=== PATIENT | female | born 1945 | race Caucasian/White ===

== ENCOUNTER 2017-04-06 14:30 | Outpatient (RCR) | payer MEDICARE, OTHER, SELFPAY ==
--- NOTE | 2017-02-21 12:44 | HP.PTEVAL_ITS ---
Patient's Visit Information MAVIS KOO is a 71 year old F referred to Physical Therapy by Varun Sanchez with a diagnosis of Left TKR. Date of Evaluation: 02/21/17 Physical Therapist: Deloris Yen - Visit Plan Frequency: 2x /Week Duration: 4 Weeks Plan: TKR 02/06/[address] Porras- focus on ROM and functional mobility - Subjective Subjective: Patient reports that she had a knee replacement 02/06/[address] Porras- was then transferred to TCU for 10 days. Went [place]- [place] with stairs to get in- but she has a chair lift. She has a woman that comes in 2 days a week to help with laundry, cleaning, cooking, and grocery shopping. Can use her until she feels that she can get back to doing it by herself. Before surgery she was fully I and driving. She reports pain is excrutiating. She was getting 94 degrees of flexion at the hospital with the help of the therapist. Pain at its worst is a 9/10 and Best: 0/10 Agg: being up on it, bending it Eases: elevation, ice machine. Describes pain as dull and achy. Numbness and Tingling in her foot but that is normal for her. She feels that she should be further along because her other knee replacement 3 years ago was a lot easier. Pain is located along the entire leg. Checked for DVT at the hospital but it was negative. PMHx/Meds: no change since surgery. - Objective Posture: FH, RS, Increased kyphosis. Gait: antalgic- FWW, decreased step length and stance time on the left LE- poor heel/toe pattern. Stairs:asc/desc 8 '' non- recip with 2 HR. HR/TR: able without pain but requires UE A. Balance: WS but unable to SLS. Palpation: tender throughout left LE. Edema: moderate. ROM: 10-90 degrees with over pressure at end ranges and pain. Strength: ankle: 5/5, Knee: 4/5 in available range, Hip: 4-/5 - Goals Goal 1:: Patient will be I with HEP and progression Goal Time Frame: 4-6 Weeks Goal 2:: Patient will demo 0-115 degrees in the left LE Goal Time Frame: 4-6 Weeks Goal 3:: Patient will asc/desc 8 stairs recip with 1 HR Goal Time Frame: 4-6 Weeks Goal 4:: Patient will report 2/10 pain and return to all normal activities Goal Time Frame: 4-6 Weeks - Rehabilitation Potential Physical Therapy Diagnosis: Patient presents with hypmobility s/p TKR- decreased ROM, strength and muscular endurnace leading to decreased ability to perform ADL's. Rehabilitation Potential: Good - Anticipated Interventions Patient/Client Instruction: Educate patient on: Benefits of Fitness Program For the Purpose of:: To increase tolerance to activity/condition/position Therapeutic Exercise to Include: Strength training, Endurance training, Balance training, Agility training, Body mechanics, Postural training, Flexibilty training, Gait and locomotor training, Passive ROM, Active ROM, Dynamic Lumbar Stabilization For the Purpose of:: To improve muscle performance and motor function TENS: Yes Cryotherapy (ice pack, ice massage): Yes Thermo therapy (hot pack): Yes Ultrasound (thermal/non thermal): No For the Purpose of:: To decrease pain, To decrease swelling/inflammation Thank you for the opportunity to evaluate your patient. For Medicare and Medicare HMO plans, please review the plan of care and approve it. It will need to be FAXED BACK to us at [phone] for Medicare purposes. Please let me know if there are questions or concerns regarding this plan of care. Physician Signature: Date:
--- NOTE | 2017-03-22 15:07 | HP.PTREVAL_ITS ---
Varun Sanchez, It has been my pleasure to treat MAVIS KOO over the last 9 visits for Left TKR. Please see the progress note below for an update on the physical therapy plan of care! Subjective: Patient reports that she is getting along pretty good. Better when she comes to therapy due to stiffness and hard to find ways at home to keep it moving. The swelling is still an issue- she is doing her compression machine at home. Was at the MD last week who was happy with incision healing but really wants her to keep coming to therapy and get this moving. Has been using the walker for 4 years but would like to get back off the walker with the new knee replacements. Objective/Function: Gait: slightly antalgic- slow and poor heel/toe pattern. Posture: FH, RS. Balance: WS. HR/TR: able. Palpation: tender along joint line. ROM: 10-100 degrees. Edema: severe throughout LE. Stairs: non recip with 2 HR Plan Plan: Continue 3x a week for 3 weeks Goals Goal 1:: Patient will be I with HEP and progression Goal Time Frame: 4-6 Weeks Goal Progress: Progressing Goal 2:: Patient will demo 0-115 degrees in the left LE Goal Time Frame: 4-6 Weeks Goal Progress: Progressing Goal 3:: Patient will asc/desc 8 stairs recip with 1 HR Goal Time Frame: 4-6 Weeks Goal Progress: Progressing Goal 4:: Patient will report 2/10 pain and return to all normal activities Goal Time Frame: 4-6 Weeks Goal Progress: Progressing Anticipated Interventions Patient/Client Instruction: Educate patient on: Benefits of Fitness Program For the Purpose of:: To increase tolerance to activity/condition/position Therapeutic Exercise to Include: Strength training, Endurance training, Balance training, Agility training, Body mechanics, Postural training, Flexibilty training, Gait and locomotor training, Passive ROM, Active ROM, Dynamic Lumbar Stabilization For the Purpose of:: To improve muscle performance and motor function TENS: Yes Cryotherapy (ice pack, ice massage): Yes Thermo therapy (hot pack): Yes Ultrasound (thermal/non thermal): No For the Purpose of:: To decrease pain, To decrease swelling/inflammation Please do not hesitate to contact me at [phone] by phone or Fax: if you have questions or concerns regarding this new plan of care! Sincerely, Deloris Yen
--- NOTE | 2017-06-19 10:46 | HP.PT.NRP ---
HP - Discharge Summary (1) - Patient Information MAVIS KOO was seen in my office for initial evaluation on 02/21/17. The following Plan of Care was established for this patient: Initial Frequency: 2x /Week Initial Duration: 4 Weeks - Anticipated Interventions Patient/Client Instruction: Educate patient on: Benefits of Fitness Program For the Purpose of:: To increase tolerance to activity/condition/position Therapeutic Exercise to Include: Strength training, Endurance training, Balance training, Agility training, Body mechanics, Postural training, Flexibilty training, Gait and locomotor training, Passive ROM, Active ROM, Dynamic Lumbar Stabilization For the Purpose of:: To improve muscle performance and motor function TENS: Yes Cryotherapy (ice pack, ice massage): Yes Thermo therapy (hot pack): Yes Ultrasound (thermal/non thermal): No For the Purpose of:: To decrease pain, To decrease swelling/inflammation This patient was last seen in our office . Pertinent comments regarding their Physical therapy will appear below: Patient has not attended therapy in 4 weeks and is appropriate for d/c at this time. At this point I will be discontinuing this patient from physical therapy. I would be happy to see this patient again in the future if found appropriate by the physician. Thank you! Deloris Yen
== END 2017-04-06 19:00 | disposition home or self-care (01) ==
LOC: PT 14:30
PROVIDERS: Family Provider Student in an Organized Health Care Education/Training Program; PCP Student in an Organized Health Care Education/Training Program; Visit Provider Family Medicine Geriatric Medicine
DX: M17.12 Unilateral primary osteoarthritis, left knee (principal); R26.2 Difficulty in walking, not elsewhere classified; Z96.652 Presence of left artificial knee joint
CPT/HCPCS: 97016; 97110; 97161; 97162; 97530

== ENCOUNTER → 2017-04-17 13:03 | Outpatient (CLI) | payer MEDICARE, OTHER, SELFPAY ==
--- NOTE | 2017-04-17 13:00 | CT_ITS ---
STUDY: CT ABDOMEN WITH CONTRAST REASON FOR EXAM: Female, 71 years old. Upper abdominal pain RADIATION DOSAGE (If Supplied By Facility): CTDIvol = ( 17.66 ) mGy, DLP = ( 637.66 ) mGycm TECHNIQUE: Transaxial images were obtained post I.V. administration of 75 ml of Isovue 370 contrast, and with oral contrast. Sagittal and coronal images were reconstructed. Individualized dose optimization techniques were used for this CT. COMPARISON: None. FINDINGS: The visualized lung bases are unremarkable. The visualized portions of the heart are within normal limits. Normal liver. Normal gallbladder and extrahepatic biliary system. Normal spleen. Normal pancreas. Normal bilateral adrenal glands. 1.4 cm simple right renal cortical cyst. Normal left kidney. Normal visualized stomach. Normal small intestine. Normal colon. Appendix and some bowel not included within the [id number] in the pelvis. Normal abdominal aorta. Normal inferior vena cava. Normal retroperitoneum. Normal abdominal wall. Moderate dextroconvex scoliosis and multilevel vacuum disc phenomenon. CT/Abdomen WITH IV Contrast IMPRESSION: Normal enhanced CT of the abdomen. Electronically Signed: Blanco Sanders MD at 23:56 EST , Service support ,
[2017-04-17 13:20] LABS: CREATININE FINGERSTICK 0.8 mg/dL (0.55-1.02); EGFR FINGERSTICK > 60.0000 mL/min (>60)
== END ==
PROVIDERS: Family Provider Student in an Organized Health Care Education/Training Program; PCP Student in an Organized Health Care Education/Training Program; Visit Provider Surgery
DX: R10.9 Unspecified abdominal pain (principal)
CPT/HCPCS: 74160; Q9967

== ENCOUNTER 2017-05-19 06:28 | Day surgery (SDC) | payer MEDICARE, OTHER, SELFPAY ==
[2017-05-19] VITALS (7 sets, daily range): BP systolic 92–118; BP diastolic 50–75; PULSE 69–73; RESP 14–16; TEMP 36.3–37.2; O2SAT 93–99; BMI 34.6
--- NOTE | 2017-05-19 | IMM_PTH ---
PATIENT: MAVIS KOO LOC: EN U#:[id number] AGE/SX: 71/F ROOM: RE05/19/[address]: Dr. Isaac Norris MD : 1945 BED: DIS: 05/19/2017 SPEC #: [id number] RECD: 05/22/17 11:23 STATUS: JEFF SUE #: [id number] FELIBERTO: 05/19/17 00:[address]: Isaac Norris DEPT: IMMUNOHISTOCHEMISTRY RECD BY: Berkley Jj ENTERED: 05/22/17 11:23 SP TYPE: IMMUNO OTHR DR: Dr. Samuel Hull, Tissues: B - Stomach, NOS Procedures: H Pylori (initial) PHYSICIAN & INSTITUTION [place] [address] SPECIMEN INFORMATION: Tissue Source: B ? Antral biopsy Clinical Info: Screen Specimen Number: [id number] CPT code: 43307 METHODOLOGY: Deparaffinized sections of prefer/formalin-fixed tissue or PAP/DQ stained slides are incubated with monoclonal/polyclonal antibodies/oligonucleotide probes. Localization is made via biotin free immunoperoxidase method. Appropriate controls are performed and reacted as expected. Results on target cell population are indicated in the following table: RESULTS: ANTIBODY / CLONE RESULT Block B H Pylori (polyclonal) negative These tests were developed and their performance characteristics determined by [facility]. They may not have been cleared or approved by the U.S. Food and Drug Administration. The FDA has determined that such clearance or approval is not necessary. INTERPRETATION: B. Antral biopsy: Negative for Helicobacter pylori organisms. SJ:flo 05/23/17
--- NOTE | 2017-05-19 | EGD_PTH ---
PATIENT: MAVIS KOO LOC: EN U#:[id number] AGE/SX: 71/F ROOM: RE05/19/[address]: Dr. Isaac Norris MD : 1945 BED: DIS: 05/19/2017 SPEC #: [id number] RECD: 05/19/17 11:21 STATUS: JEFF SUE #: [id number] FELIBERTO: 05/19/17 00:[address]: Isaca Norris DEPT: SURGICAL PATHOLOGY RECD BY: Derek Garibay ENTERED: 05/19/17 12:09 SP TYPE: EGD BIOPSY OT DR: Dr. Samuel Hull, Tissues: A - Duodenum, NOS B - Gastric mucous membrane C - Esophageal mucous membrane Procedures: Surgery Specimen Level IV HEADER OPERATION: EGD PRE-OP DIAGNOSIS: Screen TISSUE SUBMITTED: A ? Duodenal biopsy, B ? Antral biopsy and H. pylori, C ? Distal esophagus biopsy MICROSCOPIC DIAGNOSIS A. Duodenal biopsy: Fragment of small intestinal mucosa, no pathologic diagnosis. B. Antral biopsy: Mild gastritis. C. Distal esophagus, biopsy: Fragments of squamous epithelium with minimal chronic inflammation. SJ:flo 05/22/17 COMMENT B. The results of immunohistochemistry for Helicobacter pylori will be reported separately ([id number]). MICROSCOPIC DESCRIPTION Slides are reviewed. B. The specimen shows fragments of gastric mucosa with chronic inflammatory cell infiltrates in the lamina propria consisting of lymphocytes and plasma cells, consistent with mild chronic gastritis. GROSS DESCRIPTION A - Received in fixative is one container labeled with the patient's name and designated duodenal biopsy. The specimen consists of multiple irregular fragments of light morales soft tissue that in aggregate measure 0.6 x 0.5 x 0.1 cm. The specimen is totally submitted in one cassette. B - Received in fixative is one container labeled with the patient's name and designated antral biopsy. The specimen consists of one irregular fragment of light morales soft tissue that measures 0.6 x 0.3 x 0.1 cm. The specimen is totally submitted in one cassette. C - Received in fixative is one container labeled with the patient's name and designated distal esophagus. The specimen consists of two irregular fragments of light morales soft tissue that in aggregate measure 0.6 x 0.6 x 0.1 cm. The specimen is totally submitted in one cassette. / AM:flo 05/19/17 TC:3 CPT: 27864 x3
--- NOTE | 2017-05-19 07:52 | PCM.OPRPT ---
Problem List (1) Epigastric pain Status: Acute Report of Operation Date of Procedure: 05/19/17 Pre-Operative Diagnosis: Epigastric pain Post-Operative Diagnosis: Antral gastritis, suspected bile reflux gastritis Surgery/Procedure Performed:: Esophagogastroduodenoscopy with biopsies Description of Surgical Findings:: Timeout and informed consent was obtained. 71-year-old female was taken to the endoscopy suite. Her oropharynx anesthetized with Topex. She was placed in left loud skin position. Throughout the procedure in aliquots she received a total of 75 mg of Demerol and 2.5 mg of Versed is intravenous sedation. Under direct physician Terrance gastroscope inserted into the esophageal inlet was advanced without difficulty. The proximal mid distal esophagus did not appear to be remarkable. EG junction was at 37 cm. A small hiatal hernia was indeed noted. I did not see any gross evidence of reflux changes. The scope was advanced into the stomach and immediately stomach full of bile was encountered. There was mild antral erythema. The scope was advanced through the pylorus for circumflex first and second portions of the duodenum were inspected. This did not appear to be remarkable. Duodenal biopsy was obtained. The scope was withdrawn back in the stomach retroflexed the EG junction was inspected. A hiatal hernia noted. The scope was placed back in antegrade viewing position. Greater and lesser curvatures were inspected. A mild diffuse erythema of the antrum noted. No ulcerations. The scope was advanced back down and antral biopsy was obtained. Excess fluid and air was aspirated free. The scope was withdrawn to the distal esophagus were distal esophageal biopsy was obtained. The scope was further withdrawn without additional abnormality. Impression Mild antral gastritis. Significant amount of bile staining of the stomach suspicious for bile reflux gastritis. Hiatal hernia. I will recommend initiated patient on sucralfate 1 g before meals and at bedtime. She will be notified of pathology results. If this resolves her abdominal pain that no further surgical intervention will be pursued. If her abdominal pain persists then she will need to consider whether she pursues a more technically challenging laparoscopic cholecystectomy for tentative biliary dyskinesia with increased operative risk secondary to a previous large mesh ventral hernia repair. Cc: Dr. Hull Medications were given at 0742. Procedure was initiated 0743. The procedure was completed at 0748. Isaac Norris M.D., F.A.C.S. Type of Anesthesia:: IV Sedation
== END 2017-05-19 08:50 | disposition home or self-care (01) ==
LOC: EN 06:28 → AC 06:31
PROVIDERS: Family Provider Student in an Organized Health Care Education/Training Program; PCP Student in an Organized Health Care Education/Training Program; Visit Provider Surgery
PROC: (CPT 43239; principal; 2017-05-19 07:25)
DX: K21.0 Gastro-esophageal reflux disease with esophagitis (principal); K29.70 Gastritis, unspecified, without bleeding; K44.9 Diaphragmatic hernia without obstruction or gangrene; G47.30 Sleep apnea, unspecified; Z85.038 Personal history of other malignant neoplasm of large intestine; Z87.19 Personal history of other diseases of the digestive system; E53.8 Deficiency of other specified B group vitamins; I25.10 Atherosclerotic heart disease of native coronary artery without angina pectoris; Z86.59 Personal history of other mental and behavioral disorders; Z86.39 Personal history of other endocrine, nutritional and metabolic disease; R73.01 Impaired fasting glucose; G25.81 Restless legs syndrome; J30.9 Allergic rhinitis, unspecified; I10 Essential (primary) hypertension; N81.10 Cystocele, unspecified; G62.9 Polyneuropathy, unspecified; M21.331 Wrist drop, right wrist; I83.215 Varicose veins of right lower extremity with both ulcer other part of foot and inflammation; L97.512 Non-pressure chronic ulcer of other part of right foot with fat layer exposed; Z87.2 Personal history of diseases of the skin and subcutaneous tissue; M17.12 Unilateral primary osteoarthritis, left knee; R01.1 Cardiac murmur, unspecified; Z86.69 Personal history of other diseases of the nervous system and sense organs; Z96.651 Presence of right artificial knee joint; Z90.49 Acquired absence of other specified parts of digestive tract; Z79.82 Long term (current) use of aspirin; Z79.899 Other long term (current) drug therapy
CPT/HCPCS: 43239; 88305; 88342; J7120

== ENCOUNTER → 2017-06-30 08:07 | Outpatient (CLI) | payer MEDICARE, OTHER, SELFPAY ==
--- NOTE | 2017-06-30 08:25 | RAD_ITS ---
PROCEDURE: SMALL BOWEL SERIES DATE OF EXAMINATION: June 30, 2017. INDICATION: Female, 71 years old. Chronic abdominal pain and abdominal pressure. PHYSICIAN: mOar Blake M.D. FLUOROSCOPY TIME (if supplied): (0:37) minutes/seconds TECHNIQUE: Radiographic and fluoroscopic images were taken of the small intestine following the ingestion of barium. COMPARISON: None. FINDINGS: A preliminary supine KUB was obtained. There is an unremarkable bowel gas pattern. Fecal material is present throughout the colon. Phleboliths are present within the pelvis. Increased linear markings at the lung bases suggestive scarring and/or linear atelectasis. Mild elevation of the right hemidiaphragm. Multilevel degenerative changes of the lumbar spine with dextroscoliosis. The patient orally ingested approximately 12 ounces of thin barium Normal visualized fundus, body, and antrum of the stomach. Normal duodenal bulb, C-loop, and proximal jejunum. Normal visualized mucosal folds of the jejunum and ileum. There are no demonstrated dilatations, strictures, or masses of the small intestine. There is no mass displacement of the loops of small intestine. There is a normal motor pattern with barium reaching the colon within approximately 90 minutes. Spot films under fluoroscopic observation demonstrated a normal terminal ileum and ileocecal valve. RAD/Small Bowel Series Only IMPRESSION: Normal small bowel series. Electronically Signed: Omar Blake MD at 12:42 EDT Tel [phone], Service support ,
== END ==
PROVIDERS: Family Provider Student in an Organized Health Care Education/Training Program; PCP Student in an Organized Health Care Education/Training Program; Visit Provider Internal Medicine Gastroenterology
DX: R10.9 Unspecified abdominal pain (principal); G89.29 Other chronic pain
CPT/HCPCS: 74250

== ENCOUNTER 2017-08-12 19:17 | Emergency (ER) | payer MEDICARE, OTHER, SELFPAY ==
[2017-08-12 19:18] VITALS: BP 156/78; PULSE 91; RESP 18; TEMP 36.7; O2SAT 97; BMI 35.7
--- NOTE | 2017-08-12 19:33 | NURSING ---
PT ARRIVES W/ACTIVE NOSEBLEED. STATES THIS HAS BEEN HAPPENING FREQUENTLY, INCLUDING 2X TODAY. KNOWN TO DR PAT, BUT HAS NOT SEEN HIM FOR SEVERAL YEARS.
[2017-08-12] MEDS: HYDROcodone Bitartrate/Apap 5/325 Tablet PO (21:11)
[2017-08-12 21:17] VITALS: BP 154/82; PULSE 69; RESP 18; O2SAT 96
[2017-08-12 21:35] LABS: Hematocrit 35.8 % (37-47); Hemoglobin 11.7 g/dl (12.0-15.0); Mean Corp Hgb Conc 32.7 g/gl (32-36); Mean Corpuscular Hgb 28.2 pg (27.0-32.0); Mean Corpuscular Volume 86.3 fL (81-99); Mean Platelet Vol. 8.1 fl (6.2-12.0); Platelet Count 259 K/mm3 (150-450); RBC Distribution Width CV 14.6 % (11.6-14.6); RBC Distribution Width SD 46.2 fl (35.1-43.9); Red Blood Count 4.15 M/mm3 (4.2-5.4); Scan Indicated on CBC? Y/N NO; White Blood Count 7.4 K/mm3 (4.4-11.0)
[2017-08-12 21:40] LABS: International Normalized Ratio 1.1
[2017-08-12 21:45] LABS: Anion Gap 8 (5-15); BUN 14 mg/dL (7-18); BUN/Creat Ratio 23.3 RATIO (10-20); Calcium,Total 9.1 mg/dL (8.5-10.1); Chloride 106 mmol/L (98-107); EST Glomerular Filtration Rate 105 mL/min (>60); Est Glom Filt Rate - Afr Amer 126 mL/min (>60); Glucose 117 mg/dL (74-106); Potassium 3.9 mmol/L (3.5-5.1); Sodium Level 138 mmol/L (136-145)
[2017-08-12 22:00] VITALS: O2SAT 88
--- NOTE | 2017-08-12 22:14 | ED.DCSUM_ITS ---
- ER Visit Summary Date of Service: 08/12/17 Chief Complaint: Epistaxis History of Present Illness: The patient is a 71 F who presents with epistaxis. No history of prior similar symptoms she is on a baby aspirin but no other antiplatelet agents or anticoagulants. Her symptoms began about 2-1/2 hours ago. She was unable to control her bleeding so presented here. She otherwise denies any complaints such as chest pain shortness of breath lightheadedness dizziness. Physical Examination: Afebrile vitals are stable Patient has brisk epistaxis from the right nostril I am unable to clearly identify a source of bleeding due to active bleeding. Moist mucous membranes Heart regular rate and rhythm Lungs clear Abdomen soft Alert Test Results: Labs notable for hemoglobin 11.7 otherwise essentially normal. Emergency Department Course and Treatment: An Afrin-soaked cotton ball was placed in the right nare. When this was removed there was a large clot as well. A 7-1/2 cm Rhino Rocket type packing was placed. Her bleeding does appear to be well-controlled. She has some very minimal oozing from the left but no evidence of active significant bleeding. On reevaluation with packing in place she is desaturating to 86%. We will place patient on nasal cannula through the left nostril. Given the hypoxia and ongoing mild oozing I did feel the patient should be placed in observation. I also spoke to Dr. Dominguez, otolaryngology who advised continuing current treatment. Patient can follow-up as an outpatient in couple of days for packing removal. Treatment Plan: [] Disposition: Admit Impression: Epistaxis Right nasal packing This note was generated with [employer] dictation software. It may contain incorrect words, spelling, and punctuation that were not noted in review of the chart prior to signing ED Disposition - Plan for ED Patient: Chief Complaint: Nosebleed Referrals: Samuel Hull DO [Primary Care Provider] -
--- NOTE | 2017-08-12 22:51 | ED.DEP ---
ED Disposition - Plan for ED Patient: Chief Complaint: Nosebleed Instructions: Nosebleed Referrals: Samuel Hull DO [Primary Care Provider] - Blanco Dominguez MD [STAFF PHYSICIAN] -
--- NOTE | 2017-08-12 22:58 | NURSING ---
PT ABDOULAYE;[address]. STATES SHE NEEDS TO CARE FOR HER DOG AT HOME. VERBALIZES UNDERSTANDING OF RISKS.
== END 2017-08-12 22:59 | disposition left against medical advice (07) ==
LOC: ED 20:52
PROVIDERS: Emergency Provider Emergency Medicine; Family Provider Student in an Organized Health Care Education/Training Program; PCP Student in an Organized Health Care Education/Training Program
DX: R04.0 Epistaxis (principal); R09.02 Hypoxemia; I10 Essential (primary) hypertension; K21.9 Gastro-esophageal reflux disease without esophagitis; Z79.82 Long term (current) use of aspirin; Z79.899 Other long term (current) drug therapy
CPT/HCPCS: 30903; 80048; 85027; 85610; 99283; A4216

== ENCOUNTER 2017-10-06 12:30 | Outpatient (RCR) | payer MEDICARE, OTHER, SELFPAY ==
--- NOTE | 2017-09-14 19:04 | HP.PTEVAL_ITS ---
Patient's Visit Information MAVIS KOO is a 71 year old F referred to Physical Therapy by Lemuel Porras with a diagnosis of s/p L TKA. Date of Evaluation: 09/14/17 Physical Therapist: Alexandre Messina DPT, [place] - Visit Plan Frequency: 3x /Week Duration: 4-6 Weeks Plan: 3x/week for 4-6 for. 1. gait training withotu AD for balance and confidence. 2. ROM and strength to L knee and B LE adn progress to sink HEP - Subjective Subjective: L TKA in January due to pain in L knee. R TKA 3-4 years ago and did great. L one not as well. L knee is stiff and painful daily 0-7. Pain is anterior and posterior. Comfortable at rest currently but does hurt if sits too long. Being on it alot might contribute to pain. PT after TKA was not as good. Had rehab floor and no home therapy. Had outpatient PT with Deloris. It went OK and would have got better but needed to stop due to another health issue (stomach issue) and never finished PT. None since and stomach issue was never figured out. Sleep is not good alot because knee hurts. Has neuropathy in feet ehich makes it hard to walk. Uses wh walker all the time. Feet hurt especially L heel. Steps at home x 4 and uses cane and L foot becasue R knee hurts too. Exercises at home include some ROM for knee. Hard to straighten. Work is retired. Does basic ADLsa which are slow but doable. Needed wh walker before surgery. Hobbies: no time. Spends day cleaning house and laundry. Has dog but doesnot walk her becuase she cannot.Has neuropathy but not sure what it is from. Balance no good?!? No falls, No LOB. No spinning. - Pain L knee Pain Intensity (Out of 10): 0 Pain Intensity Range: 0, 7 - Objective L knee -3 to 102 AROM, R knee 0-112, L knee has pain at both end ranges. Ujnable to SLR L without 5 degree lag but can do right. Walks with walker with good step length and gait pattern slightly hunched forward. Without AD unable to walk, looks mentally blocked and does not trust L. Can walk slowly with R UE on AD. Transfers out of chair with UE I but slow. Steps are reciprocal but L hurts and needs rail to pull. Hip strength is 3/5 B abd and extension and 3+ in flexion and 4 in adduction. knee strength ext adn flexion at 4- L and 4 on R without increased pain. Ankle movement is good and strength at 4/5. Needs wh walker to ambulate today, see FGA. Sensation in distal LE seems diminished to gross light touch. - Balance Scores Functional Gait Assessment Score: 13 % Disability: 56.6700 - Goals Goal 1:: 0-115 AROM to help with stpes and pain Goal Time Frame: 4-6 Weeks Goal 2:: Pain 0-2/10 at all times and 75% improved. Goal Time Frame: 4-6 Weeks Goal 3:: Steps with one rail reciprocally Goal Time Frame: 4-6 Weeks Goal 4:: Walk 150 feet without AD safe and I on firm flat surface Goal Time Frame: 4-6 Weeks - Rehabilitation Potential Physical Therapy Diagnosis: s/p L TKA Jan 2017 Rehabilitation Potential: Questionable - Anticipated Interventions Patient/Client Instruction: Educate patient on: Condition, Plan of Care For the Purpose of:: To decrease pain, To increase ROM, To improve muscle performance and motor function, To improve gait and locomotor functions Therapeutic Exercise to Include: Strength training, Balance training, Flexibilty training, Gait and locomotor training, Passive ROM, Active ROM For the Purpose of:: To decrease pain, To increase ROM, To improve muscle performance and motor function, To improve ability of physical actions for home/ community/work/leisure Thank you for the opportunity to evaluate your patient. For Medicare and Medicare HMO plans, please review the plan of care and approve it. It will need to be FAXED BACK to us at [phone] for Medicare purposes. Please let me know if there are questions or concerns regarding this plan of care. Physician Signature: Date:
--- NOTE | 2017-10-06 13:31 | HP.PTDCSUM ---
HP - PT D/C Summary It has been my pleasure to treat MAVIS KOO under orders from Lemuel Porras, for the diagnosis of s/p L TKA for a total of 10 visit(s). Discharge Date: 10/06/17 Please see the following information for a summary of their discharge status. - Subjective Subjective: A little better. Knee does not hurt as much, felt really good yesterday even on the steps. Today is good also. Was hurting earlier in the week at 7/10. Using wh walker most of time and used cane yesterday safe and comfortable. Sleep is not interrupted by knee. Feet hurt alot and seeing family doctor Monday about her feet pain. Has circulation machine that she does 2x/day but her foot pain holds her back more than knee. HEP for knee includes ROM ext adn flexion, as well as sink exercises daily. - Pain L knee Pain Intensity (Out of 10): 0 R heel Pain Intensity (Out of 10): 10 - Overall Improvement % Improvement: 50 - Objective Objective/Function: 0-105 AROM L KNee. Walks with wh walker Mod I. Cane slow and short R step but mod I on firm flat surface, No AD needs Min A and very short R step length. Steps are reciprocal and needs rail, very tiring. PATIENT IS MAKING SLOW PROGRESS AND HAS HOME EX PROGRAM. HER FOOT PAIN IS LIMITING HER TOLERANCE TO PT. SHE MINH DDRESS THIS WITH FAMILY DOCTOR MONDAY AND ASK TO COME BACK IF NEEDED WHEN FEET FEEL BETTER. - Goals Goal 1:: 0-115 AROM to help with stpes and pain Goal Progress: Progressing Goal 2:: Pain 0-2/10 at all times and 75% improved. Goal Progress: Progressing Goal 3:: Steps with one rail reciprocally Goal Progress: 2 rails needed. Goal 4:: Walk 150 feet without AD safe and I on firm flat surface Goal Progress: 10 feet today Min A - Plan Plan: d/c, PT TO DOCTOR FOR ADDRESS FOOT PAIN. - D/C Information Discharge Comments: Pt doing Ok with slow knee progress.HER FOOT PAIN IS LIMITING HER TOLERANCE TO PT. SHE WILL ADDRESS THIS WITH FAMILY DOCTOR MONDAY AND ASK TO COME BACK IF NEEDED WHEN FEET FEEL BETTER. If there are questions or concerns regarding this patient's physical therapy, please feel free to call me at [phone]. Thank you for the referral of this patient. Sincerely, Alexandre Messina, CHARANJITT, OC
== END 2017-10-06 19:00 | disposition home or self-care (01) ==
LOC: PT 12:30
PROVIDERS: Family Provider Student in an Organized Health Care Education/Training Program; PCP Student in an Organized Health Care Education/Training Program; Visit Provider Orthopaedic Surgery
DX: M25.562 Pain in left knee (principal); G89.18 Other acute postprocedural pain; Z96.652 Presence of left artificial knee joint
CPT/HCPCS: 97110; 97116; 97162; 97530

== ENCOUNTER 2018-06-12 14:00 | Outpatient (RCR) | payer MEDICARE, OTHER, SELFPAY ==
--- NOTE | 2018-04-10 16:16 | HP.PTEVAL ---
Patient's Visit Information MAVIS KOO is a 72 year old F referred to Physical Therapy by Samuel Hull DO with a diagnosis of abnormality of gait, L knee stiffness. Date of Evaluation: 04/10/18 Physical Therapist: CHARANJIT WhittenT, OCS, CSCS - Visit Plan Frequency: 3x /Week Duration: 4-6 Weeks Plan: 3x/week for 3-6 weeks... 1. MH adn LB flexiona dn rotation bias stretches. 2. Balance exercises and gait with decreasing AD(cane to none) as much as back will tolerate, HS and gastroc stretches. 3. Work toward HEP for sink ex balance and strength. Give frequent rests as needed for LB. - Subjective Findings: I can't walk without walker! Balance is no good. Been bad for 3 years. Doctor thought it was about time. Some pain in L knee after TKA years ago but not always. Gets stiff. Uses wh walker much of time out and about. Cane at home. Steps at home with cane no rail. No falls. No spinning dizzyness, just unsteady sometimes. Has neuropathy in LE without cause. Sleep is OK. Retired retail business. Activities: taking care of dog letting in and out. Cleaning house takes time. Dress and cooks OK, shower/bathroom OK. No regular exercises. - Pain L knee Pain Intensity (Out of 10): 0 Pain Intensity Range: 0, 4 - Objective L pelvis lower vs R, hyperlordosis L/S , back pain with ambulation with cane. 8/10 after 60 feet adn needed to sit with immediate relief. Pt hunches over adn relies on walker, hard time with cane. Recommended wh walker fpc. Trasnfer I with UE. Knee ROM WFL, stiff on L. LB AROM is max limited in ext with pain, R SB limited > L. flexion is min limited. LE stregnth 3+/5 without pain, HS/gastroc max tight. reflexes 0/3 patella and achilles. Sensation LE to gross loght touch WNL. Limiting factor is patients inability to ambulate without wh walker . 60 feet without a rest. Short R step length. - Balance Scores Functional Gait Assessment Score: 14 % Disability: 53.3400 - Goals Goal 1:: pateint ambulate 120 feet in PT with cane without increased back pain. Goal Time Frame: 4-6 Weeks Goal 2:: FGA score 20/30 to diminish future risks. Goal Time Frame: 4-6 Weeks Goal 3:: Pt I approp HEP for LB ROM and balance Goal Time Frame: 4-6 Weeks - Rehabilitation Potential Physical Therapy Diagnosis: abnormality of gait limited by degenerative changes in LB. Rehabilitation Potential: Fair - Anticipated Interventions Patient/Client Instruction: Educate patient on: Condition, Plan of Care For the Purpose of:: To decrease pain, To improve muscle performance and motor function, To improve ability of physical actions for home/community/work/leisure Therapeutic Exercise to Include: Strength training, Flexibilty training, Passive ROM, Active ROM, Dynamic Lumbar Stabilization For the Purpose of:: To decrease pain, To improve balance, To improve safety with gait Thermo therapy (hot pack): Yes For the Purpose of:: To decrease pain Thank you for the opportunity to evaluate your patient. For Medicare and Medicare HMO plans, please review the plan of care and approve it. It will need to be FAXED BACK to us at [phone] for Medicare purposes. For Medicare only, by signing this I certify the plan of care. Please let me know if there are questions or concerns regarding this plan of care. Physician Signature: Date:
--- NOTE | 2018-05-04 15:22 | HP.PTREVAL ---
Samuel Hull, DO, It has been my pleasure to treat MAVIS KOO over the last 10 visits for abnormality of gait, L knee stiffness. Please see the progress note below for an update on the physical therapy plan of care! Subjective: Doing better overall. Walk with cane at home now. SOB today mildly. Balance is better a little. 60% better, needs to work on confidence with walking. Objective/Function: Walking with cane I , short stance time L today maybe due to hip pain. Safe on firm flat surface 120 feet with mild SOB half way and better at end of session. FGA is slightly improved by two points. SLOW IMPROVEMENT AND STILL APPROPRIATE FOR PT. Plan Plan: gAIT AND BALANCE, MH TO LB NEEDED. WILL CONTINUE LB AND SINK EXERCISES AT HOME AND ADD SOME CORE STRENGTH, FAIR PROGNOSIS TOWARD REMAINING GOAL. Goals Goal 1:: pateint ambulate 120 feet in PT with cane without increased back pain. Goal Time Frame: 4-6 Weeks Goal Progress: Goal Met Goal 2:: FGA score 20/30 to diminish future risks. Goal Time Frame: 4-6 Weeks Goal Progress: Progressing, APPROP. Goal 3:: Pt I approp HEP for LB ROM and balance Goal Time Frame: 4-6 Weeks Goal Progress: sink ex/ and back. Anticipated Interventions Patient/Client Instruction: Educate patient on: Condition, Plan of Care For the Purpose of:: To decrease pain, To improve muscle performance and motor function, To improve ability of physical actions for home/community/work/leisure Therapeutic Exercise to Include: Strength training, Flexibilty training, Passive ROM, Active ROM, Dynamic Lumbar Stabilization For the Purpose of:: To decrease pain, To improve balance, To improve safety with gait Thermo therapy (hot pack): Yes For the Purpose of:: To decrease pain Please do not hesitate to contact me at [phone] by phone or if you have questions or concerns regarding this new plan of care! Sincerely, Alexandre Messina, DPT, OCS, CSCS
--- NOTE | 2018-06-12 15:20 | HP.PTDCSUM ---
HP - PT D/C Summary It has been my pleasure to treat MAVIS KOO under orders from Samuel Hull DO, for the diagnosis of abnormality of gait, L knee stiffness for a total of 17 visit(s). Discharge Date: 06/12/18 Please see the following information for a summary of their discharge status. - Subjective Subjective: Balance had gotten better. Neuropathy holds her back as does foot pain. Was hard to walk with R ankle pain last night and todya, that happens intermittently. No falls lately. Uses walker at home and at grocery store. Uses cane in house if feeling good. Doing strength exercises at sink at home. Had chest x ray last week adn will see specialist...as she may have pneumonia. On antibiotic. - Pain L knee Pain Intensity (Out of 10): 0 feet Pain Intensity (Out of 10): 7 LB pain Pain Intensity (Out of 10): 0 - Overall Improvement % Improvement: 75 - Objective Objective/Function: Pt trasnfers and walks with cane on firm surface I but slow and with R antalgia today. She gets SOB very quickly after 150 feet adn two stairs needs rest. FGA is no different over last POC. Overall, her SOB is holding her back and is appropriate to keep doctoring for that. - Goals Goal 1:: pateint ambulate 120 feet in PT with cane without increased back pain. Goal Progress: Goal Met Goal 2:: FGA score 20/30 to diminish future risks. Goal Progress: Not Progressing Goal 3:: Pt I approp HEP for LB ROM and balance Goal Progress: strength adn ROM - Plan Plan: D/C to [facility] - D/C Information Discharge Comments: Progress has halted adn pateint to continue via HEP. May be appropriate for more pT once breathing issues taken care of if she can tolerate more. If there are questions or concerns regarding this patient's physical therapy, please feel free to call me at [phone]. Thank you for the referral of this patient. Sincerely, Alexandre Messina, DPT, OCS, CSCS
== END 2018-06-12 19:00 | disposition home or self-care (01) ==
LOC: PT 14:00
PROVIDERS: Family Provider Student in an Organized Health Care Education/Training Program; PCP Student in an Organized Health Care Education/Training Program; Referring Provider Student in an Organized Health Care Education/Training Program; Visit Provider Student in an Organized Health Care Education/Training Program
DX: M47.816 Spondylosis without myelopathy or radiculopathy, lumbar region (principal); R26.89 Other abnormalities of gait and mobility; M51.36 Other intervertebral disc degeneration, lumbar region; Z96.652 Presence of left artificial knee joint
CPT/HCPCS: 97110; 97162; 97530

== ENCOUNTER 2018-10-12 10:19 | Day surgery (SDC) | payer MEDICARE, OTHER, SELFPAY ==
[2018-10-05 08:32] VITALS: BMI 35.7
--- NOTE | 2018-10-08 12:22 | HP_ITS ---
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 Is patient in pain?: No Allergies amitriptyline Adverse Reaction (Verified 10/05/18 08:26) Other codeine Adverse Reaction (Verified 10/05/18 08:26) Other gabapentin Adverse Reaction (Verified 10/05/18 08:26) ONLY IF TAKEN IN LARGE DOSES Medications Cyanocobalamin [Vitamin B12] 1,000 mcg IM Q30D 11/10/14 [History Confirmed 10/05/18] Furosemide [Lasix] 40 mg PO BID 11/10/14 [History Confirmed 10/05/18] Gabapentin [Neurontin] 200 mg PO BID 11/10/14 [History Confirmed 10/05/18] Topiramate [Topamax] 50 mg PO BID 11/10/14 [History Confirmed 10/05/18] Metoprolol Tartrate [Lopressor (beta efra)] 100 mg PO BID 11/11/14 [History Confirmed 10/05/18] Mirapex 0.25 mg PO BID 04/11/17 [History Confirmed 10/05/18] triamcinolone acetonide 0.1 % topical cream 1 applic TOPICAL BID 04/11/17 [History Confirmed 10/05/18] Acetaminophen [Tylenol] 1,000 mg PO Q6H PRN PRN 05/19/17 [History Confirmed 10/05/18] Omeprazole 20 mg PO DAILY 05/19/17 [History Confirmed 10/05/18] Tizanidine HCl 2 mg PO BID PRN PRN 05/19/17 [History Confirmed 10/05/18] potassium chloride 20 mEq oral packet 20 meq PO DAILY 10/05/18 [History Confirmed 10/05/18] vitamins B1 B6 B12 intramuscular ea IM MONTHLY 10/05/18 [History] [facility] Medical History Epigastric pain (Acute) Insomnia (Chronic) Malignant neoplasm of sigmoid colon (Chronic) Hemorrhage of gastrointestinal tract (Chronic) Vitamin B12 deficiency (Chronic) CAD (coronary artery disease) (Chronic) Anxiety (Chronic) Hyperlipidemia (Chronic) Impaired fasting blood sugar (Chronic) RLS (restless legs syndrome) (Chronic) Allergic rhinitis (Chronic) HTN (hypertension) (Chronic) Prolapsed bladder (Chronic) Neuropathy (Chronic) Right wrist drop (Acute) 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 (Acute) Localized edema (Chronic) Non-pressure chronic ulcer of other part of right lower leg with fat layer exposed (Acute) Cellulitis of right lower limb (Resolved) Osteoarthritis of left knee (Chronic) Sleep apnea (Chronic) Vitamin C deficiency (Chronic) Edema (Chronic) Neuropathic pain (Chronic) GERD (gastroesophageal reflux disease) (Chronic) Migraine (Chronic) Abdominal pain (Acute) Biliary dyskinesia (Acute) History of hysterectomy (Acute) history la incisional hernia repair (Acute) history lap incisional hernia repair (Acute) Chronic cholecystitis (Chronic) Surgical History H/O: hysterectomy (Acute) History of appendectomy (Acute) History of colectomy (Acute) History of colonoscopy (Acute ~2010) History of foot surgery (Acute) History of total right knee replacement (Acute) History of umbilical hernia repair (Acute) history lap incisional hernia re[pair (Acute) Family History Mother Brain aneurysm Father Heart disease Daughter Cancer Grandfather Cancer Aunt Diabetes Brother Cancer Pancreatic cancer Social History (Updated 10/08/18 @ 12:23 by Ramiro Ann MD) Smoking Status: Never smoker alcohol intake: current alcohol intake frequency: a few times a month substance use type: does not use HPI HPI HPI: MAVIS KOO, is a 72 F who presents to the office today for HPI HPI Surgical H&P: Yes HPI: MAVIS KOO, is a 72 F who presents to the office today for evaluation for biliary dyskinesia. Patient has been experiencing epigastric and right upper quadrant abdominal pain for many years. Is been worse over the last 3 to 6 months. Of 08/24/2018 she underwent a HIDA scan with ejection fraction which showed that her gallbladder was functioning at 2%. Previously to that in 2017 it was functioning at 5%. Patient was seen by Dr. Norris in 2018. His HPI read as: The patient states that for well over a year she has been having problems with mid abdominal pain. She points right to the supraumbilical area. She is unable to describe the pain. She states as if it is popping. She states that it occurs after eating. She does not take any antacids. She states that it becomes constant. When asked today whether she was in pain however she says no. I had seen her in consultation April 04, 2016. I recanted that June 09, 2010 I had performed a periumbilical incarcerated ventral incisional hernia repair laparoscopically with a Bard composite 17.8 x 22.9 cm mesh. A secure fix tacker was utilized. Excellent coverage of the infraumbilical and periumbilical incisional defect was achieved. Because of neuropathy problem she is previously be on gabapentin. She states that she is not currently on that. March 24, 2016 the gallbladder ultrasound was obtained that was normal except possibly a hepatic hemangioma. No gallstones. Common bile duct normal 3 mm. On March 30 she had a hepatobiliary scan. There was prompt uptake of the liver and gallbladder was seen by 54 minutes. The small bowel was seen by 17 minutes. There was an ejection fraction of 5%. The patient had absolutely no discomfort during that procedure. On March 25 an upper GI study with small bowel follow- through showed a very small sliding hiatal hernia with GE reflux. No evidence of obstruction. A few scattered diverticula of the small bowel. The patient denies any back pain. There is no radiation of the pain. No fever or chills or sweats. No nausea or vomiting. No bright red blood per rectum or melena. On September 28 I performed a colonoscopy for her. She has a remote history of colon cancer. I found a patent end-to-end colocolonic anastomosis. Diverticulosis of the sigmoid. Follow-up exam in 5 years was recommended. ROS General General: Yes weight change; no appetite, fatigue, colon cancer, breast cancer or weakness HEENT HEENT: No difficulty swallowing, eye injury, eye surgery, swollen glands or hoarseness Endo Endocrine: No thyroid disease, diabetes mellitus, thyroid cancer, Hair loss, heat intolerance or cold intolerance Skin Skin: No rash or changing moles Breast Breast: No left breast lump, right breast lump, nipple discharge, breast pain, abnormal mammogram, abnormal US or breast enlargement Musc Musculoskeletal: Yes back problems and arthritis; no rheumatoid arthritis, gout or joint pain Cardio Cardiovascular: Yes murmur and high blood pressure; no pacemaker, heart disease, atrial fibrillation, heart attack, heart stent, palpitations, shortness of breat with exertion or chest pain Psych Psychiatric: No depression, anxiety or hearing voices Resp Respiratory: Yes shortness of breath, Yes sleep apnea, No cough, No COPD, No asthma, No emphysema, No wheezing Gastro Gastrointestinal: Yes abdominal pain, No nausea or vomiting, No diarrhea, No constipation, No blood in stool, Yes acid reflux, No hemorrhoids, No ulcers, Yes gallbladder problem, No black,tarry stools Joshua Hematologic: No blood thinners, No blood disorders, No bleeding, No anemia, No blood clots Neuro Neurologic: No system reviewed and no additional complaints, except as docu, No as per HPI, No abnormal walking, No abnormal hearing, No abnormal movements, No abnormal speech, No behavioral changes, No burning sensations, No confusion, No seizure-like activity, No unsteadiness, No dizziness, No localized weakness, No frequent falls, No headache(s), No lack of coordination, No loss of vision, No memory loss, Yes numbness, No other visual disturbances, No radiating pain, No restless legs, No sensory deficit, No fainting, Yes tingling, No tremor(s), No weakness, No other Exam Const General: no acute distress, well developed, well hydrated Orientation: oriented to person, oriented to place, oriented to time [facility] Head: normocephalic, atraumatic Ears: external ears normal Mouth: moist mucous membranes Eyes Sclera: sclerae normal Pupils: normal by confrontation Neck Neck: no lymphadenopathy noted Neck mass: No Thyroid: thyroid normal, symmetrical Chest Chest palpation & inspection: normal inspection of the chest Breast Palpation: No nipple discharge Resp Effort & Inspection: normal respiratory effort Auscultation: clear to auscultation bilaterally Percussion: percussion normal Cardio Rate: regular rate Rhythm: regular rhythm Heart Sounds: murmur GI Palpation: soft, no hepatosplenomegaly, no masses, tender Auscultation: normal bowel sounds Rectal Exam: other Other: Rectal exam deferred. Extrem General: normal to inspection, no clubbing, cyanosis or edema Assessment & Plan Problems 1. Biliary dyskinesia K82.8 2. Abdominal pain, RUQ R10.11 Plan Reviewed the anatomy with the patient and discussed the procedure: laparoscopic cholecystectomy with possible cholangiograms, possible open. Review risks including but not limited to bleeding, infection, hernia, bile leak, retained gallstones requiring another procedure ERCP- Endoscopic Retrograde Cholangiopancreatography, injury to another organ (bile ducts, common bile duct, small bowel, etc.) and conversion to an open procedure. All questions were answered. I have spent an extensive amount of time showing her her previous CAT scans and showing her the overall large size of mesh that is in her abdomen. I think it is worthwhile for me to try to place a Golden trocar in the epigastric area and inflate her abdomen to see if we can see if there is any adhesions within the abdomen itself. I have told her though that if there is an extensive amount of adhesio lysis that is going to undertake I would have to perform an open cholecystectomy on her with a standard right upper quadrant incision to remove her gallbladder. She also understands that there is a significant risk of injury to underlying intestines with this procedure. She is willing to proceed. Plan Detail Goals Decrease pain and spasm Improve posture Improve ROM Barriers Scoliosis DDD Coding Level of Care Code Off vis,new,level 3 Diagnoses Biliary dyskinesia K82.8 Abdominal pain, RUQ R10.11 10/08/18 1223 <Electronically signed by Ramiro mcnamara MD> Date _ Ramiro Ann MD I have re-examined the patient. There are no clinical changes since date of exam.
--- NOTE | 2018-10-09 15:44 | EKG12_ITS ---
Test Reason : PRE OP Blood Pressure : / mmHG Vent. Rate : 062 BPM Atrial Rate : 062 BPM P-R Int : 180 ms QRS Dur : 080 ms QT Int : 418 ms P-R-T Axes : 063 017 067 degrees QTc Int : 424 ms Normal sinus rhythm Possible Left atrial enlargement Borderline ECG Confirmed by YAIMA ORTIZ, MATHIEU ([id number]), editor managing director STEPHANIE PIKE ([id number]) on 10/10/2018 10:52:13 AM Referred By: Ramiro Ann Confirmed By:MATHIEU ERWIN MD
[2018-10-09 16:12] LABS: Hematocrit 32.7 % (37-47); Hemoglobin 10.3 g/dL (12.0-15.0); Mean Corp Hgb Conc 31.5 g/dL (32-36); Mean Corpuscular Hgb 26.5 pg (27.0-32.0); Mean Corpuscular Volume 84.1 fL (81-99); Mean Platelet Vol. 8.6 fl (6.2-12.0); Platelet Count 265 K/mm3 (150-450); RBC Distribution Width CV 15.6 % (11.6-14.6); RBC Distribution Width SD 47.1 fl (35.1-43.9); Red Blood Count 3.89 M/mm3 (4.2-5.4); White Blood Count 4.9 K/mm3 (4.4-11.0)
[2018-10-09 17:03] LABS: Anion Gap 9 (5-15); BUN 16 mg/dL (7-18); BUN/Creat Ratio 21.9 RATIO (10-20); Calcium,Total 9.1 mg/dL (8.5-10.1); Chloride 107 mmol/L (98-107); Creatinine, Serum 0.73 mg/dL (0.55-1.02); EST Glomerular Filtration Rate 83 mL/min (>60); Est Glom Filt Rate - Afr Amer 101 mL/min (>60); Glucose 109 mg/dL (74-106); Potassium 3.9 mmol/L (3.5-5.1); Sodium Level 141 mmol/L (136-145)
[2018-10-12] VITALS (9 sets, daily range): BP systolic 125–180; BP diastolic 66–85; PULSE 57–75; RESP 16; TEMP 36.2–37.4; O2SAT 93–97; BMI 34.4
--- NOTE | 2018-10-12 | GALL_PTH ---
PATIENT: MAVIS KOO LOC: [facility] [place] U#:[id number] AGE/SX: 72/F ROOM: RE10/12/[address]: Dr. Ramiro Ann MD : [id number] BED: DIS: 10/12/2018 SPEC #: [id number] RECD: 10/15/18 12:04 STATUS: JEFF SUE #: [id number] FELIBERTO: 10/12/18 00:[address]: Ramiro Ann DEPT: SURGICAL PATHOLOGY RECD BY: Benson Whyte ENTERED: 10/15/18 12:04 SP TYPE: YUAN RODAS DR: Dr. Samuel Hull, DO Tissues: Gallbladder, NOS Procedures: Surgery Specimen Level III HEADER OPERATION: Laparoscopic cholecystectomy, lysis of adhesions PRE-OP DIAGNOSIS: Biliary dyskinesia, abdominal pain TISSUE SUBMITTED: Gallbladder MICROSCOPIC DIAGNOSIS Gallbladder, cholecystectomy: Mild chronic cholecystitis. No stones are identified in the container or in the gallbladder. SJ:flo 10/16/18 MICROSCOPIC DESCRIPTION Slides are reviewed. GROSS DESCRIPTION Received is one container labeled with the patient's name and designated gallbladder. The specimen consists of a gallbladder measuring 8 cm in length and 3.5 cm in diameter. The external surface is pink-morales, smooth and glistening for the most part. Focally it is granular, hemorrhagic and contains cautery artifact. The gallbladder contains green-yellow mucoid bile. No stones are identified in the container or in the gallbladder. The mucosa is bile-stained and without any mass lesions. The gallbladder wall measures up to 0.1 cm in thickness. Drug And Alcohol Counselor sections from the gallbladder and the cystic duct are submitted in one cassette. / KARELY:flo 10/15/18 TC:3 CPT: 03693
[2018-10-12] MEDS: Cefazolin 2 GM in 0.9% Normal Saline 100 ML IV (12:29)
--- NOTE | 2018-10-12 13:31 | OP.PCM_ITS ---
Problem List (1) Biliary dyskinesia Status: Acute (2) Right upper quadrant abdominal pain Status: Acute Report of Operation Date of Procedure: 10/12/18 Pre-Operative Diagnosis: 1. Biliary dyskinesia. 2. Right upper quadrant abdominal pain Post-Operative Diagnosis: Same Surgery/Procedure Performed:: Laparoscopic cholecystectomy Type of Anesthesia:: General Anesthesiologist: Richard Escobar Specimen's removed: Gallbladder Estimated Blood Loss (mL): < 25 cc Fluids Replaced: 800 cc LR Description of Procedure: Patient was brought in the operating room. Placed in the supine position. Under excellent general trach intubation the abdomen was sterilely prepped draped usual fashion. Local was injected in the subxiphoid area transverse incision was made dissection was carried down to the fascia the fascia grasped w ith 2 stay sutures of 0 Vicryl. Fascia was opened and shoots and the peritoneal cavity was done in an open technique a Golden trocar was placed inside the abdomen the abdomen was insufflated to 15 torr. There was a very small window in the right upper quadrant which showed no adhesions I placed a #5 trocar there I used the Enseal device and took down numerous adhesions of the omentum from the previous mesh that was placed from an incisional hernia in the past. This went quite well virtually no blood loss with this. I placed a umbilical #5 trocar and just above that another #5 trocar under direct visualization without injury to underlying structures. Patient was placed in the head up and rotated to the left position. The fundus of the gallbladder and retracted cephalad direction took moderate amount of adhesions down of the gallbladder with use of the Enseal. I dissected the cystic duct free placed hemoclips proximally distally and ligated the duct. Identified both the cystic artery and the posterior branch of the cystic artery free placed hemoclips proximal distally and ligated these. I deliver the gallbladder from gallbladder bed with use of electrocautery there is no spillage of bile or stones. I placed this a specimen bag delivered through the Golden trocar without difficulty. I reinflated the abdomen use electrocautery on the liver bed good hemostasis was noted. I remove the trochars under direct visualization good hemostasis was noted. I closed the fascia of the subxiphoid area with 2 sutures of 0 Vicryl in [id number] fashion. Local was injected. Deep dermal stitches of 3-0 Vicryl were performed and then on the skin 4-0 Monocryl was used in subcuticular fashion. Steri-Strips were applied sterile dressings were applied and the patient tolerated the procedure well. - Admit VTE Documentation VTE Present on Admission: No VTE Mechan Device Prophylaxis: SCD's VTE Pharm Prophylaxis ordered?: No Reason prophylaxis not ordered:: Treatment Not Indicated
[2018-10-12] MEDS: Bupivacaine Mpf 0.5% 30 ML VIAL (13:32)
--- NOTE | 2018-10-12 13:35 | DCINST_ITS ---
Discharge Diet: Light diet - advance as tolerated Discharge Activity: May Not Drive - for 2-3 days or while taking narcotic pain medications., - - Do not drive, work heavy equipment or sign legal documents for 24 hours. May shower in (days): 1 - with the bandage in place. Additional Activity Instructions:: Pain medication may cause nausea. You should typically eat light foods as you take your pain medications. Pain medication may also cause constipation. If this is a problem for you, please discuss with your doctor. Call your doctor if your incision/area has: Continuous Slow Oozing, Sudden Increased Bleeding, Increased Pain/ Swelling, Increased Redness, Foul Smelling Discharge Call your doctor if you observe: Fever of 101 or Higher Suture Line Care: Avoid Pulling/Pushing, Avoid Pinching/Bending Additional Dressing/Incision Instructions:: Leave operative bandaids on for 2 days. When you remove dressing, leave Steri-Strips on until your follow-up appointment, or until the Steri-Strips fall off on their own. Allergies/Adverse Reactions: Allergies amitriptyline Adverse Reaction (Verified 10/05/18 08:26) Other codeine Adverse Reaction (Verified 10/05/18 08:26) Other gabapentin Adverse Reaction (Verified 10/05/18 08:26) ONLY IF TAKEN IN LARGE DOSES HALLUCINATIONS IF TAKEN IN LARGE DOSES ONLY Medications to take at Discharge Cyanocobalamin [Vitamin B12] 1,000 mcg IM Q30D 11/10/14 Furosemide [Lasix] 40 mg PO BID 11/10/14 Gabapentin [Neurontin] 200 mg PO BID 11/10/14 Topiramate [Topamax] 50 mg PO BID 11/10/14 Metoprolol Tartrate [Lopressor (beta efra)] 100 mg PO BID 11/11/14 Mirapex 0.25 mg PO BID 04/11/17 triamcinolone acetonide 0.1 % topical cream 1 applic TOPICAL BID 04/11/17 Acetaminophen [Tylenol] 1,000 mg PO Q6H PRN PRN 05/19/17 Omeprazole 20 mg PO DAILY 05/19/17 Tizanidine HCl 2 mg PO BID PRN PRN 05/19/17 potassium chloride 20 mEq oral packet 20 meq PO DAILY 10/05/18 Oxycodone HCl/Acetaminophen [Percocet 5/325] 1 - 2 tab PO Q4H PRN PRN 6 Days #30 tab 10/12/18 The following prescriptions were given: Oxycodone HCl/Acetaminophen [Percocet 5/325] 1 - 2 tab PO Q4H PRN PRN 6 Days #30 tab PRN Reason: Pain Prescription Printed Primary Care Physician: Samuel Hull DO [Primary Care Provider] - Test Results: Test results from this visit will be discussed in further detail at your follow- up appointment, if applicable. Please Follow Up With: Ramiro Ann MD - Please call [phone] to schedule an appointment. When: 7 days after your surgery.
--- NOTE | 2018-10-12 16:46 | NURSING ---
straight cath 650cc
== END 2018-10-12 16:49 | disposition home or self-care (01) ==
LOC: SDC 10:21 → AC 10:22
PROVIDERS: Family Provider Student in an Organized Health Care Education/Training Program; PCP Student in an Organized Health Care Education/Training Program; Referring Provider Surgery; Visit Provider Surgery
PROC: (CPT 47610; principal; 2018-10-12 12:15)
DX: K81.1 Chronic cholecystitis (principal); I25.10 Atherosclerotic heart disease of native coronary artery without angina pectoris; F41.9 Anxiety disorder, unspecified; I10 Essential (primary) hypertension; M19.90 Unspecified osteoarthritis, unspecified site; G47.30 Sleep apnea, unspecified; K21.9 Gastro-esophageal reflux disease without esophagitis; G62.9 Polyneuropathy, unspecified; G25.81 Restless legs syndrome; Z85.038 Personal history of other malignant neoplasm of large intestine; Z79.899 Other long term (current) drug therapy
CPT/HCPCS: 47562; 36415; 80048; 85027; 88304; 93005; J7120; C1760; J2405

== ENCOUNTER → 2019-01-18 | Outpatient (CLI) | payer MEDICARE, OTHER, SELFPAY ==
--- NOTE | 2019-01-18 | IMM_PTH ---
PATIENT: MAVIS KOO LOC: [facility] U#:[id number] AGE/SX: 73/F ROOM: RE01/18/[address]: Dr. Ramiro nAn MD : 1945 BED: DIS: 01/18/2019 SPEC #: [id number] RECD: 01/23/19 12:25 STATUS: JEFF REQ #: [id number] FELIBERTO: 01/18/19 00:[address]: Ramiro Ann DEPT: IMMUNOHISTOCHEMISTRY RECD BY: Berkley Jj ENTERED: 01/23/19 12:28 SP TYPE: IMMUNO OTHR DR: Dr. Samuel Hull DO Tissues: A - Left breast, NOS B - Left breast, NOS Procedures: CALPONIN-1 (add) CK5-6 (add) P53 (add) P40 (add) 34BE12 (initial) PHYSICIAN & INSTITUTION [place] [id number] SPECIMEN INFORMATION: Tissue Source: A - Left breast at 9 o'clock, B - Left breast at 1 o'clock Clinical Info: Abnormal left breast mammogram Specimen Number: [id number] A & B CPT code: 15220 x2, 11102 x8 METHODOLOGY: Deparaffinized sections of prefer/formalin-fixed tissue or PAP/DQ stained slides are incubated with monoclonal/polyclonal antibodies/oligonucleotide probes. Localization is made via biotin free immunoperoxidase method. Appropriate controls are performed and reacted as expected. Results on target cell population are indicated in the following table: RESULTS: ANTIBODY / CLONE RESULT Block A 34BE12 (34BE12) negative Calponin-1 (AV562N) negative CK5-6 (D5 & 1684) negative P40 (BC28) negative P53 (DO-7) positive, 3% dim Block B 34BE12 (34BE12) positive Calponin-1 (OB792I) positive CK5-6 (D5 & 1684) positive P40 (BC28) positive P53 (DO-7) positive, 4% These tests were developed and their performance characteristics determined by [facility]. They may not have been cleared or approved by the U.S. Food and Drug Administration. The FDA has determined that such clearance or approval is not necessary. The above immunohistochemical/dualISH markers are ordered and reviewed by the Pathologist. INTERPRETATION: A. Left breast at 9 o'clock, needle core biopsy: Consistent with complex atypical papillary neoplasm. B. Left breast at 1 o'clock, needle core biopsy: Consistent with complex atypical papillary neoplasm. AM:flo 01/24/19
[2019-01-18 14:20] VITALS: BMI 34.4
--- NOTE | 2019-01-18 14:35 | BRBX_PTH ---
PATIENT: MAVIS KOO LOC: [facility] U#:[id number] AGE/SX: 73/F ROOM: RE01/18/[address]: Dr. Ramiro Ann MD : 1945 BED: DIS: 01/18/2019 SPEC #: [id number] RECD: 01/18/19 16:02 STATUS: JEFF SUE #: [id number] FELIBERTO: 01/18/19 14:[address]: Ramiro Ann DEPT: SURGICAL PATHOLOGY RECD BY: Logan Chaney ENTERED: 01/21/19 09:28 SP TYPE: BREAST BX OTHR DR: Dr. Samuel Hull DO Tissues: A - Left breast, NOS B - Left breast, NOS Procedures: Surgery Specimen Level IV HEADER OPERATION: Ultrasound-guided needle core biopsy of left breast at 1 and 9 o'clock PRE-OP DIAGNOSIS: Abnormal left breast mammogram TISSUE SUBMITTED: A - Needle core biopsy of left breast at 9 o'clock, B - Needle core biopsy of left breast at 1 o'clock ISCHEMIC TIME: <1 minute FIXATION TIME: 77 hours MICROSCOPIC DIAGNOSIS A. Left breast at 9 o'clock, needle core biopsy: Fragments of complex atypical papillary neoplasm with associated microcalcifications. See comment. B. Left breast at 1 o'clock, needle core biopsy: Fragments of complex atypical papillary neoplasm.. See comment. AM:flo 01/22/19 COMMENT A & B. Immunohistochemistry ([id number]) supports the above diagnosis. Case has been reviewed in consultation with Dr. Marcum who concurs with the above diagnosis. IDC:SJ MICROSCOPIC DESCRIPTION Slides are reviewed. GROSS DESCRIPTION A - Received in fixative is one container labeled with the patient's name and designated left breast at 9 o'clock. The specimen consists of multiple elongated fragments of morales-yellow fibroadipose tissue that in aggregate measure 1 x 0.5 x 0.1 cm. The entire specimen is submitted in one cassette. B - Received in fixative is one container labeled with the patient's name and designated left breast at 1 o'clock. The specimen consists of multiple elongated fragments of morales-yellow fibroadipose tissue that in aggregate measure 1 x 0.3 x 0.1 cm. The entire specimen is submitted in one cassette. / KARELY:flo 01/21/19 TC: CPT: 77526 x2
== END | disposition home or self-care (01) ==
LOC: LABSPEC 16:13
PROVIDERS: Family Provider Student in an Organized Health Care Education/Training Program; PCP Student in an Organized Health Care Education/Training Program; Referring Provider Surgery; Visit Provider Surgery
DX: R92.8 Other abnormal and inconclusive findings on diagnostic imaging of breast (principal)
CPT/HCPCS: 88305; 88341; 88342

== ENCOUNTER 2019-02-01 11:24 | Day surgery (SDC) | payer MEDICARE, OTHER, SELFPAY ==
[2019-01-18 14:20] VITALS: BMI 34.4
[2019-01-26 11:11] VITALS: BMI 34.4
--- NOTE | 2019-01-26 11:11 | HP_ITS ---
Intake Vital Signs 01/26/19 Body Mass Index (BMI) 34.4 Intake Visit Reasons: Lt Breast Bx 01/18 Chief Complaint: L sided low back pain Allergies amitriptyline Adverse Reaction (Verified 01/18/19 14:19) Other codeine Adverse Reaction (Verified 01/18/19 14:19) Other gabapentin Adverse Reaction (Verified 01/18/19 14:19) ONLY IF TAKEN IN LARGE DOSES [facility] Medical History Chronic cholecystitis (Chronic) Biliary dyskinesia (Acute) Abdominal pain (Acute) History of hysterectomy (Acute) history la incisional hernia repair (Acute) history lap incisional hernia repair (Acute) Epigastric pain (Acute) Insomnia (Chronic) Malignant neoplasm of sigmoid colon (Chronic) Hemorrhage of gastrointestinal tract (Chronic) Vitamin B12 deficiency (Chronic) CAD (coronary artery disease) (Chronic) Anxiety (Chronic) Hyperlipidemia (Chronic) Impaired fasting blood sugar (Chronic) RLS (restless legs syndrome) (Chronic) Allergic rhinitis (Chronic) HTN (hypertension) (Chronic) Prolapsed bladder (Chronic) Neuropathy (Chronic) Right wrist drop (Acute) 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 (Acute) Localized edema (Chronic) Non-pressure chronic ulcer of other part of right lower leg with fat layer exposed (Acute) Cellulitis of right lower limb (Resolved) Osteoarthritis of left knee (Chronic) Sleep apnea (Chronic) Vitamin C deficiency (Chronic) Edema (Chronic) Neuropathic pain (Chronic) GERD (gastroesophageal reflux disease) (Chronic) Migraine (Chronic) Breast cancer (Acute ~01/2019) Surgical History History of laparoscopic cholecystectomy (Acute) history lap incisional hernia re[pair (Acute) H/O: hysterectomy (Acute) History of appendectomy (Acute) History of colonoscopy (Acute ~2010) History of colectomy (Acute) History of foot surgery (Acute) History of umbilical hernia repair (Acute) History of total right knee replacement (Acute) History of breast biopsy (Acute ~01/2019) Family History Mother Brain aneurysm Father Heart disease Daughter Cancer Grandfather Cancer Aunt Diabetes Brother Cancer Pancreatic cancer Social History (Updated 01/26/19 @ 11:11 by Ramiro Ann MD) Smoking Status: Never smoker alcohol intake: current alcohol intake frequency: a few times a month substance use type: does not use HPI HPI HPI: MAVIS KOO, is a 73 F who presents to the office today for HPI HPI Surgical H&P: Yes HPI: MAVIS KOO, is a 73 F who presents to the office today for Postop from an ultrasound-guided biopsy of her left breast and both the 9:00 and 1 o'clock position. These were done in my office on 01/18/2019. Both of these came back as atypical papillary neoplasia associated with microcalcifications she has had moderate amount of bruising from both of these areas. ROS General General: Yes weight change; no appetite, fatigue, colon cancer, breast cancer or weakness HEENT HEENT: No difficulty swallowing, eye injury, eye surgery, swollen glands or hoarseness Endo Endocrine: No thyroid disease, diabetes mellitus, thyroid cancer, Hair loss, heat intolerance or cold intolerance Skin Skin: No rash or changing moles Breast Breast: No left breast lump, right breast lump, nipple discharge, breast pain, abnormal mammogram, abnormal US or breast enlargement Musc Musculoskeletal: Yes back problems and arthritis; no rheumatoid arthritis, gout or joint pain Cardio Cardiovascular: Yes murmur and high blood pressure; no pacemaker, heart disease, atrial fibrillation, heart attack, heart stent, palpitations, shortness of breat with exertion or chest pain Psych Psychiatric: No depression, anxiety or hearing voices Resp Respiratory: Yes shortness of breath, Yes sleep apnea, No cough, No COPD, No asthma, No emphysema, No wheezing Gastro Gastrointestinal: Yes abdominal pain, No nausea or vomiting, No diarrhea, No constipation, No blood in stool, Yes acid reflux, No hemorrhoids, No ulcers, Yes gallbladder problem, No black,tarry stools Joshua Hematologic: No blood thinners, No blood disorders, No bleeding, No anemia, No blood clots Neuro Neurologic: No weakness Exam Const General: no acute distress, well developed, well hydrated Orientation: oriented to person, oriented to place, oriented to time [facility] Head: normal to inspection, normocephalic, atraumatic Ears: external ears normal Mouth: oropharynx normal, moist mucous membranes Eyes General: appearance normal, both eyes and all related structures Sclera: sclerae normal Pupils: normal by confrontation Neck Neck: trachea midline, no lymphadenopathy noted Neck mass: No Thyroid: thyroid normal Lymphatic: no lymphadenopathy noted Chest Chest palpation & inspection: normal inspection of the chest Breast inspection: normal inspection of the breasts Breast Palpation: No nipple discharge Other: Palpation of the right breast reveals No palpable nodules. Palpation of the left breast reveals Incision site just above the nipple on the left moderate amount of bruising is located but both the 9:00 and 1 o'clock position of the breast respectively.. Axillary exam demonstrates no suspicious masses in either the left or right axilla. Resp Effort & Inspection: normal respiratory effort Auscultation: clear to auscultation bilaterally Percussion: percussion normal Other: Respiratory Exam: Deferred Cardio Rate: regular rate Rhythm: regular rhythm Heart Sounds: murmur Other: Cardiac Exam: Deferred GI Palpation: soft, no hepatosplenomegaly, no masses, nontender Rectal Exam: other Other: GI Exam: Deferred Other: Rectal Exam: Deferred Extrem General: normal to inspection, no clubbing, cyanosis or edema Other: Extremity Exam: Deferred Assessment & Plan Problems 1. Abnormal mammogram of left breast R92.8 Plan My plan is to do a wire localization excisional breast biopsy x2 on this patient.We discussed the risks and benefits of the planned procedure. I have informed the patient that complications can occur including failure to complete the procedure. The patient had the opportunity to ask questions concerning the planned procedure. My staff has also explained the procedure to the patient in understandable terms and has given the patient printed material concerning the procedure. The patient freely consents to the procedure. Plan Detail Goals Decrease pain and spasm Improve posture Improve ROM Barriers Scoliosis DDD Coding Level of Care Code Off vis,est,level 3 Diagnoses Abnormal mammogram of left breast R92.8 01/26/19 1111 <Electronically signed by Ramiro mcnamara MD> Date _ Ramiro Ann MD I have re-examined the patient. There are no clinical changes since date of exam.
[2019-02-01] VITALS (7 sets, daily range): BP systolic 110–170; BP diastolic 70–88; PULSE 66–75; RESP 16; TEMP 36.3–37; O2SAT 92–97; BMI 34.9
--- NOTE | 2019-02-01 | BRBX_PTH ---
PATIENT: MAVIS KOO LOC: [facility] U#:[id number] AGE/SX: 73/F ROOM: RE02/01/[address]: Dr. Ramiro Ann MD : 1945 BED: DIS: 02/01/2019 SPEC #: [id number] RECD: 02/01/19 14:01 STATUS: JEFF RELeslie #: [id number] FELIBERTO: 02/01/19 00:[address]: Ramiro Ann DEPT: SURGICAL PATHOLOGY RECD BY: Berkley Jj ENTERED: 02/01/19 14:40 SP TYPE: BREAST BX OTHR DR: Dr. Samuel Hull DO Tissues: A - Left breast, NOS B - Left breast, NOS Procedures: Gen Path Consultation (on slides) Surgery Specimen Level V HEADER OPERATION: Left breast ultrasound-guided wire localization, excisional breast biopsy PRE-OP DIAGNOSIS: Abnormal mammogram of left breast TISSUE SUBMITTED: A - Left breast tissue lesion 9 o'clock, single long suture - medial, double long - towards nipple, wire out - anterior, B - Left breast tissue lesion 1 o'clock, single long suture - posterior, extra tissue is smallest margin MICROSCOPIC DIAGNOSIS A. Left breast tissue, lesion at 9 o'clock, excisional biopsy with needle localization: Solid papillary carcinoma. See cancer summary below. 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 Regional Lymph Nodes: No lymph nodes submitted or found. Distant metastasis: No applicable Additional Pathologic Findings: Fibrocystic changes, adenosis and intraductal hyperplasia with focal atypia. Vascular calcifications. Ancillary Studies: ([id number]) ER: >95%,strong intensity NV: >95%, moderate intensity Her2: negative (0) Microcalcifications: Present in solid papillary carcinoma and non-neoplastic tissue. Clinical History: Please make reference to previous specimen ([id number]) left breast at 9 o'clock, needle core biopsy with diagnosis of fragments of complex atypical papillary neoplasm with associated microcalcifications. Radiologic findings: Abnormal left breast mammogram. Pathologic Stage: pTis(DCIS) pNx Mx B. Left breast tissue, lesion at 1 o'clock, excisional biopsy with needle localization: Intraductal papillary carcinoma. See cancer summary below. 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 Regional Lymph Nodes: No lymph nodes submitted or found. Distant metastasis: No applicable Additional Pathologic Findings: Fibrocystic changes, adenosis and intraductal hyperplasia with focal atypia. Ancillary Studies: Hormone receptor studies will be reported as an addendum. Microcalcifications: Present in non-neoplastic tissue. Clinical History: Please make reference to previous specimen ([id number]) left breast at 1 o'clock, needle core biopsy with diagnosis of fragments of complex atypical papillary neoplasm. Radiologic findings: Abnormal mammogram. Pathologic Stage: pTis(DCIS) pNx Mx The above summary is in compliance with [employer] (CAP) Cancer Protocols Checklist and [place] [employer] Committee on Cancer (AJCC), Staging Manual, 8th Ed. SJ:flo 02/14/19 COMMENT Immunohistochemistry ([id number]) performed here (specimen A) and additional immunohistochemical stains performed at [facility] (specimen A & B) supports the above diagnosis. A & B. The specimen is sent to [facility] for expert opinion and reviewed by Dr. Clark and above diagnosis is rendered. The complete report is viewable in patient's EMR. B. The tumor is present at the blue inked margin in the larger piece of tissue. No orientation was provided for this margin. A smaller piece of tissue is also submitted which is negative for carcinoma and as per surgeon, represents the true margin. This case is discussed with Dr. Ann on 02/15/19. Case has been reviewed in consultation with Dr. Salvador who concurs with the above diagnosis. IDC:AM MICROSCOPIC DESCRIPTION Slides are reviewed. GROSS DESCRIPTION A - Received fresh and postfixed in formalin is one container labeled with the patient's name and designated left breast tissue lesion. The specimen consists of an oriented fragment of morales-yellow fibrofatty tissue measuring 5 x 3.5 x 3 cm and weighing 19 gm. The specimen is wire-guided. The specimen is differentially inked as follows: anterior - yellow, posterior - black, superior - blue, inferior - green, medial - red and lateral - orange. The specimen is serially sectioned in an anterior to posterior fashion. Serial sections reveal a chalky yellow lesion measuring 1.5 x 1 cm and closely approaching the medial margin of excision. The central portion of the lesion has a focus of hemorrhage with a metallic clip. No other lesions are identified. The uninvolved cut surfaces are yellow in color. The specimen is totally submitted in 12 cassettes. The lesion is best represented in cassettes 5 & 6. / AM:rg 02/04/19 B - Received fresh and postfixed in formalin is one container labeled with the patient's name and not further designated. The specimen consists of a piece of fibroadipose with needle localization measuring 5.5 x 3.5 x 2.5 cm. Also present in the container is a smaller piece of tissue measuring 3.5 x 2 x 1 cm. This tissue identifies the smallest margin. One surface is congested and the surface is smooth. The smooth surface is inked black. Sections of the smaller piece reveals yellow adipose cut surfaces without any mass lesion. The larger piece is inked as follows: suture identifying as posterior margin - black, opposite anterior margin - yellow, rest of the surface is inked blue. Sections reveal morales-yellow adipose cut surfaces with an indurated area. Senior Electronics [employer] sections are submitted in 12 cassettes as follows: 13 - smaller piece of tissue, entirely submitted, 4-12 - larger piece of tissue. Cassette 3 contains the most posterior portion of the specimen and 12 contains the most anterior portion of the specimen. Indurated area, entirely submitted. / SJ:flo 02/04/19 TC:0 CPT: 22626 x2
--- NOTE | 2019-02-01 | IMM_PTH ---
PATIENT: MAVIS KOO LOC: [facility] [place][id number] AGE/SX: 73/F ROOM: RE02/01/[address]: Dr. Ramiro Ann MD : 1945 BED: DIS: 02/01/2019 SPEC #: [id number] RECD: 02/06/19 09:08 STATUS: JEFF RELeslie #: [id number] FELIBERTO: 02/01/19 00:[address]: Ramiro Ann DEPT: IMMUNOHISTOCHEMISTRY RECD BY: Berkley Jj ENTERED: 02/06/19 09:09 SP TYPE: IMMUNO OTHR DR: Dr. Samuel Hull DO Tissues: A - Left breast, NOS Procedures: E-CAD (initial) CK8 (add) E-CAD (add) ER (add) HER2 TORREY (add) RI (add) PHYSICIAN & INSTITUTION [place] [id number] SPECIMEN INFORMATION: Tissue Source: A - Left breast tissue lesion 9 o'clock Clinical Info: Abnormal mammogram left breast Specimen Number: [id number] A6 & A12 CPT code: 58013, 71308 x2, 42008 x3 METHODOLOGY: Deparaffinized sections of prefer/formalin-fixed tissue or PAP/DQ stained slides are incubated with monoclonal/polyclonal antibodies/oligonucleotide probes. Localization is made via biotin free immunoperoxidase method. Appropriate controls are performed and reacted as expected. Results on target cell population are indicated in the following table: RESULTS: ANTIBODY / CLONE RESULT Block A6 E-Cad (ECH-6) positive ER (clone 6F11) >95%, strong intensity RI (clone 16/1E2) >95%, moderate intensity Her-2Neu (clone CB11) negative (0) Block A12 E-Cad (ECH-6) positive CK8 ([id number]) positive These tests were developed and their performance characteristics determined by [facility]. They may not have been cleared or approved by the U.S. Food and Drug Administration. The FDA has determined that such clearance or approval is not necessary. The above immunohistochemical/dualISH markers are ordered and reviewed by the Pathologist. INTERPRETATION: A. 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 Comment: The specimen is sent to [facility] for expert opinion and above diagnosis is rendered. This case has been reviewed in consultation with Dr. Salvador who concurs with the above diagnosis. SJ:flo 02/14/19
[2019-02-01] MEDS: Lactated Ringers 1,000 ML 100 ML IV ×2 (12:12→15:40)
[2019-02-01] MEDS: Cefazolin 2 GM in 0.9% Normal Saline 100 ML IV (13:06)
--- NOTE | 2019-02-01 13:53 | BI_ITS ---
SURGICAL BREAST SPECIMEN RADIOGRAPH CLINICAL: Document presence of tissue clip marker in biopsy specimen. FINDINGS: Specimen shows presence of tissue clip marker. Electronically Signed: Omar Blake, at 14:45 EST , Service support , BI/Breast Biopsy Specimen
--- NOTE | 2019-02-01 14:00 | OP.PCM_ITS ---
Problem List (1) Abnormal mammogram of left breast Status: Acute Report of Operation Date of Procedure: 02/01/19 Pre-Operative Diagnosis: Abnormal mammogram left breast x2 Post-Operative Diagnosis: Same Surgery/Procedure Performed:: 1. Ultrasound-guided wire localization of abnormal mammogram x2. 2. Ultrasound-guided wire localization excisional breast biopsy x2 Type of Anesthesia:: General Anesthesiologist: Richard Escobar Specimen's removed: 1. 9:00 breast biopsy comes out anteriorly, double long towards the nipple, single long medially. 2. 1:00 breast biopsy single long posteriorly closest margin, extra tissue at the closest margin sent Drains: None Estimated Blood Loss (mL): < 25 cc Fluids Replaced: 100 cc lr Description of Procedure: Patient was brought into the operating room. Placed in the supine position. Under excellent general anesthetic left breast was ultrasound first at the 9 o'clock position and then the 1 o'clock position at the 9 o'clock position the lesion was identified I prepped the skin with alcohol under ultrasound guidance a Kopan's wire was placed directly through the lesion. Ultrasound of the 1:00 the lesion I prepped the skin with alcohol and placed the Kopan's wire directly through the lesion without difficulty. The left breast was then sterilely prepped and draped in the usual fashion. I made him circumareolar incision around the 9 o'clock position of the left nipple dissecting down taking out the lesion completely in question. I marked it appropriately sent to radiology which confirmed placement of the previous biopsy clip. I used electrocautery for good hemostasis. Wound was brought together with subcu of 2-0 Vicryl deep dermals with 3-0 Vicryl then a running 4- 0 Monocryl. At the 1 o'clock position local was injected a separate incision was made dissection was carried down to use the wire as my guide and remove this lesion entirely. I felt that my posterior margin was close and therefore I took more tissue from this I sent the specimen after marking it to radiology x-raying it did confirm the biopsy clip in the appropriate spot. Electrocautery was used for good hemostasis. Wound was brought together with subcu of 2-0 Vicryl deep dermals with 3-0 Vicryl then a running 4-0 Monocryl. Previous biopsy site was ellipsed out and sent to pathology for permanent sectioning it was brought together with 4-0 Monocryl. Dermabond was applied sterile dressings were applied Ed wrap was applied and the patient tolerated the procedure well. - Admit VTE Documentation VTE Present on Admission: No VTE Mechan Device Prophylaxis: SCD's VTE Pharm Prophylaxis ordered?: No Reason prophylaxis not ordered:: Treatment Not Indicated
--- NOTE | 2019-02-01 14:04 | DCINST_ITS ---
Discharge Diet: No Restrictions Discharge Activity: Return to Normal Activity May shower in (days): 3 Remove Dressing in (days):: 3 - Leave Dermabond in place. Allergies/Adverse Reactions: Allergies amitriptyline Adverse Reaction (Verified 02/01/19 11:44) Other codeine Adverse Reaction (Verified 02/01/19 11:44) Other gabapentin Adverse Reaction (Verified 02/01/19 11:44) ONLY IF TAKEN IN LARGE DOSES HALLUCINATIONS IF TAKEN IN LARGE DOSES ONLY Medications to take at Discharge Cyanocobalamin [Vitamin B12] 1,000 mcg IM Q30D 11/10/14 Furosemide [Lasix] 40 mg PO BID 11/10/14 Gabapentin [Neurontin] 200 mg PO BID 11/10/14 Topiramate [Topamax] 50 mg PO BID 11/10/14 Metoprolol Tartrate [Lopressor (beta efra)] 100 mg PO BID 11/11/14 Mirapex 0.25 mg PO BID 04/11/17 triamcinolone acetonide 0.1 % topical cream 1 applic TOPICAL BID 04/11/17 Acetaminophen [Tylenol] 1,000 mg PO Q6H PRN PRN 05/19/17 Omeprazole 20 mg PO DAILY 05/19/17 Tizanidine HCl 2 mg PO BID PRN PRN 05/19/17 potassium chloride 20 mEq oral packet 20 meq PO DAILY 10/05/18 Primary Care Physician: Samuel Hull DO [Primary Care Provider] - Test Results: Test results from this visit will be discussed in further detail at your follow- up appointment, if applicable. Please Follow Up With: Ramiro Ann MD - [phone] When: Please call for an appointment to be seen in one week.
[2019-02-01] MEDS: Bupivacaine Mpf 0.5% 30 ML VIAL (14:41)
== END 2019-02-01 17:03 | disposition home or self-care (01) ==
LOC: SDC 11:24 → AC 11:27
PROVIDERS: Family Provider Student in an Organized Health Care Education/Training Program; PCP Student in an Organized Health Care Education/Training Program; Referring Provider Surgery; Visit Provider Surgery
PROC: (CPT 19083; principal; 2019-02-01 13:20)
DX: C50.912 Malignant neoplasm of unspecified site of left female breast (principal); R92.8 Other abnormal and inconclusive findings on diagnostic imaging of breast; Z88.5 Allergy status to narcotic agent; Z88.8 Allergy status to other drugs, medicaments and biological substances; M41.9 Scoliosis, unspecified; N62 Hypertrophy of breast; I25.10 Atherosclerotic heart disease of native coronary artery without angina pectoris; I10 Essential (primary) hypertension; E78.5 Hyperlipidemia, unspecified; F41.9 Anxiety disorder, unspecified; G47.00 Insomnia, unspecified
CPT/HCPCS: 00400; 19083; 76098; 88305; 88307; 88325; 88341; 88342; J7120

== ENCOUNTER → 2019-08-02 13:54 | Outpatient (CLI) | payer MEDICARE, OTHER, SELFPAY ==
[2019-02-26 14:07] VITALS: BMI 34.7
[2019-02-27 13:28] VITALS: BMI 34.6
[2019-08-01 13:02] VITALS: BMI 34.6
--- NOTE | 2019-08-02 13:57 | BI_ITS ---
MAMMOGRAPHY - BILATERAL DIAGNOSTIC REASON FOR EXAM: Female, 73 years old. BILAT DX FOR LT 6 MO F/U LUMPECTOMIES FROM 02/01/19 PERTINENT HISTORY: Non-contributory. TECHNIQUE: Digital bilateral breast prachi (3D mammographic acquisition) in the CC and MLO projections. 2-D mediolateral oblique (MLO) and craniocaudad (CC) views of both breasts were obtained. CAD: Full Field Digital Mammography with Computer Added Detection was performed. COMPARISON: None. FINDINGS: Breast Composition: The breasts are heterogeneously dense, which may obscure small masses. There are no dominant masses or suspicious calcifications. No definite masses seen at the lumpectomy sites. Ultrasound will be performed to exclude recurrent neoplasm. No other significant abnormalities are identified. BI/DIAG MAMM W/CAD, BILAT IMPRESSION: Further mammographic evaluation recommended, as described above. (E) ASSESSMENT CATEGORY: BIRADS Category 0: Incomplete. Need additional imaging evaluation. A letter regarding these results will be sent to the patient by the facility within 30 days. Approximately 10% of breast cancers are not detected by mammography. A normal mammogram should not delay biopsy of a clinically suspicious abnormality. Electronically Signed: Chico Meza, at 15:41 EDT Tel , Service support ,
--- NOTE | 2019-08-02 15:11 | US_ITS ---
STUDY: ULTRASOUND BREAST - LEFT REASON FOR EXAM: Female, 73 years old. Abnormal screening mammogram. TECHNIQUE: Axial and longitudinal images of the LEFT breast were performed with a high resolution ultrasound transducer. # OF IMAGES: 16 COMPARISON: Comparison is made with prior mammogram dated August 02, 2019. FINDINGS: LEFT Breast: The central aspect of the left breast was examined. The patient is status post prior lumpectomies. At the 9:00 position the breast at 2 cm from nipple, there is a 5 mm x 11 mm x 9 mm slightly irregular hypoechoic density. This most likely represents postlumpectomy scar. A biopsy may be indicated for further evaluation. US/Breast Limited Unilateral IMPRESSION: 5 mm x 11 mm x 9 mm hypoechoic slightly irregular shaped density at the 9:00 position breast at 2 cm from nipple. This is at the lumpectomy site. This may represent post lumpectomy scarring. A biopsy is recommended for further evaluation. ASSESSMENT CATEGORY: BIRADS Category 4: Suspicious - Biopsy Should Be Considered. A letter regarding these results will be sent to the patient by the facility within 30 days. Electronically Signed: Omar Blake, at 8:35 EDT , Service support ,
== END ==
PROVIDERS: PCP Student in an Organized Health Care Education/Training Program; Referring Provider Internal Medicine Medical Oncology; Visit Provider Internal Medicine Medical Oncology
DX: R92.8 Other abnormal and inconclusive findings on diagnostic imaging of breast (principal); D05.82 Other specified type of carcinoma in situ of left breast
CPT/HCPCS: 76642; 77066

== ENCOUNTER 2019-08-09 08:53 | Day surgery (SDC) | payer MEDICARE, OTHER, SELFPAY ==
[2019-02-26 14:07] VITALS: BMI 34.7
--- NOTE | 2019-08-01 01:14 | HP_ITS ---
Intake Vital Signs 08/01/19 BMI 34.6 08/01/19 Height 5 ft 5 in 08/01/19 Weight: 201 lb 08/01/19 BMI 33.4 Intake Visit Reasons: DISCUSS SURGERY Chief Complaint: enlarged lymph node left groin Actuarial Science Teacher Required: No Is patient in pain?: No Allergies amitriptyline Adverse Reaction (Verified 08/01/19 13:01) Other codeine Adverse Reaction (Verified 08/01/19 13:01) Other gabapentin Adverse Reaction (Verified 08/01/19 13:01) ONLY IF TAKEN IN LARGE DOSES Medications Cyanocobalamin [Vitamin B12] 1,000 mcg IM Q30D 11/10/14 [History Confirmed 08/01/19] Furosemide [Lasix] 40 mg PO BID 11/10/14 [History Confirmed 08/01/19] Gabapentin [Neurontin] 200 mg PO BID 11/10/14 [History Confirmed 08/01/19] Topiramate [Topamax] 50 mg PO BID 11/10/14 [History Confirmed 08/01/19] Metoprolol Tartrate [Lopressor (beta efra)] 100 mg PO BID 11/11/14 [History Confirmed 08/01/19] Mirapex 0.25 mg PO BID 04/11/17 [History Confirmed 08/01/19] triamcinolone acetonide 0.1 % topical cream 1 applic TOPICAL BID 04/11/17 [History Confirmed 08/01/19] Acetaminophen [Tylenol] 1,000 mg PO Q6H PRN PRN 05/19/17 [History Confirmed 08/01/19] Omeprazole 20 mg PO DAILY 05/19/17 [History Confirmed 08/01/19] Tizanidine HCl 2 mg PO BID PRN PRN 05/19/17 [History Confirmed 08/01/19] Iron Polysaccharide Complex [Ferrex 150] 150 mg PO DAILYCM #90 cap 03/21/19 [Rx Confirmed 08/01/19] PFSH Medical History Chronic cholecystitis (Chronic) Biliary dyskinesia (Acute) Abdominal pain (Acute) history la incisional hernia repair (Acute) history lap incisional hernia repair (Acute) Epigastric pain (Acute) Insomnia (Chronic) Malignant neoplasm of sigmoid colon (Chronic) Hemorrhage of gastrointestinal tract (Chronic) Vitamin B12 deficiency (Chronic) CAD (coronary artery disease) (Chronic) Anxiety (Chronic) Hyperlipidemia (Chronic) Impaired fasting blood sugar (Chronic) RLS (restless legs syndrome) (Chronic) Allergic rhinitis (Chronic) HTN (hypertension) (Chronic) Prolapsed bladder (Chronic) Neuropathy (Chronic) Right wrist drop (Acute) 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 (Acute) Localized edema (Chronic) Non-pressure chronic ulcer of other part of right lower leg with fat layer exposed (Acute) Cellulitis of right lower limb (Resolved) Osteoarthritis of left knee (Chronic) Sleep apnea (Chronic) Vitamin C deficiency (Chronic) Edema (Chronic) Neuropathic pain (Chronic) GERD (gastroesophageal reflux disease) (Chronic) Migraine (Chronic) Breast cancer (Acute ~01/2019) 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) Enlargement of lymph node (Acute) 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) Surgical History History of laparoscopic cholecystectomy (Acute) history lap incisional hernia re[pair (Acute) H/O: hysterectomy (Acute) History of appendectomy (Acute) History of colonoscopy (Acute ~2010) History of hysterectomy (Acute) History of colectomy (Acute) History of foot surgery (Acute) History of umbilical hernia repair (Acute) History of total right knee replacement (Acute) History of breast biopsy (Acute ~01/2019) history left breast excisional biopsy with needle loc (Acute ~02/01/19) Family History Mother Brain aneurysm Father Heart disease Daughter Cancer INVALID/ PATIENT HAS NO DAUGHTER. ENTERED IN ERROR. CAN'T DELETE Grandfather Cancer LUNG CANCER IN 60S FROM SMOKING Aunt Diabetes Brother Cancer Pancreatic cancer Social History (Updated 08/01/19 @ 13:[address] Ramiro Ann MD) Smoking Status: Never smoker alcohol intake: current alcohol intake frequency: a few times a month substance use type: does not use HPI HPI HPI: MAVIS KOO, is a 73 F who presents to the office today for HPI HPI Surgical H&P: Yes HPI: MAVIS KOO, is a 73 F who presents to the office today for Evaluation of an enlarged lymph node in her left groin. Patient had an ultrasound duplex of her bilateral legs completed at the [facility] which showed a 5.2 cm x 1.9 cm groin nodule on the left side. She herself has not noticed any problems with this. Patient had had problems with her right leg with discoloration and some chronic discomfort/neuropathy of her legs. They needed to rule out a blood clot. She has been seen by her oncologist who wishes an excisional biopsy of the lymph node to rule out lymphoma. She had a CAT scan done at the [facility] of her abdomen and pelvis which showed multiple bilateral prominent inguinal lymph nodes the left was 1.8 x 2.2 cm on the right it was 1.8 x 3 cm. ROS General General: Yes weight change, fatigue and breast cancer; no appetite, colon cancer or weakness HEENT HEENT: No difficulty swallowing, eye injury, eye surgery, swollen glands or hoarseness Endo Endocrine: No thyroid disease, diabetes mellitus, thyroid cancer, Hair loss, heat intolerance or cold intolerance Skin Skin: No rash or changing moles Breast Breast: No left breast lump, right breast lump, nipple discharge, breast pain, abnormal mammogram, abnormal US or breast enlargement Musc Musculoskeletal: Yes back problems and arthritis; no rheumatoid arthritis, gout or joint pain Cardio Cardiovascular: Yes murmur and high blood pressure; no pacemaker, heart disease, atrial fibrillation, heart attack, heart stent, palpitations, shortness of breat with exertion or chest pain Psych Psychiatric: No depression, anxiety or hearing voices Resp Respiratory: Yes shortness of breath, Yes sleep apnea, No cough, No COPD, No asthma, No emphysema, No wheezing Gastro Gastrointestinal: Yes abdominal pain, No nausea or vomiting, Yes diarrhea, No constipation, No blood in stool, No acid reflux, No hemorrhoids, No ulcers, No gallbladder problem, No black,tarry stools Joshua Hematologic: No blood thinners, No blood disorders, No bleeding, No anemia, No blood clots Neuro Neurologic: No weakness Exam Const General: no acute distress, well developed, well hydrated Orientation: oriented to person, oriented to place, oriented to time [facility] Head: normocephalic, atraumatic Ears: external ears normal Mouth: moist mucous membranes Eyes Sclera: sclerae normal Pupils: normal by confrontation Neck Neck: no lymphadenopathy noted Neck mass: No Thyroid: thyroid normal, symmetrical Chest Chest palpation & inspection: normal inspection of the chest Breast Palpation: No nipple discharge Resp Effort & Inspection: normal respiratory effort Auscultation: clear to auscultation bilaterally Percussion: percussion normal Cardio Rate: regular rate Rhythm: regular rhythm Heart Sounds: murmur GI Palpation: soft, no hepatosplenomegaly, no masses, nontender Rectal Exam: other Other: Rectal exam deferred. Palpation of both inguinal areas shows palpable lymph nodes. I believe it is easier to palpate the left inguinal lymph node than the right inguinal lymph node. Extrem General: normal to inspection, no clubbing, cyanosis or edema Assessment & Plan Problems 1. Enlarged lymph node R59.9 Plan Plan is to do an excisional biopsy of the left or right inguinal lymph node. There is benefits to include bleeding infection possible numbness to the area have been reviewed with the patient. Patient also understands that there might be some lymphedema that could be caused by removing the superficial lymph node but this would be unlikely.All questions asked were answered and she is willing to proceed. I have explained to the patient that I probably would at least look on the right side to see if those lymph nodes were easier to get. Plan Detail Goals Decrease pain and spasm Improve posture Improve ROM Barriers Scoliosis DDD Coding Level of Care Code Off vis,est,level 3 Diagnoses Enlarged lymph node R59.9 08/01/19 [id number] <Electronically signed by Ramiro mcnamara MD> Date _ Ramiro Ann MD I have re-examined the patient. There are no clinical changes since date of exam.
[2019-08-01 13:02] VITALS: BMI 34.6
[2019-08-06 14:02] VITALS: BMI 33.1
[2019-08-09] VITALS (7 sets, daily range): BP systolic 115–168; BP diastolic 57–85; PULSE 58–64; RESP 15–16; TEMP 35.9–36.4; O2SAT 92–98; BMI 35.4
[2019-08-09] MEDS: Lactated Ringers 1,000 ML 100 ML IV (09:40)
[2019-08-09] MEDS: Cefazolin 2 GM in 0.9% Normal Saline 100 ML IV (10:59)
--- NOTE | 2019-08-09 11:00 | LYM_PTH ---
PATIENT: MAVIS KOO [place] [facility] [id number] AGE/SX: 73/F ROOM: RE08/09/[address]: Dr. Ramiro Ann MD : 1945 BED: DIS: 08/09/2019 SPEC #: [id number] RECD: 08/09/19 12:55 STATUS: JEFF RELeslie #: [id number] FELIBERTO: 08/09/19 11:[address]: Ramiro Ann DEPT: SURGICAL PATHOLOGY RECD BY: Logan Chaney ENTERED: 08/12/19 09:28 SP TYPE: LYM NODES OTHR DR: Dr. Samuel Hull, DO Tissues: Inguinal lymph node, NOS Procedures: Surgery Specimen Level IV HEADER OPERATION: Right inguinal lymph node excision PRE-OP DIAGNOSIS: Enlarged lymph node TISSUE SUBMITTED: Right inguinal lymph node MICROSCOPIC DIAGNOSIS Right inguinal lymph node, excision: Benign lymph node tissue with reactive changes and extensive vascular congestion. Negative for malignancy, granuloma or lymphoma. See comment. KARELY:flo 08/13/19 COMMENT The findings may represent vascular transformation of sinuses. Please make reference to previous specimen ([id number]) left breast tissue, lesion at 9 o'clock, excisional biopsy with needle localization with diagnosis of solid papillary carcinoma. Case has been reviewed in consultation with Dr. Salvador who concurs with the above diagnosis. IDC:AM MICROSCOPIC DESCRIPTION Slides are reviewed. GROSS DESCRIPTION Received in fixative is one container labeled with the patient's name and designated right inguinal lymph node. The specimen consists of an elongated fragment of morales tissue measuring 6.5 x 2.5 x 1.8 cm. Serial sections reveal homogenous, morales cut surfaces. Calender Supervisor sections are submitted in four cassettes. / AM:flo 08/12/19 TC:5 CPT: 48573
[2019-08-09] MEDS: Bupivacaine Mpf 0.5% 30 ML VIAL (11:23)
--- NOTE | 2019-08-09 11:49 | PCM.OPRPT ---
Problem List (1) Enlarged lymph node Status: Acute Report of Operation Date of Procedure: 08/09/19 Pre-Operative Diagnosis: Bilateral enlarged lymph nodes of groin Post-Operative Diagnosis: Same Surgery/Procedure Performed:: Excisional biopsy of right inguinal lymph node Type of Anesthesia:: General Anesthesiologist: Preston Bettencourt Specimen's removed: Right inguinal lymph node Estimated Blood Loss (mL): < 25 cc Description of Procedure: Patient was brought into the operating room. Placed in the supine position. Under excellent general anesthetic. I palpated both inguinal areas and I was initially planning on removing the left inguinal lymph node but the right one did appear to be slightly larger. I obtained an ultrasound machine which did confirm that this was the site of the larger lymph node. And despite my consent saying that I was going to remove the left inguinal lymph node I decided that the right was going to be easier and for better for her in the long run. Right inguinal area was sterilely prepped and draped in usual fashion. 1% lidocaine plain was injected. Incision was made. Electrocautery was used to dissect down to the lymph node. The lymph node was removed with her aurelio dissector and sent to pathology. I started medially and then stayed very close to the lymph node itself and went laterally. I did tie off the lateral pedicle with a suture ligature of 0 Vicryl. I lost virtually no blood with this part of the procedure. I then closed the wound in layers deep layer with 0 Vicryl Debo's layer with 0 Vicryl deep dermal stitches of 3-0 Vicryl in a running 4-0 Monocryl. Dermabond was applied sterile dressings were applied and the patient tolerated the procedure well. - Admit VTE Documentation VTE Present on Admission: No VTE Mechan Device Prophylaxis: SCD's VTE Pharm Prophylaxis ordered?: No Reason prophylaxis not ordered:: Treatment Not Indicated - Procedures Cardiovascular CF Procedures [id number]: [id number] Open bx/exc inguinofem nodes
--- NOTE | 2019-08-09 11:55 | DCINST_ITS ---
Discharge Diet: Light diet - advance as tolerated - If you have questions about your diet instructions, please talk to your doctor. Discharge Activity: May Not Drive - for 1 week or while taking narcotic pain medicine. May shower in (days): 1 Lifting Restrictions: 10 pounds Call your doctor if your incision/area has: Continuous Slow Oozing, Sudden Increased Bleeding, Increased Pain/ Swelling, Increased Redness, Foul Smelling Discharge Call your doctor if you observe: Fever of 101 or Higher Suture Line Care: Avoid Pulling/Pushing, Avoid Pinching/Bending Additional Dressing/Incision Instructions:: Change or remove dressing in 4 days. Leave steri-strips in place for 1 week. Allergies/Adverse Reactions: Allergies amitriptyline Adverse Reaction (Verified 08/09/19 09:21) Other codeine Adverse Reaction (Verified 08/09/19 09:21) Other gabapentin Adverse Reaction (Verified 08/09/19 09:21) ONLY IF TAKEN IN LARGE DOSES HALLUCINATIONS IF TAKEN IN LARGE DOSES ONLY Medications to take at Discharge RX: Cyanocobalamin [Vitamin B12] 1,000 mcg IM Q30D 11/10/14 RX: Furosemide [Lasix] 40 mg PO BID 11/10/14 RX: Gabapentin [Neurontin] 200 mg PO BID 11/10/14 RX: Topiramate [Topamax] 50 mg PO BID 11/10/14 RX: Metoprolol Tartrate [Lopressor (beta efra)] 100 mg PO BID 11/11/14 Mirapex 0.25 mg PO BID 04/11/17 triamcinolone acetonide 0.1 % topical cream 1 applic TOPICAL BID 04/11/17 Omeprazole 20 mg PO BID 05/19/17 RX: Acetaminophen [Tylenol] 1,000 mg PO Q6H PRN PRN 05/19/17 RX: Tizanidine HCl 2 mg PO BID PRN PRN 05/19/17 Primary Care Physician: Samuel Hull DO [Primary Care Provider] - Test Results: Test results from this visit will be discussed in further detail at your follow- up appointment, if applicable. Please Follow Up With: Ramiro Ann MD - [phone] When: Call to make an appointment to be seen in about 10 days.
== END 2019-08-09 13:20 | disposition home or self-care (01) ==
LOC: SDC 08:54 → AC 08:55
PROVIDERS: PCP Student in an Organized Health Care Education/Training Program; Referring Provider Surgery; Visit Provider Surgery
PROC: (CPT 38500; principal; 2019-08-09 10:45)
DX: R59.0 Localized enlarged lymph nodes (principal); I25.10 Atherosclerotic heart disease of native coronary artery without angina pectoris; E78.5 Hyperlipidemia, unspecified; F41.9 Anxiety disorder, unspecified; I10 Essential (primary) hypertension; G62.9 Polyneuropathy, unspecified; G25.81 Restless legs syndrome; K21.9 Gastro-esophageal reflux disease without esophagitis; Z79.899 Other long term (current) drug therapy; G47.30 Sleep apnea, unspecified; G43.909 Migraine, unspecified, not intractable, without status migrainosus; Z11.59 Encounter for screening for other viral diseases
CPT/HCPCS: 38531; 87635; 88305; 88307; G2023; J2405; U0004

== ENCOUNTER → 2019-08-23 12:23 | Outpatient (CLI) | payer MEDICARE, OTHER, SELFPAY ==
[2019-02-26 14:07] VITALS: BMI 34.7
[2019-08-16 11:53] VITALS: BMI 35.4
--- NOTE | 2019-08-23 | BRBX_PTH ---
PATIENT: MAVIS KOO LOC: [facility] U#:[id number] AGE/SX: 79/F ROOM: RE08/23/[address]: Dr. Ramiro Ann MD : 1945 BED: DIS: SPEC #: [id number] RECD: 08/23/19 13:29 STATUS: JEFF RELeslie #: [id number] FELIBERTO: 08/23/19 00:[address]: Ramiro Ann DEPT: SURGICAL PATHOLOGY RECD BY: Benson Whyte ENTERED: 08/26/19 09:41 SP TYPE: BREAST BX OTHR DR: Dr. Samuel Hull DO Tissues: Left breast, NOS Procedures: Special Stain Group I Surgery Specimen Level IV AFB Stain (control) GMS Stain (control) HEADER OPERATION: Left breast biopsy PRE-OP DIAGNOSIS: Abnormal mammogram TISSUE SUBMITTED: Left breast biopsy ISCHEMIC TIME: 1 minute FIXATION TIME: 78.5 hours MICROSCOPIC DIAGNOSIS Left breast, core biopsy: Fragments of benign breast tissue with focal mild chronic inflammation and non-necrotizing granulomatous inflammation. Negative for atypia or malignancy. Special stains for acid fast bacilli and fungi are negative for organisms; matched controls are appropriate. See comment. KARELY:flo 08/27/19 COMMENT Correlation with clinical, radiologic findings and appropriate follow up are necessary. 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 Case has been reviewed in consultation with Dr. Salvador who concurs with the above diagnosis. IDC:AM MICROSCOPIC DESCRIPTION Slides are reviewed. GROSS DESCRIPTION Received is one container labeled with the patient's name and not further designated. The specimen consists of three cores of light morales soft tissue each measuring 1 cm in maximal diameter. The specimen is totally submitted in one cassette. / AM:flo 08/26/19 TC:3 CPT: 89577, 34225 x2
--- NOTE | 2019-08-23 12:25 | US_ITS ---
STUDY: ULTRASOUND BREAST - LEFT REASON FOR EXAM: Female, 73 years old. Left breast biopsy. TECHNIQUE: Axial and longitudinal images of the LEFT breast were performed with a high resolution ultrasound transducer. # OF IMAGES: 14 COMPARISON: Comparison is made with prior sonogram dated August 02, 2019. FINDINGS: LEFT Breast: Under direct sonographic guidance, the surgeon performed percutaneous core biopsy of the 4 mm x 11 mm x 9 mm irregular hypoechoic density. US/US Breast Biopsy 1st Lesion IMPRESSION: Successful ultrasound-guided right breast biopsy. ASSESSMENT CATEGORY: BIRADS Category 2: Benign. A letter regarding these results will be sent to the patient by the facility within 30 days. Electronically Signed: Omar Blake, at 14:05 EDT , Service support ,
--- NOTE | 2019-08-23 14:34 | PCM.OPRPT ---
Problem List (1) Abnormal mammogram of left breast Status: Acute Report of Operation Date of Procedure: 08/23/19 Pre-Operative Diagnosis: Abnormal mammogram left breast Post-Operative Diagnosis: Same Surgery/Procedure Performed:: Ultrasound-guided needle core biopsy of left breast Type of Anesthesia:: Local Description of Procedure: Patient was brought into the ultrasound unit. Left breast was ultrasounded over previous scar on the inner half of her left breast circumareolar Kaushal located. Abnormality was identified. The breast was prepped with chlorhexidine. 1% lidocaine plain was injected. A skin florence was made. Under ultrasound guidance 2 needle core biopsies were obtained. Under ultrasound guidance a small titanium clip was placed. Sterile dressings were applied. The patient tolerated the procedure well. - Admit VTE Documentation VTE Mechan Device Prophylaxis: None VTE Pharm Prophylaxis ordered?: No Reason prophylaxis not ordered:: Treatment Not Indicated [id number]: [id number] Bx breast 1st lesion us imag
== END ==
PROVIDERS: PCP Student in an Organized Health Care Education/Training Program; Referring Provider Surgery; Visit Provider Surgery
DX: R92.8 Other abnormal and inconclusive findings on diagnostic imaging of breast (principal)
CPT/HCPCS: 19083; 88305; 88312

== ENCOUNTER → 2020-01-27 09:35 | Outpatient (CLI) | payer MEDICARE, OTHER, SELFPAY ==
[2019-02-26 14:07] VITALS: BMI 34.7
[2019-08-16 11:53] VITALS: BMI 35.4
--- NOTE | 2020-01-27 09:50 | RAD_ITS ---
EXAMINATION: UPPER GI SERIES INDICATION: Female, 74 years 3 year history of epigastric pain. FLUOROSCOPY TIME (if supplied): (0:40) minutes/seconds TECHNIQUE: Radiographic and fluoroscopic images of the distal esophagus, stomach, and proximal small intestine were obtained following the oral ingestion of barium. COMPARISON: None. FINDINGS: There is no evidence for organomegaly, abnormal calcifications, or abnormal bowel gas pattern. The psoas margins and flank stripes are normal. The visualized osseous structures are normal. The mucosa of the esophagus, stomach and duodenum is normal in appearance without evidence for stricture, ulceration, mass or diverticulum. There is no evidence for hiatal hernia or gastroesophageal reflux. RAD/Upper GI Dual Contrast IMPRESSION: 1. Normal upper gastrointestinal study. Electronically Signed: Omar Blake, at 13:07 EST , Service support ,
== END ==
PROVIDERS: PCP Student in an Organized Health Care Education/Training Program; Referring Provider Nurse Practitioner Adult Health; Visit Provider Nurse Practitioner Adult Health
DX: R10.13 Epigastric pain (principal)
CPT/HCPCS: 74246

== ENCOUNTER 2021-03-22 13:04 | Outpatient (CLI) | payer MEDICARE, OTHER, SELFPAY ==
[2019-02-26 14:07] VITALS: BMI 34.7
== END 2021-03-22 23:59 | disposition short-term general hospital (02) ==
LOC: LABSPEC 13:05
PROVIDERS: PCP Student in an Organized Health Care Education/Training Program; Referring Provider Physician Assistant Surgical; Visit Provider Physician Assistant Surgical
DX: Z20.822 Contact with and (suspected) exposure to COVID-19 (principal)
CPT/HCPCS: 87635; U0003

== ENCOUNTER 2022-02-20 13:53 | Emergency (ER) | payer MEDICARE, SELFPAY ==
[2019-02-26 14:07] VITALS: BMI 34.7
[2022-02-20 13:54] VITALS: PULSE 60; RESP 14; TEMP 36.8; O2SAT 97; BMI 32.5
[2022-02-20 13:57] VITALS: BP 227/98; PULSE 62; RESP 16; TEMP 36.8; O2SAT 97
--- NOTE | 2022-02-20 14:17 | EDS_ITS ---
HPI <OLAMIDE Main - Last Filed: 02/20/22 15:12> History of Present Illness Chief Complaint: Edema Narrative Narrative: 76-year-old female presents with right lower leg pain that started on January 12. She developed pain in the anterior and posterior escalona area that was worse with weightbearing. She saw her primary care and had an ankle x-ray and US that were negative. The pain had seemed to improve until about 2 weeks ago. She had another repeat ultrasound at that time that was negative. She has been taking naproxen with no relief. The leg hurts with walking. She has no fall or trauma. She has chronic bilateral lower extremity edema and states the right is a little worse than usual. There are no new skin changes. No fever or chills. No history of DVT/PE or chest pain or shortness of breath. [facility] <OLAMIDE Main - Last Filed: 02/20/22 15:12> [facility] Medical History (Updated 02/20/22 @ 15:08 by OLAMIDE Main) Abdominal pain Allergic rhinitis Anxiety Biliary dyskinesia Breast cancer (~01/2019) CAD (coronary artery disease) Cellulitis of right lower limb Chronic cholecystitis Ductal carcinoma in situ (DCIS) of left breast Edema Enlargement of lymph node Epigastric pain GERD (gastroesophageal reflux disease) Hemorrhage of gastrointestinal tract history la incisional hernia repair history lap incisional hernia repair HTN (hypertension) Hyperlipidemia Impaired fasting blood sugar Insomnia Localized edema Malignant neoplasm of sigmoid colon Migraine Neuropathic pain Neuropathy Non-pressure chronic ulcer of other part of right lower leg with fat layer exposed Osteoarthritis of left knee 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 Prolapsed bladder Right wrist drop RLS (restless legs syndrome) Sleep apnea 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 Vitamin B12 deficiency Vitamin C deficiency Home Medications cyanocobalamin (vitamin B-12) 1,000 mcg/mL injection solution 1,000 mcg IM Q30D 11/10/14 [History Last Taken 04/29/15] furosemide 40 mg tablet 40 mg PO BID EDEMA 11/10/14 [History Last Taken 05/10/15] gabapentin 100 mg capsule 300 mg PO BID 11/10/14 [History Last Taken 08/09/19 06:00] topiramate 25 mg tablet 50 mg PO BID 11/10/14 [History Last Taken 02/01/19] metoprolol tartrate 100 mg tablet 100 mg PO BID htn 11/11/14 [History Last Taken 08/09/19 06:00] Mirapex 0.25 mg PO TID 04/11/17 [History Last Taken 08/09/19 06:00] acetaminophen 500 mg tablet 1,000 mg PO Q6H PRN PRN Pain 05/19/17 [History Last Taken Unknown] omeprazole 20 mg capsule,delayed release 20 mg PO DAILY gerd 05/19/17 [History Last Taken 08/09/19 06:00] tizanidine 2 mg tablet 2 mg PO BID PRN PRN Spasms 05/19/17 [History Last Taken 05/19/17] cholecalciferol (vitamin D3) 1,250 mcg (50,000 unit) capsule 1,250 mcg PO DAILY 02/20/22 [History Last Taken Unknown] colestipol 1 gram tablet 1 g PO DAILY 02/20/22 [History Last Taken Unknown] ferrous sulfate 142 mg (45 mg iron) tablet,extended release (Slow Fe) 142 mg PO DAILY 02/20/22 [History Last Taken Unknown] naproxen 500 mg tablet 500 mg PO BID PRN Pain 02/20/22 [History Last Taken Unknown] tramadol 50 mg tablet 50 mg PO QHS 1 week #7 tabs 02/20/22 [Rx Last Taken Unknown] triamcinolone acetonide 0.5 % topical cream 1 applic topical BID 02/20/22 [History Last Taken Unknown] Allergy/AdvReac Type Severity Reaction Status Date / Time amitriptyline AdvReac Other Verified 08/29/19 14:43 codeine AdvReac Other Verified 08/29/19 14:43 gabapentin AdvReac ONLY IF Verified 08/29/19 14:43 TAKEN IN LARGE DOSES Family History Mother Brain aneurysm Father Heart disease Daughter Cancer INVALID/ PATIENT HAS NO DAUGHTER. ENTERED IN ERROR. CAN'T DELETE Grandfather Cancer LUNG CANCER IN 60S FROM SMOKING Aunt Diabetes Brother Cancer Pancreatic cancer Surgical History H/O: hysterectomy history lap incisional hernia re[pair history left breast excisional biopsy with needle loc (~02/01/19) History of appendectomy History of breast biopsy (~01/2019) History of colectomy History of colonoscopy (~2010) History of foot surgery History of hysterectomy History of laparoscopic cholecystectomy History of lymph node biopsy (~07/2019) History of total right knee replacement History of umbilical hernia repair Social History (Updated 08/29/19 @ 14:[address] Ramiro Ann MD) Smoking Status: Never smoker alcohol intake: current alcohol intake frequency: a few times a month substance use type: does not use ROS <OLAMIDE Main - Last Filed: 02/20/22 15:12> ROS ED ROS Narrative Constitutional: Negative for fever, chills, malaise. Eyes: Negative for visual change. ENT: Negative for sore throat, ear pain, rhinorrhea. CVS: Negative for palpitations, chest pain, syncope. Respiratory: Negative for shortness of breath, cough, orthopnea. GI: Negative for abdominal pain, nausea, vomiting. : Negative for dysuria, hematuria or frequency. Neuro: Negative for headache, motor/sensory dysfunction. Skin: Negative for rash, abscess, or wound. Musc: Negative for joint pain, swelling, trauma. Heme: Negative for easy bruising, bleeding, lymphadenopathy. EXAM <OLAMIDE Main - Last Filed: 02/20/22 15:12> Physical Exam Narrative Exam Narrative: CONST: Patient sitting in no acute distress. EYES: Normal inspection. NECK: Normal inspection. RESP: No respiratory distress, CTAB. CVS: Regular rate and rhythm, holosystolic aortic murmur, no gallop. ABD: Soft and nontender, no guarding or rebound, nondistended. SKIN: Color normal, no rash, warm, dry, intact. EXTREMITIES: Chronic bilateral ankle edema, right leg has venous stasis changes. Full range of motion, no bony tenderness, 2+ DP pulses. NEURO: Oriented x4. PSYCH: Normal affect. Const Vital Signs: 02/20/22 13:54 02/20/22 13:57 02/20/22 14:22 Temperature 98.2 F 98.2 F Temperature Source Oral Oral Pulse Rate 60 62 Respiratory Rate 14 16 Respiratory Effort Normal Non-Labored Respiratory Pattern Normal Blood Pressure 227/98 H Blood Pressure Mean 141 Pulse Ox 97 97 Oxygen Delivery Method Room Air <Dr. Terrance Moser MD - Last Filed: 02/20/22 15:18> Physical Exam Const Vital Signs: 02/20/22 13:54 02/20/22 13:57 02/20/22 14:22 Temperature 98.2 F 98.2 F Temperature Source Oral Oral Pulse Rate 60 62 Respiratory Rate 14 16 Respiratory Effort Normal Non-Labored Respiratory Pattern Normal Blood Pressure 227/98 H Blood Pressure Mean 141 Pulse Ox 97 97 Oxygen Delivery Method Room Air [facility] <OLAMIDE Main - Last Filed: 02/20/22 15:12> [facility] Narrative Medical decision making narrative: Patient has 5 weeks of right lower leg pain worse with weightbearing. No known injury. She has some chronic bilateral edema and venous stasis changes. Full range of motion, normal motor and sensory function, 2+ DP pulses. She is already had 2 ultrasounds negative for DVT. X-ray of the tibia/fibula was obtained which shows a healing proximal fibular shaft fracture explaining the source of her pain. She states the pain has been keeping her up at night so I prescribed tramadol for this she is comfortable taking [id number] medications during the day. Follow-up with her primary care doctor. Radiography Diagnostic Testing: Clinical Impression(s) from Imaging Studies Tibia/Fibula X-Ray 02/20/22 14:30 IMPRESSION: 1. Healing fracture of the fibular shaft. 2. Diffuse soft tissue swelling. Electronically Signed: Jl Parks MD at 14:55 EST , <Dr. Terrance Moser MD - Last Filed: 02/20/22 15:18> [facility] Narrative Medical decision making narrative: Patient has 5 weeks of right lower leg pain worse with weightbearing. No known injury. She has some chronic bilateral edema and venous stasis changes. Full range of motion, normal motor and sensory function, 2+ DP pulses. She is already had 2 ultrasounds negative for DVT. X-ray of the tibia/fibula was obtained which shows a healing proximal fibular shaft fracture explaining the source of her pain. She states the pain has been keeping her up at night so I prescribed tramadol for this she is comfortable taking [id number] medications during the day. Follow-up with her primary care doctor. I have personally performed a face to face assessment of the patient and have reviewed the ABDULLAHI Note. I performed a substantive portion of the visit including all aspects of the following. My roberts findings include: History is [76-year-old female complaining of atraumatic right lower leg pain. Worse with weightbearing. Has had 2 negative ultrasounds since January when the pain started. And a ankle x-ray which showed chronic changes but no acute process. Evaluate the patient with our physician social services assistant.] Exam is [76-year-old female no acute distress. Vital signs stable afebrile. Lungs clear. Heart regular rhythm. Abdomen soft nontender. Moving all 4 extremities. Chronic arthritic changes to her ankle and feet. Venous stasis changes of the lower leg. Mild tenderness to the midshaft of the fibula but no gross bony deformity. Dorsi and plantar flexion intact.] Medical Decision Making [x-ray obtained shows a midshaft fracture of the right lateral fibula. Consistent with an old nondisplaced fracture. That healing. There is laydown of calcium. And a callus formed. Discussed with patient should be discharged home.] Other additions or changes: [None] Radiography Diagnostic Testing: Clinical Impression(s) from Imaging Studies Tibia/Fibula X-Ray 02/20/22 14:30 IMPRESSION: 1. Healing fracture of the fibular shaft. 2. Diffuse soft tissue swelling. Electronically Signed: Jl Parks MD at 14:55 EST Reading Location ID and State: [address] [place] [address] Tel , Service support , Discharge Plan Triage Chief Complaint: Edema ED Midlevel Provider: Kelsey Mcrae ED Provider: Terrance Moser Dx/Rx/DC Orders Clinical Impression: Right leg pain, Other fracture of shaft of right fibula, sequela Instructions: ED Fracture, Lower Extremity Prescriptions: New tramadol 50 mg tablet 50 mg PO QHS 7 Days Qty: 7 0RF Rx Instructions: prn pain for right leg fracture No Action furosemide 40 MG tablet 40 mg PO BID Label Comments: diuretic topiramate 25 MG tablet 50 mg PO BID Label Comments: tremors cyanocobalamin (vitamin B-12) 1,000 MCG/ML solution 1,000 mcg IM Q30D Label Comments: vitamin supplement. ONCE EVERY 30 DAYS Rx Instructions: DURING THE THIRD WEEK OF THE MONTH gabapentin 100 MG capsule 300 mg PO BID Label Comments: for neuropathy metoprolol tartrate 100 MG tablet 100 mg PO BID Label Comments: for blood pressure Mirapex 0.25 mg PO TID Label Comments: restless legs tizanidine 2 MG tablet 2 mg PO BID PRN PRN (Reason: Spasms) omeprazole 20 capsule,delayed release(DR/EC) 20 mg PO DAILY Label Comments: acetaminophen 500 MG tablet 1,000 mg PO Q6H PRN PRN (Reason: Pain) triamcinolone acetonide 0.5 % cream 1 applic TOPICAL BID Label Comments: apply sparingly to affected area OF RASH/ITCHING ON BOTH LEGS twice a day (AVOID FACE/SKIN FOLDS) colestipol 1 gram tablet 1 g PO DAILY naproxen 500 mg tablet 500 mg PO BID PRN (Reason: Pain) Label Comments: take 1 tablet by mouth twice a day NEEDED FOR PAIN or inflamma... (REFER TO PRESCRIPTION NOTES). cholecalciferol (vitamin D3) 1,250 mcg (50,000 unit) capsule 1,250 mcg PO DAILY Label Comments: take 1 capsule by mouth every week Slow Fe 142 mg (45 mg iron) Tablet Extended Release 142 mg PO DAILY Primary Care Provider: Samuel Hull Referrals: Samuel Hull DO [Primary Care Provider] - Activity Restrictions/Additional Instructions: The x-ray showed you fractured your fibula and it is healing. This will take more time for the pain to lessen. Rest, ice, and take Tylenol and ibuprofen during the day. I prescribed tramadol for at bedtime if needed. Disposition Disposition: Home, Self Care
--- NOTE | 2022-02-20 14:30 | RAD_ITS ---
EXAM: XR RIGHT TIBIA AND FIBULA, 2 VIEWS CLINICAL INDICATION: leg pain TECHNIQUE: Frontal and lateral views of the right tibia and fibula. This report was created using [employer] report generation technology. COMPARISON: None. FINDINGS: BONES/JOINTS: Prominent callus formation noted along the nondisplaced fracture involving the proximal fibular shaft. Partially visualized right knee prosthesis. SOFT TISSUES: Diffuse soft tissue swelling. RAD/Tibia & Fibula 2 Views IMPRESSION: 1. Healing fracture of the fibular shaft. 2. Diffuse soft tissue swelling. Electronically Signed: Jl Parks MD at 14:55 EST ,
== END 2022-02-20 15:29 | disposition home or self-care (01) ==
PROVIDERS: Emergency Provider Emergency Medicine; PCP Student in an Organized Health Care Education/Training Program; Visit Provider Emergency Medicine
DX: M25.569 Pain in unspecified knee (principal); I25.10 Atherosclerotic heart disease of native coronary artery without angina pectoris; M19.071 Primary osteoarthritis, right ankle and foot; R60.0 Localized edema; E78.5 Hyperlipidemia, unspecified; I10 Essential (primary) hypertension; S82.401D Unspecified fracture of shaft of right fibula, subsequent encounter for closed fracture with routine healing; I87.8 Other specified disorders of veins; M19.072 Primary osteoarthritis, left ankle and foot
CPT/HCPCS: 73590; 99284

== ENCOUNTER 2022-03-01 06:03 | Emergency (ER) | payer MEDICARE, SELFPAY ==
[2019-02-26 14:07] VITALS: BMI 34.7
[2022-03-01 06:04] VITALS: BP 204/116; PULSE 68; RESP 15; TEMP 36.8; O2SAT 97; BMI 42.1
--- NOTE | 2022-03-01 06:08 | RAD_ITS ---
EXAM: XR RIGHT TIBIA AND FIBULA, 2 VIEWS CLINICAL INDICATION: PAIN TECHNIQUE: Frontal and lateral views of the right tibia and fibula. This report was created using [employer] report generation technology. COMPARISON: None. FINDINGS: BONES/JOINTS: New fracture mid tibia with mild angulation. Exuberant callus formation around a mid fibular fracture. Preservation of the joint space. No sclerotic or destructive changes observed. SOFT TISSUES: Unremarkable. No soft tissue swelling or gas. No radiopaque foreign body. RAD/Tibia & Fibula 2 Views IMPRESSION: New fracture mid tibia with mild angulation. Electronically Signed: Vasyl Jacobson MD at 6:37 EST ,
[2022-03-01 06:58] LABS: Absolute Lymphocyte Count 0.87 X10^3/uL (0.83-4.51); Absolute Neutrophil Count 5.2 X10^3/uL (2.0-7.7); Basophil# 0.02 X10^3/uL; Basophil% 0.3 % (0-1); Eosinophil# 0.07 X10^3/uL; Eosinophils% 1.1 % (0-5); Hematocrit 36.8 % (37-47); Hemoglobin 12.2 g/dL (12.0-15.0); Lymphocyte # 0.87 X10^3/ul (0.83-4.51); Lymphocyte % 13.2 % (19-41); Mean Corp Hgb Conc 33.2 g/dL (32-36); Mean Corpuscular Hgb 28.9 pg (27.0-32.0); Mean Corpuscular Volume 87.2 fL (81-99); Mean Platelet Vol. 8.1 fl (6.2-12.0); Monocyte% 6.1 % (0-10); NRBC Flagged by Analyzer 0 % (0-5); Neutrophil # 5.21 X10^3/uL (2.7-7.7); Neutrophil % 78.7 % (47-70); Platelet Count 195 K/mm3 (150-450); RBC Distribution Width CV 14.4 % (11.6-14.6); RBC Distribution Width SD 45.6 fl (35.1-43.9); Red Blood Count 4.22 M/mm3 (4.2-5.4); White Blood Count 6.6 K/mm3 (4.4-11.0)
--- NOTE | 2022-03-01 07:00 | NURSING ---
CALLED [facility]OME[facility] ABOUT TRANSFER
--- NOTE | 2022-03-01 07:04 | EDS_ITS ---
HPI History of Present Illness Chief Complaint: Lower Extremity Injury Narrative Narrative: 76-year-old female presenting with right leg pain. Patient reports that she has been having pain for about a month. She states that she followed up with her PCP who did DVT studies which were negative. She was here in the ER last week and had an x-ray of her right leg which showed a healing fibular shaft fracture. She denies any direct trauma. She states has been using a scooter to help get around. Today she stood up and heard a pop and then could not bear weight. She did not have any direct trauma. EMS was called. She was given fentanyl in route. She states he still having a lot of pain. [facility] Medical History Abdominal pain Allergic rhinitis Anxiety Biliary dyskinesia Breast cancer (~01/2019) CAD (coronary artery disease) Cellulitis of right lower limb Chronic cholecystitis Ductal carcinoma in situ (DCIS) of left breast Edema Enlargement of lymph node Epigastric pain GERD (gastroesophageal reflux disease) Hemorrhage of gastrointestinal tract history la incisional hernia repair history lap incisional hernia repair HTN (hypertension) Hyperlipidemia Impaired fasting blood sugar Insomnia Localized edema Malignant neoplasm of sigmoid colon Migraine Neuropathic pain Neuropathy Non-pressure chronic ulcer of other part of right lower leg with fat layer exposed Osteoarthritis of left knee 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 Prolapsed bladder Right wrist drop RLS (restless legs syndrome) Sleep apnea 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 Vitamin B12 deficiency Vitamin C deficiency Home Medications cyanocobalamin (vitamin B-12) 1,000 mcg/mL injection solution 1,000 mcg IM Q30D 11/10/14 [History Last Taken 04/29/15] furosemide 40 mg tablet 40 mg PO BID EDEMA 11/10/14 [History Last Taken 05/10/15] gabapentin 100 mg capsule 300 mg PO BID 11/10/14 [History Last Taken 08/09/19 06:00] topiramate 25 mg tablet 50 mg PO BID 11/10/14 [History Last Taken 02/01/19] metoprolol tartrate 100 mg tablet 100 mg PO BID htn 11/11/14 [History Last Taken 08/09/19 06:00] Mirapex 0.25 mg PO TID 04/11/17 [History Last Taken 08/09/19 06:00] acetaminophen 500 mg tablet 1,000 mg PO Q6H PRN PRN Pain 05/19/17 [History Last Taken Unknown] omeprazole 20 mg capsule,delayed release 20 mg PO DAILY gerd 05/19/17 [History Last Taken 08/09/19 06:00] tizanidine 2 mg tablet 2 mg PO BID PRN PRN Spasms 05/19/17 [History Last Taken 05/19/17] cholecalciferol (vitamin D3) 1,250 mcg (50,000 unit) capsule 1,250 mcg PO DAILY 02/20/22 [History Last Taken Unknown] colestipol 1 gram tablet 1 g PO DAILY 02/20/22 [History Last Taken Unknown] ferrous sulfate 142 mg (45 mg iron) tablet,extended release (Slow Fe) 142 mg PO DAILY 02/20/22 [History Last Taken Unknown] naproxen 500 mg tablet 500 mg PO BID PRN Pain 02/20/22 [History Last Taken Unknown] tramadol 50 mg tablet 50 mg PO QHS 1 week #7 tabs 02/20/22 [Rx Last Taken Unknown] triamcinolone acetonide 0.5 % topical cream 1 applic topical BID 02/20/22 [History Last Taken Unknown] Allergy/AdvReac Type Severity Reaction Status Date / Time amitriptyline AdvReac Other Verified 03/01/22 06:11 codeine AdvReac Other Verified 03/01/22 06:11 gabapentin AdvReac ONLY IF Verified 03/01/22 06:11 TAKEN IN LARGE DOSES Family History Mother Brain aneurysm Father Heart disease Daughter Cancer INVALID/ PATIENT HAS NO DAUGHTER. ENTERED IN ERROR. CAN'T DELETE Grandfather Cancer LUNG CANCER IN 60S FROM SMOKING Aunt Diabetes Brother Cancer Pancreatic cancer Surgical History H/O: hysterectomy history lap incisional hernia re[pair history left breast excisional biopsy with needle loc (~02/01/19) History of appendectomy History of breast biopsy (~01/2019) History of colectomy History of colonoscopy (~2010) History of foot surgery History of hysterectomy History of laparoscopic cholecystectomy History of lymph node biopsy (~07/2019) History of total right knee replacement History of umbilical hernia repair Social History Smoking Status: Never smoker alcohol intake: current alcohol intake frequency: a few times a month substance use type: does not use ROS ROS ED Constitutional Constitutional ED: Denies chills or fever(s) Eyes Eyes: Denies change in vision or diplopia ENT ENT ED: Denies rhinorrhea or sore throat Cardiovascular Cardiovascular: Denies chest pain or palpitations Respiratory/Chest Respiratory/Chest: Denies cough or dyspnea Gastrointestinal Gastrointestinal: Denies abdominal pain Genitourinary Genitourinary ED: Denies dysuria or hematuria Musculoskeletal Musculoskeletal: Denies arthralgias or back pain Integumentary Denies abscess Neurologic Neurologic: Denies headache(s) or paresthesias Psychiatric Psychiatric: Denies anxiety or depression EXAM Physical Exam Const Vital Signs: 03/01/22 06:04 Temperature 98.2 F Temperature Source Temporal Pulse Rate 68 Respiratory Rate 15 Blood Pressure 204/116 H Blood Pressure Mean 145 Pulse Ox 97 Oxygen Delivery Method Room Air Positive well nourished General Appearance ED: NAD HEENT Reports moist mucous membranes normocephalic and atraumatic Chest Wall inspection of chest normal Resp normal respiratory effort and no retractions Auscultation: Negative for rales, rhonchi or wheezes Cardio regular rate and regular rhythm GI non-tender Extremity Extremity Narrative: Tenderness to palpation mid tibia. Neuro oriented x3, CN's II-XII intact bilaterally, moves all extremities and no sensory deficits noted Sensorium / Orientation: alert Motor Exam: strength 5/5 throughout Psych mental status grossly normal Skin no wounds MDM MDM MDM Narrative Medical decision making narrative: Patient presenting with right leg pain. I obtained an x-ray of the right tib- fib and on my interpretation there is a mid tibial fracture with slight angulation. Patient was medicated with morphine and Zofran. Basic labs were obtained. Clark catheter was placed. Patient discussed with Dr. Carlos Fonseca who stated that he would not be able to put a derrell in this. He did not want to do surgery with plating. He recommended that I put her in a splint and sent her home to follow-up with him outpatient for a formal casting. He stated that if she needs surgery she will need to go to another facility. I spoke with the [facility] transfer line and waiting for callback. They do believe that they might be able to get her in from [facility] which is where she had a knee replacements done by Dr. Nelson Roe. Patient was placed in a posterior splint with a sugar-tong. This is well-padded and fabricated by myself patient tolerated procedure well. She was given 0.5 of Dilaudid post procedurally. patient signed out to incoming ED physician for monitoring. Lab work and urinalysis are normal. Impression: 1. Tibial for Lab Data Attestation: I reviewed the patient's lab results. Labs: Laboratory Results - last 24 hr 03/01/22 03/01/22 03/01/22 06:50 06:50 07:16 WBC 6.6 RBC 4.22 Hgb 12.2 Hct 36.8 L MCV 87.2 MCH 28.9 MCHC 33.2 RDW Std Deviation 45.6 H RDW Coeff of Helder 14.4 Plt Count 195 MPV 8.1 Immature Gran % (Auto) 0.600 Neut % (Auto) 78.7 H Lymph % (Auto) 13.2 L [place] % (Auto) 6.1 Eos % (Auto) 1.1 Baso % (Auto) 0.3 Absolute Neuts (auto) 5.2 Absolute Lymphs (auto) 0.87 Nucleated RBC % 0 Sodium 139 Potassium 3.7 Chloride 109 H Carbon Dioxide 24.0 Anion Gap 6 BUN 17 Creatinine 0.68 Estim Creat Clear Calc 34.91 Est GFR (MDRD) Af Amer 109 Est GFR (MDRD) Non-Af 90 BUN/Creatinine Ratio 25.0 H Glucose 116 H Calcium 9.4 Urine Color Yellow Urine Clarity Sl. Cloudy Urine pH 6.0 Ur Specific [place] 1.015 Urine Protein 30 H Urine Glucose (UA) Normal Urine Ketones 5 H Urine Occult Blood 10 H Urine Nitrite Negative Urine Bilirubin Negative Urine Urobilinogen Normal Ur Leukocyte Esterase Negative Urine RBC 0-5 SEEN Urine WBC 0 SEEN Ur Squamous Epith Cells 0-5 SEEN Urine Bacteria 0 SEEN Urine Mucus 0 SEEN Radiography Diagnostic Testing: Clinical Impression(s) from Imaging Studies Tibia/Fibula X-Ray 03/01/22 06:08 IMPRESSION: New fracture mid tibia with mild angulation. Electronically Signed: Vasyl Jacobson MD at 6:37 EST , Discharge Plan Triage Chief Complaint: Lower Extremity Injury ED Provider: [facility] [place] Dx/Rx/DC Orders Prescriptions: No Action furosemide 40 MG tablet 40 mg PO BID Label Comments: diuretic topiramate 25 MG tablet 50 mg PO BID Label Comments: tremors cyanocobalamin (vitamin B-12) 1,000 MCG/ML solution 1,000 mcg IM Q30D Label Comments: vitamin supplement. ONCE EVERY 30 DAYS Rx Instructions: DURING THE THIRD WEEK OF THE MONTH gabapentin 100 MG capsule 300 mg PO BID Label Comments: for neuropathy metoprolol tartrate 100 MG tablet 100 mg PO BID Label Comments: for blood pressure Mirapex 0.25 mg PO TID Label Comments: restless legs tizanidine 2 MG tablet 2 mg PO BID PRN PRN (Reason: Spasms) omeprazole 20 capsule,delayed release(DR/EC) 20 mg PO DAILY Label Comments: acetaminophen 500 MG tablet 1,000 mg PO Q6H PRN PRN (Reason: Pain) triamcinolone acetonide 0.5 % cream 1 applic TOPICAL BID Label Comments: apply sparingly to affected area OF RASH/ITCHING ON BOTH LEGS twice a day (AVOID FACE/SKIN FOLDS) colestipol 1 gram tablet 1 g PO DAILY naproxen 500 mg tablet 500 mg PO BID PRN (Reason: Pain) Label Comments: take 1 tablet by mouth twice a day NEEDED FOR PAIN or inflamma... (REFER TO PRESCRIPTION NOTES). cholecalciferol (vitamin D3) 1,250 mcg (50,000 unit) capsule 1,250 mcg PO DAILY Label Comments: take 1 capsule by mouth every week Slow Fe 142 mg (45 mg iron) Tablet Extended Release 142 mg PO DAILY tramadol 50 mg tablet 50 mg PO QHS 7 Days Qty: 7 0RF Rx Instructions: prn pain for right leg fracture Primary Care Provider: Samuel Hull Referrals: Samuel Hull DO [Primary Care Provider] -
[2022-03-01] MEDS: Ondansetron 4 MG/2 ML Vial IV (07:12)
[2022-03-01] MEDS: Morphine 4 MG/ML Syringe IV (07:13)
[2022-03-01 07:23] LABS: Bacteria 0 SEEN /hpf (None Seen); Mucous, Urine 0 SEEN /hpf (<or=2+); White Blood Cells 0 SEEN /hpf (0-5)
[2022-03-01 07:32] LABS: Color, Urine Yellow (Yellow); Glucose, Dipstick Normal (Normal); Ketone-Dipstick 5 mg/dl (Negative); Leukocyte Esterase-Dipstick Negative /ul (Negative); Nitrite-Dipstick Negative (Negative); Occult Blood-Urine 10 /ul (Negative); Protein-Dipstick 30 mg/dl (Negative); Specific Gravity, Urine 1.015 (1.002-1.030); Urine Bilirubin Dipstick Negative (Negative); Urine Clarity Sl. Cloudy (Clear); Urine Urobilinogen Normal (Normal)
[2022-03-01 07:37] LABS: Anion Gap 6 (5-15); BUN 17 mg/dL (7-18); Calcium,Total 9.4 mg/dL (8.5-10.1); Chloride 109 mmol/L (98-107); Creatinine, Serum 0.68 mg/dL (0.55-1.02); EST Glomerular Filtration Rate 90 mL/min (>60); Est Glom Filt Rate - Afr Amer 109 mL/min (>60); Estimated Creatinine Clearance 34.91 ml/min; Glucose 116 mg/dL (74-106); Potassium 3.7 mmol/L (3.5-5.1); Sodium Level 139 mmol/L (136-145)
[2022-03-01 07:43] LABS: Red Blood Cells-Urine 0-5 SEEN /hpf (0-5); Squamous Epithelial Cells - UA 0-5 SEEN /hpf (5-10)
[2022-03-01] MEDS: HYDROmorphone 0.5 MG/0.5 ML SYRINGE IV (08:24)
== END 2022-03-01 08:57 | disposition home or self-care (01) ==
PROVIDERS: Emergency Provider Student in an Organized Health Care Education/Training Program; PCP Student in an Organized Health Care Education/Training Program; Visit Provider Student in an Organized Health Care Education/Training Program
DX: S82.201A Unspecified fracture of shaft of right tibia, initial encounter for closed fracture (principal); S82.401A Unspecified fracture of shaft of right fibula, initial encounter for closed fracture; I25.10 Atherosclerotic heart disease of native coronary artery without angina pectoris; G47.30 Sleep apnea, unspecified; Z79.899 Other long term (current) drug therapy; X58.XXXA Exposure to other specified factors, initial encounter
CPT/HCPCS: 51702; 73590; 80048; 81001; 85025; 96374; 96375; 99285; A4216; J2405

== ENCOUNTER 2022-03-09 16:00 | Inpatient (IN) | payer MEDICARE, SELFPAY ==
[2019-02-26 14:07] VITALS: BMI 34.7
[2022-03-09 16:25] VITALS: BP 103/65; PULSE 86; PULSE 92; RESP 18; TEMP 36.6; O2SAT 93; BMI 34.1
--- NOTE | 2022-03-09 19:48 | HP.PCM_ITS ---
[facility] - General General Date of Admission: 03/09/22 Date of Service: 03/09/22 Chief Complaint: Here for rehabilitation. HPI Narrative 03/01/2022 MAVIS KOO, is a 76 Female [address] to [facility] with right tibial shaft fracture. Right fibular shaft fracture treated non-operatively 1 month ago. NWB, sitting scooter. Walks with walker at baseline. 03/02/2022 Open treatment right tibial shaft fracture with plate fixation. PT/OT. Pain control. Aspirin 81mg twice daily DVT prophylaxis. 03/09/2022 Admit to TCU with debility, here for rehabilitation, strengthening, prior to discharge home alone. [facility] Medical History Abdominal pain Allergic rhinitis Anxiety Biliary dyskinesia Breast cancer (~01/2019) CAD (coronary artery disease) Cellulitis of right lower limb Chronic cholecystitis Ductal carcinoma in situ (DCIS) of left breast Edema Enlargement of lymph node Epigastric pain GERD (gastroesophageal reflux disease) Hemorrhage of gastrointestinal tract history la incisional hernia repair history lap incisional hernia repair HTN (hypertension) Hyperlipidemia Impaired fasting blood sugar Insomnia Localized edema Malignant neoplasm of sigmoid colon Migraine Neuropathic pain Neuropathy Non-pressure chronic ulcer of other part of right lower leg with fat layer exposed Osteoarthritis of left knee 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 Prolapsed bladder Right wrist drop RLS (restless legs syndrome) Sleep apnea 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 Vitamin B12 deficiency Vitamin C deficiency Home Medications cyanocobalamin (vitamin B-12) 1,000 mcg/mL injection solution 1,000 mcg IM Q30D Supplement 11/10/14 [History Last Taken 04/29/15] furosemide 40 mg tablet 40 mg PO DAILY EDEMA 11/10/14 [History Last Taken 05/10/15] gabapentin 100 mg capsule 300 mg PO BID Pain 11/10/14 [History Last Taken 08/09/19 06:00] topiramate 25 mg tablet 50 mg PO BID Check with primary doctor 11/10/14 [History Last Taken 02/01/19] metoprolol tartrate 100 mg tablet 100 mg PO DAILY htn 11/11/14 [History Last Taken 08/09/19 06:00] Mirapex 0.25 mg PO TID Restless Leg 04/11/17 [History Last Taken 08/09/19 06:00] acetaminophen 500 mg tablet 1,000 mg PO Q6H PRN PRN Pain 05/19/17 [History Last Taken Unknown] omeprazole 20 mg capsule,delayed release 20 mg PO DAILY gerd 05/19/17 [History Last Taken 08/09/19 06:00] tizanidine 2 mg tablet 2 mg PO BID PRN PRN Spasms 05/19/17 [History Last Taken 05/19/17] cholecalciferol (vitamin D3) 1,250 mcg (50,000 unit) capsule 1,250 mcg PO DAILY Supplement 02/20/22 [History Last Taken Unknown] colestipol 1 gram tablet 1 g PO DAILY Cholesterol 02/20/22 [History Last Taken Unknown] ferrous sulfate 142 mg (45 mg iron) tablet,extended release (Slow Fe) 142 mg PO DAILY Supplement 02/20/22 [History Last Taken Unknown] naproxen 500 mg tablet 500 mg PO BID PRN Pain 02/20/22 [History Last Taken U nknown] triamcinolone acetonide 0.5 % topical cream 1 applic topical BID Skin Care 02/20/22 [History Last Taken Unknown] oxycodone-acetaminophen 5 mg-325 mg tablet (Endocet) 1 tab PO Q8H PRN pain 3 da ys #12 tabs 03/01/22 [Rx Last Taken Unknown] aspirin 81 mg capsule,delayed release 81 mg PO BID Heart 03/09/22 [History Last Taken Unknown] losartan 50 mg tablet 50 mg PO DAILY Cholesterol 03/09/22 [History Last Taken Unknown] metoprolol succinate 100 mg tablet,extended release 24 hr 100 mg PO DAILY BP 03/09/22 [History Last Taken Unknown] oxycodone 5 mg tablet 5 - 10 mg PO Q6H PRN Pain 6-10 03/09/22 [History Last Taken Unknown] tramadol 50 mg tablet 50 mg PO QHS Pain 03/09/22 [History Last Taken Unknown] Allergy/AdvReac Type Severity Reaction Status Date / Time amitriptyline AdvReac Other Verified 03/01/22 06:11 codeine AdvReac Other Verified 03/01/22 06:11 gabapentin AdvReac ONLY IF Verified 03/01/22 06:11 TAKEN IN LARGE DOSES Family History Mother Brain aneurysm Father Heart disease Daughter Cancer INVALID/ PATIENT HAS NO DAUGHTER. ENTERED IN ERROR. CAN'T DELETE Grandfather Cancer LUNG CANCER IN 60S FROM SMOKING Aunt Diabetes Brother Cancer Pancreatic cancer Surgical History H/O: hysterectomy history lap incisional hernia re[pair history left breast excisional biopsy with needle loc (~02/01/19) History of appendectomy History of breast biopsy (~01/2019) History of colectomy History of colonoscopy (~2010) History of foot surgery History of hysterectomy History of laparoscopic cholecystectomy History of lymph node biopsy (~07/2019) History of total right knee replacement History of umbilical hernia repair Social History (Updated 03/09/22 @ 19:[address] Varun Sanchez MD) household members: none Smoking Status: Never smoker alcohol intake: current alcohol intake frequency: a few times a month substance use type: does not use ROS Constitutional Constitutional: Denies chills, fever(s) or weight gain ENT HEENT: Denies headache(s), nasal congestion or nasal discharge Cardiovascular Cardiovascular: Denies chest pain or palpitations Respiratory/Chest Respiratory/Chest: Denies cough, excessive phlegm production or shortness of breath with exertion Gastrointestinal Gastrointestinal: Denies abdominal pain, nausea or vomiting Genitourinary Genitourinary: Denies dysuria Musculoskeletal Musculoskeletal: Denies joint pain or joint swelling Integumentary Integumentary: Denies rash or wounds Neurologic Neurologic: Denies focal weakness, numbness or tingling Psychiatric Psychiatric: Denies anxiety, auditory hallucinations, depression, homicidal ideation or suicidal ideation Vital Signs Vital Signs Vital Signs: 03/09/22 16:25 03/09/22 16:25 Temperature 97.8 F Temperature Source Oral Pulse Rate 86 92 Pulse Rhythm Regular Pulse Strength Normal (2+) Respiratory Rate 18 18 Respiratory Effort Normal Non-Labored Blood Pressure 103/65 Blood Pressure Mean 77 Blood Pressure Source Monitor Pulse Ox 93 93 Oxygen Delivery Method Room Air Room Air Weight Weight: 79.197 kg Body Mass Index (BMI) 34.1 Physical Exam Const alert General Appearance: cooperative HEENT normocephalic Eyes PERRL and EOMs intact bilaterally Neck supple, no JVD and no carotid bruits Resp normal respiratory effort, normal air movement and clear to auscultation bilaterally Cardio regular rate and regular rhythm GI normal to inspection, nondistended, normoactive bowel sounds, non-tender and non-distended Extremity normal capillary refill General Extremity: Negative for edema Skin no rashes or lesions noted General Skin Exam: no breakdown Psych affect normal Appearance: appropriate Assessment & Plan Assessment/Plan (1) Debility: (2) Fracture of tibial shaft, right, closed: (3) Fracture of right fibula, shaft: (4) Edema: (5) Neuropathic pain: (6) Hypertension: (7) Restless leg syndrome: (8) GERD (gastroesophageal reflux disease): (9) Muscle spasm: (10) Iron deficiency anemia: PLAN: Plan 76 year old female with below past medical history significant for right fibular shaft fracture treated non-operatively, hospitalized for right tibial shaft fracture, underwent open reduction with plate fixation, admitted to TCU with debility, here for rehabilitation, strengthening, prior to discharge home alone. * Debility - PT/OT. * Pain - Tylenol 1000mg q6h prn pain (1-5), Oxycodone 5mg q4h prn pain (6-10). * Bowel - senna/colace 1 tablet bid prn, Dulcolax 10mg pr x 1 prn, MOM 30ml po x 1 prn. * Adult immunization - Administer pneumonia vaccine, covid19 vaccine, flu vaccine as appropriate. * DVT prophylaxis - Aspirin 81mg bid thru 04/02/2022. * Diarrhea - Colestipol 1gm daily. * Vitamin B12 deficiency - B12 1000mcg im [id number] * Vitamin D deficiency - D2 1.25mg qweek. * Iron deficiency anemia - Ferrous sulfate 325mg daily. * Edema - Furosemide 40mg daily. * Neuropathic pain - Gabapentin 300mg bidcm. * Hypertension - Metoprolol succinate 100mg daily, Losartan 50mg daily. * GERD - Pantoprazole 40mg daily. * Restless Leg syndrome - Mirapex 0.25mg po tid. * Muscle spasm - Tizanidine 2mg bid prn. * Rash - Triamcinolone 0.5% topical bid.
[2022-03-09] MEDS: Pramipexole Di-HCl 0.25 MG Tablet PO (20:09)
[2022-03-09] MEDS: Gabapentin 100 MG Capsule 300 MG PO (20:09)
[2022-03-09] MEDS: Colestipol 1 GM TABLET PO (20:09)
[2022-03-09] MEDS: Acetaminophen 500 MG Tablet 1000 MG PO (20:22)
[2022-03-09] MEDS: Triamcinolone 0.5% Cream 1 APPLIC TOPICAL (21:39)
[2022-03-09] MEDS: oxyCODONE 5 MG Tablet PO (21:44)
[2022-03-10 05:00] VITALS: BP 110/60; PULSE 75; RESP 14; O2SAT 92
[2022-03-10] MEDS: Pramipexole Di-HCl 0.25 MG Tablet PO ×3 (05:14→21:08)
[2022-03-10] MEDS: Losartan Potassium 50 MG Tablet PO (05:14)
[2022-03-10] MEDS: Furosemide 40 MG Tablet PO (05:14)
[2022-03-10] MEDS: Pantoprazole Sodium 40 MG Tablet PO (05:14)
[2022-03-10 05:15] VITALS: BP 110/60; PULSE 75
[2022-03-10] MEDS: Metoprolol(XL)Succ 100 MG Tablet PO (05:15)
[2022-03-10] MEDS: Triamcinolone 0.5% Cream 1 APPLIC TOPICAL ×2 (05:25→17:25)
[2022-03-10 05:59] LABS: Absolute Lymphocyte Count 1.44 X10^3/uL (0.83-4.51); Absolute Neutrophil Count 2.2 X10^3/uL (2.0-7.7); Basophil# 0.04 X10^3/uL; Basophil% 0.8 % (0-1); Eosinophil# 0.25 X10^3/uL; Eosinophils% 5.3 % (0-5); Hematocrit 33.6 % (37-47); Hemoglobin 11.1 g/dL (12.0-15.0); Lymphocyte # 1.44 X10^3/ul (0.83-4.51); Lymphocyte % 30.4 % (19-41); Mean Corpuscular Hgb 29.5 pg (27.0-32.0); Mean Corpuscular Volume 89.4 fL (81-99); Mean Platelet Vol. 8.7 fl (6.2-12.0); Monocyte# 0.62 X10^3/uL; Monocyte% 13.1 % (0-10); NRBC Flagged by Analyzer 0 % (0-5); Neutrophil # 2.21 X10^3/uL (2.7-7.7); Neutrophil % 46.6 % (47-70); Platelet Count 274 K/mm3 (150-450); RBC Distribution Width CV 14.2 % (11.6-14.6); RBC Distribution Width SD 46.6 fl (35.1-43.9); Red Blood Count 3.76 M/mm3 (4.2-5.4); White Blood Count 4.7 K/mm3 (4.4-11.0)
[2022-03-10 06:38] LABS: Anion Gap 5 (5-15); BUN 32 mg/dL (7-18); BUN/Creat Ratio 28.1 RATIO (10-20); Calcium,Total 9.6 mg/dL (8.5-10.1); Chloride 96 mmol/L (98-107); Creatinine, Serum 1.14 mg/dL (0.55-1.02); EST Glomerular Filtration Rate 49 mL/min (>60); Est Glom Filt Rate - Afr Amer 60 mL/min (>60); Estimated Creatinine Clearance 30.63 ml/min; Glucose 101 mg/dL (74-106); Potassium 4.6 mmol/L (3.5-5.1); Sodium Level 132 mmol/L (136-145)
[2022-03-10] MEDS: Aspirin E.C. 81 MG Tablet PO ×2 (08:03→17:25)
[2022-03-10] MEDS: Gabapentin 100 MG Capsule 300 MG PO ×2 (08:26→17:25)
[2022-03-10] MEDS: Tuberculin,Purif.prot.deriv. 50 TU/ML Vial 0.1 ML ID (11:18)
[2022-03-10] MEDS: Ferrous Sulfate 325 MG Tablet PO (11:18)
--- NOTE | 2022-03-10 15:01 | NURSING ---
Kiley for Dr. Ashish Barrera's office asking if pt can wait to be seen at a later date and if xray can be sent to his office, waiting for return call.
[2022-03-10 15:07] VITALS: BP 96/53; PULSE 80; RESP 16; TEMP 36.8; O2SAT 91
--- NOTE | 2022-03-10 15:21 | CASEMGMT ---
Social Work Met with patient to complete initial assessment. Introduced self and role. Son present in room. Pt granted permission for son to be present during assessment. Verified contacts. Discussed code status and MOLST form. Pt confirms full code. MOLST placed in Dr folder. Educated to [facility] insurance with NRD 03/11 and continued stay is not guaranteed with review. Son provided medical hx and asked questions about insurance coverage. SW answered questions. Pt is NWB for 12 weeks. SW advised insurance will not cover for 12 weeks in TCU and inquired about alternate DC plan. Son returns home to [place] on 03/16. SW scheduled POC mtg for 03/15 for son to be involved. Son is a professor at a University in [place] and must return for school. Pt's sister lives out of state as well and cannot be in town to assist. SW educated and provided resources to son for nonskilled [employer], [facility], [place], [place] and offered to provide SNF list, if needed. Educated to financial liability for all. Son would like to see how pt is progressing at POC and take time to discuss options with and pt. SW agreed and will continue to follow for DC planning. Genia Davis, [employer] OPERATOR
--- NOTE | 2022-03-10 16:23 | NURSING ---
Received return call from Dr. Ashish Barrera's office, spoke with Emma. Per Dr. Barrera TCU can remove sutures on 03/15/21 and complete a 2 view xray of the tib/fib. Later follow-up to be scheduled when contacted by Dr. Barrera's office.
[2022-03-10] MEDS: Senna/Docusate Sodium 1 Tablet PO (17:25)
[2022-03-10] MEDS: Colestipol 1 GM TABLET PO (17:25)
[2022-03-10 21:00] VITALS: PULSE 73; RESP 16; O2SAT 95
[2022-03-11 05:33] VITALS: BP 107/59; PULSE 70
[2022-03-11] MEDS: Pantoprazole Sodium 40 MG Tablet PO (05:33)
[2022-03-11] MEDS: Senna/Docusate Sodium 1 Tablet PO ×2 (05:33→16:39)
[2022-03-11] MEDS: Pramipexole Di-HCl 0.25 MG Tablet PO ×3 (05:33→21:28)
[2022-03-11] MEDS: Metoprolol(XL)Succ 100 MG Tablet PO (05:33)
[2022-03-11] MEDS: tiZANidine HCl 2 MG Tablet PO (05:33)
[2022-03-11] MEDS: Furosemide 40 MG Tablet PO (05:33)
[2022-03-11] MEDS: Magnesium Hydroxide 30 ML UDC PO (05:34)
[2022-03-11] MEDS: Triamcinolone 0.5% Cream 1 APPLIC TOPICAL ×2 (05:38→17:43)
[2022-03-11] MEDS: Losartan Potassium 50 MG Tablet PO (08:50)
[2022-03-11] MEDS: Aspirin E.C. 81 MG Tablet PO ×2 (08:50→16:38)
[2022-03-11] MEDS: Gabapentin 100 MG Capsule 300 MG PO ×2 (08:50→16:38)
[2022-03-11] MEDS: Ferrous Sulfate 325 MG Tablet PO (11:51)
--- NOTE | 2022-03-11 14:41 | CHAPLAIN ---
Type of Pastoral Visit _x__ Initial Visit ___ Follow-up Visit ___ On-call Visit ___ General Patient Visit ___ Spiritual Assessment ___ Family Conference ___ Bereavement ___ Rapid Response ___ Code Blue ___ Other (describe below) Pastoral Care Referral From _x__ Patient ___ Family ___ Nurse ___ Physician ___ Banking Management Consulting Manager ___ Rn Disease Management ___ Other (describe below) Sacrament/Intervention _x__ Active listening ___ Anointing ___ Yarsanism ___ Bereavement ___ Communion ___ Mikayla exploration ___ _x__ Life review _x__ Prayer ___ Reconciliation ___ Sacrament of Sick _x__ Supportive presence ___ Wedding ___ Other (describe below) Pastoral Comments patient and son are in the room; pt states that she was in TCU before in 2017 maybe; pt says that she is doing fine; son is in from [place] and will go home in a couple of days; pt does not indicate needs; offer of support for the future; prayer given
[2022-03-11 14:52] VITALS: BP 94/43; PULSE 75; RESP 16; TEMP 36.4; O2SAT 90
[2022-03-11] MEDS: Colestipol 1 GM TABLET PO (17:43)
[2022-03-11 19:58] VITALS: PULSE 78; RESP 16; O2SAT 92
[2022-03-12] MEDS: Triamcinolone 0.5% Cream 1 APPLIC TOPICAL ×2 (05:19→21:32)
[2022-03-12 05:20] VITALS: BP 111/60; PULSE 71
[2022-03-12] MEDS: Metoprolol(XL)Succ 100 MG Tablet PO (05:20)
[2022-03-12] MEDS: Furosemide 40 MG Tablet PO (05:20)
[2022-03-12] MEDS: Pramipexole Di-HCl 0.25 MG Tablet PO ×3 (05:20→21:31)
[2022-03-12] MEDS: Pantoprazole Sodium 40 MG Tablet PO (05:21)
[2022-03-12] MEDS: Senna/Docusate Sodium 1 Tablet PO ×2 (05:21→18:08)
[2022-03-12] MEDS: tiZANidine HCl 2 MG Tablet PO ×2 (05:21→21:39)
[2022-03-12 06:01] VITALS: BP 155/77; PULSE 70; RESP 16
[2022-03-12] MEDS: Gabapentin 100 MG Capsule 300 MG PO ×2 (08:20→18:08)
[2022-03-12] MEDS: Aspirin E.C. 81 MG Tablet PO ×2 (08:20→18:08)
[2022-03-12] MEDS: Losartan Potassium 50 MG Tablet PO (08:21)
[2022-03-12 08:22] VITALS: BP 117/65; PULSE 77; RESP 16; O2SAT 92
[2022-03-12] MEDS: Ferrous Sulfate 325 MG Tablet PO (12:38)
[2022-03-12 14:48] VITALS: BP 97/52; PULSE 76; RESP 20; TEMP 36.7; O2SAT 94
[2022-03-12] MEDS: Colestipol 1 GM TABLET PO (18:08)
[2022-03-12 21:44] VITALS: PULSE 67; RESP 16; O2SAT 92
[2022-03-13 05:23] VITALS: BP 114/64; PULSE 65
[2022-03-13] MEDS: Pramipexole Di-HCl 0.25 MG Tablet PO ×3 (05:23→22:19)
[2022-03-13] MEDS: Pantoprazole Sodium 40 MG Tablet PO (05:23)
[2022-03-13] MEDS: Senna/Docusate Sodium 1 Tablet PO ×2 (05:23→18:07)
[2022-03-13] MEDS: Triamcinolone 0.5% Cream 1 APPLIC TOPICAL ×2 (05:23→22:20)
[2022-03-13] MEDS: Metoprolol(XL)Succ 100 MG Tablet PO (05:23)
[2022-03-13] MEDS: Furosemide 40 MG Tablet PO (05:23)
[2022-03-13] MEDS: tiZANidine HCl 2 MG Tablet PO ×2 (05:26→22:29)
[2022-03-13] MEDS: Gabapentin 100 MG Capsule 300 MG PO ×2 (08:44→18:07)
[2022-03-13] MEDS: Aspirin E.C. 81 MG Tablet PO ×2 (08:45→18:07)
[2022-03-13] MEDS: Ergocalciferol 1.25 MG (50, 000 UNIT) Capsule PO (08:46)
[2022-03-13 08:47] VITALS: BP 97/56; PULSE 76; RESP 16; O2SAT 94
[2022-03-13 10:00] VITALS: RESP 16
[2022-03-13] MEDS: Ferrous Sulfate 325 MG Tablet PO (12:01)
[2022-03-13 16:00] VITALS: BP 123/63; PULSE 66; RESP 16; TEMP 36.9; O2SAT 97
[2022-03-13] MEDS: Colestipol 1 GM TABLET PO (18:07)
[2022-03-14] MEDS: Acetaminophen 500 MG Tablet 1000 MG PO (05:32)
[2022-03-14 05:33] VITALS: BP 121/68; PULSE 61
[2022-03-14] MEDS: Senna/Docusate Sodium 1 Tablet PO ×2 (05:33→17:46)
[2022-03-14] MEDS: Metoprolol(XL)Succ 100 MG Tablet PO (05:33)
[2022-03-14] MEDS: Pramipexole Di-HCl 0.25 MG Tablet PO ×3 (05:33→19:42)
[2022-03-14] MEDS: Triamcinolone 0.5% Cream 1 APPLIC TOPICAL ×2 (05:34→17:46)
[2022-03-14] MEDS: Furosemide 40 MG Tablet PO (05:34)
[2022-03-14] MEDS: Pantoprazole Sodium 40 MG Tablet PO (05:34)
[2022-03-14] MEDS: Aspirin E.C. 81 MG Tablet PO ×2 (08:47→17:45)
[2022-03-14] MEDS: Gabapentin 100 MG Capsule 300 MG PO ×2 (08:47→17:45)
[2022-03-14] MEDS: Losartan Potassium 50 MG Tablet PO (08:47)
--- NOTE | 2022-03-14 11:57 | NURSING ---
Cell Cleaner Note; Activity Asset: Mark Ashton is independent in her choice of daily activities. Daisha needs reminded of daily activity offered and if she would like to attend. She watches tv, read, uses her smartphone to talk w/family along with visits from them. She has word puzzles and magazines in her room as well. Staff will continue to offer her out of room activities and respect her right to say no.
[2022-03-14] MEDS: Ferrous Sulfate 325 MG Tablet PO (13:03)
[2022-03-14 14:39] VITALS: BP 94/48; PULSE 72; RESP 18; TEMP 36.9; O2SAT 93
[2022-03-14] MEDS: Colestipol 1 GM TABLET PO (17:45)
[2022-03-14 19:44] VITALS: PULSE 66; RESP 16; O2SAT 92
[2022-03-15] MEDS: Triamcinolone 0.5% Cream 1 APPLIC TOPICAL (05:17)
[2022-03-15] MEDS: Pantoprazole Sodium 40 MG Tablet PO (05:20)
[2022-03-15] MEDS: Senna/Docusate Sodium 1 Tablet PO ×2 (05:20→17:50)
[2022-03-15] MEDS: Pramipexole Di-HCl 0.25 MG Tablet PO ×3 (05:20→20:58)
[2022-03-15] MEDS: Furosemide 40 MG Tablet PO (05:20)
[2022-03-15 05:21] VITALS: BP 117/62; PULSE 68
[2022-03-15] MEDS: Metoprolol(XL)Succ 100 MG Tablet PO (05:21)
[2022-03-15] MEDS: Acetaminophen 500 MG Tablet 1000 MG PO ×2 (05:26→13:37)
[2022-03-15 08:18] VITALS: BP 113/54; PULSE 70
[2022-03-15] MEDS: Losartan Potassium 50 MG Tablet PO (08:19)
[2022-03-15] MEDS: Gabapentin 100 MG Capsule 300 MG PO ×2 (08:19→17:50)
[2022-03-15] MEDS: Aspirin E.C. 81 MG Tablet PO ×2 (08:19→17:50)
[2022-03-15 10:00] VITALS: RESP 16
--- NOTE | 2022-03-15 10:45 | RAD_ITS ---
STUDY: X-RAY - RIGHT TIBIA AND FIBULA REASON FOR EXAM: Female, 76 years old. ORIF of mid tibial shaft fracture. TECHNIQUE: 2 view(s) of the tibia and fibula were obtained. COMPARISON: March 01, 2022. FINDINGS: Stable left total knee arthroplasty. Lateral plate and screw fixation of the previously described oblique minimally displaced and slightly medially angulated fracture of the shaft of the tibia. Exuberant callus formation in the shaft of the fibula, unaltered. Stable arthrodesis of the tibiotalar and subtalar joints with calcaneal spur. Stable midfoot arthrosis. Soft tissue swelling unchanged. RAD/Tibia & Fibula 2 Views IMPRESSION: Lateral plate and screw fixation of the tibia without complications. No other change. Electronically Signed: Jimmy Alfred, at 11:04 EST ,
[2022-03-15] MEDS: Ferrous Sulfate 325 MG Tablet PO (12:05)
--- NOTE | 2022-03-15 13:29 | CASEMGMT ---
Social Work IDT met with patient and son for care plan meeting. Discussed patient's progress in PT/OT/ST/SN. Educated to [facility] insurance with NRD 03/11 and continued stay is not guaranteed. Discussed DC plans as pt is NWBS for 12 weeks, and needing skilled therapy once WBAT. Son and this worker continuing to work together on educating to insurance cover for levels of care - AL/SNF/Part B therapies. Son would like to look at living facilities that allow SNF and AL. Son is working on accessing pt's finances, as pt will not currently qualify for Medicaid with assets. SW to provide SNF list. Son was requesting referral to [facility] but they are out of network with insurance. [place] does not have beds available currently. Son to review SNF list for more referrals. Son is returning to home state of [place] tomorrow. Son very appreciative of assistance. Son presented to this worker's office shortly after meeting. SW provided printed list of SNFs with quality and resource data via [employer]. Received outcome from insurance. Provided and educated to insurance NRD 03/18, with [facility] 03/27. Son reviewed list and requesting referrals to [facility]. Son would still like referral to [facility] and see if pt has any OON benefits. Referrals made via [employer]. BARBARA CrooksW
--- NOTE | 2022-03-15 14:24 | NURSING ---
This nurse removed 14 sutures per order, washed leg. Incisions well approximated with current drainage. Rewrapped with new dressing. pt tolerated well. Will have copy of xray sent to Dr. Ashish Barrera.
[2022-03-15 14:39] VITALS: BP 117/65; PULSE 76; RESP 16; TEMP 36.1; O2SAT 94
--- NOTE | 2022-03-15 15:33 | NURSING ---
Spoke with Shea at Dr. Ashish Barrera's office. They received the xray's, made them aware that sutures were removed and new dressing applied.
[2022-03-15] MEDS: Colestipol 1 GM TABLET PO (17:48)
[2022-03-16 05:46] VITALS: BP 145/78; PULSE 67
[2022-03-16] MEDS: Metoprolol(XL)Succ 100 MG Tablet PO (05:46)
[2022-03-16] MEDS: Senna/Docusate Sodium 1 Tablet PO ×2 (05:47→17:31)
[2022-03-16] MEDS: Pantoprazole Sodium 40 MG Tablet PO (05:47)
[2022-03-16] MEDS: Furosemide 40 MG Tablet PO (05:47)
[2022-03-16] MEDS: Pramipexole Di-HCl 0.25 MG Tablet PO ×3 (05:47→21:47)
[2022-03-16] MEDS: oxyCODONE 5 MG Tablet PO ×2 (05:52→12:18)
[2022-03-16] MEDS: Aspirin E.C. 81 MG Tablet PO ×2 (08:12→17:30)
[2022-03-16] MEDS: Losartan Potassium 50 MG Tablet PO (08:12)
[2022-03-16] MEDS: Gabapentin 100 MG Capsule 300 MG PO (08:12)
--- NOTE | 2022-03-16 09:17 | NURSING ---
Earth Science Professor Note; MDS Complete
--- NOTE | 2022-03-16 12:02 | PHA.CONS_ITS ---
TCU RX Drug Regimen Review Subjective: TCU Admission. 76 YOF hospitalized for right tibial shaft fracture, underwent open reduction with plate fixation. Admitted to TCU with debility for strengthening and rehabilitation. Objective: Allergies amitriptyline Adverse Reaction (Verified 03/01/22 06:11) Other codeine Adverse Reaction (Verified 03/01/22 06:11) Other gabapentin Adverse Reaction (Verified 03/01/22 06:11) ONLY IF TAKEN IN LARGE DOSES HALLUCINATIONS IF TAKEN IN LARGE DOSES ONLY Current Medications Generic Name Dose Route Start Last Admin Trade Name Freq PRN Reason Stop Dose Admin Acetaminophen 1,000 mg 03/09/22 20:05 03/15/22 13:37 Acetaminophen 500 Mg Tablet PO 1,000 mg Q6H PRN PRN Administration Pain Score 1-5 Aspirin 81 mg 03/10/22 08:00 03/16/22 08:12 Aspirin E.C. 81 Mg Tablet PO 04/02/22 23:55 81 mg BIDCM [facility] Administration Bisacodyl 10 mg 03/09/22 20:04 Bisacodyl 10 Mg Suppository RC X1 PRN CONSTIPATION Colestipol HCl 1 gm 03/09/22 18:00 03/15/22 17:48 Colestipol 1 Gm Tablet PO 1 gm DAILY@1800 [facility] Administration Cyanocobalamin 1,000 mcg 03/28/22 06:00 Cyanocobalamin (B12) 1,000 Mcg/Ml Vial IM Q30D [facility] Ergocalciferol 1.25 mg 03/13/22 08:00 03/13/22 08:46 Ergocalciferol 1.25 Mg (50, 000 Unit) Capsule PO 1.25 mg SIDDIQUI [facility] Administration Ferrous Sulfate 325 mg 03/10/22 12:00 03/15/22 12:05 Ferrous Sulfate 325 Mg Tablet PO 325 mg DAILY@1200 [facility] Administration Furosemide 40 mg 03/10/22 06:00 03/16/22 05:47 Furosemide 40 Mg Tablet PO 40 mg DAILY MARCELA Administration Gabapentin 300 mg 03/16/22 17:00 Gabapentin 300 Mg Capsule PO BIDCM [facility] Losartan Potassium 50 mg 03/11/22 08:00 03/16/22 08:12 Losartan Potassium 50 Mg Tablet PO 50 mg DAILY@0800 [facility] Administration Magnesium Hydroxide 30 ml 03/09/22 20:04 03/11/22 05:34 Magnesium Hydroxide 30 Ml Udc PO 30 ml X1 PRN Administration Constipation Metoprolol Succinate 100 mg 03/10/22 06:00 03/16/22 05:46 Metoprolol(Xl)Succ 100 Mg Tablet PO 100 mg DAILY MARCELA Administration Oxycodone HCl 5 mg 03/09/22 20:05 03/16/22 05:52 Oxycodone 5 Mg Tablet PO 5 mg Q4H PRN PRN Administration Pain 6-10 Pantoprazole Sodium 40 mg 03/10/22 06:00 03/16/22 05:47 Pantoprazole Sodium 40 Mg Tablet PO 40 mg DAILY MARCELA Administration Pramipexole Dihydrochloride 0.25 mg 03/09/22 22:00 03/16/22 05:47 Pramipexole Di-Hcl 0.25 Mg Tablet PO 0.25 mg TID [facility] Administration Senna/Docusate Sodium 1 tablet 03/10/22 18:00 03/16/22 05:47 Senna/Docusate Sodium 1 Tablet PO 1 tablet BID MARCELA Administration Tizanidine HCl 2 mg 03/09/22 17:02 03/13/22 22:29 Tizanidine Hcl 2 Mg Tablet PO 2 mg BID PRN PRN Administration SPASMS Triamcinolone Acetonide 1 applic 03/09/22 18:00 03/16/22 05:47 Triamcinolone 0.5% Cream TOPICAL Not Given BID [facility] Protocol Tuberculin PPD 0.1 ml 03/17/22 10:00 Tuberculin,Purif.Prot.Deriv. 50 Tu/Ml Vial ID 03/17/22 10:01 X1 ONE Problem List (Last Reviewed 03/09/22 @ 19:[address] Varun Sanchez MD) Iron deficiency anemia (Acute) Muscle spasm (Acute) GERD (gastroesophageal reflux disease) (Acute) Restless leg syndrome (Acute) Hypertension (Chronic) Neuropathic pain (Acute) Edema (Acute) Fracture of right fibula, shaft (Acute) Fracture of tibial shaft, right, closed (Acute) Debility (Acute) Vital Signs Temp Pulse Resp BP Pulse Ox O2 Del Method 96.9 F L 67 16 145/78 H 94 Room Air 03/15/22 14:39 03/16/22 05:46 03/15/22 14:39 03/16/22 05:46 03/15/22 14:39 03/15/22 14:39 Oxygen Delivery Method Room Air Weight: 80.467 kg Body Mass Index (BMI) 34.1 Sodium 132 mmol/L (136-145) L 03/10/22 05:31 Potassium 4.6 mmol/L (3.5-5.1) 03/10/22 05:31 Chloride 96 mmol/L (98-107) L 03/10/22 05:31 Carbon Dioxide 31.0 mmol/L (21.0-32.0) 03/10/22 05:31 Anion Gap 5 (5-15) 03/10/22 05:31 BUN 32 mg/dL (7-18) H 03/10/22 05:31 Creatinine 1.14 mg/dL (0.55-1.02) H 03/10/22 05:31 Est GFR (MDRD) Af Amer 60 mL/min (>60) 03/10/22 05:31 Est GFR (MDRD) Non-Af 49 mL/min (>60) L 03/10/22 05:31 BUN/Creatinine Ratio 28.1 RATIO (10-20) H 03/10/22 05:31 Glucose 101 mg/dL (74-106) 03/10/22 05:31 Assessment/Plan: 1. Pain: acetaminophen 1000mg PO Q6H PRN pain 1-5 and oxycodone 5mg PO Q4H PRN pain 6-10. Resident has had 4 doses of acetaminophen for pain of 3-8 and 2 doses of oxycodone for pain of 6 in the RLE, back, hip. Please continue to monitor for increased pain, PRN usage, constipation and respiratory depression. 2. Bowel/diarrhea: senna/docusate 1T PO BID constipation, colestipol 1gm PO BID, bisacodyl 10mg RC x1 PRN constipation and MOM 30mL PO x1 PRN constipation. Resident has had 1 dose of MOM. Please continue to monitor for constipation (last documented bowel movement 03/11) and PRN usage. 3. DVT prophylaxis: aspirin 81mg PO BIDCM thru 04/02/22. Please continue to m onitor for for S/S of bleeding/DVT and hemoglobin (last 11.1g/dL). 4. Edema/hypertension: furosemide 40mg PO daily, metoprolol succinate 100mg PO daily and losartan 50mg PO daily. Please continue to monitor for edema, potassium (last 4.6mmol/L), sodium (132mmol/L), BP (last 145/78), HR (last 67), and renal function. 5. GERD: pantoprazole 40mg PO daily. Please continue to monitor for S/S of GERD and diarrhea (BEERs criteria medication due to increased risk of C. diff infections). 6. Restless leg syndrome: pramipexole 0.25mg PO TID. Please continue to monitor for S/S of restless legs. 7. Iron deficiency anemia: ferrous sulfate 325mg PO daily. Please continue to monitor hemoglobin (last 11.1g/dL), constipation and dark stools. 8. Muscle spasm: tizanidine 2mg PO BID PRN spasms. Resident has had 5 doses so far. Please continue to monitor for spasms and PRN usage. 9. Vitamin B12 and D deficiencies: cyanocobalamin 1000mcg IM Q30 days and ergocalciferol 1.25mg PO weekly. Please consider ordering vitamin B12 and vitamin D levels. Resident does not have any vitamin D levels in the chart. Last B12 level is from 02/2019. Thanks. Assessment/Plan for indications treated with psychotropic medications: 1. Neuropathic pain: gabapentin 300mg PO BIDCM. Please continue to monitor for falls/fractures (BEERs criteria med), confusion and renal function (dose appropriate). GDR not appropriate as this medication is being used for neuropathic pain. Medical chart and medication regimen reviewed. The following medication irregularities or issues were identified: *1. Cyanocobalamin 1000mcg IM Q30 days and ergocalciferol 1.25mg PO weekly. Please consider ordering vitamin B12 and vitamin D levels. Resident does not have any vitamin D levels in the chart. Last B12 level is from 02/2019. Thanks. Date of Note:: 03/16/22
[2022-03-16] MEDS: Ferrous Sulfate 325 MG Tablet PO (12:19)
[2022-03-16] MEDS: Acetaminophen 500 MG Tablet 1000 MG PO (14:33)
[2022-03-16 15:10] VITALS: BP 105/66; PULSE 66; RESP 18; TEMP 36.2; O2SAT 95
--- NOTE | 2022-03-16 15:22 | CASEMGMT ---
Social Work Upon entry, pt and caregiver, Deloris, were present. Caregiver asked for clarification on insurance and placement, as pt is confused and worried about plan. SW explained to caregiver and pt, that yesterday at the [facility], pt became tearful and overwhelmed when this worker and son were discussing plan, insurance coverage, etc. Reassured pt that this worker and son are working together daily to find placement and sort out financial liability. Caregiver confirmed pt is overwhelmed. Encouraged caregiver to redirect conversation and continued with reassuring pt that staff is coordinating plans. Pt agreeable with response. Proceed with MDS. BIMS () and PHQ-9 (01/06) completed for MDS assessment. Explored positive responses. Pt reports to trouble sleeping d/t the environment. Discussed interventions. Communication nonorder entered for pt's preferences. Pt reports to taking Benadryl, x1 pills at home for allergies but takes them at night and helps her sleep. Communication to nursing. Pt reports to loss of independence and being overwhelmed with the insurance situation. Provided emotional support. Offered ongoing support as needed throughout stay. Pt appreciative. Will continue to follow. BARBARA CrooksW
--- NOTE | 2022-03-16 16:21 | NURSING ---
Pt C/O migraine today that is making her sick to stomach. Pt reports usually just takes Advil at home for relief. Tylenol administered and cool cloth to head. After some rest, patient reports relief.
[2022-03-16] MEDS: Gabapentin 300 MG Capsule PO (17:30)
[2022-03-16] MEDS: Colestipol 1 GM TABLET PO (17:30)
[2022-03-16] MEDS: Triamcinolone 0.5% Cream 1 APPLIC TOPICAL (17:31)
[2022-03-17 05:38] VITALS: BP 121/68; PULSE 65
[2022-03-17] MEDS: Metoprolol(XL)Succ 100 MG Tablet PO (05:38)
[2022-03-17] MEDS: Pramipexole Di-HCl 0.25 MG Tablet PO ×3 (05:39→20:48)
[2022-03-17] MEDS: Pantoprazole Sodium 40 MG Tablet PO (05:39)
[2022-03-17] MEDS: Furosemide 40 MG Tablet PO (05:39)
[2022-03-17] MEDS: Triamcinolone 0.5% Cream 1 APPLIC TOPICAL ×2 (05:39→16:38)
[2022-03-17] MEDS: Senna/Docusate Sodium 1 Tablet PO ×2 (05:39→16:38)
[2022-03-17 05:52] LABS: Hematocrit 33.4 % (37-47); Hemoglobin 10.7 g/dL (12.0-15.0); Mean Corpuscular Hgb 28.8 pg (27.0-32.0); Mean Platelet Vol. 8.1 fl (6.2-12.0); POSITIVE COUNT YES; POSITIVE MORPHOLOGY YES; Platelet Count 289 K/mm3 (150-450); RBC Distribution Width CV 14.2 % (11.6-14.6); RBC Distribution Width SD 45.6 fl (35.1-43.9); Red Blood Count 3.71 M/mm3 (4.2-5.4); White Blood Count 6.7 K/mm3 (4.4-11.0)
[2022-03-17 05:58] LABS: Differential Indicated MANUAL DIFF
[2022-03-17 06:27] LABS: Anion Gap 6 (5-15); BUN 17 mg/dL (7-18); BUN/Creat Ratio 27.8 RATIO (10-20); Calcium,Total 9.4 mg/dL (8.5-10.1); Chloride 101 mmol/L (98-107); Creatinine, Serum 0.61 mg/dL (0.55-1.02); EST Glomerular Filtration Rate 101 mL/min (>60); Est Glom Filt Rate - Afr Amer 123 mL/min (>60); Estimated Creatinine Clearance 34.91 ml/min; Glucose 93 mg/dL (74-106); Potassium 3.7 mmol/L (3.5-5.1); Sodium Level 137 mmol/L (136-145)
[2022-03-17 07:13] LABS: Metamyelocyte 1 % (0-1); Myelocyte 2 % (0-0); Neutrophil-Band 1 % (0-5); Neutrophil-Segmented 66 % (47-70); Total Cells Counted 100 (MANUAL DIFF)
[2022-03-17 07:14] LABS: Absolute Neutrophil Count 4.5 X10^3/uL (2.0-7.7); Basophil 1 % (0-1); Eosinophil 1 % (0-5); Lymphocyte 22 % (19-41); Monocyte 6 % (0-10); Neutrophil # 4.52 X10^3/uL (2.7-7.7); Platelet Estimate ADEQUATE (ADEQ); Red Cell Morphology NORM C+C NORMAL (NORM C&C)
[2022-03-17 07:15] LABS: Absolute Lymphocyte Count 1.48 X10^3/uL (0.83-4.51); Lymphocyte # 1.48 X10^3/ul (0.83-4.51)
[2022-03-17] MEDS: Aspirin E.C. 81 MG Tablet PO ×2 (09:07→16:37)
[2022-03-17] MEDS: Losartan Potassium 50 MG Tablet PO (09:08)
--- NOTE | 2022-03-17 09:08 | CASEMGMT ---
Addendum entered by Genia Davis 03/17/22 16:17: Received call from Yani at [facility] accepting pt and stating that pt is IN NETWORK with insurance. Son also asked about switching patient to traditional Medicare. Yani from [facility] explained pt can elect to switch the last week of Mar, allow 30 days for switch while still getting [facility] coverage, then have MC effective May 11. Advised to son to look into coverage for medications because [facility] is the enrollment. Son appreciative and would like pt to DC to [facility]. Addendum entered by Genia Davis 03/17/22 12:04: [facility] can accept and provided updated pricing. Secure email sent to son to update. Will continue to follow. Original Note: Social Work Followed up with son via email that [facility] and [facility] are OON and have no beds, [facility] still no beds, and [facility] is still reviewing. SW to continue to follow. BARBARA CrooksW
[2022-03-17] MEDS: Gabapentin 300 MG Capsule PO ×2 (09:12→16:37)
[2022-03-17] MEDS: oxyCODONE 5 MG Tablet PO ×2 (09:21→20:41)
[2022-03-17 09:55] VITALS: PULSE 71; RESP 18; O2SAT 92
[2022-03-17] MEDS: Tuberculin,Purif.prot.deriv. 50 TU/ML Vial 0.1 ML ID (12:21)
[2022-03-17] MEDS: Ferrous Sulfate 325 MG Tablet PO (12:21)
[2022-03-17 16:00] VITALS: BP 88/47; PULSE 69; RESP 14; TEMP 36.6; O2SAT 95
[2022-03-17] MEDS: Colestipol 1 GM TABLET PO (16:43)
--- NOTE | 2022-03-17 19:45 | NURSING ---
patient aware of positive covid on floor
[2022-03-17 20:56] VITALS: BP 95/51; PULSE 70; RESP 16
[2022-03-18 06:08] VITALS: BP 123/68; PULSE 65
[2022-03-18] MEDS: Furosemide 40 MG Tablet PO (06:08)
[2022-03-18] MEDS: Senna/Docusate Sodium 1 Tablet PO ×2 (06:08→18:00)
[2022-03-18] MEDS: Pramipexole Di-HCl 0.25 MG Tablet PO ×3 (06:08→20:18)
[2022-03-18] MEDS: Pantoprazole Sodium 40 MG Tablet PO (06:08)
[2022-03-18] MEDS: Metoprolol(XL)Succ 100 MG Tablet PO (06:08)
[2022-03-18] MEDS: tiZANidine HCl 2 MG Tablet PO (06:09)
[2022-03-18] MEDS: Aspirin E.C. 81 MG Tablet PO ×2 (08:24→17:59)
[2022-03-18] MEDS: Gabapentin 300 MG Capsule PO ×2 (08:26→17:59)
[2022-03-18 09:56] LABS: Pathologist Review Reviewed
[2022-03-18 10:47] VITALS: BP 93/69; PULSE 73
[2022-03-18] MEDS: Ferrous Sulfate 325 MG Tablet PO (12:12)
[2022-03-18 14:23] VITALS: BP 112/63; PULSE 73; RESP 18; TEMP 36.2; O2SAT 95
--- NOTE | 2022-03-18 15:08 | CASEMGMT ---
Social Work Spoke with pt and updated on goal for DC and son looking into changing insurances to traditional Medicare. Pt is agreeable to go to [facility]. Pt appears more at ease but still concerned about cost. Provided emotional support. Pt appreciative of assistance. Will continue to follow. Genia Davis, HYDROTECHNICAL SPECIALIST MOSAICIST
[2022-03-18] MEDS: Colestipol 1 GM TABLET PO (17:59)
[2022-03-18 20:00] VITALS: PULSE 70; RESP 16; O2SAT 95
[2022-03-19] MEDS: oxyCODONE 5 MG Tablet PO (00:22)
[2022-03-19 05:23] VITALS: BP 113/70; PULSE 65
[2022-03-19] MEDS: Metoprolol(XL)Succ 100 MG Tablet PO (05:23)
[2022-03-19] MEDS: Pramipexole Di-HCl 0.25 MG Tablet PO ×3 (05:23→20:48)
[2022-03-19] MEDS: Furosemide 40 MG Tablet PO (05:23)
[2022-03-19] MEDS: Senna/Docusate Sodium 1 Tablet PO ×2 (05:23→18:27)
[2022-03-19] MEDS: Pantoprazole Sodium 40 MG Tablet PO (05:23)
[2022-03-19 06:18] LABS: Hematocrit 33.2 % (37-47); Hemoglobin 10.8 g/dL (12.0-15.0)
[2022-03-19] MEDS: Aspirin E.C. 81 MG Tablet PO ×2 (07:35→18:26)
[2022-03-19] MEDS: Gabapentin 300 MG Capsule PO ×2 (07:35→18:26)
[2022-03-19 10:55] VITALS: PULSE 66; RESP 14; O2SAT 96
[2022-03-19] MEDS: Ferrous Sulfate 325 MG Tablet PO (11:24)
[2022-03-19 16:00] VITALS: BP 113/66; PULSE 71; RESP 20; TEMP 35.7; O2SAT 96
[2022-03-19] MEDS: Colestipol 1 GM TABLET PO (18:26)
[2022-03-19] MEDS: Acetaminophen 500 MG Tablet 1000 MG PO (20:47)
[2022-03-20] MEDS: tiZANidine HCl 2 MG Tablet PO (04:58)
[2022-03-20 05:01] VITALS: BP 148/76; PULSE 65
[2022-03-20] MEDS: Furosemide 40 MG Tablet PO (05:01)
[2022-03-20] MEDS: Senna/Docusate Sodium 1 Tablet PO ×2 (05:01→17:42)
[2022-03-20] MEDS: Pantoprazole Sodium 40 MG Tablet PO (05:01)
[2022-03-20] MEDS: Pramipexole Di-HCl 0.25 MG Tablet PO ×3 (05:01→21:54)
[2022-03-20] MEDS: Metoprolol(XL)Succ 100 MG Tablet PO (05:01)
[2022-03-20] MEDS: Gabapentin 300 MG Capsule PO ×2 (08:12→17:42)
[2022-03-20] MEDS: Aspirin E.C. 81 MG Tablet PO ×2 (08:13→17:42)
[2022-03-20] MEDS: Ergocalciferol 1.25 MG (50, 000 UNIT) Capsule PO (08:13)
[2022-03-20] MEDS: Ferrous Sulfate 325 MG Tablet PO (12:20)
[2022-03-20 15:03] VITALS: BP 107/71; PULSE 74; RESP 20; TEMP 36.6; O2SAT 96
[2022-03-20] MEDS: Colestipol 1 GM TABLET PO (17:42)
[2022-03-20 22:00] VITALS: PULSE 68; RESP 18; O2SAT 98
[2022-03-21] MEDS: tiZANidine HCl 2 MG Tablet PO (02:49)
[2022-03-21 05:36] VITALS: BP 137/70; PULSE 64
[2022-03-21] MEDS: Pantoprazole Sodium 40 MG Tablet PO (05:36)
[2022-03-21] MEDS: Metoprolol(XL)Succ 100 MG Tablet PO (05:36)
[2022-03-21] MEDS: Senna/Docusate Sodium 1 Tablet PO ×2 (05:36→17:34)
[2022-03-21] MEDS: Furosemide 40 MG Tablet PO (05:36)
[2022-03-21] MEDS: Pramipexole Di-HCl 0.25 MG Tablet PO ×3 (05:36→20:39)
[2022-03-21] MEDS: Aspirin E.C. 81 MG Tablet PO ×2 (08:03→17:33)
[2022-03-21] MEDS: Gabapentin 300 MG Capsule PO ×2 (08:03→17:33)
--- NOTE | 2022-03-21 08:48 | CASEMGMT ---
Social Work Confirmed with son that plan is [facility] at [place], private pay for 30 days up front. Son confirmed and requesting specifics on pricing. SW followed up with [facility] to contact son on explanation of pricing, etc. Notified [facility] of choosing another facility. SW to continue to follow. Genia Davis, BARBARA MORENOW
[2022-03-21 09:25] VITALS: PULSE 72; RESP 16; O2SAT 94
[2022-03-21] MEDS: Ferrous Sulfate 325 MG Tablet PO (11:46)
[2022-03-21 14:20] VITALS: BP 127/69; PULSE 76; RESP 18; TEMP 36.2; O2SAT 95
--- NOTE | 2022-03-21 16:42 | NURSING ---
Patient updated that staff member tested positive for covid.
[2022-03-21] MEDS: Colestipol 1 GM TABLET PO (17:33)
[2022-03-22] MEDS: Furosemide 40 MG Tablet PO (05:14)
[2022-03-22] MEDS: Pramipexole Di-HCl 0.25 MG Tablet PO ×3 (05:14→21:13)
[2022-03-22] MEDS: Pantoprazole Sodium 40 MG Tablet PO (05:14)
[2022-03-22] MEDS: Senna/Docusate Sodium 1 Tablet PO ×2 (05:14→18:25)
[2022-03-22 05:15] VITALS: BP 145/71; PULSE 66
[2022-03-22] MEDS: Metoprolol(XL)Succ 100 MG Tablet PO (05:15)
--- NOTE | 2022-03-22 08:40 | MDS.RN ---
Information for the mds was obtained from review of the clinical record, interview of resident, staff, and direct observation of resident's care.
[2022-03-22] MEDS: Aspirin E.C. 81 MG Tablet PO ×2 (08:48→18:25)
[2022-03-22] MEDS: Gabapentin 300 MG Capsule PO ×2 (08:51→18:29)
[2022-03-22] MEDS: Ferrous Sulfate 325 MG Tablet PO (13:34)
[2022-03-22 15:14] VITALS: BP 124/68; PULSE 75; RESP 18; TEMP 36.3; O2SAT 96
[2022-03-22] MEDS: Colestipol 1 GM TABLET PO (18:25)
[2022-03-22] MEDS: FLUCONAZOLE 150 MG TABLET PO (18:50)
[2022-03-22 21:00] VITALS: PULSE 62; RESP 16; O2SAT 96
[2022-03-23 04:46] VITALS: BP 140/69; PULSE 64
[2022-03-23] MEDS: Pramipexole Di-HCl 0.25 MG Tablet PO ×3 (04:46→20:09)
[2022-03-23] MEDS: Senna/Docusate Sodium 1 Tablet PO ×2 (04:46→17:34)
[2022-03-23] MEDS: Pantoprazole Sodium 40 MG Tablet PO (04:46)
[2022-03-23] MEDS: Metoprolol(XL)Succ 100 MG Tablet PO (04:46)
[2022-03-23] MEDS: Furosemide 40 MG Tablet PO (04:46)
[2022-03-23] MEDS: Aspirin E.C. 81 MG Tablet PO ×2 (08:05→17:35)
[2022-03-23] MEDS: Gabapentin 300 MG Capsule PO ×2 (08:06→17:35)
[2022-03-23] MEDS: Ferrous Sulfate 325 MG Tablet PO (13:31)
[2022-03-23 15:55] VITALS: BP 124/64; PULSE 71; RESP 16; TEMP 36.8; O2SAT 92
--- NOTE | 2022-03-23 16:11 | CASEMGMT ---
Addendum entered by Genia Davis 03/24/22 09:51: Completed PASRR. DC paperwork sent to [facility]. Scheduled cot transport through [facility] for [facility]. Original Note: Social Work Insurance issued LCD 03/26, DC 03/27. SW spoke with pt and pt agreed - confirmed plan to DC to [facility]. SW to schedule transport. SW updated [facility]. SW emailed son and confirmed acknowledgement for DC. Plan: DC to [facility] 03/27, nonskilled BARBARA CrooksW
[2022-03-23] MEDS: Triamcinolone 0.5% Cream 1 APPLIC TOPICAL (17:34)
[2022-03-23] MEDS: Colestipol 1 GM TABLET PO (17:34)
--- NOTE | 2022-03-23 21:44 | DS.PCM_ITS ---
Providers Date of Admission: 03/09/22 Primary Care Physician: Dr. Samuel Hull, DO Reason For Visit: TIBIA/FIBIA FRACTURE RT SIDE Diagnosis Discharge Diagnosis (1) Debility: Status: Acute Code(s): R53.81 - Other malaise (2) Fracture of tibial shaft, right, closed: Status: Acute Code(s): S82.201A - Unspecified fracture of shaft of right tibia, initial encounter for closed fracture (3) Fracture of right fibula, shaft: Status: Acute Code(s): S82.401A - Unspecified fracture of shaft of right fibula, initial encounter for closed fracture (4) Edema: Status: Acute Code(s): R60.9 - Edema, unspecified (5) Neuropathic pain: Status: Acute Code(s): M79.2 - Neuralgia and neuritis, unspecified (6) Hypertension: Status: Chronic Code(s): I10 - Essential (primary) hypertension (7) Restless leg syndrome: Status: Acute Code(s): G25.81 - Restless legs syndrome (8) GERD (gastroesophageal reflux disease): Status: Acute Code(s): K21.9 - Gastro-esophageal reflux disease without esophagitis (9) Muscle spasm: Status: Acute Code(s): M62.838 - Other muscle spasm (10) Iron deficiency anemia: Status: Acute Code(s): D50.9 - Iron deficiency anemia, unspecified Plan 76 year old female with below past medical history significant for right fibular shaft fracture treated non-operatively, hospitalized for right tibial shaft fracture, underwent open reduction with plate fixation, admitted to TCU with debility, here for rehabilitation, strengthening, prior to discharge home alone. * Debility - PT/OT. * Pain - Tylenol 1000mg q6h prn pain (1-5), Oxycodone 5mg q4h prn pain (6-10). * Bowel - senna/colace 1 tablet bid prn, Dulcolax 10mg pr x 1 prn, MOM 30ml po x 1 prn. * Adult immunization - Administer pneumonia vaccine, covid19 vaccine, flu vaccine as appropriate. * DVT prophylaxis - Aspirin 81mg bid thru 04/02/2022. * Diarrhea - Colestipol 1gm daily. * Vitamin B12 deficiency - B12 1000mcg im [id number] * Vitamin D deficiency - D2 1.25mg qweek. * Iron deficiency anemia - Ferrous sulfate 325mg daily. * Edema - Furosemide 40mg daily. * Neuropathic pain - Gabapentin 300mg bidcm. * Hypertension - Metoprolol succinate 100mg daily, Losartan 50mg daily. * GERD - Pantoprazole 40mg daily. * Restless Leg syndrome - Mirapex 0.25mg po tid. * Muscle spasm - Tizanidine 2mg bid prn. * Rash - Triamcinolone 0.5% topical bid. Medications at Discharge Home Medications cyanocobalamin (vitamin B-12) 1,000 mcg/mL injection solution 1,000 mcg IM Q30D Supplement 11/10/14 furosemide 40 mg tablet 40 mg PO DAILY EDEMA 11/10/14 gabapentin 100 mg capsule 300 mg PO BID Pain 11/10/14 acetaminophen 500 mg tablet 1,000 mg PO Q6H PRN PRN Pain 05/19/17 tizanidine 2 mg tablet 2 mg PO BID PRN PRN Spasms 05/19/17 cholecalciferol (vitamin D3) 1,250 mcg (50,000 unit) capsule 1,250 mcg PO DAILY Supplement 02/20/22 colestipol 1 gram tablet 1 g PO DAILY Cholesterol 02/20/22 ferrous sulfate 142 mg (45 mg iron) tablet,extended release (Slow Fe) 142 mg PO DAILY Supplement 02/20/22 triamcinolone acetonide 0.5 % topical cream 1 applic topical BID Skin Care 02/20/22 aspirin 81 mg capsule,delayed release 81 mg PO BID Heart 03/09/22 metoprolol succinate 100 mg tablet,extended release 24 hr 100 mg PO DAILY BP 03/09/22 nystatin 100,000 unit/gram topical powder ([facility]) 1 applic topical BID@1000,2200 #0 grams 03/23/22 pantoprazole 40 mg tablet,delayed release 40 mg PO DAILY #0 tabs 03/23/22 pramipexole 0.25 mg tablet 0.25 mg PO TID #0 tabs 03/23/22 Hospital Course Operations None Procedures None Summary of Care Provided Minutes Spent on Discharge: 35 Hospital Course: 76 year old female with below past medical history significant for right fibular shaft fracture treated non-operatively, hospitalized for right tibial shaft fracture, underwent open reduction with plate fixation, admitted to TCU with debility, here for rehabilitation, strengthening, prior to discharge home alone. Discharge to [facility] 03/27/2022, nonskilled. Physical Exam Const alert General Appearance: cooperative HEENT normocephalic Eyes PERRL and EOMs intact bilaterally Neck supple, no JVD and no carotid bruits Resp normal respiratory effort, normal air movement and clear to auscultation bilaterally Cardio regular rate and regular rhythm GI normal to inspection, nondistended, normoactive bowel sounds, non-tender and non-distended Extremity normal capillary refill General Extremity: Negative for edema Skin no rashes or lesions noted General Skin Exam: no breakdown Psych affect normal Appearance: appropriate Weight / BMI Weight Weight: 74.888 kg Body Mass Index (BMI) 34.1 ABG / Lab / Microbiology Data Result Diagrams: 03/19/22 06:10 03/17/22 05:31 Microbiology: Microbiology 03/23/22 04:50 Nasal Secretion SARS-CoV-2 Antigen (Rapid) - Final 03/21/22 16:00 Nasal Secretion SARS-CoV-2 Antigen (Rapid) - Final 03/13/22 06:00 Nasal Secretion SARS-CoV-2 Antigen (Rapid) - Final 03/11/22 05:30 Nasal Secretion SARS-CoV-2 Antigen (Rapid) - Final 03/09/22 21:37 Interface Orders SARS-CoV-2 Antigen (Rapid) - Final D/C Instructions Discharge Diet: No restrictions Discharge Activity: Return to Normal Activity and May Shower Weight Bearing Status: No weight bearing (Right lower extremity.) Call your doctor if you observe: Fever of 101 or Higher, Inability to urinate, Inability to have a bowel movement, Shortness of breath, Dizziness, Fainting spells, Swelling in the ankles, Chest pain and Uncontrolled pain Additional Instructions: Discharge to [facility] 03/27/2022, nonskilled. Please Follow Up With: Ashish Barrera MD When: As scheduled. Meaningful Use Info Meaningful Use Diagnoses (Choose all that apply): None applicable Discharge Plan Admission Admit Date/Time: 03/09/22 16:00 Primary Reason for Your Visit: Debility. Attending Provider: Varun Sanchez Chi Primary Care Provider: Samuel Hull Instructions Additional Instructions / Restrictions: Discharge to [facility] 03/27/2022, nonskilled. Discharge Orders/Prescriptions Prescriptions: New pantoprazole 40 mg Tablet,Delayed Release (Dr/Ec) 40 mg PO DAILY Qty: 0 0RF pramipexole 0.25 mg Tablet 0.25 mg PO TID Qty: 0 0RF nystatin [Nyamyc] 100,000 unit/gram Powder 1 applic topical BID@1000,2200 Qty: 0 0RF Protocol: *Topical Application Instructions APPLICATION INSTRUCTIONS: redness to groin/under breasts Continued furosemide 40 MG tablet 40 mg PO DAILY Label Comments: diuretic cyanocobalamin (vitamin B-12) 1,000 MCG/ML solution 1,000 mcg IM Q30D Label Comments: vitamin supplement. ONCE EVERY 30 DAYS Rx Instructions: DURING THE THIRD WEEK OF THE MONTH gabapentin 100 MG capsule 300 mg PO BID Label Comments: for neuropathy tizanidine 2 MG tablet 2 mg PO BID PRN PRN (Reason: Spasms) acetaminophen 500 MG tablet 1,000 mg PO Q6H PRN PRN (Reason: Pain) triamcinolone acetonide 0.5 % cream 1 applic TOPICAL BID Label Comments: apply sparingly to affected area OF RASH/ITCHING ON BOTH LEGS twice a day (AVOID FACE/SKIN FOLDS) colestipol 1 gram tablet 1 g PO DAILY cholecalciferol (vitamin D3) 1,250 mcg (50,000 unit) capsule 1,250 mcg PO DAILY Label Comments: take 1 capsule by mouth every week Slow Fe 142 mg (45 mg iron) Tablet Extended Release 142 mg PO DAILY aspirin 81 mg Capsule,Delayed Release(Dr/Ec) 81 mg PO BID metoprolol succinate 100 mg Tablet Extended Release 24 Hr 100 mg PO DAILY Discontinued topiramate 25 MG tablet 50 mg PO BID Label Comments: tremors metoprolol tartrate 100 MG tablet 100 mg PO DAILY Label Comments: for blood pressure Mirapex 0.25 mg PO TID Label Comments: restless legs omeprazole 20 capsule,delayed release(DR/EC) 20 mg PO DAILY Label Comments: naproxen 500 mg tablet 500 mg PO BID PRN (Reason: Pain) Label Comments: take 1 tablet by mouth twice a day NEEDED FOR PAIN or inflamma... (REFER TO PRESCRIPTION NOTES). oxycodone-acetaminophen [Endocet] 5-325 mg tablet 1 tab PO Q8H PRN (Reason: pain) 3 Days Qty: 12 0RF losartan 50 mg Tablet 50 mg PO DAILY oxycodone 5 mg Tablet 5 - 10 mg PO Q6H PRN (Reason: Pain 6-10) tramadol 50 mg tablet 50 mg PO QHS Rx Instructions: prn pain for right leg fracture Referrals / Follow Up: Samuel Hull DO [Primary Care Provider] - Disposition Disposition (needs filled in before D/C Order can be placed): NonSkilled NH/Intermed Care
--- NOTE | 2022-03-23 21:49 | TREXTCAR_ITS ---
Diet Diet Order/Speech Therapy: 03/09/22 17:19 Diet: Regular - General Food consistency:: Regular Liquid Consistency:: Regular/Thin Is pt able to select menu?: Yes Routine Orders/Code Status Code Status: Full Code Wound(s) Right LE surgical site: Wound Type: Surgical Incision Dressing Change: Dry Sterile Dressing left heel: Wound Type: Pressure Injury Dressing Change: offloaded Therapies Weight Bearing: Non weight bearing (Right lower extremity.) Extremity Affected:: Bilateral Lower Physical Therapy: Eval and Treat Occupational Therapy: Eval and Treat Problem/Diagnosis (1) Debility: Status: Acute Code(s): R53.81 - Other malaise (2) Fracture of tibial shaft, right, closed: Status: Acute Code(s): S82.201A - Unspecified fracture of shaft of right tibia, initial encounter for closed fracture (3) Fracture of right fibula, shaft: Status: Acute Code(s): S82.401A - Unspecified fracture of shaft of right fibula, initial encounter for closed fracture (4) Edema: Status: Acute Code(s): R60.9 - Edema, unspecified (5) Neuropathic pain: Status: Acute Code(s): M79.2 - Neuralgia and neuritis, unspecified (6) Hypertension: Status: Chronic Code(s): I10 - Essential (primary) hypertension (7) Restless leg syndrome: Status: Acute Code(s): G25.81 - Restless legs syndrome (8) GERD (gastroesophageal reflux disease): Status: Acute Code(s): K21.9 - Gastro-esophageal reflux disease without esophagitis (9) Muscle spasm: Status: Acute Code(s): M62.838 - Other muscle spasm (10) Iron deficiency anemia: Status: Acute Code(s): D50.9 - Iron deficiency anemia, unspecified Plan 76 year old female with below past medical history significant for right fibular shaft fracture treated non-operatively, hospitalized for right tibial shaft fracture, underwent open reduction with plate fixation, admitted to TCU with debility, here for rehabilitation, strengthening, prior to discharge home alone. * Debility - PT/OT. * Pain - Tylenol 1000mg q6h prn pain (1-5), Oxycodone 5mg q4h prn pain (6-10). * Bowel - senna/colace 1 tablet bid prn, Dulcolax 10mg pr x 1 prn, MOM 30ml po x 1 prn. * Adult immunization - Administer pneumonia vaccine, covid19 vaccine, flu vaccine as appropriate. * DVT prophylaxis - Aspirin 81mg bid thru 04/02/2022. * Diarrhea - Colestipol 1gm daily. * Vitamin B12 deficiency - B12 1000mcg im [id number] * Vitamin D deficiency - D2 1.25mg qweek. * Iron deficiency anemia - Ferrous sulfate 325mg daily. * Edema - Furosemide 40mg daily. * Neuropathic pain - Gabapentin 300mg bidcm. * Hypertension - Metoprolol succinate 100mg daily, Losartan 50mg daily. * GERD - Pantoprazole 40mg daily. * Restless Leg syndrome - Mirapex 0.25mg po tid. * Muscle spasm - Tizanidine 2mg bid prn. * Rash - Triamcinolone 0.5% topical bid. Allergies/Procedures Done in Hospital Allergies amitriptyline Adverse Reaction (Verified 03/01/22 06:11) Other codeine Adverse Reaction (Verified 03/01/22 06:11) Other gabapentin Adverse Reaction (Verified 03/01/22 06:11) ONLY IF TAKEN IN LARGE DOSES HALLUCINATIONS IF TAKEN IN LARGE DOSES ONLY Procedures: None Type of Care/Length of Stay Estimated LOS: More Than 30 Days Type of Care Needed: Intermediate Rehab Potential: Good Prognosis: Good Additional Orders/Day of Discharge Additional Orders: part B therapies Day of Discharge: 03/27/22 Dietary and Speech Recommendations Dietitian Recommendations/Changes: Continue regular diet per res request. Nursing to reweigh res on standing scale for accuracy. Will make adjustments in diet/ONS as indicated. Follow Up Care Please Follow Up With: Ashish Barrera MD When: 04/12/2022 Please Follow Up With: Indigo Hair MD Discharge Plan Admission Admit Date/Time: 03/09/22 16:00 Primary Reason for Your Visit: Debility. Attending Provider: Varun Sanchez Chi Primary Care Provider: Samuel Hull Instructions Additional Instructions / Restrictions: Discharge to [facility] 03/27/2022, nonskilled. Discharge Orders/Prescriptions Prescriptions: New pantoprazole 40 mg Tablet,Delayed Release (Dr/Ec) 40 mg PO DAILY Qty: 0 0RF pramipexole 0.25 mg Tablet 0.25 mg PO TID Qty: 0 0RF nystatin [Nyamyc] 100,000 unit/gram Powder 1 applic topical BID@1000,2200 Qty: 0 0RF Protocol: *Topical Application Instructions APPLICATION INSTRUCTIONS: redness to groin/under breasts Continued furosemide 40 MG tablet 40 mg PO DAILY Label Comments: diuretic cyanocobalamin (vitamin B-12) 1,000 MCG/ML solution 1,000 mcg IM Q30D Label Comments: vitamin supplement. ONCE EVERY 30 DAYS Rx Instructions: DURING THE THIRD WEEK OF THE MONTH gabapentin 100 MG capsule 300 mg PO BID Label Comments: for neuropathy tizanidine 2 MG tablet 2 mg PO BID PRN PRN (Reason: Spasms) acetaminophen 500 MG tablet 1,000 mg PO Q6H PRN PRN (Reason: Pain) triamcinolone acetonide 0.5 % cream 1 applic TOPICAL BID Label Comments: apply sparingly to affected area OF RASH/ITCHING ON BOTH LEGS twice a day (AVOID FACE/SKIN FOLDS) colestipol 1 gram tablet 1 g PO DAILY cholecalciferol (vitamin D3) 1,250 mcg (50,000 unit) capsule 1,250 mcg PO DAILY Label Comments: take 1 capsule by mouth every week Slow Fe 142 mg (45 mg iron) Tablet Extended Release 142 mg PO DAILY aspirin 81 mg Capsule,Delayed Release(Dr/Ec) 81 mg PO BID metoprolol succinate 100 mg Tablet Extended Release 24 Hr 100 mg PO DAILY Discontinued topiramate 25 MG tablet 50 mg PO BID Label Comments: tremors metoprolol tartrate 100 MG tablet 100 mg PO DAILY Label Comments: for blood pressure Mirapex 0.25 mg PO TID Label Comments: restless legs omeprazole 20 capsule,delayed release(DR/EC) 20 mg PO DAILY Label Comments: naproxen 500 mg tablet 500 mg PO BID PRN (Reason: Pain) Label Comments: take 1 tablet by mouth twice a day NEEDED FOR PAIN or inflamma... (REFER TO PRESCRIPTION NOTES). oxycodone-acetaminophen [Endocet] 5-325 mg tablet 1 tab PO Q8H PRN (Reason: pain) 3 Days Qty: 12 0RF losartan 50 mg Tablet 50 mg PO DAILY oxycodone 5 mg Tablet 5 - 10 mg PO Q6H PRN (Reason: Pain 6-10) tramadol 50 mg tablet 50 mg PO QHS Rx Instructions: prn pain for right leg fracture Referrals / Follow Up: Samuel Hull DO [Primary Care Provider] - Disposition Disposition (needs filled in before D/C Order can be placed): NonSkilled NH/Intermed Care
[2022-03-24] MEDS: Pantoprazole Sodium 40 MG Tablet PO (04:55)
[2022-03-24 04:56] VITALS: BP 146/76; PULSE 72
[2022-03-24] MEDS: Metoprolol(XL)Succ 100 MG Tablet PO (04:56)
[2022-03-24] MEDS: Senna/Docusate Sodium 1 Tablet PO ×2 (04:56→17:20)
[2022-03-24] MEDS: Pramipexole Di-HCl 0.25 MG Tablet PO ×3 (04:56→22:00)
[2022-03-24] MEDS: Furosemide 40 MG Tablet PO (04:56)
[2022-03-24 05:26] LABS: Absolute Lymphocyte Count 1.24 X10^3/uL (0.83-4.51); Basophil# 0.04 X10^3/uL; Basophil% 0.8 % (0-1); Eosinophil# 0.14 X10^3/uL; Eosinophils% 2.9 % (0-5); Hematocrit 34.1 % (37-47); Hemoglobin 10.7 g/dL (12.0-15.0); Lymphocyte # 1.24 X10^3/ul (0.83-4.51); Lymphocyte % 25.6 % (19-41); Mean Corp Hgb Conc 31.4 g/dL (32-36); Mean Corpuscular Hgb 28.9 pg (27.0-32.0); Mean Corpuscular Volume 92.2 fL (81-99); Monocyte# 0.38 X10^3/uL; Monocyte% 7.8 % (0-10); NRBC Flagged by Analyzer 0 % (0-5); Neutrophil # 2.97 X10^3/uL (2.7-7.7); Neutrophil % 61.3 % (47-70); Platelet Count 255 K/mm3 (150-450); RBC Distribution Width SD 49.9 fl (35.1-43.9); White Blood Count 4.9 K/mm3 (4.4-11.0)
[2022-03-24 05:42] LABS: Anion Gap 6 (5-15); BUN 16 mg/dL (7-18); BUN/Creat Ratio 23.9 RATIO (10-20); Calcium,Total 9.1 mg/dL (8.5-10.1); Chloride 102 mmol/L (98-107); Creatinine, Serum 0.67 mg/dL (0.55-1.02); EST Glomerular Filtration Rate 91 mL/min (>60); Est Glom Filt Rate - Afr Amer 111 mL/min (>60); Estimated Creatinine Clearance 34.91 ml/min; Glucose 98 mg/dL (74-106); Potassium 4.1 mmol/L (3.5-5.1); Sodium Level 138 mmol/L (136-145)
[2022-03-24] MEDS: Aspirin E.C. 81 MG Tablet PO ×2 (08:16→17:20)
[2022-03-24] MEDS: Gabapentin 300 MG Capsule PO ×2 (08:16→17:20)
[2022-03-24] MEDS: Ferrous Sulfate 325 MG Tablet PO (12:21)
--- NOTE | 2022-03-24 12:58 | CON.PCM_ITS ---
Assessment & Plan Assessment/Plan (1) Tinea unguium: PLAN: Patient examined evaluated all fine discussed patient in detail. Splint intact to right lower extremity patient nonweightbearing on that side. Patient has follow-up with her surgeon on the of this month. Patient able to actively move digits with neurovascular status intact no signs of DVT. Toenails x10 were debrided in length and thickness without incident. Patient can follow-up in our office and 9 weeks for repeat nail care (2) Pain in right toe(s): (3) Pain in left toe(s): HPI Consult Data Date of Consult: 03/24/22 HPI Narrative Reason for Consultation: Nail care. HPI Narrative: MAVIS KOO, is a 76 F who presents TCU for recovery of a right proximal tib- fib fracture after surgical management by orthopedic surgeon at [facility]. We are consulted today perform nail care. [facility] Medical History Abdominal pain Allergic rhinitis Anxiety Biliary dyskinesia Breast cancer (~01/2019) CAD (coronary artery disease) Cellulitis of right lower limb Chronic cholecystitis Ductal carcinoma in situ (DCIS) of left breast Edema Enlargement of lymph node Epigastric pain GERD (gastroesophageal reflux disease) Hemorrhage of gastrointestinal tract history la incisional hernia repair history lap incisional hernia repair HTN (hypertension) Hyperlipidemia Impaired fasting blood sugar Insomnia Localized edema Malignant neoplasm of sigmoid colon Migraine Neuropathic pain Neuropathy Non-pressure chronic ulcer of other part of right lower leg with fat layer exposed Osteoarthritis of left knee 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 Prolapsed bladder Right wrist drop RLS (restless legs syndrome) Sleep apnea 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 Vitamin B12 deficiency Vitamin C deficiency Home Medications cyanocobalamin (vitamin B-12) 1,000 mcg/mL injection solution 1,000 mcg IM Q30D Supplement 11/10/14 [History Last Taken 04/29/15] furosemide 40 mg tablet 40 mg PO DAILY EDEMA 11/10/14 [History Last Taken 05/10/15] gabapentin 100 mg capsule 300 mg PO BID Pain 11/10/14 [History Last Taken 08/09/19 06:00] acetaminophen 500 mg tablet 1,000 mg PO Q6H PRN PRN Pain 05/19/17 [History Last Taken Unknown] tizanidine 2 mg tablet 2 mg PO BID PRN PRN Spasms 05/19/17 [History Last Taken 05/19/17] cholecalciferol (vitamin D3) 1,250 mcg (50,000 unit) capsule 1,250 mcg PO DAILY Supplement 02/20/22 [History Last Taken Unknown] colestipol 1 gram tablet 1 g PO DAILY Cholesterol 02/20/22 [History Last Taken Unknown] ferrous sulfate 142 mg (45 mg iron) tablet,extended release (Slow Fe) 142 mg PO DAILY Supplement 02/20/22 [History Last Taken Unknown] triamcinolone acetonide 0.5 % topical cream 1 applic topical BID Skin Care 02/20/22 [History Last Taken Unknown] aspirin 81 mg capsule,delayed release 81 mg PO BID Heart 03/09/22 [History Last Taken Unknown] metoprolol succinate 100 mg tablet,extended release 24 hr 100 mg PO DAILY BP 03/09/22 [History Last Taken Unknown] nystatin 100,000 unit/gram topical powder (Nyamyc) 1 applic topical BID@1000,2200 #0 grams 03/23/22 [Rx Last Taken Unknown] pantoprazole 40 mg tablet,delayed release 40 mg PO DAILY #0 tabs 03/23/22 [Rx Last Taken Unknown] pramipexole 0.25 mg tablet 0.25 mg PO TID #0 tabs 03/23/22 [Rx Last Taken Unknown] Allergy/AdvReac Type Severity Reaction Status Date / Time amitriptyline AdvReac Other Verified 03/01/22 06:11 codeine AdvReac Other Verified 03/01/22 06:11 gabapentin AdvReac ONLY IF Verified 03/01/22 06:11 TAKEN IN LARGE DOSES Family History Mother Brain aneurysm Father Heart disease Daughter Cancer INVALID/ PATIENT HAS NO DAUGHTER. ENTERED IN ERROR. CAN'T DELETE Grandfather Cancer LUNG CANCER IN 60S FROM SMOKING Aunt Diabetes Brother Cancer Pancreatic cancer Surgical History H/O: hysterectomy history lap incisional hernia re[pair history left breast excisional biopsy with needle loc (~02/01/19) History of appendectomy History of breast biopsy (~01/2019) History of colectomy History of colonoscopy (~2010) History of foot surgery History of hysterectomy History of laparoscopic cholecystectomy History of lymph node biopsy (~07/2019) History of total right knee replacement History of umbilical hernia repair Social History (Updated 03/09/22 @ 19:[address] Varun Sanchez MD) household members: none Smoking Status: Never smoker alcohol intake: current alcohol intake frequency: a few times a month substance use type: does not use Physical Exam Narrative Patient AOx3. Neurovascular status intact to digits to right foot. Splint noted to be intact to right lower extremity. Neurovascular status intact to left foot. Toenails 1 through 5 bilaterally elongated thickened dystrophic with subungual debris and noted to be painful to tender to palpation Lab / Micro Data Result Diagrams: 03/24/22 05:04 03/24/22 05:04 Labs: Laboratory Results - last 24 hr 03/24/22 05:04: WBC 4.9, RBC 3.70 L, Hgb 10.7 L, Hct 34.1 L, MCV 92.2, MCH 28.9, MCHC 31.4 L, RDW Std Deviation 49.9 H, RDW Coeff of Helder 15.0 H, Plt Count 255, MPV 8.0, Immature Gran % (Auto) 1.600 H, Neut % (Auto) 61.3, Lymph % (Auto) 25.6, [place] % (Auto) 7.8, Eos % (Auto) 2.9, Baso % (Auto) 0.8, Absolute Neuts (auto) 3.0, Absolute Lymphs (auto) 1.24, Nucleated RBC % 0 03/24/22 05:04: Sodium 138, Potassium 4.1, Chloride 102, Carbon Dioxide 30.0, Anion Gap 6, BUN 16, Creatinine 0.67, Estim Creat Clear Calc 34.91, Est GFR (MDRD) Af Amer 111, Est GFR (MDRD) Non-Af 91, BUN/Creatinine Ratio 23.9 H, Glucose 98, Calcium 9.1
--- NOTE | 2022-03-24 13:13 | MDS.RN ---
Pain interview for JEREMIAH 03/27/22
[2022-03-24] MEDS: tiZANidine HCl 2 MG Tablet PO (13:27)
[2022-03-24 14:06] VITALS: BP 111/67; PULSE 73; RESP 18; TEMP 36.6; O2SAT 95
--- NOTE | 2022-03-24 14:56 | NURSING ---
Dr Hagen trimmed toenails today.
--- NOTE | 2022-03-24 16:14 | CASEMGMT ---
Social Work BIMS () and PHQ-9 (08/06) completed for MDS assessment. Genia Davis MSW [employer]LECT[employer]OWER LINE EXAMINER
[2022-03-24] MEDS: Colestipol 1 GM TABLET PO (17:20)
[2022-03-24] MEDS: Triamcinolone 0.5% Cream 1 APPLIC TOPICAL (17:20)
[2022-03-24 21:40] VITALS: PULSE 67; RESP 18; O2SAT 95
[2022-03-24] MEDS: Acetaminophen 500 MG Tablet 1000 MG PO (21:55)
[2022-03-25] MEDS: Pantoprazole Sodium 40 MG Tablet PO (05:06)
[2022-03-25] MEDS: Pramipexole Di-HCl 0.25 MG Tablet PO ×3 (05:06→21:09)
[2022-03-25] MEDS: Furosemide 40 MG Tablet PO (05:06)
[2022-03-25 05:07] VITALS: BP 145/79; PULSE 70
[2022-03-25] MEDS: Metoprolol(XL)Succ 100 MG Tablet PO (05:07)
[2022-03-25] MEDS: Senna/Docusate Sodium 1 Tablet PO ×2 (05:07→16:38)
[2022-03-25] MEDS: Gabapentin 300 MG Capsule PO ×2 (07:47→16:37)
[2022-03-25] MEDS: Aspirin E.C. 81 MG Tablet PO ×2 (07:47→16:37)
[2022-03-25] MEDS: Ferrous Sulfate 325 MG Tablet PO (11:09)
[2022-03-25 13:26] VITALS: BP 135/85; PULSE 76; RESP 16; TEMP 36.2; O2SAT 95
[2022-03-25] MEDS: Colestipol 1 GM TABLET PO (16:37)
[2022-03-25] MEDS: Triamcinolone 0.5% Cream 1 APPLIC TOPICAL (16:39)
[2022-03-25 21:00] VITALS: PULSE 64; RESP 16; O2SAT 98
[2022-03-26 05:35] VITALS: BP 143/82; PULSE 62
[2022-03-26] MEDS: tiZANidine HCl 2 MG Tablet PO (05:35)
[2022-03-26] MEDS: Pantoprazole Sodium 40 MG Tablet PO (05:35)
[2022-03-26] MEDS: Furosemide 40 MG Tablet PO (05:35)
[2022-03-26] MEDS: Metoprolol(XL)Succ 100 MG Tablet PO (05:35)
[2022-03-26] MEDS: Senna/Docusate Sodium 1 Tablet PO ×2 (05:36→17:07)
[2022-03-26] MEDS: Pramipexole Di-HCl 0.25 MG Tablet PO ×3 (05:36→20:18)
[2022-03-26] MEDS: Triamcinolone 0.5% Cream 1 APPLIC TOPICAL ×2 (05:36→17:07)
[2022-03-26] MEDS: Gabapentin 300 MG Capsule PO ×2 (07:49→17:07)
[2022-03-26] MEDS: Aspirin E.C. 81 MG Tablet PO ×2 (07:50→17:07)
[2022-03-26 09:55] VITALS: PULSE 74; RESP 16; O2SAT 95
[2022-03-26] MEDS: Ferrous Sulfate 325 MG Tablet PO (11:52)
[2022-03-26 16:00] VITALS: BP 119/69; PULSE 73; RESP 16; TEMP 36.4; O2SAT 95
[2022-03-26] MEDS: Colestipol 1 GM TABLET PO (17:07)
[2022-03-27 05:12] VITALS: BP 149/79; PULSE 68
[2022-03-27] MEDS: Pantoprazole Sodium 40 MG Tablet PO (05:12)
[2022-03-27] MEDS: Metoprolol(XL)Succ 100 MG Tablet PO (05:12)
[2022-03-27] MEDS: Pramipexole Di-HCl 0.25 MG Tablet PO (05:12)
[2022-03-27] MEDS: Furosemide 40 MG Tablet PO (05:12)
[2022-03-27] MEDS: Senna/Docusate Sodium 1 Tablet PO (05:12)
[2022-03-27] MEDS: Triamcinolone 0.5% Cream 1 APPLIC TOPICAL (05:15)
[2022-03-27] MEDS: Aspirin E.C. 81 MG Tablet PO (08:06)
[2022-03-27] MEDS: Gabapentin 300 MG Capsule PO (08:06)
[2022-03-27] MEDS: Ergocalciferol 1.25 MG (50, 000 UNIT) Capsule PO (08:06)
--- NOTE | 2022-03-27 09:54 | NURSING ---
Report called at this time to Shwetha at [facility]
== END 2022-03-27 11:33 | disposition intermediate care facility (04) | DRG 561 ==
PROVIDERS: Admitting Provider Family Medicine Geriatric Medicine; PCP Student in an Organized Health Care Education/Training Program; Visit Provider Family Medicine Geriatric Medicine
DX: S82.201D Unspecified fracture of shaft of right tibia, subsequent encounter for closed fracture with routine healing (principal); B35.1 Tinea unguium; D50.9 Iron deficiency anemia, unspecified; E53.8 Deficiency of other specified B group vitamins; G25.81 Restless legs syndrome; G62.9 Polyneuropathy, unspecified; K21.9 Gastro-esophageal reflux disease without esophagitis; I25.10 Atherosclerotic heart disease of native coronary artery without angina pectoris; I10 Essential (primary) hypertension; M62.838 Other muscle spasm; E78.5 Hyperlipidemia, unspecified; E55.9 Vitamin D deficiency, unspecified; Z79.82 Long term (current) use of aspirin; Z79.899 Other long term (current) drug therapy; X58.XXXD Exposure to other specified factors, subsequent encounter; S82.401D Unspecified fracture of shaft of right fibula, subsequent encounter for closed fracture with routine healing
CPT/HCPCS: 36415; 73590; 80048; 85014; 85018; 85025; 87426; 87811; 92507; 92523; 97110; 97162; 97166; 97530; 97535

== ENCOUNTER → 2022-04-07 | Outpatient (REF) | payer MEDICARE, SELFPAY ==
[2019-02-26 14:07] VITALS: BMI 34.7
[2022-04-07 08:49] LABS: Hematocrit 33.5 % (37-47); Hemoglobin 10.7 g/dL (12.0-15.0); Mean Corp Hgb Conc 31.9 g/dL (32-36); Mean Corpuscular Hgb 29.4 pg (27.0-32.0); Mean Platelet Vol. 8.5 fl (6.2-12.0); Platelet Count 216 K/mm3 (150-450); RBC Distribution Width CV 15.3 % (11.6-14.6); RBC Distribution Width SD 51.7 fl (35.1-43.9); Red Blood Count 3.64 M/mm3 (4.2-5.4); White Blood Count 4.2 K/mm3 (4.4-11.0)
[2022-04-07 09:16] LABS: Anion Gap 8 (5-15); BUN 13 mg/dL (7-18); BUN/Creat Ratio 20.4 RATIO (10-20); Chloride 102 mmol/L (98-107); Creatinine, Serum 0.64 mg/dL (0.55-1.02); EST Glomerular Filtration Rate 97 mL/min (>60); Est Glom Filt Rate - Afr Amer 117 mL/min (>60); Glucose 94 mg/dL (74-106); Potassium 3.8 mmol/L (3.5-5.1); Sodium Level 138 mmol/L (136-145)
== END ==
LOC: OLS.WCC 05:00
PROVIDERS: PCP Student in an Organized Health Care Education/Training Program; Visit Provider Family Medicine
DX: E78.5 Hyperlipidemia, unspecified (principal); M81.0 Age-related osteoporosis without current pathological fracture; Z79.899 Other long term (current) drug therapy
CPT/HCPCS: 36415; 80048; 85027

== ENCOUNTER → 2022-06-10 | Outpatient (CLI) | payer MEDICARE, SELFPAY ==
[2019-02-26 14:07] VITALS: BMI 34.7
[2022-06-10 13:55] LABS: Absolute Lymphocyte Count 1.12 X10^3/uL (0.83-4.51); Basophil# 0.04 X10^3/uL; Basophil% 0.7 % (0-1); Eosinophil# 0.08 X10^3/uL; Eosinophils% 1.4 % (0-5); Hematocrit 39.3 % (37-47); Hemoglobin 12.6 g/dL (12.0-15.0); Lymphocyte # 1.12 X10^3/ul (0.83-4.51); Lymphocyte % 19.7 % (19-41); Mean Corp Hgb Conc 32.1 g/dL (32-36); Mean Corpuscular Hgb 29.3 pg (27.0-32.0); Mean Corpuscular Volume 91.4 fL (81-99); Mean Platelet Vol. 8.6 fl (6.2-12.0); Monocyte# 0.37 X10^3/uL; Monocyte% 6.5 % (0-10); NRBC Flagged by Analyzer 0 % (0-5); Neutrophil # 4.02 X10^3/uL (2.7-7.7); Neutrophil % 70.8 % (47-70); Platelet Count 296 K/mm3 (150-450); RBC Distribution Width CV 13.6 % (11.6-14.6); RBC Distribution Width SD 46.2 fl (35.1-43.9); White Blood Count 5.7 K/mm3 (4.4-11.0)
[2022-06-10 14:18] LABS: AST(SGOT) 13 U/L (15-37); Alanine Aminotransfer ALT/SGPT 14 U/L (13-56); Albumin, Serum 3.7 g/dL (3.2-5.0); Alkaline Phosphatase 110 U/L (45-117); Anion Gap 6 (5-15); BUN 15 mg/dL (7-18); BUN/Creat Ratio 24.1 RATIO (10-20); Chloride 105 mmol/L (98-107); Creatinine, Serum 0.62 mg/dL (0.55-1.02); EST Glomerular Filtration Rate 99 mL/min (>60); Est Glom Filt Rate - Afr Amer 120 mL/min (>60); Globulin 3.8 g/dL (2.2-4.2); Glucose 85 mg/dL (74-106); Protein, Total 7.5 g/dL (6.4-8.2); Sodium Level 138 mmol/L (136-145); Thyroid Stim Hormone (TSH) 1.19 uIU/mL (0.358-3.74)
[2022-06-10 14:43] LABS: Hepatitis C Antibody Non-Reactive (Nonreactive); Vitamin D,25 Hydroxy 49.9 ng/mL
== END | disposition home or self-care (01) ==
LOC: POLAB3 11:08
PROVIDERS: PCP Student in an Organized Health Care Education/Training Program; Visit Provider Family Medicine Geriatric Medicine
DX: E55.9 Vitamin D deficiency, unspecified (principal); I10 Essential (primary) hypertension; Z13.89 Encounter for screening for other disorder
CPT/HCPCS: 36415; 80053; 82306; 84443; 85025; 86803

== ENCOUNTER → 2022-06-23 | Outpatient (CLI) | payer MEDICARE, SELFPAY ==
[2019-02-26 14:07] VITALS: BMI 34.7
--- NOTE | 2022-06-23 13:28 | BD_ITS ---
STUDY: DUAL ENERGY X-RAY ABSORPTIOMETRY / DXA REASON FOR EXAM: Female, 76 years old. 627.8Menopausal postmenopausal BONE DENSITY REASON FOR EXAM TECHNIQUE: Bone Mineral Density (BMD) measurements of lumbar spine and bilateral hips were obtained. COMPARISON: None. FINDINGS: Lumbar Spine (L1-L4): g/cm2 (0.946) / T-score (-0.9) / Z-score (1.5) Findings are suggestive of normal bone density with a low fracture risk. Left Femur Total: g/cm2 (0.679) / T-score (-2.2) / Z-score (-0.3) Left Femoral Neck: g/cm2 (0.593) / T-score (-2.3) / Z-score (-0.2) Right Femur Total: g/cm2 (0.602) / T-score (-2.8) / Z-score (-1.0) Right Femoral Neck: g/cm2 (0.585) / T-score (-2.4) / Z-score (-0.3) BD/Dexa Bone Density Study IMPRESSION: The patient is considered osteoporotic as outlined below according to World [employer] Organization (WHO) criteria with a high fracture risk. Reference Information: The T-score is the number of standard deviations above or below the standard which is normal for young adults at their peak bone mineral density. The World Health Organization (WHO) interprets the T-scores as follows: Above -1 Normal bone density Between -1 and -2.5 Osteopenia Equal to / or below -2.5 Osteoporosis As a practical clinical guideline, osteopenia may be graded as follows: Mild -1 through -1.5 Moderate -1.6 through -2.0 Severe -2.1 through -2.4 The Z-score is the number of standard deviations above or below age-matched controls. A Z-score of less than -1.5 would be considered abnormal. References: 1. NIH Osteoporosis and Related Bone Diseases www osteo.org 2. International Society for Clinical Densitometry www iscd.org 3. National Osteoporosis Foundation www nof.org Electronically Signed: Omar Blake MD at 10:07 EDT ,
== END | disposition home or self-care (01) ==
LOC: OPBD 13:21
PROVIDERS: PCP Family Medicine Geriatric Medicine; Referring Provider Family Medicine Geriatric Medicine; Visit Provider Family Medicine Geriatric Medicine
DX: N95.9 Unspecified menopausal and perimenopausal disorder (principal)
CPT/HCPCS: 77080

== ENCOUNTER → 2022-07-08 | Outpatient (CLI) | payer MEDICARE, SELFPAY ==
[2019-02-26 14:07] VITALS: BMI 34.7
== END | disposition home or self-care (01) ==
LOC: POLAB3 12:37
PROVIDERS: PCP Family Medicine Geriatric Medicine; Visit Provider Family Medicine Geriatric Medicine
DX: N39.0 Urinary tract infection, site not specified (principal)
CPT/HCPCS: 87077; 87086; 87088; 87186

== ENCOUNTER → 2022-07-28 | Outpatient (CLI) | payer OTHER, MEDICARE, SELFPAY ==
[2019-02-26 14:07] VITALS: BMI 34.7
--- NOTE | 2022-07-28 17:57 | RAD_ITS ---
INDICATION: BACK PAIN EXAMINATION/TECHNIQUE: X-RAY - XR Spine Lumbar Min 4 Views COMPARISON: Lumbar spine x-rays 04/17/2018. FINDINGS: Vertebral bodies are grossly normal in height. No definite fracture demonstrated. Suboptimal positioning on the obliques due to the scoliosis. Marked scoliosis thoracolumbar curve convex right appears increased. Disc space narrowing with osteophytes at most levels. No subluxation. No paravertebral soft tissue mass identified. RAD/L/S Spine Min 4 Views IMPRESSION: Scoliosis appears increased compared to prior. Degenerative changes. Electronically Signed: Dali Ozuna MD at 7:36 EDT ,
--- NOTE | 2022-07-28 18:00 | RAD_ITS ---
INDICATION: BACK PAIN EXAMINATION/TECHNIQUE: X-RAY - XR Spine Thoracic 3 Views COMPARISON: Thoracic spine x-rays 04/17/2018 FINDINGS: Vertebral bodies appear grossly normal in height. No definite fracture demonstrated. Moderate thoracic curve convex right, appears relatively increased compared to the prior study. No subluxation. Disc space narrowing with osteophytes throughout most levels. No paravertebral soft tissue mass identified. RAD/Thoracic Spine 3 Views IMPRESSION: Increased thoracic scoliosis compared to prior. Degenerative changes. Electronically Signed: Dali Ozuna MD at 7:33 EDT ,
== END | disposition home or self-care (01) ==
LOC: RAD 17:52
PROVIDERS: PCP Family Medicine Geriatric Medicine; Referring Provider Family Medicine Geriatric Medicine; Visit Provider Family Medicine Geriatric Medicine
DX: M54.6 Pain in thoracic spine (principal)
CPT/HCPCS: 72072; 72110

== ENCOUNTER → 2022-08-18 | Outpatient (CLI) | payer MEDICARE, SELFPAY ==
[2019-02-26 14:07] VITALS: BMI 34.7
[2022-08-18 17:45] LABS: Absolute Lymphocyte Count 1.16 X10^3/uL (0.83-4.51); Absolute Neutrophil Count 3.4 X10^3/uL (2.0-7.7); Basophil# 0.03 X10^3/uL; Basophil% 0.6 % (0-1); Eosinophil# 0.09 X10^3/uL; Eosinophils% 1.8 % (0-5); Hemoglobin 12.4 g/dL (12.0-15.0); Lymphocyte # 1.16 X10^3/ul (0.83-4.51); Lymphocyte % 23.1 % (19-41); Mean Corp Hgb Conc 31.8 g/dL (32-36); Mean Corpuscular Hgb 28.3 pg (27.0-32.0); Mean Platelet Vol. 8.6 fl (6.2-12.0); Monocyte# 0.35 X10^3/uL; NRBC Flagged by Analyzer 0 % (0-5); Neutrophil # 3.37 X10^3/uL (2.7-7.7); Neutrophil % 66.9 % (47-70); Platelet Count 274 K/mm3 (150-450); RBC Distribution Width CV 13.9 % (11.6-14.6); RBC Distribution Width SD 45.1 fl (35.1-43.9); Red Blood Count 4.38 M/mm3 (4.2-5.4)
[2022-08-18 18:22] LABS: AST(SGOT) 16 U/L (15-37); Alanine Aminotransfer ALT/SGPT 16 U/L (13-56); Albumin, Serum 3.7 g/dL (3.2-5.0); Alkaline Phosphatase 86 U/L (45-117); Anion Gap 6 (5-15); BUN 14 mg/dL (7-18); BUN/Creat Ratio 22.6 RATIO (10-20); Calcium,Total 8.9 mg/dL (8.5-10.1); Chloride 103 mmol/L (98-107); Creatinine, Serum 0.62 mg/dL (0.55-1.02); EST Glomerular Filtration Rate 100 mL/min (>60); Est Glom Filt Rate - Afr Amer 121 mL/min (>60); Globulin 3.7 g/dL (2.2-4.2); Glucose 89 mg/dL (74-106); Potassium 3.9 mmol/L (3.5-5.1); Protein, Total 7.4 g/dL (6.4-8.2); Sodium Level 136 mmol/L (136-145)
== END | disposition home or self-care (01) ==
LOC: LAB 16:05
PROVIDERS: PCP Family Medicine Geriatric Medicine; Visit Provider Family Medicine Geriatric Medicine
DX: R19.7 Diarrhea, unspecified (principal)
CPT/HCPCS: 36415; 80053; 85025

== ENCOUNTER → 2022-08-19 | Outpatient (CLI) | payer MEDICARE, SELFPAY ==
[2019-02-26 14:07] VITALS: BMI 34.7
--- NOTE | 2022-08-19 11:02 | CT_ITS ---
STUDY: CT ABDOMEN AND PELVIS WITH CONTRAST REASON FOR EXAM: Female, 76 years old. ABDOMINAL PAIN RADIATION DOSAGE (If Supplied By Facility): CTDIvol = ( 13.73 ) mGy, DLP = ( 795.76 ) mGycm TECHNIQUE: Transaxial images were obtained from the dome of the diaphragm to the symphysis pubis with oral contrast. Oral and amp; IV Gastrografin and amp; 100mL Isovue-300 was administered. Sagittal and coronal images were reconstructed. Individualized dose optimization techniques were used for this CT. COMPARISON: Comparison is made with prior study of April 17, 2017. FINDINGS: Focal increased markings in the right lower lobe suggestive of either scarring and/or atelectasis. Stable 1.2 cm hypodensity in the medial aspect of the posterior right lobe of the liver. This may represent either a small cyst or possible hemangioma. The gallbladder is not seen on this examination. Normal spleen. Normal pancreas. Normal bilateral adrenal glands. Normal right kidney. Normal left kidney. There is a small hiatal hernia. Normal small intestine. Moderate amount of fecal material is seen in the colon. The appendix is visualized and appears normal. There is diffuse atherosclerotic calcification of the abdominal aorta, without a demonstrated aneurysm. Normal inferior vena cava. Normal retroperitoneum. Distended urinary bladder. There is a 2.1 cm x 3.6 cm diverticulum along the left side of the urinary bladder. There is absence of the uterus consistent with a prior hysterectomy. Normal abdominal wall. There are diffuse degenerative changes of the visualized lumbar spine. Dextroscoliosis. CT/Abdomen/Pelvis WITH Contrast IMPRESSION: Distended urinary bladder. Left-sided bladder diverticulum. Electronically Signed: Omar Blake MD at 12:18 EDT ,
== END | disposition home or self-care (01) ==
LOC: CT 08:52
PROVIDERS: PCP Family Medicine Geriatric Medicine; Visit Provider Family Medicine Geriatric Medicine
DX: R10.9 Unspecified abdominal pain (principal)
CPT/HCPCS: 74177; Q9967

== ENCOUNTER 2022-09-08 15:31 | Emergency (ER) | payer MEDICARE, SELFPAY ==
[2019-02-26 14:07] VITALS: BMI 34.7
[2022-09-08 15:33] VITALS: BP 178/81; PULSE 68; RESP 16; TEMP 36.6; O2SAT 100
[2022-09-08 15:54] VITALS: BMI 31.5
--- NOTE | 2022-09-08 16:14 | ED.VIS.LOWEX ---
HPI History of Present Illness HPI Narrative: Patient presents with pain in her right knee and lower leg that has been getting progressively worse over the past few days. Patient denies any trauma or injury. Patient had a recent fracture approximately 6 months ago of her tibia and fibula. Patient states that she had surgery to repair the tibia fracture. Patient states that she saw her orthopedic surgeon in follow-up and had a repeat x-ray which showed a new fracture of her fibula. Patient states her pain is aching and burning. Patient states it is worse with weightbearing. Patient admits to some intermittent numbness and tingling in her feet. Patient states this is similar to prior episodes of her neuropathy. Chief Complaint: Lower Extremity Injury Informant: patient Onset/Context/Timing Onset: Days Context: Gradual Onset Timing: Continuous Quality of Pain: Aching and Burning Location: Right knee and lower leg Worsened by: Weightbearing Relieved by: Rest Associated Symptoms Associated Symptoms: Positive for Parasthesia; Negative for Weakness or [facility]ion [facility] (Updated 09/08/22 @ 17:[address] Alexandre Bedolla, ) Abdominal pain Allergic rhinitis Anxiety Biliary dyskinesia Breast cancer (~01/2019) CAD (coronary artery disease) Cellulitis of right lower limb Chronic cholecystitis Ductal carcinoma in situ (DCIS) of left breast Edema Enlargement of lymph node Epigastric pain Fracture of fibula GERD (gastroesophageal reflux disease) Hemorrhage of gastrointestinal tract history la incisional hernia repair history lap incisional hernia repair HTN (hypertension) Hyperlipidemia Impaired fasting blood sugar Insomnia Localized edema Malignant neoplasm of sigmoid colon Migraine Neuropathic pain Neuropathy Non-pressure chronic ulcer of other part of right lower leg with fat layer exposed Osteoarthritis of left knee Osteoporosis 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 Prolapsed bladder Right wrist drop RLS (restless legs syndrome) Sleep apnea 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 Vitamin B12 deficiency Vitamin C deficiency Home Medications cyanocobalamin (vitamin B-12) 1,000 mcg/mL injection solution 1,000 mcg IM Q30D Supplement 11/10/14 [History Last Taken 04/29/15] furosemide 40 mg tablet 40 mg PO DAILY EDEMA 11/10/14 [History Last Taken 05/10/15] gabapentin 100 mg capsule 300 mg PO BID Pain 11/10/14 [History Last Taken 08/09/19 06:00] acetaminophen 500 mg tablet 1,000 mg PO Q6H PRN PRN Pain 05/19/17 [History Last Taken Unknown] tizanidine 2 mg tablet 2 mg PO BID PRN PRN Spasms 05/19/17 [History Last Taken 05/19/17] cholecalciferol (vitamin D3) 1,250 mcg (50,000 unit) capsule 1,250 mcg PO DAILY Supplement 02/20/22 [History Last Taken Unknown] colestipol 1 gram tablet 1 g PO DAILY Cholesterol 02/20/22 [History Last Taken Unknown] ferrous sulfate 142 mg (45 mg iron) tablet,extended release (Slow Fe) 142 mg PO DAILY Supplement 02/20/22 [History Last Taken Unknown] triamcinolone acetonide 0.5 % topical cream 1 applic topical BID Skin Care 02/20/22 [History Last Taken Unknown] aspirin 81 mg capsule,delayed release 81 mg PO BID Heart 03/09/22 [History Last Taken Unknown] metoprolol succinate 100 mg tablet,extended release 24 hr 100 mg PO DAILY BP 03/09/22 [History Last Taken Unknown] nystatin 100,000 unit/gram topical powder (Nyamyc) 1 applic topical BID@1000,2200 #0 grams 03/23/22 [Rx Last Taken Unknown] pantoprazole 40 mg tablet,delayed release 40 mg PO DAILY #0 tabs 03/23/22 [Rx Last Taken Unknown] pramipexole 0.25 mg tablet 0.25 mg PO TID #0 tabs 03/23/22 [Rx Last Taken Unknown] Allergy/AdvReac Type Severity Reaction Status Date / Time amitriptyline AdvReac Other Verified 09/08/22 15:32 codeine AdvReac Other Verified 09/08/22 15:32 gabapentin AdvReac ONLY IF Verified 09/08/22 15:32 TAKEN IN LARGE DOSES Family History Mother Brain aneurysm Father Heart disease Daughter Cancer INVALID/ PATIENT HAS NO DAUGHTER. ENTERED IN ERROR. CAN'T DELETE Grandfather Cancer LUNG CANCER IN 60S FROM SMOKING Aunt Diabetes Brother Cancer Pancreatic cancer Surgical History (Updated 09/08/22 @ 16:[address] Alexandre Bedolla, DO) H/O: hysterectomy history lap incisional hernia re[pair history left breast excisional biopsy with needle loc (~11/22/19) History of appendectomy History of breast biopsy (~01/2019) History of colectomy History of colonoscopy (~2010) History of foot surgery History of hysterectomy History of laparoscopic cholecystectomy History of lymph node biopsy (~07/2019) History of total right knee replacement History of umbilical hernia repair S/P ORIF (open reduction internal fixation) fracture Social History household members: none Smoking Status: Never smoker alcohol intake: current alcohol intake frequency: a few times a month substance use type: does not use ROS ROS ED Constitutional Constitutional ED: Denies chills or fever(s) Eyes Eyes: Denies blurry vision or change in vision ENT ENT ED: Reports rhinorrhea; Denies sore throat Cardiovascular Cardiovascular: Denies chest pain or palpitations Respiratory/Chest Respiratory/Chest: Denies cough or dyspnea Gastrointestinal Gastrointestinal: Denies nausea or vomiting Genitourinary Genitourinary ED: Denies dysuria or hematuria Musculoskeletal Musculoskeletal: Reports back pain; Denies neck pain Integumentary Denies abscess or rash Neurologic Neurologic: Reports paresthesias; Denies headache(s) or weakness Allergic/Immunologic Allergic/Immunologic ED: Denies mouth swelling or urticaria EXAM Physical Exam Const Vital Signs: 09/08/22 15:33 Temperature 97.9 F Temperature Source Temporal Pulse Rate 68 Respiratory Rate 16 Blood Pressure 178/81 H Blood Pressure Mean 113 Pulse Ox 100 Positive well nourished and well developed General Appearance ED: well developed and NAD HEENT Reports moist mucous membranes Neck full ROM and supple Resp normal respiratory effort and clear to auscultation bilaterally Cardio regular rate and regular rhythm GI non-tender and non-distended Palpation: soft Extremity Extremity Narrative: There is tenderness over the right lower leg and right knee. There is no deformity noted. Range of motion was limited in all motions of the right knee secondary to pain. Strength is 5/5 bilaterally in the lower extremities. There are no sensory deficits noted. There is no calf tenderness noted. There are no palpable cords noted. Pedal pulses are equal bilaterally. Neuro oriented x3, CN's II-XII intact bilaterally, moves all extremities and no sensory deficits noted Sensorium / Orientation: alert Motor Exam: strength 5/5 throughout Psych mental status grossly normal MDM MDM MDM Narrative Medical decision making narrative: Differential diagnosis includes occult fracture, displacement of fibular fracture, periprosthetic fracture of the knee, and muscle strain. X-rays of the right knee will be obtained to assess for periprosthetic fracture. X-rays of the right tibia and fibula will be obtained to assess for displacement of the fibular fracture. Radiography Diagnostic Testing: Clinical Impression(s) from Imaging Studies Knee X-Ray 09/08/22 16:55 IMPRESSION: Right total knee arthroplasty without acute fracture or loosening of the prosthetic. Electronically Signed: Jv Nguyen DO at 17:23 EDT Reading Location ID and State: [facility] / [place] Tel [phone], Service support , Tibia/Fibula X-Ray 09/08/22 16:55 IMPRESSION: 1. Healed tibial fracture with internal fixation. There is also a healed fracture of the tibial shaft. 2. A second fracture of the mid fibular shaft with surrounding callus formation suggesting healing/healed fracture. This was not previously present. 3. Stable knee arthroplasty. Electronically Signed: Jv Nguyen DO at 17:21 EDT Reading Location ID and State: [facility] / [place] Tel [phone], Service support , X-rays of the right knee were obtained. There are 4 views. On my independent interpretation, there is no acute fracture or dislocation. There is no loosening of the prosthetic components. Radiologist also interpreted the x-rays and agrees. X-rays of the right tibia and fibula were obtained. There are 3 views. On my independent interpretation, there is no acute fracture. There is healing of the fibular fractures. Radiologist also interpreted the x-rays and agrees. Treatment and Re-Evaluation Narrative: Patient declined any opiate analgesics here in the emergency department and any prescriptions for analgesics at home. Patient states she would prefer to take Tylenol or ibuprofen. Patient was encouraged to do this. Patient was instructed to use ice to the area. Patient was instructed to follow-up with her primary care physician in 5 to 7 days. Patient understood and was agreeable with the plan. All questions were answered. Discharge Plan Triage Chief Complaint: Lower Extremity Injury ED Provider: Alexandre Bedolla Dx/Rx/DC Orders Clinical Impression: Fracture of right fibula, shaft, Knee pain, right Instructions: ED Fracture, Lower Extremity, ED Knee Pain of Uncertain Cause Prescriptions: No Action furosemide 40 MG tablet 40 mg PO DAILY Patient Comments: diuretic cyanocobalamin (vitamin B-12) 1,000 MCG/ML solution 1,000 mcg IM Q30D Patient Comments: vitamin supplement. ONCE EVERY 30 DAYS Rx Instructions: DURING THE THIRD WEEK OF THE MONTH gabapentin 100 MG capsule 300 mg PO BID Patient Comments: for neuropathy tizanidine 2 MG tablet 2 mg PO BID PRN PRN (Reason: Spasms) acetaminophen 500 MG tablet 1,000 mg PO Q6H PRN PRN (Reason: Pain) triamcinolone acetonide 0.5 % cream 1 applic TOPICAL BID Patient Comments: apply sparingly to affected area OF RASH/ITCHING ON BOTH LEGS twice a day (AVOID FACE/SKIN FOLDS) colestipol 1 gram tablet 1 g PO DAILY cholecalciferol (vitamin D3) 1,250 mcg (50,000 unit) capsule 1,250 mcg PO DAILY Patient Comments: take 1 capsule by mouth every week Slow Fe 142 mg (45 mg iron) Tablet Extended Release 142 mg PO DAILY aspirin 81 mg Capsule,Delayed Release(Dr/Ec) 81 mg PO BID metoprolol succinate 100 mg Tablet Extended Release 24 Hr 100 mg PO DAILY pantoprazole 40 mg Tablet,Delayed Release (Dr/Ec) 40 mg PO DAILY Qty: 0 0RF pramipexole 0.25 mg Tablet 0.25 mg PO TID Qty: 0 0RF nystatin [Nyamyc] 100,000 unit/gram Powder 1 applic topical BID@1000,2200 Qty: 0 0RF Protocol: *Topical Application Instructions APPLICATION INSTRUCTIONS: redness to groin/under breasts Primary Care Provider: Varun Sanchez Chi Referrals: Varun Sanchez Chi, MD [Primary Care Provider] - 5-7 Days Disposition Disposition: Home, Self Care
--- NOTE | 2022-09-08 16:55 | RAD_ITS ---
STUDY: X-RAY - RIGHT TIBIA AND FIBULA REASON FOR EXAM: Female, 76 years old. Right leg pain. History of fracture in February. Imaged yesterday and found to have another fracture close to the original site. TECHNIQUE: AP and lateral view(s) of the tibia and fibula were obtained. COMPARISON: Right tibia-fibula, March 15, 2022. Right knee, September 08, 2022. FINDINGS: Right total knee arthroplasty without loosening of the tibial component. There is a plate and screws along the lateral aspect of the upper to mid femoral shaft. There is a focal band of sclerosis and periosteal thickening consistent with the site of the former fracture. There is periosteal reaction and remodeling about the site of the fibular fracture seen on the earlier study. Slightly lower and there is a new area of fracture with surrounding callus formation. This was not previously noted. Mild soft tissue edema. RAD/Tibia & Fibula 2 Views IMPRESSION: 1. Healed tibial fracture with internal fixation. There is also a healed fracture of the tibial shaft. 2. A second fracture of the mid fibular shaft with surrounding callus formation suggesting healing/healed fracture. This was not previously present. 3. Stable knee arthroplasty. Electronically Signed: Jv Nguyen DO at 17:21 EDT ,
--- NOTE | 2022-09-08 16:55 | RAD_ITS ---
STUDY: X-RAY - RIGHT KNEE REASON FOR EXAM: Female, 76 years old. Right leg pain. History of fracture in February. TECHNIQUE: 4 view(s) of the knee. COMPARISON: Right tibia-fibula, September 08, 2022. FINDINGS: There is a total knee replacement. The prosthetic components are intact and articulate normally with each other. There is no evidence of loosening from the underlying bone. There is no evidence of osseous fracture or destructive osseous pathology. There is a plate seen along the lateral aspect of the upper tibia shaft. There is a healed fracture of the upper fibular shaft. Generalized soft tissue edema. RAD/Knee 4 or More Views IMPRESSION: Right total knee arthroplasty without acute fracture or loosening of the prosthetic. Electronically Signed: Jv Nguyen DO at 17:23 EDT ,
== END 2022-09-08 17:57 | disposition home or self-care (01) ==
PROVIDERS: Emergency Provider Emergency Medicine; PCP Family Medicine Geriatric Medicine; Visit Provider Emergency Medicine
DX: S80.11XA Contusion of right lower leg, initial encounter (principal); M79.661 Pain in right lower leg; I10 Essential (primary) hypertension; I25.10 Atherosclerotic heart disease of native coronary artery without angina pectoris; G47.30 Sleep apnea, unspecified; E66.9 Obesity, unspecified; X58.XXXA Exposure to other specified factors, initial encounter
CPT/HCPCS: 73564; 73590; 99282

== ENCOUNTER 2022-09-11 22:00 | Emergency (ER) | payer MEDICARE, SELFPAY ==
[2019-02-26 14:07] VITALS: BMI 34.7
[2022-09-11 22:01] VITALS: BP 242/94; PULSE 76; RESP 15; TEMP 36; O2SAT 96; BMI 30.1
--- NOTE | 2022-09-11 22:45 | RAD_ITS ---
INDICATION: Continued right leg pain status post fracture and ORIF EXAMINATION/TECHNIQUE: X-RAY - RIGHT XR Tibia/Fibula 2 Views 2 VIEWS COMPARISON: 09/08/2022 FINDINGS: SOFT TISSUES: No soft tissue swelling or gas. Stable right knee prosthesis and tibial plate and screw fixator. BONES/JOINTS: Stable alignment of fracture of the mid fibula with healing callus. Stable healed fractures of the mid tibia and more proximal fibula.. Joint spaces anatomically aligned. RAD/Tibia & Fibula 2 Views IMPRESSION: Stable examination. Electronically Signed: Joon Molina MD at 23:13 EDT ,
[2022-09-11 22:46] LABS: D-Dimer Quantitative (DVT/PE) 0.47 FEU/ug/m (0.27-0.49)
--- NOTE | 2022-09-12 00:10 | ED.VIS.LOWEX ---
HPI History of Present Illness Chief Complaint: Lower Extremity Injury Detail of Chief Complaint: Injury to right leg and concern for fracture and concern for blood clot Informant: patient Occured/Mechanism Mechanism/Context: Yes same level fall Comment: Patient with history of osteoporosis. Had fall from standing position. She has pain anterior mid right leg with soft tissue swelling noted. There is also significant swelling to the right leg compared to the left. There is tenderness along the distribution deep venous system. Onset/Context/Timing Onset: Yesterday Context: Sudden Onset Timing: Continuous Quality of Pain: Dull and Aching Location: Right leg Current Severity: Mild Maximum Severity: Moderate Worsened by: Walking and palpation Relieved by: Nothing per day Associated Symptoms Associated Symptoms: Negative for Parasthesia, Weakness or Loss of Funtion Narrative Narrative: Patient is a 76-year-old with 3 of osteoporosis, prior fracture of the right leg requiring open reduction internal fixation of the tibia and fibula. She denies history of VTE. She denies chest pain or shortness of breath. She denies fever, chills night sweats. She denies paresthesia, anesthesia or motor weakness. She denies symptoms of claudication. Tetanus Immunization: 5-10 years Prior similar symptoms: No Recent Illness/Hospitalization: No PFSH PFSH Medical History Abdominal pain Allergic rhinitis Anxiety Biliary dyskinesia Breast cancer (~01/2019) CAD (coronary artery disease) Cellulitis of right lower limb Chronic cholecystitis Ductal carcinoma in situ (DCIS) of left breast Edema Enlargement of lymph node Epigastric pain Fracture of fibula GERD (gastroesophageal reflux disease) Hemorrhage of gastrointestinal tract history la incisional hernia repair history lap incisional hernia repair HTN (hypertension) Hyperlipidemia Impaired fasting blood sugar Insomnia Localized edema Malignant neoplasm of sigmoid colon Migraine Neuropathic pain Neuropathy Non-pressure chronic ulcer of other part of right lower leg with fat layer exposed Osteoarthritis of left knee Osteoporosis 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 Prolapsed bladder Right wrist drop RLS (restless legs syndrome) Sleep apnea 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 Vitamin B12 deficiency Vitamin C deficiency Home Medications cyanocobalamin (vitamin B-12) 1,000 mcg/mL injection solution 1,000 mcg IM Q30D Supplement 11/10/14 [History Last Taken 04/29/15] furosemide 40 mg tablet 40 mg PO DAILY EDEMA 11/10/14 [History Last Taken 05/10/15] gabapentin 100 mg capsule 300 mg PO BID Pain 11/10/14 [History Last Taken 08/09/19 06:00] acetaminophen 500 mg tablet 1,000 mg PO Q6H PRN PRN Pain 05/19/17 [History Last Taken Unknown] tizanidine 2 mg tablet 2 mg PO BID PRN PRN Spasms 05/19/17 [History Last Taken 05/19/17] cholecalciferol (vitamin D3) 1,250 mcg (50,000 unit) capsule 1,250 mcg PO DAILY Supplement 02/20/22 [History Last Taken Unknown] colestipol 1 gram tablet 1 g PO DAILY Cholesterol 02/20/22 [History Last Taken Unknown] ferrous sulfate 142 mg (45 mg iron) tablet,extended release (Slow Fe) 142 mg PO DAILY Supplement 02/20/22 [History Last Taken Unknown] triamcinolone acetonide 0.5 % topical cream 1 applic topical BID Skin Care 02/20/22 [History Last Taken Unknown] aspirin 81 mg capsule,delayed release 81 mg PO BID Heart 03/09/22 [History Last Taken Unknown] metoprolol succinate 100 mg tablet,extended release 24 hr 100 mg PO DAILY BP 03/09/22 [History Last Taken Unknown] nystatin 100,000 unit/gram topical powder ([facility]) 1 applic topical BID@1000,2200 #0 grams 03/23/22 [Rx Last Taken Unknown] pantoprazole 40 mg tablet,delayed release 40 mg PO DAILY #0 tabs 03/23/22 [Rx Last Taken Unknown] pramipexole 0.25 mg tablet 0.25 mg PO TID #0 tabs 03/23/22 [Rx Last Taken Unknown] hydrocortisone 2.5 % topical cream 1 applic topical PRN 09/11/22 [History Last Taken Unknown] Allergy/AdvReac Type Severity Reaction Status Date / Time amitriptyline AdvReac Other Verified 09/11/22 22:06 codeine AdvReac Other Verified 09/11/22 22:06 gabapentin AdvReac ONLY IF Verified 09/11/22 22:06 TAKEN IN LARGE DOSES Family History Mother Brain aneurysm Father Heart disease Daughter Cancer INVALID/ PATIENT HAS NO DAUGHTER. ENTERED IN ERROR. CAN'T DELETE Grandfather Cancer LUNG CANCER IN 60S FROM SMOKING Aunt Diabetes Brother Cancer Pancreatic cancer Surgical History H/O: hysterectomy history lap incisional hernia re[pair history left breast excisional biopsy with needle loc (~02/01/19) History of appendectomy History of breast biopsy (~01/2019) History of colectomy History of colonoscopy (~2010) History of foot surgery History of hysterectomy History of laparoscopic cholecystectomy History of lymph node biopsy (~07/2019) History of total right knee replacement History of umbilical hernia repair S/P ORIF (open reduction internal fixation) fracture Social History household members: none Smoking Status: Never smoker alcohol intake: current alcohol intake frequency: a few times a month substance use type: does not use ROS ROS ED Constitutional Constitutional ED: Denies chills, fever(s), subjective, sweats or weight loss Eyes Eyes: Denies blurry vision, change in vision or diplopia ENT ENT ED: Denies ear pain, rhinorrhea or sore throat Cardiovascular Cardiovascular: Denies chest pain or palpitations Respiratory/Chest Respiratory/Chest: Denies cough, dyspnea or dyspnea on exertion Gastrointestinal Gastrointestinal: Denies nausea or vomiting Musculoskeletal Musculoskeletal: Reports other Details: Right leg pain and swelling ; Denies arthralgias, back pain, myalgias or neck pain Integumentary Denies rash Neurologic Neurologic: Denies paresthesias Psychiatric Psychiatric: Denies anxiety or depression Hematologic/Lymphatic Hematologic/Lymphatic: Denies easy bleeding or easy bruising EXAM Physical Exam Const Vital Signs: 09/11/22 22:01 Temperature 96.8 F L Temperature Source Temporal Pulse Rate 76 Respiratory Rate 15 Blood Pressure 242/94 H Blood Pressure Mean 143 Pulse Ox 96 Oxygen Delivery Method Room Air Read Bandar blood pressure 194/89 Patient is not taken her evening doses of medication. Positive well nourished, well developed and obese General Appearance ED: well developed and NAD Nutritional Appearance: obese HEENT Reports moist mucous membranes normocephalic and atraumatic Eyes PERRL Eyes Narrative: Extract muscles intact. Sclera is anicteric. Active and pink. Neck full ROM and supple Chest Wall inspection of chest normal and palpation of chest normal Resp normal respiratory effort, no retractions and clear to auscultation bilaterally Cardio regular rate, regular rhythm, S1 normal heart sound, S2 normal heart sound and no murmurs GI non-tender, non-distended and no masses Auscultation: normoactive bowel sounds Back/Spine no CVA tenderness Thoracic Spine / Upper Back: Negative for thoracic spinal tenderness Lumbar Spine / Lower Back: Negative for lumbar spinal tenderness Extremity full ROM; Negative for normal to inspection Extremity Narrative: There is swelling of the right leg. There is a significant difference in circumference right leg versus left. There is painalong the distribution deep venous system. There is no obvious leg vein distention. There is evidence of trauma to the anterior leg where patient is concerned that she may have fractured her fibula or tibia again. General Extremety ED: Yes edema and weight-bearing difficulty; Negative for cyanosis General Extremity: edema and weight-bearing difficulty; Negative for cyanosis Neuro oriented x3, CN's II-XII intact bilaterally and moves all extremities Sensorium / Orientation: alert Psych mental status grossly normal Skin no wounds Lesions: no lesions Rashes: no rashes MDM MDM Lab Data Attestation: I reviewed the patient's lab results. Lab results narrative: D-dimer is negative. Since patient was considered low risk and D-dimer is negative no studies are needed. Labs: Laboratory Results - last 24 hr 09/11/22 22:30 D-Dimer Quant (PE/DVT) 0.47 Radiography Chest X-Ray - ED: 2 View and Read by ED Physician (2 view x-ray of the tibia and fibula of the right leg was independently reviewed interpreted by me as negative for any acute process. Hardware is in position. There is callus formation noted. There are no acute findings noted.) Diagnostic Testing: Clinical Impression(s) from Imaging Studies Tibia/Fibula X-Ray 09/11/22 22:45 IMPRESSION: Stable examination. Electronically Signed: Joon Molina MD at 23:13 EDT Reading Location ID and State: [facility] / [place] Tel , Service support , Discharge Plan Triage Chief Complaint: Lower Extremity Injury ED Provider: Daren Mares Dx/Rx/DC Orders Clinical Impression: Right calf pain, Hypertension, Contusion of leg, right Instructions: ED Contusion, Lower Extremity, ED Hypertension, Established, ED RICE Prescriptions: No Action furosemide 40 MG tablet 40 mg PO DAILY Patient Comments: diuretic cyanocobalamin (vitamin B-12) 1,000 MCG/ML solution 1,000 mcg IM Q30D Patient Comments: vitamin supplement. ONCE EVERY 30 DAYS Rx Instructions: DURING THE THIRD WEEK OF THE MONTH gabapentin 100 MG capsule 300 mg PO BID Patient Comments: for neuropathy tizanidine 2 MG tablet 2 mg PO BID PRN PRN (Reason: Spasms) acetaminophen 500 MG tablet 1,000 mg PO Q6H PRN PRN (Reason: Pain) triamcinolone acetonide 0.5 % cream 1 applic TOPICAL BID Patient Comments: apply sparingly to affected area OF RASH/ITCHING ON BOTH LEGS twice a day (AVOID FACE/SKIN FOLDS) colestipol 1 gram tablet 1 g PO DAILY cholecalciferol (vitamin D3) 1,250 mcg (50,000 unit) capsule 1,250 mcg PO DAILY Patient Comments: take 1 capsule by mouth every week Slow Fe 142 mg (45 mg iron) Tablet Extended Release 142 mg PO DAILY aspirin 81 mg Capsule,Delayed Release(Dr/Ec) 81 mg PO BID metoprolol succinate 100 mg Tablet Extended Release 24 Hr 100 mg PO DAILY pantoprazole 40 mg Tablet,Delayed Release (Dr/Ec) 40 mg PO DAILY Qty: 0 0RF pramipexole 0.25 mg Tablet 0.25 mg PO TID Qty: 0 0RF nystatin [Nyamyc] 100,000 unit/gram Powder 1 applic topical BID@1000,2200 Qty: 0 0RF Protocol: *Topical Application Instructions APPLICATION INSTRUCTIONS: redness to groin/under breasts hydrocortisone 2.5 % cream 1 applic TOPICAL PRN Primary Care Provider: Varun Sanchez Chi Referrals: Varun Sanchez Chi, MD [Primary Care Provider] - 5-7 Days Disposition Disposition: Home, Self Care
[2022-09-12 00:49] VITALS: BP 194/89
[2022-09-12 01:56] VITALS: BP 194/97; PULSE 72; RESP 18; O2SAT 97
== END 2022-09-12 01:58 | disposition home or self-care (01) ==
PROVIDERS: Emergency Provider Emergency Medicine; PCP Family Medicine Geriatric Medicine; Visit Provider Emergency Medicine
DX: M79.661 Pain in right lower leg (principal); I25.10 Atherosclerotic heart disease of native coronary artery without angina pectoris; I10 Essential (primary) hypertension; S80.11XA Contusion of right lower leg, initial encounter; G47.30 Sleep apnea, unspecified; E66.9 Obesity, unspecified; E78.5 Hyperlipidemia, unspecified; Z79.82 Long term (current) use of aspirin; Z79.899 Other long term (current) drug therapy; W18.30XA Fall on same level, unspecified, initial encounter
CPT/HCPCS: 73590; 85379; 99282

== ENCOUNTER 2022-09-15 13:57 | Observation (INO) | payer MEDICARE, SELFPAY ==
[2019-02-26 14:07] VITALS: BMI 34.7
[2022-09-15] VITALS (7 sets, daily range): BP systolic 162–227; BP diastolic 87–103; PULSE 65–73; RESP 18; TEMP 36.4–36.6; O2SAT 94–100; BMI 31.1; BMI 29.1
--- NOTE | 2022-09-15 15:20 | EX.ED.DYSGE1 ---
HPI <OLAMIDE Dias - Last Filed: 09/15/22 21:07> History of Present Illness Chief Complaint: Weakness Narrative Narrative: Patient presenting today due to pain in her right leg that she has had off and on for the past several months. She reports that in January, she fractured her fibula then in February she fractured both her fibula and tibia. She did have surgery performed by Dr. Shabazz with [place] and seemed to be doing well until the past 2 to 3 weeks when the pain started to increase in her right lower leg again. She followed up with her surgeon on September 06 where an x-ray demonstrated a new healing fracture of the fibula. Over the past several days, the pain is worsened and she has had an increased difficult time ambulating. Today, her caregiver went to assist her in getting down the stairs and had to help carry her as she was unable to go down them. She saw her PCP today, Dr. Sanchez who ordered a CT of her right leg and encouraged her to come into the emergency department for evaluation. PFS <OLAMIDE Dias - Last Filed: 09/15/22 21:07> [facility] Medical History Abdominal pain Allergic rhinitis Anxiety Biliary dyskinesia Breast cancer (~01/2019) CAD (coronary artery disease) Cellulitis of right lower limb Chronic cholecystitis Ductal carcinoma in situ (DCIS) of left breast Edema Enlargement of lymph node Epigastric pain Fracture of fibula GERD (gastroesophageal reflux disease) Hemorrhage of gastrointestinal tract history la incisional hernia repair history lap incisional hernia repair HTN (hypertension) Hyperlipidemia Impaired fasting blood sugar Insomnia Localized edema Malignant neoplasm of sigmoid colon Migraine Neuropathic pain Neuropathy Non-pressure chronic ulcer of other part of right lower leg with fat layer exposed Osteoarthritis of left knee Osteoporosis 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 Prolapsed bladder Right wrist drop RLS (restless legs syndrome) Sleep apnea 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 Vitamin B12 deficiency Vitamin C deficiency Home Medications cyanocobalamin (vitamin B-12) 1,000 mcg/mL injection solution 1,000 mcg IM Q30D Supplement 11/10/14 [History Last Taken 04/29/15] furosemide 40 mg tablet 40 mg PO DAILY EDEMA 11/10/14 [History Last Taken 05/10/15] gabapentin 100 mg capsule 300 mg PO BID Pain 11/10/14 [History Last Taken 08/09/19 06:00] acetaminophen 500 mg tablet 1,000 mg PO Q6H PRN PRN Pain 05/19/17 [History Last Taken Unknown] tizanidine 2 mg tablet 2 mg PO BID PRN PRN Spasms 05/19/17 [History Last Taken 05/19/17] cholecalciferol (vitamin D3) 1,250 mcg (50,000 unit) capsule 1,250 mcg PO DAILY Supplement 02/20/22 [History Last Taken Unknown] colestipol 1 gram tablet 1 g PO DAILY Cholesterol 02/20/22 [History Last Taken Unknown] ferrous sulfate 142 mg (45 mg iron) tablet,extended release (Slow Fe) 142 mg PO DAILY Supplement 02/20/22 [History Last Taken Unknown] triamcinolone acetonide 0.5 % topical cream 1 applic topical BID Skin Care 02/20/22 [History Last Taken Unknown] aspirin 81 mg capsule,delayed release 81 mg PO BID Heart 03/09/22 [History Last Taken Unknown] metoprolol succinate 100 mg tablet,extended release 24 hr 100 mg PO BID BP 03/09/22 [History Last Taken Unknown] nystatin 100,000 unit/gram topical powder (Nyamyc) 1 applic topical BID@1000,2200 #0 grams 03/23/22 [Rx Last Taken Unknown] pantoprazole 40 mg tablet,delayed release 40 mg PO DAILY #0 tabs 03/23/22 [Rx Last Taken Unknown] pramipexole 0.25 mg tablet 0.25 mg PO TID #0 tabs 03/23/22 [Rx Last Taken Unknown] hydrocortisone 2.5 % topical cream 1 applic topical PRN 09/11/22 [History Last Taken Unknown] calcium carbonate 600 mg calcium (1,500 mg) tablet (Calcium) 600 mg PO DAILY 09/16/22 [History Last Taken 09/14/22] Allergy/AdvReac Type Severity Reaction Status Date / Time amitriptyline AdvReac Other Verified 09/15/22 14:01 codeine AdvReac Other Verified 09/15/22 14:01 gabapentin AdvReac ONLY IF Verified 09/15/22 14:01 TAKEN IN LARGE DOSES Family History Mother Brain aneurysm Father Heart disease Daughter Cancer INVALID/ PATIENT HAS NO DAUGHTER. ENTERED IN ERROR. CAN'T DELETE Grandfather Cancer LUNG CANCER IN 60S FROM SMOKING Aunt Diabetes Brother Cancer Pancreatic cancer Surgical History H/O: hysterectomy history lap incisional hernia re[pair history left breast excisional biopsy with needle loc (~02/01/19) History of appendectomy History of breast biopsy (~01/2019) History of cholecystectomy History of colectomy History of colonoscopy (~2010) History of foot surgery History of hysterectomy History of laparoscopic cholecystectomy History of lymph node biopsy (~07/2019) History of total right knee replacement History of umbilical hernia repair S/P ORIF (open reduction internal fixation) fracture Social History household members: none Smoking Status: Never smoker alcohol intake: current alcohol intake frequency: a few times a month substance use type: does not use ROS <OLAMIDE Dias - Last Filed: 09/15/22 21:07> ROS ED Constitutional Constitutional ED: Denies chills, fever(s) or sweats Eyes Eyes: Denies blurry vision or diplopia Cardiovascular Cardiovascular: Denies chest pain Respiratory/Chest Respiratory/Chest: Denies cough or dyspnea Gastrointestinal Gastrointestinal: Denies abdominal pain, nausea or vomiting Genitourinary Genitourinary ED: Denies dysuria, hematuria or urinary urgency Musculoskeletal Musculoskeletal: Reports arthralgias and myalgias Integumentary Denies abscess, Abrasions or rash Neurologic Neurologic: Denies paresthesias or weakness EXAM <OLAMIDE Dias - Last Filed: 09/15/22 21:07> Physical Exam Const Vital Signs: 09/15/22 13:58 09/15/22 14:39 09/15/22 15:59 Temperature 97.9 F Temperature Source Temporal Pulse Rate 73 Respiratory Rate 18 Respiratory Effort Normal Respiratory Pattern Normal Blood Pressure 227/100 H 214/99 H Blood Pressure Mean 142 137 Pulse Ox 98 Oxygen Delivery Method Room Air 09/15/22 17:59 09/15/22 18:03 09/15/22 20:17 Temperature Temperature Source Pulse Rate 70 Respiratory Rate 18 Respiratory Effort Respiratory Pattern Blood Pressure 210/103 H 193/100 H 205/96 H Blood Pressure Mean 138 131 132 Pulse Ox 96 Oxygen Delivery Method Room Air Positive well nourished, well developed and no apparent distress General Appearance ED: well developed HEENT Reports normocephalic and head/scalp atraumatic Mouth ED: Yes moist mucous membranes normal Eyes PERRL and EOMs intact bilaterally Neck full ROM and supple Chest Wall inspection of chest normal Resp normal respiratory effort and clear to auscultation bilaterally Cardio regular rate and regular rhythm GI soft to palpation, non-tender, non-distended and no masses Back/Spine normal ROM and normal to inspection Extremity normal to inspection and full ROM Extremity Narrative: Right lower extremity tender to palpation to the anterior aspect. Slight edema and ecchymosis to the right lower extremity in comparison to the left. DP pulses 2+ and equal bilaterally, good capillary refill, sensation intact. Neuro oriented x3, CN's II-XII intact bilaterally, moves all extremities, no focal motor deficits and no sensory deficits noted Sensorium / Orientation: awake and alert Psych mental status grossly normal and thought process normal Skin no rashes or lesions noted and no wounds <Dr. Fernie Coleman MD - Last Filed: 09/17/22 14:56> Physical Exam Const Vital Signs: 09/15/22 13:58 09/15/22 14:39 09/15/22 15:59 Temperature 97.9 F Temperature Source Temporal Pulse Rate 73 Respiratory Rate 18 Respiratory Effort Normal Respiratory Pattern Normal Blood Pressure 227/100 H 214/99 H Blood Pressure Mean 142 137 Pulse Ox 98 Oxygen Delivery Method Room Air 09/15/22 17:59 09/15/22 18:03 09/15/22 20:17 Temperature Temperature Source Pulse Rate 70 Respiratory Rate 18 Respiratory Effort Respiratory Pattern Blood Pressure 210/103 H 193/100 H 205/96 H Blood Pressure Mean 138 131 132 Pulse Ox 96 Oxygen Delivery Method Room Air MDM <OLAMIDE Dias - Last Filed: 09/15/22 21:07> [facility] Narrative Medical decision making narrative: Patient presenting due to right lower extremity pain that she has had over the past 2 weeks that has worsened to the point where she is having a difficult time ambulating. She saw her PCP this morning, Dr. Sanchez who ordered a CT scan of her right lower extremity which shows, status post open reduction and internal fixation of the mid fibular fractures. Stable healed fractures of the mid tibia and proximal tibia. Patient was also here on Monday for similar complaint and a D-dimer was obtained which was negative. She does not have any history of DVT. However, venous duplex ultrasound was obtained and is negative for DVT. Labs overall are unremarkable. She was given multiple rounds of pain control here in the ED. Attending did speak with orthopedic on-call who is willing to be consulted and will evaluate patient. Nursing reports that she is unable to ambulate in her own and it took 2 nurses just to help her use the bedside commode. Because of her inability to ambulate and increased pain in her right leg, we did speak with the hospitalist for admission. She is willing to go to a rehabilitation facility. Additionally, she has been hypertensive here at 227/100. She has been given hydralazine, repeat blood pressure was 205/96, she was given clonidine. Lab Data Attestation: I reviewed the patient's lab results. Lab results narrative: CBC and BMP are normal we will Labs: Laboratory Results - last 24 hr 09/15/22 16:29 WBC 6.4 RBC 4.43 Hgb 12.9 Hct 39.0 MCV 88.0 MCH 29.1 MCHC 33.1 RDW Std Deviation 46.4 H RDW Coeff of Helder 14.5 Plt Count 244 MPV 8.3 Immature Gran % (Auto) 0.900 Neut % (Auto) 77.0 H Lymph % (Auto) 14.4 L [place] % (Auto) 6.1 Eos % (Auto) 0.8 Baso % (Auto) 0.8 Absolute Neuts (auto) 4.9 Absolute Lymphs (auto) 0.92 Nucleated RBC % 0 Sodium 138 Potassium 4.5 Chloride 107 Carbon Dioxide 25.0 Anion Gap 6 BUN 14 Creatinine 0.65 Estim Creat Clear Calc 43.74 Est GFR (MDRD) Af Amer 114 Est GFR (MDRD) Non-Af 94 BUN/Creatinine Ratio 21.5 H Glucose 106 Calcium 9.1 Radiography Diagnostic Testing: Clinical Impression(s) from Imaging Studies Venous Duplex 09/15/22 19:12 IMPRESSION: Normal venous Doppler ultrasound of the lower extremity. Electronically Signed: Derek Gloria MD at 20:28 EDT , <Dr. Fernie Coleman MD - Last Filed: 09/17/22 14:56> [facility] Lab Data Labs: Laboratory Results - last 24 hr 09/15/22 16:29 WBC 6.4 RBC 4.43 Hgb 12.9 Hct 39.0 MCV 88.0 MCH 29.1 MCHC 33.1 RDW Std Deviation 46.4 H RDW Coeff of Helder 14.5 Plt Count 244 MPV 8.3 Immature Gran % (Auto) 0.900 Neut % (Auto) 77.0 H Lymph % (Auto) 14.4 L Towns % (Auto) 6.1 Eos % (Auto) 0.8 Baso % (Auto) 0.8 Absolute Neuts (auto) 4.9 Absolute Lymphs (auto) 0.92 Nucleated RBC % 0 Sodium 138 Potassium 4.5 Chloride 107 Carbon Dioxide 25.0 Anion Gap 6 BUN 14 Creatinine 0.65 Estim Creat Clear Calc 43.74 Est GFR (MDRD) Af Amer 114 Est GFR (MDRD) Non-Af 94 BUN/Creatinine Ratio 21.5 H Glucose 106 Calcium 9.1 Radiography Diagnostic Testing: Clinical Impression(s) from Imaging Studies Venous Duplex 09/15/22 19:12 IMPRESSION: Normal venous Doppler ultrasound of the lower extremity. Electronically Signed: Derek Gloria MD at 20:28 EDT , Treatment and Re-Evaluation Comments:: Seen and evaluated independently and in conjunction with physician senior office assistant. Agree with notes above unless documented otherwise. Patient with couple weeks of gradually worsening pain in her right lower leg. She had a spontaneous fracture of her right mid tibia and proximal fibular shaft in February, she had a total knee arthroplasty from before that so the tibia was plated by her orthopedic surgeon in [place], she started having more pain recently and had x-rays on September 06 that showed an additional fracture of the fibula distal to the initial 1 that appeared to have callus and started to heal. She has been trying to get around on it but with significant pain, difficulty doing so and getting up any steps in her house, she lives alone. Daughter accompanies her here, she is been having significant discomfort and now is not able to walk on it without significant assistance even with her walker and a cane. No repeat injury. She had an outpatient CT of the entire lower leg today. Exam: No acute distress. Compartments of the right lower leg are all tender, but not tense, there is swelling there and ecchymosis based in the middle of the lower leg all the way around but does not appear to be cellulitis, appears more like ecchymosis. Not anticoagulated. Neurovascular intact distally except decreased sensation throughout the forefoot due to chronic peripheral neuropathy. Can range the ankle and knee without any significant difficulty. Skin is all intact. No lymphangitis or abscess. Labs, DVT study, suspect patient will need to be admitted at least for placement. Will likely need to have therapy for her right leg and limit weightbearing, I suspect her pain and ecchymosis is due to repeated minor injury and weightbearing on broken fibula. Discussed with Dr. Ashley on-call for orthopedics, who will cordially evaluate the patient after admission and agrees with the above plan. Discharge Plan Dx/Rx/DC Orders Clinical Impression: Accelerated hypertension, Acute pain of right lower extremity, Unable to ambulate, Stress fracture, right fibula, subsequent encounter for fracture with delayed healing Disposition Disposition: Acute Care [facility] Discharge Date/Time: 09/15/22 22:56
[2022-09-15] MEDS: Morphine 4 MG/ML Syringe IM (15:27)
[2022-09-15 16:38] LABS: Absolute Lymphocyte Count 0.92 X10^3/uL (0.83-4.51); Absolute Neutrophil Count 4.9 X10^3/uL (2.0-7.7); Basophil# 0.05 X10^3/uL; Basophil% 0.8 % (0-1); Eosinophil# 0.05 X10^3/uL; Eosinophils% 0.8 % (0-5); Hemoglobin 12.9 g/dL (12.0-15.0); Lymphocyte # 0.92 X10^3/ul (0.83-4.51); Lymphocyte % 14.4 % (19-41); Mean Corp Hgb Conc 33.1 g/dL (32-36); Mean Corpuscular Hgb 29.1 pg (27.0-32.0); Mean Platelet Vol. 8.3 fl (6.2-12.0); Monocyte# 0.39 X10^3/uL; Monocyte% 6.1 % (0-10); NRBC Flagged by Analyzer 0 % (0-5); Neutrophil # 4.91 X10^3/uL (2.7-7.7); Platelet Count 244 K/mm3 (150-450); RBC Distribution Width CV 14.5 % (11.6-14.6); RBC Distribution Width SD 46.4 fl (35.1-43.9); Red Blood Count 4.43 M/mm3 (4.2-5.4); White Blood Count 6.4 K/mm3 (4.4-11.0)
[2022-09-15 16:56] LABS: Anion Gap 6 (5-15); BUN 14 mg/dL (7-18); BUN/Creat Ratio 21.5 RATIO (10-20); Calcium,Total 9.1 mg/dL (8.5-10.1); Chloride 107 mmol/L (98-107); Creatinine, Serum 0.65 mg/dL (0.55-1.02); EST Glomerular Filtration Rate 94 mL/min (>60); Est Glom Filt Rate - Afr Amer 114 mL/min (>60); Estimated Creatinine Clearance 43.74 ml/min; Glucose 106 mg/dL (74-106); Potassium 4.5 mmol/L (3.5-5.1); Sodium Level 138 mmol/L (136-145)
[2022-09-15] MEDS: hydrALAZINE 20 MG/ML Vial 10 MG IV (17:57)
[2022-09-15] MEDS: Ketorolac 15 MG/ML Vial IV (18:52)
--- NOTE | 2022-09-15 19:12 | US_ITS ---
STUDY: VENOUS DOPPLER ULTRASOUND - RIGHT LOWER EXTREMITY REASON FOR EXAM: Female, 76 years old. RT LEG SWELLING/ PAIN TECHNIQUE: Ultrasound evaluation of the deep vein system to include cole-scale imaging and compression was performed. Cole-scale imaging and Doppler sonographic evaluation, including duplex spectral analysis and qualitative color flow sonography, was performed. COMPARISON: 02/13/2017 FINDINGS: Common Femoral Vein: Normal compression, spontaneity and augmentation. Normal color Doppler. Common Femoral Vein/Greater Saphenous Junction: Normal compression, spontaneity and augmentation. Normal color Doppler. Deep Femoral Vein: Normal compression, spontaneity and augmentation. Normal color Doppler. Femoral Proximal: Normal compression, spontaneity and augmentation. Normal color Doppler. Femoral Middle: Normal compression, spontaneity and augmentation. Normal color Doppler. Femoral Distal: Normal compression, spontaneity and augmentation. Normal color Doppler. Popliteal Vein: Normal compression, spontaneity and augmentation. Normal color Doppler. Posterior Tibial Vein: Normal compression, spontaneity and augmentation. Normal color Doppler. Peroneal Vein: Normal compression, spontaneity and augmentation. Normal color Doppler. US/Venous Duplex Imag/Limited/Uni IMPRESSION: Normal venous Doppler ultrasound of the lower extremity. Electronically Signed: Derek Gloria MD at 20:28 EDT ,
[2022-09-15] MEDS: cloNIDine HCl 0.2 MG Tablet PO (21:11)
--- NOTE | 2022-09-15 21:59 | PCM.HP.STD ---
[facility] - General General Date of Admission: 09/15/22 Date of Service: 09/15/22 Chief Complaint: Pain of the right lower leg HPI Narrative MAVIS KOO, is a 76 F with a significant history of DDD and who had surgery of her right leg in February 2022 presenting with excruciating right leg pain. After surgery pain in the right leg improved. However in the past 3 weeks her pain recurred. She had outpatient imaging of her right leg that showed new but healing fracture of the fibula. Patient had original surgery at a hospital in [place]. Because of the pain in the right leg Patient is unable to put weight on the right leg and to ambulate. [facility] Medical History Abdominal pain Allergic rhinitis Anxiety Biliary dyskinesia Breast cancer (~01/2019) CAD (coronary artery disease) Cellulitis of right lower limb Chronic cholecystitis Ductal carcinoma in situ (DCIS) of left breast Edema Enlargement of lymph node Epigastric pain Fracture of fibula GERD (gastroesophageal reflux disease) Hemorrhage of gastrointestinal tract history la incisional hernia repair history lap incisional hernia repair HTN (hypertension) Hyperlipidemia Impaired fasting blood sugar Insomnia Localized edema Malignant neoplasm of sigmoid colon Migraine Neuropathic pain Neuropathy Non-pressure chronic ulcer of other part of right lower leg with fat layer exposed Osteoarthritis of left knee Osteoporosis 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 Prolapsed bladder Right wrist drop RLS (restless legs syndrome) Sleep apnea 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 Vitamin B12 deficiency Vitamin C deficiency Home Medications cyanocobalamin (vitamin B-12) 1,000 mcg/mL injection solution 1,000 mcg IM Q30D Supplement 11/10/14 [History Last Taken 04/29/15] furosemide 40 mg tablet 40 mg PO DAILY EDEMA 11/10/14 [History Last Taken 05/10/15] gabapentin 100 mg capsule 300 mg PO BID Pain 11/10/14 [History Last Taken 08/09/19 06:00] acetaminophen 500 mg tablet 1,000 mg PO Q6H PRN PRN Pain 05/19/17 [History Last Taken Unknown] tizanidine 2 mg tablet 2 mg PO BID PRN PRN Spasms 05/19/17 [History Last Taken 05/19/17] cholecalciferol (vitamin D3) 1,250 mcg (50,000 unit) capsule 1,250 mcg PO DAILY Supplement 02/20/22 [History Last Taken Unknown] colestipol 1 gram tablet 1 g PO DAILY Cholesterol 02/20/22 [History Last Taken Unknown] ferrous sulfate 142 mg (45 mg iron) tablet,extended release (Slow Fe) 142 mg PO DAILY Supplement 02/20/22 [History Last Taken Unknown] triamcinolone acetonide 0.5 % topical cream 1 applic topical BID Skin Care 02/20/22 [History Last Taken Unknown] aspirin 81 mg capsule,delayed release 81 mg PO BID Heart 03/09/22 [History Last Taken Unknown] metoprolol succinate 100 mg tablet,extended release 24 hr 100 mg PO BID BP 03/09/22 [History Last Taken Unknown] nystatin 100,000 unit/gram topical powder (Nyamyc) 1 applic topical BID@1000,2200 #0 grams 03/23/22 [Rx Last Taken Unknown] pantoprazole 40 mg tablet,delayed release 40 mg PO DAILY #0 tabs 03/23/22 [Rx Last Taken Unknown] pramipexole 0.25 mg tablet 0.25 mg PO TID #0 tabs 03/23/22 [Rx Last Taken Unknown] hydrocortisone 2.5 % topical cream 1 applic topical PRN 09/11/22 [History Last Taken Unknown] calcium carbonate 600 mg calcium (1,500 mg) tablet (Calcium) 600 mg PO DAILY 09/16/22 [History Last Taken 09/14/22] Allergy/AdvReac Type Severity Reaction Status Date / Time amitriptyline AdvReac Other Verified 09/15/22 14:01 codeine AdvReac Other Verified 09/15/22 14:01 gabapentin AdvReac ONLY IF Verified 09/15/22 14:01 TAKEN IN LARGE DOSES Family History Mother Brain aneurysm Father Heart disease Daughter Cancer INVALID/ PATIENT HAS NO DAUGHTER. ENTERED IN ERROR. CAN'T DELETE Grandfather Cancer LUNG CANCER IN 60S FROM SMOKING Aunt Diabetes Brother Cancer Pancreatic cancer Surgical History H/O: hysterectomy history lap incisional hernia re[pair history left breast excisional biopsy with needle loc (~02/01/19) History of appendectomy History of breast biopsy (~01/2019) History of cholecystectomy History of colectomy History of colonoscopy (~2010) History of foot surgery History of hysterectomy History of laparoscopic cholecystectomy History of lymph node biopsy (~07/2019) History of total right knee replacement History of umbilical hernia repair S/P ORIF (open reduction internal fixation) fracture Social History household members: none Smoking Status: Never smoker alcohol intake: current alcohol intake frequency: a few times a month substance use type: does not use ROS ROS Narrative Pertinent positives and pertinent negatives as noted in HPI. All other systems were reviewed and are negative Vital Signs Vital Signs Vital Signs: 09/15/22 13:58 09/15/22 14:39 09/15/22 15:59 Temperature 97.9 F Temperature Source Temporal Pulse Rate 73 Respiratory Rate 18 Respiratory Effort Normal Respiratory Pattern Normal Blood Pressure 227/100 H 214/99 H Blood Pressure Mean 142 137 Pulse Ox 98 Oxygen Delivery Method Room Air 09/15/22 17:59 09/15/22 18:03 09/15/22 20:17 Temperature Temperature Source Pulse Rate 70 Respiratory Rate 18 Respiratory Effort Respiratory Pattern Blood Pressure 210/103 H 193/100 H 205/96 H Blood Pressure Mean 138 131 132 Pulse Ox 96 Oxygen Delivery Method Room Air 09/15/22 21:53 Temperature 97.6 F L Temperature Source Temporal Pulse Rate 67 Respiratory Rate 18 Respiratory Effort Respiratory Pattern Blood Pressure 162/93 H Blood Pressure Mean 116 Pulse Ox 94 Oxygen Delivery Method Room Air Weight Weight: 84.822 kg Body Mass Index (BMI) 31.1 Physical Exam Narrative Physical exam: General: Well-nourished, well-developed. Head: Normocephalic, atraumatic, no tenderness Eyes: Vision is grossly intact. EOMI ENT, no trauma, moist mucous membranes, no rhinorrhea Neck: Nontender, No thyromegaly. CVS: Regular rate and rhythm. S1-S2 present. No murmur, gallop or rub. Respiratory : clear to auscultation bilaterally, chest wall nontender Abdomen: Soft, nontender, nondistended, normal bowel sounds, no masses : Deferred Back: Nontender, no CVA tenderness Extremities: Tender and swelling of the right lower leg. Left leg nontender. Skin: Normal color, no trauma, abrasions Neuro: Alert, oriented, cranial nerves II through XII grossly intact. Psychiatry: Normal mood. Normal affect. Not depressed. Not anxious. Results Lab / Micro Data 09/15/22 16:29 09/15/22 16:29 Labs: Laboratory Results - last 24 hr 09/15/22 16:29: WBC 6.4, RBC 4.43, Hgb 12.9, Hct 39.0, MCV 88.0, MCH 29.1, MCHC 33.1, RDW Std Deviation 46.4 H, RDW Coeff of Helder 14.5, Plt Count 244, MPV 8.3, Immature Gran % (Auto) 0.900, Neut % (Auto) 77.0 H, Lymph % (Auto) 14.4 L, [place] % (Auto) 6.1, Eos % (Auto) 0.8, Baso % (Auto) 0.8, Absolute Neuts (auto) 4.9, Absolute Lymphs (auto) 0.92, Nucleated RBC % 0, Sodium 138, Potassium 4.5, Chloride 107, Carbon Dioxide 25.0, Anion Gap 6, BUN 14, Creatinine 0.65, Estim Creat Clear Calc 43.74, Est GFR (MDRD) Af Amer 114, Est GFR (MDRD) Non-Af 94, BUN/Creatinine Ratio 21.5 H, Glucose 106, Calcium 9.1 Radiology Impression Venous Duplex 09/15/22 19:12 IMPRESSION: Normal venous Doppler ultrasound of the lower extremity. Electronically Signed: Derek Gloria MD at 20:28 EDT , Assessment & Plan Assessment/Plan (1) Fracture of right fibula, shaft: QUALIFIERS: Encounter type: subsequent encounter Fracture alignment: nondisplaced Fracture morphology: comminuted Fracture type: closed Fracture healing: with routine healing Qualified Code(s): S82.454D - Nondisplaced comminuted fracture of shaft of right fibula, subsequent encounter for closed fracture with routine healing PLAN: Plan Fracture of right fibula shaft, inability to ambulate. Venous Doppler done at the emergency department was negative. Lower extremity CT done outpatient showed healing fractures. PT and OT to work with patient. Case management consult. Orthopedic consult. Charges/Coding Visit Charges Inpatient E&M: 01709 Init Hosp L2
[2022-09-16] MEDS: Triamcinolone 0.5% Cream 1 APPLIC TOPICAL ×2 (00:53→21:17)
[2022-09-16 00:54] VITALS: BP 179/103; PULSE 67
[2022-09-16] MEDS: Pramipexole Di-HCl 0.25 MG Tablet PO ×4 (00:54→21:17)
[2022-09-16] MEDS: Metoprolol(XL)Succ 100 MG Tablet PO (00:54)
[2022-09-16] MEDS: Acetaminophen 500 MG Tablet 1000 MG PO ×2 (00:55→06:55)
[2022-09-16] MEDS: tiZANidine HCl 2 MG Tablet PO ×2 (00:55→21:17)
[2022-09-16 02:38] VITALS: BP 120/75; PULSE 62; RESP 16; TEMP 36.6; O2SAT 97
[2022-09-16 05:40] VITALS: BP 132/77
--- NOTE | 2022-09-16 06:47 | MRI_ITS ---
EXAM: MR RIGHT LOWER EXTREMITY WITHOUT INTRAVENOUS CONTRAST, TIBIA AND FIBULA CLINICAL INDICATION: Suspected plantaris rupture, possible stress fx TECHNIQUE: Multiplanar and multisequence MR images of the right tibia and fibula without intravenous contrast. COMPARISON: No relevant prior studies available. FINDINGS: LIMITATIONS: Quality: Significantly limited due to patient motion on multiple pulse sequences and susceptibility artifact from orthopedic hardware. BONES/JOINTS: Marrow edema in the fibula consistent with previously reported healing fracture. Marrow signal is otherwise unremarkable. Evaluation of the tibia is limited due to artifact from orthopedic hardware. MUSCLES: No demonstrated muscle tear or significant hematoma. Soft tissue edema surrounding the healing fibular fracture, likely related to local healing response. MRI/Lower Ext/No Jt/w/o IMPRESSION: Findings consistent with previously reported healing fibular fracture. Electronically Signed: Jodie Buckley MD at 18:15 EDT Reading Location ID and State: [id number] / Tel , Service support ,
--- NOTE | 2022-09-16 06:47 | CONS.ORTHO ---
HPI Consult Data Date of Consult: 09/16/22 HPI Narrative Reason for Consultation: Right leg pain HPI Narrative: MAVIS KOO, is a 76 F who presents to [facility] emergency department 09/15/2022 after worsening pain in her right lower leg. Patient has history of multiple stress fractures and her tibia treated operatively via ORIF by Dr. Barrera at [facility] in March of this year. Patient has a right total knee arthroplasty in place performed and [address] Roe. She notes worsening pain in her right lower leg over the last month. X-rays were obtained and demonstrated a healing stress fracture of the fibula. Patient had in the last week. She saw Dr. Sanchez yesterday who ordered a CAT scan and was negative for any multiple trips to the ER due to worsening pain evidence of tibial fracture and demonstrated the known fibular fracture. Patient states she was walking in the last few days and felt a pop in her right lower leg. She reports most the pain posteriorly in her right lower leg. Pain is worse with weightbearing. She is tried oral Tylenol, rest ice compression and elevation without significant relief. Patient is admitted under the service of the hospitalist. I was asked see the patient for evaluation. Patient reports history of neuropathy as well as poor circulation in my legs . She states this pain is different than any pain she is experienced in the past. [facility] Medical History Abdominal pain Allergic rhinitis Anxiety Biliary dyskinesia Breast cancer (~01/2019) CAD (coronary artery disease) Cellulitis of right lower limb Chronic cholecystitis Ductal carcinoma in situ (DCIS) of left breast Edema Enlargement of lymph node Epigastric pain Fracture of fibula GERD (gastroesophageal reflux disease) Hemorrhage of gastrointestinal tract history la incisional hernia repair history lap incisional hernia repair HTN (hypertension) Hyperlipidemia Impaired fasting blood sugar Insomnia Localized edema Malignant neoplasm of sigmoid colon Migraine Neuropathic pain Neuropathy Non-pressure chronic ulcer of other part of right lower leg with fat layer exposed Osteoarthritis of left knee Osteoporosis 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 Prolapsed bladder Right wrist drop RLS (restless legs syndrome) Sleep apnea 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 Vitamin B12 deficiency Vitamin C deficiency Home Medications cyanocobalamin (vitamin B-12) 1,000 mcg/mL injection solution 1,000 mcg IM Q30D Supplement 11/10/14 [History Last Taken 04/29/15] furosemide 40 mg tablet 40 mg PO DAILY EDEMA 11/10/14 [History Last Taken 05/10/15] gabapentin 100 mg capsule 300 mg PO BID Pain 11/10/14 [History Last Taken 08/09/19 06:00] acetaminophen 500 mg tablet 1,000 mg PO Q6H PRN PRN Pain 05/19/17 [History Last Taken Unknown] tizanidine 2 mg tablet 2 mg PO BID PRN PRN Spasms 05/19/17 [History Last Taken 05/19/17] cholecalciferol (vitamin D3) 1,250 mcg (50,000 unit) capsule 1,250 mcg PO DAILY Supplement 02/20/22 [History Last Taken Unknown] colestipol 1 gram tablet 1 g PO DAILY Cholesterol 02/20/22 [History Last Taken Unknown] ferrous sulfate 142 mg (45 mg iron) tablet,extended release (Slow Fe) 142 mg PO DAILY Supplement 02/20/22 [History Last Taken Unknown] triamcinolone acetonide 0.5 % topical cream 1 applic topical BID Skin Care 02/20/22 [History Last Taken Unknown] aspirin 81 mg capsule,delayed release 81 mg PO BID Heart 03/09/22 [History Last Taken Unknown] metoprolol succinate 100 mg tablet,extended release 24 hr 100 mg PO BID BP 03/09/22 [History Last Taken Unknown] nystatin 100,000 unit/gram topical powder (Nyamyc) 1 applic topical BID@1000,2200 #0 grams 03/23/22 [Rx Last Taken Unknown] pantoprazole 40 mg tablet,delayed release 40 mg PO DAILY #0 tabs 03/23/22 [Rx Last Taken Unknown] pramipexole 0.25 mg tablet 0.25 mg PO TID #0 tabs 03/23/22 [Rx Last Taken Unknown] hydrocortisone 2.5 % topical cream 1 applic topical PRN 09/11/22 [History Last Taken Unknown] calcium carbonate 600 mg calcium (1,500 mg) tablet (Calcium) 600 mg PO DAILY 09/16/22 [History Last Taken 09/14/22] Allergy/AdvReac Type Severity Reaction Status Date / Time amitriptyline AdvReac Other Verified 09/15/22 14:01 codeine AdvReac Other Verified 09/15/22 14:01 gabapentin AdvReac ONLY IF Verified 09/15/22 14:01 TAKEN IN LARGE DOSES Family History Mother Brain aneurysm Father Heart disease Daughter Cancer INVALID/ PATIENT HAS NO DAUGHTER. ENTERED IN ERROR. CAN'T DELETE Grandfather Cancer LUNG CANCER IN 60S FROM SMOKING Aunt Diabetes Brother Cancer Pancreatic cancer Surgical History H/O: hysterectomy history lap incisional hernia re[pair history left breast excisional biopsy with needle loc (~02/01/19) History of appendectomy History of breast biopsy (~01/2019) History of cholecystectomy History of colectomy History of colonoscopy (~2010) History of foot surgery History of hysterectomy History of laparoscopic cholecystectomy History of lymph node biopsy (~07/2019) History of total right knee replacement History of umbilical hernia repair S/P ORIF (open reduction internal fixation) fracture Social History household members: none Smoking Status: Never smoker alcohol intake: current alcohol intake frequency: a few times a month substance use type: does not use ROS ROS Narrative 12 point review systems obtained, negative unless otherwise noted in HPI. Vital Signs Vital Signs Vital Signs: 09/15/22 13:58 09/15/22 14:39 09/15/22 15:59 Temperature 97.9 F Temperature Source Temporal Pulse Rate 73 Respiratory Rate 18 Respiratory Effort Normal Respiratory Depth Respiratory Pattern Normal Blood Pressure 227/100 H 214/99 H Blood Pressure [2nd BP] Blood Pressure Mean 142 137 Blood Pressure Mean [2nd BP] Blood Pressure Source Blood Pressure Source [2nd BP] Blood Pressure Position Blood Pressure Position [2nd BP] Blood Pressure Location Blood Pressure Location [2nd BP] Pulse Ox 98 Oxygen Delivery Method Room Air 09/15/22 17:59 09/15/22 18:03 09/15/22 20:17 Temperature Temperature Source Pulse Rate 70 Respiratory Rate 18 Respiratory Effort Respiratory Depth Respiratory Pattern Blood Pressure 210/103 H 193/100 H 205/96 H Blood Pressure [2nd BP] Blood Pressure Mean 138 131 132 Blood Pressure Mean [2nd BP] Blood Pressure Source Blood Pressure Source [2nd BP] Blood Pressure Position Blood Pressure Position [2nd BP] Blood Pressure Location Blood Pressure Location [2nd BP] Pulse Ox 96 Oxygen Delivery Method Room Air 09/15/22 21:53 09/15/22 23:15 09/16/22 00:54 Temperature 97.6 F L 98 F Temperature Source Temporal Oral Pulse Rate 67 65 67 Respiratory Rate 18 18 Respiratory Effort Respiratory Depth Respiratory Pattern Blood Pressure 162/93 H 177/87 H 179/103 H Blood Pressure [2nd BP] Blood Pressure Mean 116 117 Blood Pressure Mean [2nd BP] Blood Pressure Source Monitor Blood Pressure Source [2nd BP] Blood Pressure Position Semi-Fowlers Blood Pressure Position [2nd BP] Blood Pressure Location Right Arm Blood Pressure Location [2nd BP] Pulse Ox 94 100 Oxygen Delivery Method Room Air Room Air 09/16/22 00:59 09/16/22 02:38 09/16/22 05:40 Temperature 97.8 F Temperature Source Oral Pulse Rate 62 Respiratory Rate 16 Respiratory Effort Normal Respiratory Depth Normal Respiratory Pattern Normal Blood Pressure 120/75 Blood Pressure [2nd BP] 132/77 H Blood Pressure Mean 90 Blood Pressure Mean [2nd BP] 95 Blood Pressure Source Monitor Blood Pressure Source [2nd BP] Monitor Blood Pressure Position Semi-Fowlers Blood Pressure Position [2nd BP] Semi-Fowlers Blood Pressure Location Left Arm Blood Pressure Location [2nd BP] Right Arm Pulse Ox 97 Oxygen Delivery Method Room Air Room Air Weight Weight: 175 lb 0.752 oz Body Mass Index (BMI) 29.1 Physical Exam Narrative General -A&Ox3, NAD, appears stated age. Vital signs stable, afebrile. Respiratory -normal work of breathing, no intercostal retractions. CV -pulses regular, brisk capillary refill ?4 limbs. Abdomen-soft, nontender, nondistended. No guarding, rigidity, rebound tenderness. Musculoskeletal/neurologic -full range of motion nontender throughout bilateral upper extremities, left lower extremity with full sensation and strength in all dermatomes and myotomes. No midline cervical tenderness. Right lower extremity-no obvious deformity. Well-healed right anterior knee/lower leg incision. She is nontender about the tibia. Mild tenderness to palpation of the mid fibula. There is maximal tenderness to palpation along the posterior lower leg. The Achilles tendon area is mildly tender to palpation without step-offs. Brisk capillary refill. Sensation intact light touch L3-S1 dermatomes. DF, PF, EHL intact. DP, PT 2+. Pelvis is stable, nontender. Skin is intact without lacerations, abrasions. There is trace ecchymosis which appears healing and remote along the posterior right lower leg at the level of the musculotendinous junction of the Achilles. Lab / Micro Data 09/15/22 16:29 09/15/22 16:29 Labs: Laboratory Results - last 24 hr 09/15/22 16:29: WBC 6.4, RBC 4.43, Hgb 12.9, Hct 39.0, MCV 88.0, MCH 29.1, MCHC 33.1, RDW Std Deviation 46.4 H, RDW Coeff of Helder 14.5, Plt Count 244, MPV 8.3, Immature Gran % (Auto) 0.900, Neut % (Auto) 77.0 H, Lymph % (Auto) 14.4 L, [place] % (Auto) 6.1, Eos % (Auto) 0.8, Baso % (Auto) 0.8, Absolute Neuts (auto) 4.9, Absolute Lymphs (auto) 0.92, Nucleated RBC % 0, Sodium 138, Potassium 4.5, Chloride 107, Carbon Dioxide 25.0, Anion Gap 6, BUN 14, Creatinine 0.65, Estim Creat Clear Calc 43.74, Est GFR (MDRD) Af Amer 114, Est GFR (MDRD) Non-Af 94, BUN/Creatinine Ratio 21.5 H, Glucose 106, Calcium 9.1 Radiology Impression Venous Duplex 09/15/22 19:12 IMPRESSION: Normal venous Doppler ultrasound of the lower extremity. Electronically Signed: Derek Gloria MD at 20:28 EDT , Assessment & Plan Assessment/Plan (1) Stress fracture, right fibula, subsequent encounter for fracture with delayed healing: PLAN: Patient seen and examined. Patient has a healing stress fracture of right fibula. Her tibia demonstrates no acute fracture on plain films and CT scan. The tibia is nontender and no pain elicited with percussion. I suspect pain is likely soft tissue related however occult stress fracture must be considered given her history. I recommended we obtain an MRI of the right tib-fib for further evaluation. Patient may weight-bear as tolerated on the right lower extremity however I feel that she is likely to be significantly limited and may require senior living placement due to inability to ambulate. Okay to mobilize with therapy today. Further recommendations pending MRI. Thank you for this consultation. Please not hesitate to call if any questions or concerns arise. (2) Unable to ambulate: PLAN: See above
[2022-09-16 06:58] LABS: Absolute Lymphocyte Count 1.03 X10^3/uL (0.83-4.51); Basophil# 0.02 X10^3/uL; Basophil% 0.4 % (0-1); Eosinophil# 0.05 X10^3/uL; Eosinophils% 1.1 % (0-5); Hematocrit 37.2 % (37-47); Lymphocyte # 1.03 X10^3/ul (0.83-4.51); Lymphocyte % 22.9 % (19-41); Mean Corp Hgb Conc 32.3 g/dL (32-36); Mean Corpuscular Hgb 28.9 pg (27.0-32.0); Mean Corpuscular Volume 89.6 fL (81-99); Mean Platelet Vol. 8.3 fl (6.2-12.0); Monocyte% 8.9 % (0-10); NRBC Flagged by Analyzer 0 % (0-5); Neutrophil # 2.96 X10^3/uL (2.7-7.7); Platelet Count 218 K/mm3 (150-450); RBC Distribution Width CV 14.6 % (11.6-14.6); RBC Distribution Width SD 47.8 fl (35.1-43.9); Red Blood Count 4.15 M/mm3 (4.2-5.4); White Blood Count 4.5 K/mm3 (4.4-11.0)
[2022-09-16 07:32] LABS: Anion Gap 3 (5-15); BUN 16 mg/dL (7-18); BUN/Creat Ratio 27.4 RATIO (10-20); Calcium,Total 9.1 mg/dL (8.5-10.1); Chloride 108 mmol/L (98-107); Creatinine, Serum 0.58 mg/dL (0.55-1.02); EST Glomerular Filtration Rate 106 mL/min (>60); Est Glom Filt Rate - Afr Amer 129 mL/min (>60); Estimated Creatinine Clearance 43.74 ml/min; Glucose 99 mg/dL (74-106); Potassium 3.7 mmol/L (3.5-5.1); Sodium Level 138 mmol/L (136-145)
[2022-09-16 08:26] VITALS: BP 152/77; PULSE 70; RESP 18; TEMP 36.4; O2SAT 95
[2022-09-16] MEDS: Furosemide 40 MG Tablet PO (08:31)
[2022-09-16] MEDS: Pantoprazole Sodium 40 MG Tablet PO (08:32)
[2022-09-16] MEDS: Calcium Carbonate 500 MG Tablet PO (08:32)
[2022-09-16] MEDS: Gabapentin 300 MG Capsule PO ×2 (11:13→21:17)
[2022-09-16] MEDS: Menthol/Lanolin/Calamine/Znox 113 GM Tube 1 APPLIC TOPICAL ×2 (11:14→21:18)
--- NOTE | 2022-09-16 14:21 | PN.HOSP_ITS ---
Reason for Visit Reason for Visit: right leg pain Subjective Subjective Mrs. Keita is a 76-year-old white female with a history of a right fibular shaft fracture that was treated nonoperatively and a open right tibial fracture that was treated operatively at [facility] at the end of February 2022. Following her hospital stay in [place] she was admitted here to the TCU and was discharged home on 03/23/2022. She presented to the emergency department here on 09/08/2022 and on 09/12/2022. On she came in due to worsening pain in her right knee and lower leg that had been progressively getting worse over the past few days. She denied any trauma or injury other than the fracture she had 6 months prior. She had seen orthopedic surgeon in follow-up and repeat imaging showed no new fracturing. She reported her pain was aching and burning in nature and was worse with weightbearing. She complained of some intermittent numbness and tingling in both of her feet which is chronic. Work-up at that time in the emergency department was unremarkable and she was able to be discharged home. She returned to the emergency department on the third after a fall. Fall was from a standing position and she was complaining of anterior mid right leg pain with some soft tissue swelling. Imaging was unremarkable at that time and she was discharged home. She represented the emergency department on 09/15/2022 as the pain persisted and was more bothersome. She was having a recall time ambulating at home. She states the pain is predominantly on the 6 proximal anterior and lateral tibial region and medial distal tibial region. Vital signs on presentation were unremarkable other than a markedly elevated blood pressure at 227/100 which trended down with treatment in the emergency department. Her CBC was unremarkable. Her chemistry panel was unremarkable. Her calcium was normal. A right lower extremity ultrasound was performed to assess for DVT and this was negative. A CT of her lower extremity was performed and showed only status post total knee replacement with good alignment, healing of fibular fractures, healed tibial fracture and soft tissue swelling. She was evaluated by orthopedic surgery who felt that her pain was likely related to soft tissue injury however occult stress fracture was considered and an MRI was obtained. MRI is currently pending. Patient was seen the day after admission and reports that her pain is intermittent in the areas above described. It has significantly impacted her ability to bear weight and take care of herself at home. She states she got a rollator walker and she has been walking around placing her leg on top of the seat and using her left leg to push the wheels. She is amenable to placement if need be but would like to go home if possible. Objective Data Objective Data Vital Signs: Vital Signs Temp Pulse Resp BP Pulse Ox O2 Del Method 97.6 F L 70 18 152/77 H 95 Room Air 09/16/22 08:26 09/16/22 08:26 09/16/22 08:26 09/16/22 08:26 09/16/22 08:26 09/16/22 08:26 Oxygen Delivery Method Room Air Weight: 79.4 kg Body Mass Index (BMI) 29.1 Lab / Micro Data 09/16/22 06:45 09/16/22 06:45 Labs: Laboratory Results - last 24 hr 09/15/22 16:29: WBC 6.4, RBC 4.43, Hgb 12.9, Hct 39.0, MCV 88.0, MCH 29.1, MCHC 33.1, RDW Std Deviation 46.4 H, RDW Coeff of Helder 14.5, Plt Count 244, MPV 8.3, Immature Gran % (Auto) 0.900, Neut % (Auto) 77.0 H, Lymph % (Auto) 14.4 L, [place] % (Auto) 6.1, Eos % (Auto) 0.8, Baso % (Auto) 0.8, Absolute Neuts (auto) 4.9, Absolute Lymphs (auto) 0.92, Nucleated RBC % 0, Sodium 138, Potassium 4.5, Chloride 107, Carbon Dioxide 25.0, Anion Gap 6, BUN 14, Creatinine 0.65, Estim Creat Clear Calc 43.74, Est GFR (MDRD) Af Amer 114, Est GFR (MDRD) Non-Af 94, BUN/Creatinine Ratio 21.5 H, Glucose 106, Calcium 9.1 09/16/22 06:45: WBC 4.5, RBC 4.15 L, Hgb 12.0, Hct 37.2, MCV 89.6, MCH 28.9, MCHC 32.3, RDW Std Deviation 47.8 H, RDW Coeff of Helder 14.6, Plt Count 218, MPV 8.3, Immature Gran % (Auto) 0.700, Neut % (Auto) 66.0, Lymph % (Auto) 22.9, [place] % (Auto) 8.9, Eos % (Auto) 1.1, Baso % (Auto) 0.4, Absolute Neuts (auto) 3.0, Absolute Lymphs (auto) 1.03, Nucleated RBC % 0, Sodium 138, Potassium 3.7, Chloride 108 H, Carbon Dioxide 27.0, Anion Gap 3 L, BUN 16, Creatinine 0.58, Estim Creat Clear Calc 43.74, Est GFR (MDRD) Af Amer 129, Est GFR (MDRD) Non-Af 106, BUN/Creatinine Ratio 27.4 H, Glucose 99, Calcium 9.1 Radiography Diagnostic Testing: Radiology Impression Venous Duplex 09/15/22 19:12 IMPRESSION: Normal venous Doppler ultrasound of the lower extremity. Electronically Signed: Derek Gloria MD at 20:28 EDT , Physical Exam Const alert, oriented x3, no apparent distress and well nourished Constitutional Narrative: Very pleasant, older, white female, sitting up in bed, appears comfortable, nontoxic, right foot is elevated HEENT head/scalp atraumatic and moist oral mucous membranes HEENT Narrative: Mallampati 2, no thrush Head and Scalp: normocephalic Resp normal respiratory effort, no retractions, no use of accessory muscles and clear to auscultation bilaterally Cardio regular rate, regular rhythm, S1 normal heart sound, no rub, no gallops and no clicks Cardio Narrative: 4 out of 6 systolic murmur that radiates to both carotid arteries, is to a soft GI normal to inspection, nondistended, normoactive bowel sounds, soft to palpation and non-tender Extremity Extremity Narrative: Mild right lower extremity swelling when compared to left lower extremity, currently elevated, tenderness in the anterior right soft tissues in the area of the tibialis anterior, mild ecchymotic changes, no cyanosis or clubbing, pulses are good, no ankle restriction however ankle movement does worsen symptoms. No pain at rest Neuro oriented x3, CN's II-XII intact bilaterally, moves all extremities and no focal motor deficits Speech: speech normal Psych affect normal Psych Narrative: Pleasant, appropriately interactive Assessment & Plan Assessment/Plan (1) Unable to ambulate: (2) Acute pain of right lower extremity: (3) Accelerated hypertension: PLAN: Plan Right lower leg pain/inability to ambulate -Recent tibial fracture with surgical intervention and fibular fractures 02/2022 -Treatment at [facility] -Ambulates at baseline with a wheeled walker -MRI pending -Right lower extremity Dopplers negative for DVT -PT/OT with weightbearing as tolerated per orthopedic surgery recommendations -Schedule Tylenol -As needed pain medication -Orthopedic surgery following-up appreciate input Accelerated hypertension -Blood pressure was markedly elevated on admission but is trending down -We will continue current regimen for now and monitor -May need uptitration of antihypertensives--> currently on Lasix 40 mg daily and metoprolol 100 mg daily -Continue as needed hydralazine Cardiac murmur -Significant murmur on exam -Appears to be asymptomatic -Would recommend an outpatient echocardiogram be performed to assess aortic valve CAD -No previous intervention -Continue aspirin History of colon cancer -Status post colectomy -No current issues Osteoporosis -Continue calcium supplementation Neuropathy -Continue home gabapentin Hyperlipidemia -Patient is not on any medication for cholesterol at this time -Outpatient follow-up GERD -Continue Protonix Restless leg syndrome -Continue Mirapex History of breast cancer -No current issues History of sleep apnea -Patient is not compliant with CPAP DVT prophylaxis -Start enoxaparin daily CODE STATUS Full code as verified on admission Charges/Coding Visit Charges Inpatient E&M: 45284 Subs Hosp L2
--- NOTE | 2022-09-16 14:47 | CHAPLAIN ---
Type of Pastoral Visit _x__ Initial Visit ___ Follow-up Visit ___ On-call Visit ___ General Patient Visit ___ Spiritual Assessment ___ Family Conference ___ Bereavement ___ Rapid Response ___ Code Blue ___ Other (describe below) Pastoral Care Referral From _x__ Patient ___ Family ___ Nurse ___ Physician ___ Mailroom Supervisor ___ Manager Budget ___ Other (describe below) Sacrament/Intervention _x__ Active listening ___ Anointing ___ Adventism ___ Bereavement ___ Communion ___ Mikayla exploration ___ _x__ Life review _x__ Prayer ___ Reconciliation ___ Sacrament of Sick _x__ Supportive presence ___ Wedding ___ Other (describe below) Pastoral Comments patient is given time to express her broken bones, further testing, and anticipation of help in recovery; pt will need assistance as she lives alone; pt has concerns about her future living arrangements and does not want to go to [facility] which is where she previously landed after another break; pt goal is to get results from today's MRI and welcomes prayer and presence for support
--- NOTE | 2022-09-16 14:57 | CASEMGMT ---
MATEO CM into pt room to complete GONZALES and assessment, pt is off floor at this time. Pt is down for MRI, therapy to work with pt post MRI and recommendations, NWB until. MATEO MINAYA to complete assessment when pt back on floor.
--- NOTE | 2022-09-16 15:55 | CASEMGMT ---
MATEO MINAYA Assessment: Face to Face with pt for initial transition planning/care coordination assessment. RN REI introduced self and role at [facility], pt voices understanding and consents to assessment. Pt is A/O x4 and answers all questions appropriately at this time. Pt lying in bed in no distress. Care providers, pharmacy, and demographics verified/updated. Admitting Dx: inability to ambulate PCP:Daniel Specialists:James, cardio; [facility]; yonny Padilla Preferred Pharmacy: [facility] Insurance: [facility] Prescription Benefit: yes LNOK: Ollie Keita, son Living Arrangements: Pt lives alone in a single story home with 3 steps to enter with a rail. Pt reports for the last couple of weeks she has been struggling with her leg to get around. Transportation: Pt drives self up until a week ago. Pt states she has a cg/friend Deloris Antonio that gets her groceries and provides transportation. DME/HHC/SNF: Pt has a walk in shower with built in fold down seat, FWW, rollator and raised toilet seat. Pt has had [facility] HHC in the past and has been to [facility] TCU and [facility]. Pt is unsure if she is able to return home. Pt just had MRI and results are pending, therapy on hold until results as well. Pt states no further concerns/needs. CM to follow. Advised pt to ask CM if any further question/concerns/needs arise, voices understanding. Pt Goal: TBD Plan: TBD pending MRI results and therapy
--- NOTE | 2022-09-16 16:16 | CASEMGMT ---
MATEO CM in to discuss GONZALES form with patient. RN CM explained GONZALES form, patient voiced understanding. Pt signed form and filed in chart. Pt provided with a copy of signed GONZALES form. Patient had no further questions or concerns at this time.
[2022-09-16 16:34] VITALS: BP 138/85; PULSE 71; RESP 18; TEMP 36.9; O2SAT 96
--- NOTE | 2022-09-16 17:42 | CASEMGMT ---
Social Work Pt has a living will and Health care POA on file with first decision maker as Cderic Keita. Pt states this is her spouse who is . First alternate is Ollie Bahttipster, pt son and pt confirms he is HCPOA. BLANQUITA Du
[2022-09-16 21:02] VITALS: BP 160/86; PULSE 67; RESP 18; TEMP 36.8; O2SAT 95
[2022-09-16] MEDS: MELATONIN 3 MG TABLET PO (21:17)
[2022-09-17] VITALS (7 sets, daily range): BP systolic 108–155; BP diastolic 60–78; PULSE 64–83; RESP 18–20; TEMP 36.6–37.1; O2SAT 91–96
[2022-09-17] MEDS: Acetaminophen 500 MG Tablet 1000 MG PO ×3 (01:34→22:38)
--- NOTE | 2022-09-17 06:05 | PCM.PN.BLA ---
Assessment & Plan Assessment/Plan (1) Stress fracture, right fibula, subsequent encounter for fracture with delayed healing: PLAN: MRI reviewed. No evidence of acute tendon or muscular injury. Tibial fracture appears well-healed, exam limited by orthopedic hardware. Fibular stress fracture appears well-healed. Patient may weight-bear as tolerated. Mobilize with therapy as tolerated. No surgical invention planned. I recommend patient follow-up with her surgeon Dr. Barrera in the outpatient setting if pain persists upon discharge. I will sign off at this time. Thank you for this consultation. Please not hesitate to call if any questions or concerns arise.
[2022-09-17] MEDS: Pramipexole Di-HCl 0.25 MG Tablet PO ×3 (06:33→22:38)
[2022-09-17] MEDS: Gabapentin 300 MG Capsule PO ×2 (09:01→22:51)
[2022-09-17] MEDS: Calcium Carbonate 500 MG Tablet PO (09:01)
[2022-09-17] MEDS: Pantoprazole Sodium 40 MG Tablet PO (09:01)
[2022-09-17] MEDS: Metoprolol(XL)Succ 100 MG Tablet PO (09:01)
[2022-09-17] MEDS: tiZANidine HCl 2 MG Tablet PO ×3 (09:01→22:38)
[2022-09-17] MEDS: Furosemide 40 MG Tablet PO (09:02)
[2022-09-17] MEDS: Menthol/Lanolin/Calamine/Znox 113 GM Tube 1 APPLIC TOPICAL ×2 (09:02→22:51)
--- NOTE | 2022-09-17 13:04 | PCM.PN.HOSP ---
Reason for Visit Reason for Visit: Right leg pain/inability to ambulate Subjective Subjective Having ongoing pain and sounds like she is having some muscle spasms in her leg. Therapy at bedside and she is quite reluctant to put any weight on that leg due to fear of pain. She does not have pain at rest. Is reluctant to go to rehab as she states she will have to pay [id number] and she states she cannot afford to do that. I discussed with her that case management social work would be in to discuss this further with her later. Objective Data Objective Data Vital Signs: Vital Signs Temp Pulse Resp BP Pulse Ox O2 Del Method 98.2 F 83 18 108/60 94 Room Air 09/17/22 09:00 09/17/22 09:01 09/17/22 09:00 09/17/22 09:00 09/17/22 09:00 09/17/22 09:00 Oxygen Delivery Method Room Air Weight: 79.4 kg Body Mass Index (BMI) 29.1 Intake & Output: Intake and Output for Last 24 Hours 09/15/22 09/16/22 09/17/22 23:59 23:59 23:59 Intake Total 600 / 600 300 / 300 Output Total 800 / 800 400 / 400 Balance -200 / -200 -100 / -100 Lab / Micro Data 09/16/22 06:45 09/16/22 06:45 Radiography Diagnostic Testing: Radiology Impression Lower Extremity MRI 09/16/22 06:47 IMPRESSION: Findings consistent with previously reported healing fibular fracture. Electronically Signed: Jodie Buckley MD at 18:15 EDT Reading Location ID and State: [id number] / Tel , Service support , Physical Exam Const alert, oriented x3, no apparent distress and well nourished Constitutional Narrative: Very pleasant, older, white female, getting up with therapy services to a chair at the bedside, appears comfortable, nontoxic, quite reluctant to put weight on her right foot during the process HEENT head/scalp atraumatic and moist oral mucous membranes HEENT Narrative: Mallampati 2, no thrush, dentures in place Head and Scalp: normocephalic Resp normal respiratory effort, no retractions, no use of accessory muscles and clear to auscultation bilaterally Cardio regular rate, regular rhythm, S1 normal heart sound, no rub, no gallops and no clicks Cardio Narrative: 4 out of 6 systolic murmur that radiates to both carotid arteries, is to a soft GI normal to inspection, nondistended, normoactive bowel sounds, soft to palpation and non-tender Extremity Extremity Narrative: Mild right lower extremity swelling compared to the left lower extremity with tenderness noted on tapping her heel on the right but no pain with compression of the bone or the soft tissues surrounding the tibia and fibula on the right lower extremity, no cyanosis or clubbing, left lower extremity is within normal limits, pedal pulses are 2+ bilaterally Neuro oriented x3, moves all extremities and no focal motor deficits Speech: speech normal Psych affect normal Psych Narrative: Pleasant, appropriately interactive Assessment & Plan Assessment/Plan (1) Unable to ambulate: (2) Acute pain of right lower extremity: (3) Accelerated hypertension: PLAN: Plan Right lower leg pain/inability to ambulate -Recent tibial fracture with surgical intervention and fibular fractures 02/2022 -Treatment at [facility] -Ambulates at baseline with a wheeled walker -MRI was negative for any acute findings -Right lower extremity Dopplers negative for DVT -PT/OT with weightbearing as tolerated per orthopedic surgery recommendations -Schedule Tylenol -Add as needed oxycodone -Schedule tizanidine -Continue home gabapentin -Not consistent with complex regional pain syndrome/RSD -Orthopedic surgery has signed off Accelerated hypertension -Blood pressure was markedly elevated on admission but is trending down -We will continue current regimen for now and monitor -May need uptitration of antihypertensives--> currently on Lasix 40 mg daily and metoprolol 100 mg daily -Continue as needed hydralazine Cardiac murmur -Significant murmur on exam -Appears to be asymptomatic -Would recommend an outpatient echocardiogram be performed to assess aortic valve CAD -No previous intervention -Continue aspirin History of colon cancer -Status post colectomy -No current issues Osteoporosis -Continue calcium supplementation Neuropathy -Continue home gabapentin Hyperlipidemia -Patient is not on any medication for cholesterol at this time -Outpatient follow-up GERD -Continue Protonix Restless leg syndrome -Continue Mirapex History of breast cancer -No current issues History of sleep apnea -Patient is not compliant with CPAP DVT prophylaxis -Continue enoxaparin CODE STATUS Full code as verified on admission Charges/Coding Visit Charges Inpatient E&M: 41013 Subs Hosp L2
--- NOTE | 2022-09-17 14:30 | CASEMGMT ---
Social Work SW met with patient and introduced herself and role as [facility] Computer Systems Software Architect. Patient sitting in chair and agreeable to speak with SW. SW reviewed recommendations for SNF and provided a list including quality and resource use data and consistent with patient?s preferred geographic region, medical needs, and insurance network were provided from the [employer] Guide.?Patient reports recently staying at [facility] and is worried about insurance coverage for another SNF. SW provided emotional support and discussed precert process, including the ability to inquire about insurance coverage for room and board. Patient was receptive and reports interest in TCU as she was there years ago. Plan: TCU pending acceptance and precert Marilee JIMENEZ, CHRISTOPHER
[2022-09-17] MEDS: Triamcinolone 0.5% Cream 1 APPLIC TOPICAL (22:38)
[2022-09-18] VITALS (7 sets, daily range): BP systolic 123–152; BP diastolic 67–90; PULSE 54–69; RESP 16–18; TEMP 36.4–36.8; O2SAT 94–98
[2022-09-18] MEDS: Pramipexole Di-HCl 0.25 MG Tablet PO ×3 (05:26→22:14)
[2022-09-18] MEDS: tiZANidine HCl 2 MG Tablet PO ×3 (05:26→22:14)
[2022-09-18] MEDS: Acetaminophen 500 MG Tablet 1000 MG PO ×3 (05:26→22:14)
[2022-09-18] MEDS: oxyCODONE 5 MG Tablet PO (05:30)
[2022-09-18] MEDS: Calcium Carbonate 500 MG Tablet PO (08:55)
[2022-09-18] MEDS: Furosemide 40 MG Tablet PO (08:55)
[2022-09-18] MEDS: Gabapentin 300 MG Capsule PO ×2 (08:58→20:22)
[2022-09-18] MEDS: Menthol/Lanolin/Calamine/Znox 113 GM Tube 1 APPLIC TOPICAL ×2 (08:58→22:15)
[2022-09-18] MEDS: Triamcinolone 0.5% Cream 1 APPLIC TOPICAL ×2 (08:59→22:14)
[2022-09-18] MEDS: Pantoprazole Sodium 40 MG Tablet PO (08:59)
[2022-09-18] MEDS: Metoprolol(XL)Succ 100 MG Tablet PO (09:00)
--- NOTE | 2022-09-18 13:00 | PN.HOSP_ITS ---
Reason for Visit Reason for Visit: Right leg pain/inability to walk Subjective Subjective Patient states she feels that the regimen we started on her seems to be helping some. She was able to bear some weight on her leg with transfer today to get to the chair. She talked to social work yesterday and plans are for TCU hopefully at discharge awaiting acceptance from TCU and pre-CERT. Objective Data Objective Data Vital Signs: Vital Signs Temp Pulse Resp BP Pulse Ox O2 Del Method 97.5 F L 65 16 123/70 H 94 Room Air 09/18/22 09:00 09/18/22 10:00 09/18/22 09:00 09/18/22 09:00 09/18/22 10:00 09/18/22 10:00 Oxygen Delivery Method Room Air Weight: 79.4 kg Body Mass Index (BMI) 29.1 Intake & Output: Intake and Output for Last 24 Hours 09/16/22 09/17/22 09/18/22 23:59 23:59 23:59 Intake Total 600 / 600 300 / 300 250 / 250 Output Total 800 / 800 1050 / 1050 1000 / 1000 Balance -200 / -200 -750 / -750 -750 / -750 Lab / Micro Data 09/16/22 06:45 09/16/22 06:45 Physical Exam Const alert, oriented x3, no apparent distress, healthy appearing and well nourished Constitutional Narrative: Overweight, elderly white female, appears comfortable and nontoxic, watching television and sitting up in a chair at the bedside HEENT head/scalp atraumatic and moist oral mucous membranes HEENT Narrative: Mallampati 2, no thrush Head and Scalp: normocephalic Neuro oriented x3, moves all extremities and no focal motor deficits Speech: speech normal Psych affect normal Psych Narrative: Very pleasant Assessment & Plan Assessment/Plan (1) Unable to ambulate: (2) Acute pain of right lower extremity: PLAN: Plan Right lower leg pain/inability to ambulate -Recent tibial fracture with surgical intervention and fibular fractures 02/2022 -Treatment at [facility] -Ambulates at baseline with a wheeled walker -MRI was negative for any acute findings -Right lower extremity Dopplers negative for DVT -PT/OT with weightbearing as tolerated per orthopedic surgery recommendations -Continue scheduled Tylenol -Add as needed oxycodone -Continue scheduled tizanidine -Continue home gabapentin -Not consistent with complex regional pain syndrome/RSD -Orthopedic surgery has signed off Accelerated hypertension -Blood pressure was markedly elevated on admission but is trending down -Will continue to monitor with no additions for now -currently on Lasix 40 mg daily and metoprolol 100 mg daily -Continue as needed hydralazine Cardiac murmur -Significant murmur on exam -Appears to be asymptomatic -Would recommend an outpatient echocardiogram be performed to assess aortic valve CAD -No previous intervention -Continue aspirin History of colon cancer -Status post colectomy -No current issues Osteoporosis -Continue calcium supplementation Neuropathy -Continue home gabapentin Hyperlipidemia -Patient is not on any medication for cholesterol at this time -Outpatient follow-up GERD -Continue Protonix Restless leg syndrome -Continue Mirapex History of breast cancer -No current issues History of sleep apnea -Patient is not compliant with CPAP DVT prophylaxis -Continue enoxaparin CODE STATUS Full code as verified on admission Charges/Coding Visit Charges Inpatient E&M: 11585 Subs Hosp L1
[2022-09-19] MEDS: oxyCODONE 5 MG Tablet PO ×2 (00:51→05:13)
[2022-09-19 02:15] VITALS: BP 150/85; PULSE 61; RESP 18; TEMP 36.7; O2SAT 98
[2022-09-19] MEDS: Acetaminophen 500 MG Tablet 1000 MG PO ×3 (05:12→21:19)
[2022-09-19] MEDS: tiZANidine HCl 2 MG Tablet PO ×3 (05:12→21:18)
[2022-09-19] MEDS: Pramipexole Di-HCl 0.25 MG Tablet PO ×3 (05:12→21:19)
[2022-09-19] MEDS: Calcium Carbonate 500 MG Tablet PO (08:13)
[2022-09-19 08:14] VITALS: BP 141/85; PULSE 56; RESP 16; TEMP 36.6; O2SAT 95
[2022-09-19 08:20] VITALS: O2SAT 94
--- NOTE | 2022-09-19 08:32 | PN.HOSP_ITS ---
Reason for Visit Reason for Visit: Diagnoses Essential (primary) hypertension (09/15/22) Pain in right leg (09/15/22) Stress fracture, right fibula, subsequent encounter for fracture with delayed healing (09/15/22) Difficulty in walking, not elsewhere classified (09/15/22) Nondisplaced comminuted fracture of shaft of right fibula, subsequent encounter for closed fracture with routine healing (09/15/22) Subjective Subjective Still with pain on medial right calf. Objective Data Objective Data Vital Signs: Vital Signs Temp Pulse Resp BP Pulse Ox O2 Del Method 36.6 C 56 L 16 141/85 H 94 Room Air 09/19/22 08:14 09/19/22 08:14 09/19/22 08:14 09/19/22 08:14 09/19/22 08:20 09/19/22 08:20 Oxygen Delivery Method Room Air Weight: 79.4 kg Body Mass Index (BMI) 29.1 Intake & Output: Intake and Output for Last 24 Hours 09/17/22 09/18/22 09/19/22 23:59 23:59 23:59 Intake Total 300 / 300 900 / 900 Output Total 1050 / 1050 2100 / 2500 1200 / 1200 Balance -750 / -750 -1200 / -1600 -1200 / -1200 Lab / Micro Data 09/16/22 06:45 09/16/22 06:45 Physical Exam Const alert and no apparent distress Extremity Extremity Narrative: no reproducible pain on medial right calf Neuro oriented x3, moves all extremities and no focal motor deficits Sensorium / Orientation: awake and alert Assessment & Plan Assessment/Plan (1) Unable to ambulate: PLAN: Right lower leg pain/inability to ambulate Recent tibial fracture with surgical intervention and fibular fractures 02/2022 that was treated at [facility] Ambulates at baseline with a wheeled walker MRI was negative for any acute findings (showed healing fibular fractures) Right lower extremity Dopplers negative for DVT PT/OT with weightbearing as tolerated per orthopedic surgery recommendations Continue scheduled Tylenol Add as needed oxycodone Continue scheduled tizanidine Continue home gabapentin Not consistent with complex regional pain syndrome Orthopedic surgery has signed off. Recommended following up with Dr. Barrera at [facility]. With her ongoing pain I offered increasing her gabapentin to TID. She declined as she been confused with gabapentin in the past. She was agreeable to trying lidocaine patches. PLAN: Plan Chronic conditions: * Cardiac murmur-Significant murmur on exam-Appears to be asymptomatic-Would recommend an outpatient echocardiogram be performed to assess aortic valve * CAD-No previous intervention-Continue aspirin * History of colon cancer-Status post colectomy-No current issues * Osteoporosis-Continue calcium supplementation * Neuropathy-Continue home gabapentin * Hyperlipidemia-Patient is not on any medication for cholesterol at this time- Outpatient follow-up * GERD-Continue Protonix * Restless leg syndrome-Continue Mirapex * History of breast cancer-No current issues * History of sleep apnea-Patient is not compliant with CPAP CODE STATUS Full code as verified on admission Disposition: to SNF pending insurance authorization. Greater than 35 minutes of which greater than 50% of time was counseling patient about her pain, discussing treatment options with her pain. Charges/Coding Visit Charges Inpatient E&M: 80970 Subs Hosp L2
--- NOTE | 2022-09-19 08:40 | CASEMGMT ---
Social Work SW spoke w/Erin in TCU, it is not clear whether or not they will have a bed today, or if pt would be accepted if a bed does become available. SW spoke w/pt, explained that it is not anticipated pt will have a bed in TCU, inquired other choices for pt. Pt states the only other place that takes her insurance in [place] is [facility], and she wants to stay in [place]. Pt agreeable to SW sending a referral to [facility]. SW explained once we get an acceptance, we also need insurance to authorize--as pt is concerned about the cost. Pt states understanding. Marta, d/c housekeeping assistant, will send referral to [facility]. SW will continue to follow. LIZETTE Solorio
[2022-09-19] MEDS: Menthol/Lanolin/Calamine/Znox 113 GM Tube 1 APPLIC TOPICAL ×2 (09:13→21:20)
[2022-09-19 09:14] VITALS: PULSE 65
[2022-09-19] MEDS: Pantoprazole Sodium 40 MG Tablet PO (09:14)
[2022-09-19] MEDS: Furosemide 40 MG Tablet PO (09:14)
[2022-09-19] MEDS: Metoprolol(XL)Succ 100 MG Tablet PO (09:14)
[2022-09-19] MEDS: Gabapentin 300 MG Capsule PO ×2 (09:17→21:18)
--- NOTE | 2022-09-19 10:42 | CASEMGMT ---
Discharge Planning Referral sent to [facility]. Marta Gallagher, Discharge Planning Asst.
[2022-09-19] MEDS: Lidocaine 5% Patch 1 PATCH TOPICAL (11:12)
--- NOTE | 2022-09-19 14:08 | CASEMGMT ---
Social Work TCU can take pt and will start precert. SW let pt know. She is agreeable to TCU, she does want to know how it's covered. SW will call insurance as time allows. LIZETTE Solorio
[2022-09-19 14:17] VITALS: BP 147/88; PULSE 73; RESP 16; TEMP 36.7; O2SAT 96
[2022-09-19] MEDS: Nystatin Powder 15gm Bottle 1 APPLIC TOPICAL ×2 (14:21→21:17)
--- NOTE | 2022-09-19 14:32 | CASEMGMT ---
Social Work SW called pt's insurance, she is covered at 100% for SNF(subject to approval) for the first 20 days. After that. there is a $188/day copay, for days 21-100. Pt has not used her benefit yet. SW let pt know this information, pt states understanding. LIZETTE Solorio
[2022-09-19] MEDS: Triamcinolone 0.5% Cream 1 APPLIC TOPICAL (21:18)
[2022-09-20] MEDS: oxyCODONE 5 MG Tablet PO ×2 (02:08→21:58)
[2022-09-20 02:15] VITALS: BP 145/81; PULSE 61; RESP 16; TEMP 36.7; O2SAT 97
[2022-09-20] MEDS: tiZANidine HCl 2 MG Tablet PO ×3 (06:39→22:09)
[2022-09-20] MEDS: Pramipexole Di-HCl 0.25 MG Tablet PO ×3 (06:39→21:57)
[2022-09-20] MEDS: Acetaminophen 500 MG Tablet 1000 MG PO ×3 (06:40→21:57)
[2022-09-20] MEDS: Nystatin Powder 15gm Bottle 1 APPLIC TOPICAL ×3 (06:41→21:58)
--- NOTE | 2022-09-20 07:24 | PN.HOSP_ITS ---
Reason for Visit Reason for Visit: Diagnoses Essential (primary) hypertension (09/15/22) Pain in right leg (09/15/22) Stress fracture, right fibula, subsequent encounter for fracture with delayed healing (09/15/22) Difficulty in walking, not elsewhere classified (09/15/22) Nondisplaced comminuted fracture of shaft of right fibula, subsequent encounter for closed fracture with routine healing (09/15/22) Subjective Subjective Still with leg pain. Lidocaine not much help. Objective Data Objective Data Vital Signs: Vital Signs Temp Pulse Resp BP Pulse Ox O2 Del Method 36.7 C 61 16 145/81 H 97 Room Air 09/20/22 02:15 09/20/22 02:15 09/20/22 02:15 09/20/22 02:15 09/20/22 02:15 09/20/22 02:15 Oxygen Delivery Method Room Air Weight: 79.4 kg Body Mass Index (BMI) 29.1 Intake & Output: Intake and Output for Last 24 Hours 09/18/22 09/19/22 09/20/22 23:59 23:59 23:59 Intake Total 900 / 900 850 / 850 Output Total 2100 / 2500 2650 / 3050 700 / 700 Balance -1200 / -1600 -1800 / -2200 -700 / -700 Lab / Micro Data 09/16/22 06:45 09/16/22 06:45 Physical Exam Const alert and no apparent distress HEENT head/scalp atraumatic and moist oral mucous membranes Extremity normal to inspection Extremity Narrative: no reproducible right leg pain. scloiosis of back with thoracic convexity to right. Neuro no focal motor deficits Sensorium / Orientation: awake and alert Psych affect normal Assessment & Plan Assessment/Plan (1) Unable to ambulate: PLAN: Right lower leg pain/inability to ambulate Recent tibial fracture with surgical intervention and fibular fractures 02/2022 that was treated at [facility] Ambulates at baseline with a wheeled walker MRI was negative for any acute findings (showed healing fibular fractures) Right lower extremity Dopplers negative for DVT PT/OT with weightbearing as tolerated per orthopedic surgery recommendations Continue scheduled Tylenol Add as needed oxycodone Continue scheduled tizanidine Continue home gabapentin Not consistent with complex regional pain syndrome Orthopedic surgery has signed off. Recommended following up with Dr. Barrera at [facility]. 09/19: With her ongoing pain I offered increasing her gabapentin to TID. She declined as she been confused with gabapentin in the past. She was agreeable to trying lidocaine patches. 09/20: still with ongoing pain. check back xray given scoliosis. PLAN: Plan Chronic conditions: * Cardiac murmur-Significant murmur on exam-Appears to be asymptomatic-Would recommend an outpatient echocardiogram be performed to assess aortic valve * CAD-No previous intervention-Continue aspirin * History of colon cancer-Status post colectomy-No current issues * Osteoporosis-Continue calcium supplementation * Neuropathy-Continue home gabapentin * Hyperlipidemia-Patient is not on any medication for cholesterol at this time-Outpatient follow-up * GERD-Continue Protonix * Restless leg syndrome-Continue Mirapex * History of breast cancer-No current issues * History of sleep apnea-Patient is not compliant with CPAP CODE STATUS Full code as verified on admission Disposition: to [facility] pending insurance authorization. Charges/Coding Visit Charges Inpatient E&M: 96289 Subs Hosp L2
[2022-09-20 09:38] VITALS: BP 132/83; PULSE 73; RESP 18; TEMP 36.3; O2SAT 96
[2022-09-20] MEDS: Lidocaine 5% Patch 1 PATCH TOPICAL (09:49)
[2022-09-20] MEDS: Furosemide 40 MG Tablet PO (09:49)
[2022-09-20] MEDS: Pantoprazole Sodium 40 MG Tablet PO (09:50)
[2022-09-20] MEDS: Calcium Carbonate 500 MG Tablet PO (09:50)
[2022-09-20 09:51] VITALS: BP 132/83; PULSE 73
[2022-09-20] MEDS: Metoprolol(XL)Succ 100 MG Tablet PO (09:51)
[2022-09-20] MEDS: Gabapentin 300 MG Capsule PO ×2 (09:53→21:58)
[2022-09-20] MEDS: Triamcinolone 0.5% Cream 1 APPLIC TOPICAL ×2 (09:56→21:59)
--- NOTE | 2022-09-20 14:05 | RAD_ITS ---
INDICATION: right leg pain EXAMINATION/TECHNIQUE: X-RAY - XR Spine Lumbar 2 or 3 Views COMPARISON: 07/28/2022. FINDINGS: No demonstrated fracture. Vertebral body heights are maintained. Moderate S-shaped lumbar scoliosis. 1 cm anterolisthesis at L3-4. This appears increased compared to the prior study Alignment is otherwise anatomic. Disc space narrowing at L2-3 and L5-S1. Evaluation is limited due to scoliosis. Facet hypertrophy at L3-4 and L4-5. Included bowel gas pattern is non-obstructive. RAD/Lumbar Spine 2 or 3 Views IMPRESSION: No demonstrated fracture. L3-4 anterolisthesis. Electronically Signed: Jodie Buckley MD at 22:39 EDT Reading Location ID and State: [id number] / Tel , Service support ,
[2022-09-20 14:32] VITALS: BP 137/81; PULSE 81; RESP 16; TEMP 36.6; O2SAT 96
--- NOTE | 2022-09-20 16:39 | CASEMGMT ---
Social Work SW spoke with TCU and precert has not yet been obtained. SW met with pt and updated. Plan: TCU, pending precert BLANQUITA Victoria
[2022-09-20] MEDS: MELATONIN 3 MG TABLET PO (21:58)
[2022-09-20] MEDS: Menthol/Lanolin/Calamine/Znox 113 GM Tube 1 APPLIC TOPICAL (21:59)
[2022-09-20 22:00] VITALS: BP 150/82; PULSE 64; RESP 18; TEMP 36.6; O2SAT 97
[2022-09-21] MEDS: oxyCODONE 5 MG Tablet PO (04:22)
[2022-09-21] MEDS: Pramipexole Di-HCl 0.25 MG Tablet PO ×2 (04:22→13:45)
[2022-09-21] MEDS: Acetaminophen 500 MG Tablet 1000 MG PO ×2 (04:23→13:45)
[2022-09-21] MEDS: tiZANidine HCl 2 MG Tablet PO ×2 (04:23→13:45)
[2022-09-21] MEDS: Nystatin Powder 15gm Bottle 1 APPLIC TOPICAL ×2 (04:25→13:46)
[2022-09-21 04:27] VITALS: BP 132/82; PULSE 58; RESP 16; TEMP 36.7; O2SAT 96
--- NOTE | 2022-09-21 08:05 | PCM.PN.HOSP ---
Reason for Visit Reason for Visit: Diagnoses Essential (primary) hypertension (09/15/22) Pain in right leg (09/15/22) Stress fracture, right fibula, subsequent encounter for fracture with delayed healing (09/15/22) Difficulty in walking, not elsewhere classified (09/15/22) Nondisplaced comminuted fracture of shaft of right fibula, subsequent encounter for closed fracture with routine healing (09/15/22) Subjective Subjective Still with pain on medial right calf. Objective Data Objective Data Vital Signs: Vital Signs Temp Pulse Resp BP Pulse Ox O2 Del Method 36.7 C 58 L 16 132/82 H 96 Room Air 09/21/22 04:27 09/21/22 04:27 09/21/22 04:27 09/21/22 04:27 09/21/22 04:27 09/21/22 04:27 Oxygen Delivery Method Room Air Weight: 79.4 kg Body Mass Index (BMI) 29.1 Intake & Output: Intake and Output for Last 24 Hours 09/19/22 09/20/22 09/21/22 23:59 23:59 23:59 Intake Total 850 / 850 1200 / 1200 Output Total 2650 / 3050 1400 / 1400 300 / 300 Balance -1800 / -2200 -200 / -200 -300 / -300 Lab / Micro Data 09/16/22 06:45 09/16/22 06:45 Radiography Diagnostic Testing: Radiology Impression Lumbar Spine X-Ray 09/20/22 14:05 IMPRESSION: No demonstrated fracture. L3-4 anterolisthesis. Electronically Signed: Jodie Buckley MD at 22:39 EDT Reading Location ID and State: [id number] / Tel , Service support , Physical Exam Const alert and no apparent distress Extremity Extremity Narrative: no reproducible right calf pain. pain under right heel. Psych affect normal Assessment & Plan Assessment/Plan (1) Unable to ambulate: PLAN: Right lower leg pain/inability to ambulate Recent tibial fracture with surgical intervention and fibular fractures 02/2022 that was treated at [facility] Ambulates at baseline with a wheeled walker MRI was negative for any acute findings (showed healing fibular fractures) Right lower extremity Dopplers negative for DVT PT/OT with weightbearing as tolerated per orthopedic surgery recommendations Continue scheduled Tylenol Add as needed oxycodone Continue scheduled tizanidine Continue home gabapentin Not consistent with complex regional pain syndrome Orthopedic surgery has signed off. Recommended following up with Dr. Barrera at [facility]. 09/19: With her ongoing pain I offered increasing her gabapentin to TID. She declined as she been confused with gabapentin in the past. She was agreeable to trying lidocaine patches. 09/20: still with ongoing pain. Back xray showed no fractures. 09/21: pain localized over right heel. concern may be more plant fasciitis. PLAN: Plan Chronic conditions: Cardiac murmur-Significant murmur on exam-Appears to be asymptomatic-Would recommend an outpatient echocardiogram be performed to assess aortic valve CAD-No previous intervention-Continue aspirin History of colon cancer-Status post colectomy-No current issues Osteoporosis-Continue calcium supplementation Neuropathy-Continue home gabapentin Hyperlipidemia-Patient is not on any medication for cholesterol at this time-Outpatient follow-up GERD-Continue Protonix Restless leg syndrome-Continue Mirapex History of breast cancer-No current issues History of sleep apnea-Patient is not compliant with CPAP CODE STATUS Full code as verified on admission [facility]
[2022-09-21 08:53] VITALS: BP 120/75; PULSE 78; RESP 18; TEMP 37.1; O2SAT 98
[2022-09-21] MEDS: Furosemide 40 MG Tablet PO (08:56)
[2022-09-21 08:57] VITALS: PULSE 78
[2022-09-21] MEDS: Triamcinolone 0.5% Cream 1 APPLIC TOPICAL (08:57)
[2022-09-21] MEDS: Lidocaine 5% Patch 1 PATCH TOPICAL (08:57)
[2022-09-21] MEDS: Pantoprazole Sodium 40 MG Tablet PO (08:57)
[2022-09-21] MEDS: Metoprolol(XL)Succ 100 MG Tablet PO (08:57)
[2022-09-21] MEDS: Calcium Carbonate 500 MG Tablet PO (08:57)
[2022-09-21] MEDS: Gabapentin 300 MG Capsule PO (08:59)
--- NOTE | 2022-09-21 12:21 | TREXTCAR_ITS ---
Diet Diet Order/Speech Therapy: 09/16/22 00:03 Diet: Cardiac - Heart Healthy Food consistency:: Regular Liquid Consistency:: Regular/Thin Routine Orders/Code Status Code Status: Full Code Wound(s) Buttocks: Wound Type: scratches Therapies Weight Bearing: Weight bearing as tolerated (right leg) Problem/Diagnosis (1) Unable to ambulate: Status: Acute Code(s): R26.2 - Difficulty in walking, not elsewhere classified Plan: Right lower leg pain/inability to ambulate Recent tibial fracture with surgical intervention and fibular fractures 02/2022 that was treated at [facility] Ambulates at baseline with a wheeled walker MRI was negative for any acute findings (showed healing fibular fractures) Right lower extremity Dopplers negative for DVT PT/OT with weightbearing as tolerated per orthopedic surgery recommendations Continue scheduled Tylenol Add as needed oxycodone Continue scheduled tizanidine Continue home gabapentin Not consistent with complex regional pain syndrome Orthopedic surgery has signed off. Recommended following up with Dr. Barrera at [facility]. 09/19: With her ongoing pain I offered increasing her gabapentin to TID. She declined as she been confused with gabapentin in the past. She was agreeable to trying lidocaine patches. 09/20: still with ongoing pain. Back xray showed no fractures. 09/21: pain localized over right heel. concern may be more plant fasciitis. Plan Chronic conditions: * Cardiac murmur-Significant murmur on exam-Appears to be asymptomatic-Would recommend an outpatient echocardiogram be performed to assess aortic valve * CAD-No previous intervention-Continue aspirin * History of colon cancer-Status post colectomy-No current issues * Osteoporosis-Continue calcium supplementation * Neuropathy-Continue home gabapentin * Hyperlipidemia-Patient is not on any medication for cholesterol at this time- Outpatient follow-up * GERD-Continue Protonix * Restless leg syndrome-Continue Mirapex * History of breast cancer-No current issues * History of sleep apnea-Patient is not compliant with CPAP CODE STATUS Full code as verified on admission Disposition: to [facility] Allergies/Procedures Done in Hospital Allergies amitriptyline Adverse Reaction (Verified 09/15/22 14:01) Other codeine Adverse Reaction (Verified 09/15/22 14:01) Other gabapentin Adverse Reaction (Verified 09/15/22 14:01) ONLY IF TAKEN IN LARGE DOSES HALLUCINATIONS IF TAKEN IN LARGE DOSES ONLY Type of Care/Length of Stay Estimated LOS: Convalescent Care Less Than 30 days Type of Care Needed: Skilled Rehab Potential: Fair Prognosis: Good Additional Orders/Day of Discharge Day of Discharge: 09/21/22 Discharge Plan Admission Admit Date/Time: 09/15/22 21:45 Primary Reason for Your Visit: debility. right leg pain. Attending Provider: Alexandre Atkins Primary Care Provider: Varun Sanchez Chi Consulting Providers: Adithya Ashley; Nayan Eason; Albina Easley Instructions Additional Instructions / Restrictions: Follow up with Dr. Barrera at [facility] in 2-4 weeks. Discharge Orders/Prescriptions Prescriptions: New lidocaine 5 % Adhesive Patch,Medicated 1 patch topical DAILY Qty: 0 0RF Protocol: *Topical Application Instructions APPLICATION INSTRUCTIONS: medial right calf nystatin [Nyamyc] 100,000 unit/gram Powder 1 applic topical TID Qty: 0 0RF Protocol: *Topical Application Instructions APPLICATION INSTRUCTIONS: groin oxycodone 5 mg Tablet 5 mg PO Q4H PRN PRN (Reason: Pain Score 6-10) 3 Days Qty: 12 0RF menthol-zinc oxide [Calmoseptine] 0.44-20.6 % Ointment 1 applic topical BID Qty: 113 0RF Protocol: *Topical Application Instructions APPLICATION INSTRUCTIONS: apply to buttocks Remove Patch 1 patch topical DAILY@2200 Qty: 0 0RF ibuprofen 200 mg tablet 400 mg PO Q6H PRN (Reason: pain) Qty: 30 0RF Continued furosemide 40 MG tablet 40 mg PO DAILY Patient Comments: diuretic gabapentin 100 MG capsule 300 mg PO BID Patient Comments: for neuropathy tizanidine 2 MG tablet 2 mg PO BID PRN PRN (Reason: Spasms) acetaminophen 500 MG tablet 1,000 mg PO Q6H PRN PRN (Reason: Pain) triamcinolone acetonide 0.5 % cream 1 applic TOPICAL BID Patient Comments: apply sparingly to affected area OF RASH/ITCHING ON BOTH LEGS twice a day (AVOID FACE/SKIN FOLDS) pantoprazole 40 mg Tablet,Delayed Release (Dr/Ec) 40 mg PO DAILY Qty: 0 0RF pramipexole 0.25 mg Tablet 0.25 mg PO TID Qty: 0 0RF calcium carbonate [Calcium 600] 600 mg calcium (1,500 mg) tablet 600 mg PO DAILY hydrocortisone 2.5 % cream 1 applic TOPICAL PRN Changed metoprolol succinate 100 mg Tablet Extended Release 24 Hr 100 mg PO DAILY Qty: 30 0RF Discontinued cyanocobalamin (vitamin B-12) 1,000 MCG/ML solution 1,000 mcg IM Q30D Patient Comments: vitamin supplement. ONCE EVERY 30 DAYS Rx Instructions: DURING THE THIRD WEEK OF THE MONTH colestipol 1 gram tablet 1 g PO DAILY cholecalciferol (vitamin D3) 1,250 mcg (50,000 unit) capsule 1,250 mcg PO DAILY Patient Comments: take 1 capsule by mouth every week Slow Fe 142 mg (45 mg iron) Tablet Extended Release 142 mg PO DAILY aspirin 81 mg Capsule,Delayed Release(Dr/Ec) 81 mg PO BID nystatin [Nyamyc] 100,000 unit/gram Powder 1 applic topical BID@1000,2200 Qty: 0 0RF Protocol: *Topical Application Instructions APPLICATION INSTRUCTIONS: redness to groin/under breasts Referrals / Follow Up: Varun Sanchez Chi, MD [Primary Care Provider] - Within 2 Weeks Disposition Disposition (needs filled in before D/C Order can be placed): [facility]
--- NOTE | 2022-09-21 12:29 | DS.PCM_ITS ---
Providers Date of Admission: 09/15/22 Primary Care Physician: Dr. Varun Sanchez MD Consultations 09/16/22 00:03 Consult: Orthopedics Routine Consulting Provider: Adithya Ashley Reason for Consult: fibula fracture EMERGENT Consult: No Notified: No Date Notified: 09/15/22 Time Notified: 22:32 09/16/22 03:50 Consult: Orthopedics Routine Consulting Provider: Adithya Ashley Reason for Consult: R fibula fx EMERGENT Consult: No Notified: Yes Date Notified: 09/15/22 Time Notified: 15:20 Method of Notification: ED Physician Initiated Reason For Visit: INABILITY TO AMBULATE Diagnosis Discharge Diagnosis (1) Unable to ambulate: Status: Acute Code(s): R26.2 - Difficulty in walking, not elsewhere classified Plan: Right lower leg pain/inability to ambulate Recent tibial fracture with surgical intervention and fibular fractures 02/2022 that was treated at [facility] Ambulates at baseline with a wheeled walker MRI was negative for any acute findings (showed healing fibular fractures) Right lower extremity Dopplers negative for DVT PT/OT with weightbearing as tolerated per orthopedic surgery recommendations Continue scheduled Tylenol Add as needed oxycodone Continue scheduled tizanidine Continue home gabapentin Not consistent with complex regional pain syndrome Orthopedic surgery has signed off. Recommended following up with Dr. Barrera at [facility]. 09/19: With her ongoing pain I offered increasing her gabapentin to TID. She declined as she been confused with gabapentin in the past. She was agreeable to trying lidocaine patches. 09/20: still with ongoing pain. Back xray showed no fractures. 09/21: pain localized over right heel. concern may be more plant fasciitis. Plan Chronic conditions: * Cardiac murmur-Significant murmur on exam-Appears to be asymptomatic-Would recommend an outpatient echocardiogram be performed to assess aortic valve * CAD-No previous intervention-Continue aspirin * History of colon cancer-Status post colectomy-No current issues * Osteoporosis-Continue calcium supplementation * Neuropathy-Continue home gabapentin * Hyperlipidemia-Patient is not on any medication for cholesterol at this time- Outpatient follow-up * GERD-Continue Protonix * Restless leg syndrome-Continue Mirapex * History of breast cancer-No current issues * History of sleep apnea-Patient is not compliant with CPAP CODE STATUS Full code as verified on admission Disposition: to Medications at Discharge Home Medications furosemide 40 mg tablet 40 mg PO DAILY EDEMA 11/10/14 gabapentin 100 mg capsule 300 mg PO BID Pain 11/10/14 acetaminophen 500 mg tablet 1,000 mg PO Q6H PRN PRN Pain 05/19/17 tizanidine 2 mg tablet 2 mg PO BID PRN PRN Spasms 05/19/17 triamcinolone acetonide 0.5 % topical cream 1 applic topical BID Skin Care 02/20/22 pantoprazole 40 mg tablet,delayed release 40 mg PO DAILY #0 tabs 03/23/22 pramipexole 0.25 mg tablet 0.25 mg PO TID #0 tabs 03/23/22 hydrocortisone 2.5 % topical cream 1 applic topical PRN 09/11/22 calcium carbonate 600 mg calcium (1,500 mg) tablet (Calcium) 600 mg PO DAILY 09/16/22 Remove Patch 1 patch topical DAILY@2200 ##0 09/21/22 ibuprofen 200 mg tablet 400 mg (2 x 200 mg) PO Q6H PRN pain #30 tabs 09/21/22 lidocaine 5 % topical patch 1 patch topical DAILY #0 ea 09/21/22 menthol 0.44 %-zinc oxide 20.6 % topical ointment (Calmoseptine) 1 applic topical BID #113 grams 09/21/22 metoprolol succinate 100 mg tablet,extended release 24 hr 100 mg PO DAILY BP #30 tabs 09/21/22 nystatin 100,000 unit/gram topical powder (Nyamyc) 1 applic topical TID #0 grams 09/21/22 oxycodone 5 mg tablet 5 mg PO Q4H PRN PRN Pain Score 6-10 3 days #12 tabs 03/04 Hospital Course Operations None Procedures None Summary of Care Provided Minutes Spent on Discharge: 40 Hospital Course: 76-year-old female presents with right leg pain. Patient was seen by orthopedics here and had an MRI that showed no acute process. Exam is relatively benign patient did complain of heel pain. Unclear if patient does have some underlying planter fasciitis but patient was indicating the pain is actually in her calf which would not correlate with that. But she underwent extensive work-up including x-ray of her back that showed no acute process. I do not feel that this is radicular in nature, however. Given her debility, patient was deemed appropriate for alf facility and will be dischar ged to TCU. Weight / BMI Weight Weight: 79.4 kg Body Mass Index (BMI) 29.1 ABG / Lab / Microbiology Data 09/16/22 06:45 09/16/22 06:45 Radiography Diagnostic Testing: Radiology Impression Lumbar Spine X-Ray 09/20/22 14:05 IMPRESSION: No demonstrated fracture. L3-4 anterolisthesis. Electronically Signed: Jodie Buckley MD at 22:39 EDT Reading Location ID and State: [id number] / Tel , Service support , Meaningful Use Info Meaningful Use Diagnoses (Choose all that apply): None applicable Discharge Plan Admission Admit Date/Time: 09/15/22 21:45 Primary Reason for Your Visit: debility. right leg pain. Attending Provider: Alexandre Atkins Primary Care Provider: Varun Sanchez Chi Consulting Providers: Adithya Ashley; Nayan Eason; Albina Easley Instructions Additional Instructions / Restrictions: Follow up with Dr. Barrera at [facility] in 2-4 weeks. Discharge Orders/Prescriptions Prescriptions: New lidocaine 5 % Adhesive Patch,Medicated 1 patch topical DAILY Qty: 0 0RF Protocol: *Topical Application Instructions APPLICATION INSTRUCTIONS: medial right calf nystatin [Nyamyc] 100,000 unit/gram Powder 1 applic topical TID Qty: 0 0RF Protocol: *Topical Application Instructions APPLICATION INSTRUCTIONS: groin oxycodone 5 mg Tablet 5 mg PO Q4H PRN PRN (Reason: Pain Score 6-10) 3 Days Qty: 12 0RF menthol-zinc oxide [Calmoseptine] 0.44-20.6 % Ointment 1 applic topical BID Qty: 113 0RF Protocol: *Topical Application Instructions APPLICATION INSTRUCTIONS: apply to buttocks Remove Patch 1 patch topical DAILY@2200 Qty: 0 0RF ibuprofen 200 mg tablet 400 mg PO Q6H PRN (Reason: pain) Qty: 30 0RF Continued furosemide 40 MG tablet 40 mg PO DAILY Patient Comments: diuretic gabapentin 100 MG capsule 300 mg PO BID Patient Comments: for neuropathy tizanidine 2 MG tablet 2 mg PO BID PRN PRN (Reason: Spasms) acetaminophen 500 MG tablet 1,000 mg PO Q6H PRN PRN (Reason: Pain) triamcinolone acetonide 0.5 % cream 1 applic TOPICAL BID Patient Comments: apply sparingly to affected area OF RASH/ITCHING ON BOTH LEGS twice a day (AVOID FACE/SKIN FOLDS) pantoprazole 40 mg Tablet,Delayed Release (Dr/Ec) 40 mg PO DAILY Qty: 0 0RF pramipexole 0.25 mg Tablet 0.25 mg PO TID Qty: 0 0RF calcium carbonate [Calcium 600] 600 mg calcium (1,500 mg) tablet 600 mg PO DAILY hydrocortisone 2.5 % cream 1 applic TOPICAL PRN Changed metoprolol succinate 100 mg Tablet Extended Release 24 Hr 100 mg PO DAILY Qty: 30 0RF Discontinued cyanocobalamin (vitamin B-12) 1,000 MCG/ML solution 1,000 mcg IM Q30D Patient Comments: vitamin supplement. ONCE EVERY 30 DAYS Rx Instructions: DURING THE THIRD WEEK OF THE MONTH colestipol 1 gram tablet 1 g PO DAILY cholecalciferol (vitamin D3) 1,250 mcg (50,000 unit) capsule 1,250 mcg PO DAILY Patient Comments: take 1 capsule by mouth every week Slow Fe 142 mg (45 mg iron) Tablet Extended Release 142 mg PO DAILY aspirin 81 mg Capsule,Delayed Release(Dr/Ec) 81 mg PO BID nystatin [Nyamyc] 100,000 unit/gram Powder 1 applic topical BID@1000,2200 Qty: 0 0RF Protocol: *Topical Application Instructions APPLICATION INSTRUCTIONS: redness to groin/under breasts Referrals / Follow Up: Varun Sanchez Chi, MD [Primary Care Provider] - Within 2 Weeks Disposition Disposition (needs filled in before D/C Order can be placed): [facility] Charges/Coding Visit Charges Inpatient E&M: 08152 Disch Hosp >30min
--- NOTE | 2022-09-21 12:50 | CASEMGMT ---
Social work Preauth has been obtained for admission to TCU. Physician updated and pt is ready for discharge today. Discharge orders faxed to TCU. Erin in TCU updated on discharge today. SW met with pt and informed and pt is agreeable. With pt permission, phone call to pt karol Levin and VM left. Disposition: TCU, skilled level of care BLANQUITA Dean
[2022-09-21 13:42] VITALS: BP 144/77; PULSE 72; RESP 18; TEMP 36.7; O2SAT 98
--- NOTE | 2022-09-21 13:49 | PHA.DC.MR.R ---
Pharmacy [facility] Reconciliation Pharmacy Service has performed discharge medication reconciliation for this patient. The patient's discharge medication list was reviewed for discrepancies and discrepancies were resolved. Medications at Discharge Home Medications furosemide 40 mg tablet 40 mg PO DAILY EDEMA 11/10/14 gabapentin 100 mg capsule 300 mg PO BID Pain 11/10/14 acetaminophen 500 mg tablet 1,000 mg PO Q6H PRN PRN Pain 05/19/17 tizanidine 2 mg tablet 2 mg PO BID PRN PRN Spasms 05/19/17 triamcinolone acetonide 0.5 % topical cream 1 applic topical BID Skin Care 02/20/22 pantoprazole 40 mg tablet,delayed release 40 mg PO DAILY #0 tabs 03/23/22 pramipexole 0.25 mg tablet 0.25 mg PO TID #0 tabs 03/23/22 hydrocortisone 2.5 % topical cream 1 applic topical PRN 09/11/22 calcium carbonate 600 mg calcium (1,500 mg) tablet (Calcium) 600 mg PO DAILY 09/16/22 Remove Patch 1 patch topical DAILY@2200 ##0 09/21/22 ibuprofen 200 mg tablet 400 mg (2 x 200 mg) PO Q6H PRN pain #30 tabs 09/21/22 lidocaine 5 % topical patch 1 patch topical DAILY #0 ea 09/21/22 menthol 0.44 %-zinc oxide 20.6 % topical ointment (Calmoseptine) 1 applic topical BID #113 grams 09/21/22 metoprolol succinate 100 mg tablet,extended release 24 hr 100 mg PO DAILY BP #30 tabs 09/21/22 nystatin 100,000 unit/gram topical powder (Nyamyc) 1 applic topical TID #0 grams 09/21/22 oxycodone 5 mg tablet 5 mg PO Q4H PRN PRN Pain Score 6-10 3 days #12 tabs 09/21/22
== END 2022-09-21 15:04 | disposition skilled nursing facility (03) ==
LOC: ED 21:54 → MS3 22:03
PROVIDERS: Physician Assistant; Admitting Provider Hospitalist; Emergency Provider Emergency Medicine; PCP Family Medicine Geriatric Medicine
DX: R26.2 Difficulty in walking, not elsewhere classified (principal); M84.363 Stress fracture, right fibula; I25.10 Atherosclerotic heart disease of native coronary artery without angina pectoris; Z79.82 Long term (current) use of aspirin; E78.5 Hyperlipidemia, unspecified; I10 Essential (primary) hypertension; R53.1 Weakness; Z60.2 Problems related to living alone; R53.81 Other malaise; M25.561 Pain in right knee; K21.9 Gastro-esophageal reflux disease without esophagitis; Z79.899 Other long term (current) drug therapy; W19.XXXD Unspecified fall, subsequent encounter; G25.81 Restless legs syndrome; M81.0 Age-related osteoporosis without current pathological fracture; G47.30 Sleep apnea, unspecified; M79.604 Pain in right leg
CPT/HCPCS: 72100; 73700; 73718; 80048; 85025; 93971; 96372; 96374; 96375; 97110; 97162; 97166; 97530; 97535; 99221; 99284; A4216; G0378

== ENCOUNTER → 2022-09-15 | Outpatient (CLI) | payer MEDICARE, SELFPAY ==
[2019-02-26 14:07] VITALS: BMI 34.7
--- NOTE | 2022-09-15 13:00 | CT_ITS ---
CT RIGHT LOWER EXTREMITY WITH 3-D IMAGING CLINICAL INDICATION: RIGHT KNEE PAIN TECHNIQUE: Axial CT images of the RIGHT lower extremity was performed without IV contrast material. Coronal and sagittal reformats were provided. RADIATION DOSAGE (If Supplied By Facility): CTDIvol = ( 15.35 ) mGy, DLP = ( 792.49 ) mGycm COMPARISON: FINDINGS: Bones: The patient is status post total knee replacement. The patient is status post open reduction and internal fixation of the mid fibular fractures. Stable healed fractures of the mid tibia and proximal tibia. Soft Tissues: Soft tissue edema. The superficial soft tissues are unremarkable without evidence of edema, hematoma, or foreign body. CT/Extremity Lower without Contra IMPRESSION: Status post total knee replacement. There is good alignment. Healing fibular fractures. Healed tibial fractures. Soft tissue swelling. Electronically Signed: Omar Blake MD at 13:51 EDT ,
== END | disposition home or self-care (01) ==
PROVIDERS: PCP Family Medicine Geriatric Medicine; Referring Provider Family Medicine Geriatric Medicine; Visit Provider Family Medicine Geriatric Medicine
DX: M25.561 Pain in right knee (principal)
CPT/HCPCS: 73700

== ENCOUNTER 2022-09-21 15:09 | Inpatient (IN) | payer MEDICARE, SELFPAY ==
[2019-02-26 14:07] VITALS: BMI 34.7
[2022-09-21 15:43] VITALS: BMI 29.5
[2022-09-21 15:46] VITALS: BMI 29.5
[2022-09-21 15:51] VITALS: BP 140/80; PULSE 72; RESP 18; TEMP 36.6; O2SAT 96
[2022-09-21 16:13] VITALS: PULSE 72; RESP 18; O2SAT 96
[2022-09-21] MEDS: Gabapentin 300 MG Capsule PO (17:40)
[2022-09-21] MEDS: Triamcinolone 0.5% Cream 1 APPLIC TOPICAL (17:41)
--- NOTE | 2022-09-21 20:00 | PCM.HP.STD ---
HPI - General General Date of Admission: 09/21/22 Date of Service: 09/21/22 Chief Complaint: Here for rehabilitation. HPI Narrative 09/15/2022 MAVIS KOO, is a 76 Female who presents to [facility] Emergency Department with weakness. Right leg pain, right tibia/fibula fracture February 2022, status post ORIF. Right leg pain worse for 2-3 weeks. Doppler ultrasound right lower extremity negative DVT. Unable to walk lives alone. 09/15/[address] right lower extremity showed healing right tibia, right fibula fractures. 09/16/2022 Dr. Ashley recommended MRI right lower extremity, WBAT, PT/OT. 09/16/2022 Blood pressure high, Metoprolol 100mg daily, Lasix 40mg daily. 09/17/2022 Right leg pain, muscle spasms. MRI right lower extremity negative for acute findings. Tylenol, Oxycodone, Tizanidine, Gabapentin for pain relief. Ortho recommended no surgery. 09/18/2022 Pain improved, able to bear some weight right lower extremity. Hydralazine PRN, Metoprolol 100mg daily, Lasix 40mg daily for elevated blood pressure. 09/19/2022 Right medial calf pain. Gabapentin causes confusion, Lidoderm patch for pain. 09/20/2022 Right leg pain, Lidoderm not helpful. 09/21/2022 Admit to TCU with debility, here for rehabilitation, strengthening, prior to discharge home alone. [facility] Medical History (Updated 09/21/22 @ 20:[address] Varun Sanchez MD) Abdominal pain Allergic rhinitis Anxiety Biliary dyskinesia Breast cancer (~01/2019) CAD (coronary artery disease) Cellulitis of right lower limb Chronic cholecystitis Ductal carcinoma in situ (DCIS) of left breast Edema Enlargement of lymph node Epigastric pain Fracture of fibula GERD (gastroesophageal reflux disease) Hemorrhage of gastrointestinal tract history la incisional hernia repair history lap incisional hernia repair HTN (hypertension) Hyperlipidemia Impaired fasting blood sugar Insomnia Localized edema Malignant neoplasm of sigmoid colon Migraine Neuropathic pain Neuropathy Non-pressure chronic ulcer of other part of right lower leg with fat layer exposed Osteoarthritis of left knee Osteoporosis 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 Prolapsed bladder Right wrist drop RLS (restless legs syndrome) Sleep apnea 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 Vitamin B12 deficiency Vitamin C deficiency Home Medications furosemide 40 mg tablet 40 mg PO DAILY EDEMA 11/10/14 [History Last Taken 09/21/22 09:00] gabapentin 100 mg capsule 300 mg PO BID Pain 11/10/14 [History Last Taken 09/21/22 09:00] acetaminophen 500 mg tablet 1,000 mg PO Q6H PRN PRN Pain 05/19/17 [History Last Taken 09/21/22 04:25] tizanidine 2 mg tablet 2 mg PO BID PRN PRN Spasms 05/19/17 [History Last Taken 09/21/22 09:00] triamcinolone acetonide 0.5 % topical cream 1 applic topical BID Skin Care 02/20/22 [History Last Taken 09/21/22 09:00] pantoprazole 40 mg tablet,delayed release 40 mg PO DAILY GERD #0 tabs 03/23/22 [Rx Last Taken 09/21/22 09:00] pramipexole 0.25 mg tablet 0.25 mg PO TID Restless Legs #0 tabs 03/23/22 [Rx Last Taken 09/21/22 04:25] hydrocortisone 2.5 % topical cream 1 applic topical PRN Itching 09/11/22 [History Last Taken Unknown] calcium carbonate 600 mg calcium (1,500 mg) tablet (Calcium) 600 mg PO DAILY Supplement 09/16/22 [History Last Taken 09/21/22 09:00] Remove Patch 1 patch topical DAILY@2200 Remove Patch 09/21/22 [History Last Taken Unknown] ibuprofen 200 mg tablet 400 mg (2 x 200 mg) PO Q6H PRN pain #30 tabs 09/21/22 [Rx Last Taken Unknown] lidocaine 5 % topical patch 1 patch topical DAILY pain #0 ea 09/21/22 [Rx Last Taken 09/21/22 09:00] menthol 0.44 %-zinc oxide 20.6 % topical ointment (Calmoseptine) 1 applic topical BID Redness #113 grams 09/21/22 [Rx Last Taken Unknown] metoprolol succinate 100 mg tablet,extended release 24 hr 100 mg PO DAILY BP #30 tabs 09/21/22 [Rx Last Taken 09/21/22 09:00] nystatin 100,000 unit/gram topical powder (Nyamyc) 1 applic topical TID Redness #0 grams 09/21/22 [Rx Last Taken Unknown] oxycodone 5 mg tablet 5 mg PO Q4H PRN PRN Pain Score 6-10 3 days #12 tabs 09/21/22 [Rx Last Taken 09/21/22 04:25] Allergy/AdvReac Type Severity Reaction Status Date / Time amitriptyline AdvReac Other Verified 09/15/22 14:01 codeine AdvReac Other Verified 09/15/22 14:01 gabapentin AdvReac ONLY IF Verified 09/15/22 14:01 TAKEN IN LARGE DOSES Family History Mother Brain aneurysm Father Heart disease Daughter Cancer INVALID/ PATIENT HAS NO DAUGHTER. ENTERED IN ERROR. CAN'T DELETE Grandfather Cancer LUNG CANCER IN 60S FROM SMOKING Aunt Diabetes Brother Cancer Pancreatic cancer Surgical History H/O: hysterectomy history lap incisional hernia re[pair history left breast excisional biopsy with needle loc (~02/01/19) History of appendectomy History of breast biopsy (~01/2019) History of cholecystectomy History of colectomy History of colonoscopy (~2010) History of foot surgery History of hysterectomy History of laparoscopic cholecystectomy History of lymph node biopsy (~07/2019) History of total right knee replacement History of umbilical hernia repair S/P ORIF (open reduction internal fixation) fracture Social History household members: none Smoking Status: Never smoker alcohol intake: current alcohol intake frequency: a few times a month substance use type: does not use ROS Constitutional Constitutional: Denies chills, fever(s) or weight gain ENT HEENT: Denies headache(s), nasal congestion or nasal discharge Cardiovascular Cardiovascular: Denies chest pain or palpitations Respiratory/Chest Respiratory/Chest: Denies cough, excessive phlegm production or shortness of breath with exertion Gastrointestinal Gastrointestinal: Denies abdominal pain, nausea or vomiting Genitourinary Genitourinary: Denies dysuria Musculoskeletal Musculoskeletal: Denies joint pain or joint swelling Integumentary Integumentary: Denies rash or wounds Neurologic Neurologic: Denies focal weakness, numbness or tingling Psychiatric Psychiatric: Denies anxiety, auditory hallucinations, depression, homicidal ideation or suicidal ideation Vital Signs Vital Signs Vital Signs: 09/21/22 15:51 09/21/22 16:13 Temperature 97.9 F Temperature Source Temporal Pulse Rate 72 72 Pulse Rhythm Regular Pulse Strength Normal (2+) Respiratory Rate 18 18 Respiratory Effort Normal Respiratory Depth Normal Respiratory Pattern Normal Blood Pressure 140/80 H Blood Pressure Mean 100 Blood Pressure Source Monitor Blood Pressure Position Sitting Blood Pressure Location Right Arm Pulse Ox 96 96 Oxygen Delivery Method Room Air Room Air Weight Weight: 80.428 kg Body Mass Index (BMI) 29.5 Physical Exam Const alert General Appearance: cooperative HEENT normocephalic Eyes PERRL and EOMs intact bilaterally Neck supple, no JVD and no carotid bruits Resp normal respiratory effort, normal air movement and clear to auscultation bilaterally Cardio regular rate and regular rhythm GI normal to inspection, nondistended, normoactive bowel sounds, non-tender and non-distended Extremity normal capillary refill General Extremity: Negative for edema Skin no rashes or lesions noted General Skin Exam: no breakdown Psych affect normal Appearance: appropriate Assessment & Plan Assessment/Plan (1) Debility: (2) Stress fracture, right fibula, subsequent encounter for fracture with delayed healing: (3) Acute pain of right lower extremity: (4) Hypertension: (5) Restless leg syndrome: (6) GERD (gastroesophageal reflux disease): (7) Neuropathic pain: PLAN: Plan 76 year old female with below past medical history hospitalized for intractable right leg pain, unable to walk, admitted to TCU with debility, here for rehabilitation, strengthening, prior to discharge home alone. Debility - PT/OT. Pain - Tylenol 1000mg q6h prn pain (1-3), Tramadol 50mg q6h prn pain (4-5), Oxycodone 5mg q4h prn pain (6-10), Lidoderm patch daily. Bowel - senna/colace 1 tablet bid, Magnesium citrate 300ml po x 1 prn Adult immunization - Administer pneumonia vaccine, covid19 vaccine, flu vaccine as appropriate. DVT prophylaxis - Monitor. Hypertension - Metoprolol succinate 100mg daily, Furosemide 40mg daily. Neuropathic pain - Gabapentin 300mg bid. Skin irritation - Calmoseptine topical bid. Tinea Corporis - Nystatin topical tid. GERD - Pantoprazole 40mg daily. Restless Leg syndrome - Mirapex 0.25mg tid. Muscle spasm - Tizanidine 2mg bid prn. Rash - Triamcinolone 0.5% cream topical bid.
[2022-09-21] MEDS: Pramipexole Di-HCl 0.25 MG Tablet PO (20:58)
[2022-09-21] MEDS: traMADol 50 MG Tablet PO (21:01)
[2022-09-21] MEDS: Senna/Docusate Sodium 1 Tablet PO (21:02)
[2022-09-21] MEDS: Nystatin Powder 15gm Bottle 1 APPLIC TOPICAL (21:05)
[2022-09-21] MEDS: oxyCODONE 5 MG Tablet PO (23:05)
[2022-09-21] MEDS: tiZANidine HCl 2 MG Tablet PO (23:06)
[2022-09-22 06:00] VITALS: BP 157/81; PULSE 64; BMI 29.7
[2022-09-22] MEDS: tiZANidine HCl 2 MG Tablet PO ×2 (06:00→20:36)
[2022-09-22] MEDS: Metoprolol(XL)Succ 100 MG Tablet PO (06:00)
[2022-09-22] MEDS: Pantoprazole Sodium 40 MG Tablet PO (06:00)
[2022-09-22] MEDS: Pramipexole Di-HCl 0.25 MG Tablet PO ×3 (06:01→21:55)
[2022-09-22] MEDS: Triamcinolone 0.5% Cream 1 APPLIC TOPICAL (06:01)
[2022-09-22] MEDS: Furosemide 40 MG Tablet PO (06:01)
[2022-09-22] MEDS: Lidocaine 5% Patch 1 PATCH TOPICAL (06:02)
[2022-09-22] MEDS: Senna/Docusate Sodium 1 Tablet PO ×2 (06:08→18:08)
[2022-09-22] MEDS: Gabapentin 300 MG Capsule PO ×2 (06:08→18:08)
[2022-09-22 06:09] LABS: Absolute Lymphocyte Count 1.39 X10^3/uL (0.83-4.51); Absolute Neutrophil Count 3.6 X10^3/uL (2.0-7.7); Basophil# 0.04 X10^3/uL; Basophil% 0.7 % (0-1); Eosinophil# 0.11 X10^3/uL; Hematocrit 37.4 % (37-47); Hemoglobin 12.3 g/dL (12.0-15.0); Lymphocyte # 1.39 X10^3/ul (0.83-4.51); Lymphocyte % 24.9 % (19-41); Mean Corp Hgb Conc 32.9 g/dL (32-36); Mean Corpuscular Hgb 29.4 pg (27.0-32.0); Mean Corpuscular Volume 89.3 fL (81-99); Mean Platelet Vol. 8.4 fl (6.2-12.0); Monocyte# 0.43 X10^3/uL; Monocyte% 7.7 % (0-10); NRBC Flagged by Analyzer 0 % (0-5); Neutrophil # 3.55 X10^3/uL (2.7-7.7); Neutrophil % 63.6 % (47-70); Platelet Count 244 K/mm3 (150-450); RBC Distribution Width CV 14.6 % (11.6-14.6); RBC Distribution Width SD 47.9 fl (35.1-43.9); Red Blood Count 4.19 M/mm3 (4.2-5.4); White Blood Count 5.6 K/mm3 (4.4-11.0)
[2022-09-22] MEDS: Nystatin Powder 15gm Bottle 1 APPLIC TOPICAL ×3 (06:10→21:55)
[2022-09-22 06:39] LABS: Anion Gap 4 (5-15); BUN 23 mg/dL (7-18); BUN/Creat Ratio 38.3 RATIO (10-20); Calcium,Total 9.2 mg/dL (8.5-10.1); Chloride 102 mmol/L (98-107); EST Glomerular Filtration Rate 103 mL/min (>60); Est Glom Filt Rate - Afr Amer 125 mL/min (>60); Estimated Creatinine Clearance 43.74 ml/min; Glucose 85 mg/dL (74-106); Potassium 3.9 mmol/L (3.5-5.1); Sodium Level 136 mmol/L (136-145)
[2022-09-22] MEDS: oxyCODONE 5 MG Tablet PO (11:06)
[2022-09-22] MEDS: Tuberculin,Purif.prot.deriv. 50 TU/ML Vial 0.1 ML ID (11:07)
--- NOTE | 2022-09-22 11:37 | CASEMGMT ---
Social Work Met with patient to complete initial assessment. Pt known to this worker from previous stay. No changes to assessment or code status - full code. Educated to [facility] insurance with NRD 09/27 and continued stay is not guaranteed with each review. Pt lives at home alone with 3 DEANGELO and children live out of state. DC plan unknown depending on LOC needs. SW will continue to follow for DC planning. Genia Davis, BARBARA MORENOW
[2022-09-22 16:00] VITALS: BP 127/72; PULSE 60; RESP 16; TEMP 36.4; O2SAT 96
[2022-09-22 20:25] VITALS: PULSE 72; RESP 18; O2SAT 99
[2022-09-22] MEDS: Acetaminophen 500 MG Tablet 1000 MG PO (20:36)
[2022-09-23] MEDS: oxyCODONE 5 MG Tablet PO ×2 (02:07→22:06)
[2022-09-23 06:00] VITALS: BMI 29.7
[2022-09-23] MEDS: Furosemide 40 MG Tablet PO (06:28)
[2022-09-23] MEDS: Pramipexole Di-HCl 0.25 MG Tablet PO ×3 (06:28→22:06)
[2022-09-23] MEDS: Lidocaine 5% Patch 1 PATCH TOPICAL (06:28)
[2022-09-23] MEDS: Senna/Docusate Sodium 1 Tablet PO (06:28)
[2022-09-23] MEDS: Gabapentin 300 MG Capsule PO ×2 (06:28→17:20)
[2022-09-23] MEDS: Pantoprazole Sodium 40 MG Tablet PO (06:28)
[2022-09-23 06:29] VITALS: BP 137/75; PULSE 66
[2022-09-23] MEDS: Metoprolol(XL)Succ 100 MG Tablet PO (06:29)
[2022-09-23] MEDS: Triamcinolone 0.5% Cream 1 APPLIC TOPICAL ×2 (06:29→17:22)
[2022-09-23] MEDS: Nystatin Powder 15gm Bottle 1 APPLIC TOPICAL ×3 (06:34→22:08)
[2022-09-23 06:46] VITALS: BP 137/75; PULSE 66
--- NOTE | 2022-09-23 09:33 | NURSING ---
Machine Filler Note; Activity Asset: Mark Ashton is independent in her choice of daily activities. She enjoys being with others and needs reminded of activities offered. She watches tv, read, works on word puzzles uses her smartphone to talk w/family and friends. Daisha stated she welcomes the community relations director and therapy dog and she remembers them from before. Staff will continue to do room visits and offer her group activities and respect her right to say no.
--- NOTE | 2022-09-23 13:53 | PHA.CONS_ITS ---
TCU RX Drug Regimen Review Subjective/Objective Subjective/Objective: Subjective: 76 YOF presented to [facility] ED on 09/15 with weakness. Was admitted to the hospital on this date with right tibia and fibula fractures. Admitted to TCU on 09/21 for rehabilitation and strengthening prior to discharge home alone. Objective: Allergies amitriptyline Adverse Reaction (Verified 09/15/22 14:01) Other codeine Adverse Reaction (Verified 09/15/22 14:01) Other gabapentin Adverse Reaction (Verified 09/15/22 14:01) ONLY IF TAKEN IN LARGE DOSES HALLUCINATIONS IF TAKEN IN LARGE DOSES ONLY Current Medications Generic Name Dose Route Start Last Admin Trade Name Freq PRN Reason Stop Dose Admin Acetaminophen 1,000 mg 09/21/22 20:15 09/22/22 20:36 Acetaminophen 500 Mg Tablet PO 1,000 mg Q6H PRN PRN Administration Pain Score 1-3 Calamine/Phenol 1 applic 09/21/22 18:00 09/23/22 06:26 Menthol/Lanolin/Calamine/Znox 113 Gm Tube TOPICAL Not Given BID [facility] Protocol Colestipol HCl 1 gm 09/23/22 18:00 Colestipol 1 Gm Tablet PO BID MARCELA Furosemide 40 mg 09/22/22 06:00 09/23/22 06:28 Furosemide 40 Mg Tablet PO 40 mg DAILY MARCELA Administration Gabapentin 300 mg 09/21/22 18:00 09/23/22 06:28 Gabapentin 300 Mg Capsule PO 300 mg BID MARCELA Administration Lidocaine 1 patch 09/22/22 06:00 09/23/22 06:28 Lidocaine 5% Patch TOPICAL 1 patch DAILY MARCELA Administration Protocol Magnesium Citrate 300 ml 09/21/22 20:15 Magnesium Citrate 300 Ml PO X1 PRN Constipation Metoprolol Succinate 100 mg 09/22/22 06:00 09/23/22 06:29 Metoprolol(Xl)Succ 100 Mg Tablet PO 100 mg DAILY MARCELA Administration Nystatin 1 applic 09/21/22 22:00 09/23/22 13:26 Nystatin Powder 15gm Bottle TOPICAL 1 applic TID MARCELA Administration Protocol Oxycodone HCl 5 mg 09/21/22 15:37 09/23/22 02:07 Oxycodone 5 Mg Tablet PO 5 mg Q4H PRN PRN Administration Pain Score 6-10 Pantoprazole Sodium 40 mg 09/22/22 06:00 09/23/22 06:28 Pantoprazole Sodium 40 Mg Tablet PO 40 mg DAILY MARCELA Administration Pramipexole Dihydrochloride 0.25 mg 09/21/22 22:00 09/23/22 13:25 Pramipexole Di-Hcl 0.25 Mg Tablet PO 0.25 mg TID MARCELA Administration Senna/Docusate Sodium 1 tablet 09/21/22 21:00 09/23/22 06:28 Senna/Docusate Sodium 1 Tablet PO 1 tablet BID MARCELA Administration Tizanidine HCl 2 mg 09/21/22 15:43 09/22/22 20:36 Tizanidine Hcl 2 Mg Tablet PO 2 mg BID PRN PRN Administration SPASMS Tramadol HCl 50 mg 09/21/22 20:14 09/21/22 21:01 Tramadol 50 Mg Tablet PO 50 mg Q6H PRN PRN Administration Pain Score 4-5 Triamcinolone Acetonide 1 applic 09/21/22 18:00 09/23/22 06:29 Triamcinolone 0.5% Cream TOPICAL 1 applic BID [facility] Administration Protocol Tuberculin PPD 0.1 ml 09/29/22 10:00 Tuberculin,Purif.Prot.Deriv. 50 Tu/Ml Vial ID 09/29/22 10:01 X1 ONE Problem List (Updated 09/23/22 @ 00:02 by Background Juan Pablo) Acute pain of right lower extremity (Acute) GERD (gastroesophageal reflux disease) (Acute) Restless leg syndrome (Acute) Hypertension (Chronic) Neuropathic pain (Acute) Debility (Acute) Vital Signs Temp Pulse Resp BP Pulse Ox O2 Del Method 97.5 F L 66 18 137/75 H 99 Room Air 09/22/22 16:00 09/23/22 06:46 09/22/22 20:25 09/23/22 06:46 09/22/22 20:25 09/23/22 08:44 Oxygen Delivery Method Room Air Weight: 81.012 kg Body Mass Index (BMI) 29.7 Sodium 136 mmol/L (136-145) 09/22/22 05:05 Potassium 3.9 mmol/L (3.5-5.1) 09/22/22 05:05 Chloride 102 mmol/L (98-107) 09/22/22 05:05 Carbon Dioxide 30.0 mmol/L (21.0-32.0) 09/22/22 05:05 Anion Gap 4 (5-15) L 09/22/22 05:05 BUN 23 mg/dL (7-18) H 09/22/22 05:05 Creatinine 0.60 mg/dL (0.55-1.02) 09/22/22 05:05 Est GFR (MDRD) Af Amer 125 mL/min (>60) 09/22/22 05:05 Est GFR (MDRD) Non-Af 103 mL/min (>60) 09/22/22 05:05 BUN/Creatinine Ratio 38.3 RATIO (10-20) H 09/22/22 05:05 Glucose 85 mg/dL (74-106) 09/22/22 05:05 Assessment/Plan: 1. Pain: Tylenol 1000mg PO Q6H PRN pain (1-3), Tramadol 50mg PO Q6H PRN pain (4- 5), Oxycodone 5mg PO Q4H PRN pain (6-10), Lidoderm patch topically daily. Please continue to monitor pain, oversedation from dual opioids, skin irritation from patch, PRN medication use. Pt has had 1 dose of tyleno (pain 8/10)l, 1 dose of tramadol ([place] pain 9/10, reassessment 7/10), and 3 doses of oxycodone ([place] pain 7-10/10, reassessment 2/10). 2. Bowel: senna/colace 1 T PO BID, Magnesium citrate 300ml PO x 1 PRN constipation. Please continue to monitor for increased/decreased constipation/diarrhea, PRN medication use. Pt has had 0 doses of magnesium citrate to date.? Pt has had 1 bowel movement to date. 3. Hypertension: Metoprolol succinate 100mg PO daily, Furosemide 40mg PO daily. Please continue to monitor malaise, BP (137/75 on 09/23), HR (66 on 09/23), Renal function (Scr: 0.6, CrCl: 85.2 adjusted on 09/22), Sodium (136 on 09/22), Potassium (3.9 on 09/22) 4.?GERD: Pantoprazole 40mg PO daily. Please continue to monitor s/s of GERD. Ed ucate on non-pharmacological interventions to prevent GERD. 5 Restless Leg syndrome: Mirapex 0.25mg PO TID. Please continue to monitor leg spasms, drowsiness, dizziness, insomnia, asthenia, gait abnormalities.? 6. Muscle spasm: Tizanidine 2mg PO BID PRN. Please continue to monitor for oversedation, muscle pain, asthenia, syncope, BP (137/75 on 09/23). 7. Skin irritation/Tinea Corporis/Rash: Nystatin topical TID, Calmoseptine topical BID, Triamcinolone 0.5% cream topical BID. Please continue to monitor skin irritation/itching/redness, worsening fungal infection, rash, skin turgor. Assessment/Plan for indications treated with psychotropic medications: 8.?Neuropathic pain: Gabapentin 300mg PO BID. Please consider GDR by 04/05 if clinically indicated. Please continue to monitor nerve pain, renal function (Scr: 0.6, CrCl: 85.2 adjusted on 09/22), fall/fractures (BEERs criteria) Medical chart and medication regimen reviewed. The following medication irregularities or issues were identified: 1. Oxycodone/Tramadol/Tizanidine. Please closely monitor oversedation, mental status with concomitant use.? Date Date of Note:: 09/23/22
[2022-09-23 13:54] VITALS: BP 127/62; PULSE 70; RESP 16; TEMP 36.4; O2SAT 96
--- NOTE | 2022-09-23 14:06 | CHAPLAIN ---
Type of Pastoral Visit _x__ Initial Visit ___ Follow-up Visit ___ On-call Visit ___ General Patient Visit ___ Spiritual Assessment ___ Family Conference ___ Bereavement ___ Rapid Response ___ Code Blue ___ Other (describe below) Pastoral Care Referral From _x__ Patient ___ Family ___ Nurse ___ Physician ___ Extrusion Press Operator ___ Waterworks Chief Engineer ___ Other (describe below) Sacrament/Intervention _x__ Active listening ___ Anointing ___ Jainism ___ Bereavement ___ Communion ___ Mikayla exploration ___ ___ Life review _x__ Prayer ___ Reconciliation ___ Sacrament of Sick __x_ Supportive presence ___ Wedding ___ Other (describe below) Pastoral Comments this patient was most recently seen in [place]; pt gives report on activity in TCU and has hopes for improvement; pt is able to answer questions and carry on the conversation; pt welcomes presence and prayer
--- NOTE | 2022-09-23 16:00 | NS ---
Res dislikes spinach, beef, peas and pork. Provided copy of daily specials/first choice menu w/ instructions on how to order. MST score = 2 d/t unknown UBW.
[2022-09-23] MEDS: Menthol/Lanolin/Calamine/Znox 113 GM Tube 1 APPLIC TOPICAL (17:21)
[2022-09-23] MEDS: Colestipol 1 GM TABLET PO (17:21)
[2022-09-23] MEDS: tiZANidine HCl 2 MG Tablet PO (22:21)
[2022-09-24] MEDS: Menthol/Lanolin/Calamine/Znox 113 GM Tube 1 APPLIC TOPICAL ×2 (05:04→17:14)
[2022-09-24 05:05] VITALS: BP 133/70; PULSE 66
[2022-09-24] MEDS: Colestipol 1 GM TABLET PO ×2 (05:05→17:18)
[2022-09-24] MEDS: Pramipexole Di-HCl 0.25 MG Tablet PO ×3 (05:05→21:30)
[2022-09-24] MEDS: Pantoprazole Sodium 40 MG Tablet PO (05:05)
[2022-09-24] MEDS: Lidocaine 5% Patch 1 PATCH TOPICAL (05:05)
[2022-09-24] MEDS: Furosemide 40 MG Tablet PO (05:05)
[2022-09-24] MEDS: Metoprolol(XL)Succ 100 MG Tablet PO (05:05)
[2022-09-24] MEDS: Gabapentin 300 MG Capsule PO ×2 (05:05→17:22)
[2022-09-24] MEDS: Triamcinolone 0.5% Cream 1 APPLIC TOPICAL ×2 (05:06→17:20)
[2022-09-24] MEDS: Nystatin Powder 15gm Bottle 1 APPLIC TOPICAL ×2 (05:07→21:30)
[2022-09-24 06:00] VITALS: BMI 29.7
[2022-09-24] MEDS: oxyCODONE 5 MG Tablet PO ×2 (08:31→21:35)
[2022-09-24] MEDS: traMADol 50 MG Tablet PO (11:35)
[2022-09-24 14:30] VITALS: BP 109/68; PULSE 62; RESP 16; TEMP 36; O2SAT 97
[2022-09-25] MEDS: Lidocaine 5% Patch 1 PATCH TOPICAL (05:25)
[2022-09-25] MEDS: Senna/Docusate Sodium 1 Tablet PO ×2 (05:26→17:09)
[2022-09-25] MEDS: Gabapentin 300 MG Capsule PO ×2 (05:26→17:12)
[2022-09-25] MEDS: Pantoprazole Sodium 40 MG Tablet PO (05:26)
[2022-09-25] MEDS: Nystatin Powder 15gm Bottle 1 APPLIC TOPICAL ×3 (05:27→19:56)
[2022-09-25] MEDS: Menthol/Lanolin/Calamine/Znox 113 GM Tube 1 APPLIC TOPICAL ×2 (05:27→17:07)
[2022-09-25] MEDS: Furosemide 40 MG Tablet PO (05:27)
[2022-09-25] MEDS: Colestipol 1 GM TABLET PO ×2 (05:27→17:09)
[2022-09-25] MEDS: Pramipexole Di-HCl 0.25 MG Tablet PO ×3 (05:27→20:00)
[2022-09-25 05:31] VITALS: BP 147/78; PULSE 66
[2022-09-25] MEDS: Metoprolol(XL)Succ 100 MG Tablet PO (05:31)
[2022-09-25] MEDS: Triamcinolone 0.5% Cream 1 APPLIC TOPICAL ×2 (05:31→17:08)
[2022-09-25 05:38] VITALS: BP 147/78; PULSE 62; RESP 16; TEMP 36.4; O2SAT 92
[2022-09-25 06:00] VITALS: BMI 29.6
[2022-09-25] MEDS: Calcium (Elemental) 500 MG Tablet PO (08:12)
[2022-09-25 09:25] VITALS: PULSE 81; RESP 18; O2SAT 97
[2022-09-25 13:58] VITALS: BP 128/67; PULSE 68; RESP 16; TEMP 36.4; O2SAT 96
[2022-09-25] MEDS: Acetaminophen 500 MG Tablet 1000 MG PO (17:12)
[2022-09-25] MEDS: oxyCODONE 5 MG Tablet PO (23:57)
[2022-09-26] MEDS: Acetaminophen 500 MG Tablet 1000 MG PO ×3 (05:21→20:36)
[2022-09-26 05:22] VITALS: BP 144/76; PULSE 62
[2022-09-26] MEDS: Colestipol 1 GM TABLET PO ×2 (05:22→18:01)
[2022-09-26] MEDS: Pramipexole Di-HCl 0.25 MG Tablet PO ×3 (05:22→20:19)
[2022-09-26] MEDS: Pantoprazole Sodium 40 MG Tablet PO (05:22)
[2022-09-26] MEDS: Metoprolol(XL)Succ 100 MG Tablet PO (05:22)
[2022-09-26] MEDS: Gabapentin 300 MG Capsule PO ×2 (05:22→19:00)
[2022-09-26] MEDS: Senna/Docusate Sodium 1 Tablet PO (05:22)
[2022-09-26] MEDS: Furosemide 40 MG Tablet PO (05:22)
[2022-09-26] MEDS: oxyCODONE 5 MG Tablet PO ×3 (05:22→22:52)
[2022-09-26] MEDS: Triamcinolone 0.5% Cream 1 APPLIC TOPICAL ×2 (05:23→18:01)
[2022-09-26] MEDS: tiZANidine HCl 2 MG Tablet PO ×2 (05:23→22:53)
[2022-09-26] MEDS: Menthol/Lanolin/Calamine/Znox 113 GM Tube 1 APPLIC TOPICAL (05:24)
[2022-09-26] MEDS: Lidocaine 5% Patch 1 PATCH TOPICAL (05:24)
[2022-09-26] MEDS: Nystatin Powder 15gm Bottle 1 APPLIC TOPICAL ×3 (05:24→20:19)
[2022-09-26 05:32] VITALS: BMI 30.1
[2022-09-26] MEDS: Calcium (Elemental) 500 MG Tablet PO (08:19)
[2022-09-26 13:49] VITALS: BP 140/72; PULSE 62; RESP 14; TEMP 36.2; O2SAT 96
[2022-09-26 23:08] VITALS: O2SAT 95
[2022-09-27 05:40] VITALS: BMI 30.8
[2022-09-27] MEDS: Pramipexole Di-HCl 0.25 MG Tablet PO ×3 (05:55→21:38)
[2022-09-27] MEDS: Furosemide 40 MG Tablet PO (05:55)
[2022-09-27] MEDS: Pantoprazole Sodium 40 MG Tablet PO (05:56)
[2022-09-27] MEDS: Senna/Docusate Sodium 1 Tablet PO ×2 (05:56→17:25)
[2022-09-27] MEDS: Gabapentin 300 MG Capsule PO ×2 (05:56→17:28)
[2022-09-27] MEDS: Nystatin Powder 15gm Bottle 1 APPLIC TOPICAL ×3 (05:56→21:40)
[2022-09-27] MEDS: Lidocaine 5% Patch 1 PATCH TOPICAL (05:57)
[2022-09-27] MEDS: Triamcinolone 0.5% Cream 1 APPLIC TOPICAL ×2 (06:00→21:38)
[2022-09-27] MEDS: Acetaminophen 500 MG Tablet 1000 MG PO (06:09)
[2022-09-27 06:30] VITALS: BP 151/78; PULSE 52
[2022-09-27 08:14] VITALS: BP 145/74; PULSE 73
[2022-09-27] MEDS: Metoprolol(XL)Succ 100 MG Tablet PO (08:14)
[2022-09-27] MEDS: Calcium (Elemental) 500 MG Tablet PO (08:14)
[2022-09-27 08:17] VITALS: BP 145/74; PULSE 73
--- NOTE | 2022-09-27 10:33 | CASEMGMT ---
Social Work BIMS () and PHQ-9 (07/07) completed for MDS assessment. Genia Davis MSW TAFFY PULLER
[2022-09-27] MEDS: oxyCODONE 5 MG Tablet PO ×2 (10:56→21:37)
[2022-09-27 12:59] VITALS: BP 141/77; PULSE 69; RESP 16; TEMP 36.4; O2SAT 94
--- NOTE | 2022-09-27 13:24 | NURSING ---
CALLED PT SON TO UPDATE HIM ON PT AND HER UPCOMING APPOINTMENT WITH . SON STATED HE WAS IN [place] AND WOULD BE ON THE PHONE FOR THE PLAN OF CARE MEETING AND WOULD BE IN MONDAY TO SEE HIS MOM AND LEAVE AGAIN ON MONDAY FOR [place]. ASKED SON IF HE WOULD LIKE TO BE UPDATED ON MONDAY AFTER HIS MOM APPOINTMENT. SON STATED YA IF YOU WANT OR YOU COULD WAIT TILL I GET THERE MONDAY. THIS NURSE STATED I WOULD CALL HIM ON MONDAY. SON STATED OK,THANK YOU. RN AWARE
--- NOTE | 2022-09-27 15:00 | CASEMGMT ---
Social Work Pt presented to this office with questions about insurance coverage and DC plans. SW educated to [facility] being a SNF, providing the insurance coverage, and once insurance is done paying in TCU, pt will not receive room and board coverage at another SNF. Pt states she DCd to a SNF from last TCU stay, but had to DC home d/t to running out of funds. Thus, pt will have to DC home from this stay. SW educated to Medicaid coverage, if pt is eligible. Pt agreeable to apply for [facility]. MARIUSZ sent referral to [facility] via email to complete application with pt. MARIUSZ will continue to follow. BARBARA CrooksW
[2022-09-27 20:30] VITALS: PULSE 74; RESP 16; O2SAT 97
[2022-09-27] MEDS: tiZANidine HCl 2 MG Tablet PO (21:37)
[2022-09-28] MEDS: oxyCODONE 5 MG Tablet PO ×2 (05:13→10:05)
[2022-09-28] MEDS: Gabapentin 300 MG Capsule PO ×2 (05:13→17:08)
[2022-09-28 05:14] VITALS: BP 150/77; PULSE 64
[2022-09-28] MEDS: Metoprolol(XL)Succ 100 MG Tablet PO (05:14)
[2022-09-28] MEDS: Senna/Docusate Sodium 1 Tablet PO ×2 (05:16→17:09)
[2022-09-28] MEDS: Furosemide 40 MG Tablet PO (05:16)
[2022-09-28] MEDS: Pantoprazole Sodium 40 MG Tablet PO (05:16)
[2022-09-28] MEDS: Lidocaine 5% Patch 1 PATCH TOPICAL (05:16)
[2022-09-28] MEDS: Nystatin Powder 15gm Bottle 1 APPLIC TOPICAL ×3 (05:23→21:46)
[2022-09-28] MEDS: Menthol/Lanolin/Calamine/Znox 113 GM Tube 1 APPLIC TOPICAL ×2 (05:24→17:09)
[2022-09-28] MEDS: Pramipexole Di-HCl 0.25 MG Tablet PO ×3 (05:24→21:48)
[2022-09-28] MEDS: Triamcinolone 0.5% Cream 1 APPLIC TOPICAL ×2 (05:25→17:09)
[2022-09-28 05:27] VITALS: BP 150/77; PULSE 64; RESP 16; O2SAT 95
[2022-09-28 06:00] VITALS: BMI 30.2
[2022-09-28] MEDS: Calcium (Elemental) 500 MG Tablet PO (08:19)
--- NOTE | 2022-09-28 08:41 | NURSING ---
Rolling Mill Plugger Note; MDS Complete
[2022-09-28 10:13] VITALS: PULSE 89; RESP 18; O2SAT 99
--- NOTE | 2022-09-28 13:19 | CASEMGMT ---
Social Work IDT met with patient and son via conference call for care plan meeting. Discussed patient's progress in PT/OT/ST/SN. Educated to [facility] with NRD 09/27 and continued stay is not guaranteed with each review. Educated to copays days 1-20 is $0 and days 21-100 is $188/day. IDT recommending 24/7 care or SNF placement at DC until pt is able to live alone independently. Educated to [facility] eligibility - pt will need a QIT to qualify. Left information and application for QIT for son, when he visits this weekend. Provided phone number for [employer] for further information. Son expressed understanding for need for SNF. Pt has ortho appt 09/29 and will await outcome. SW will continue to follow for DC planning. BARBARA CrooksW
[2022-09-28 14:04] VITALS: BP 152/75; PULSE 67; RESP 16; TEMP 36.3; O2SAT 96
[2022-09-29] MEDS: oxyCODONE 5 MG Tablet PO ×3 (03:10→21:24)
[2022-09-29 05:31] LABS: Absolute Lymphocyte Count 1.16 X10^3/uL (0.83-4.51); Absolute Neutrophil Count 3.5 X10^3/uL (2.0-7.7); Basophil# 0.03 X10^3/uL; Basophil% 0.6 % (0-1); Eosinophil# 0.11 X10^3/uL; Eosinophils% 2.1 % (0-5); Hematocrit 33.3 % (37-47); Hemoglobin 11.1 g/dL (12.0-15.0); Lymphocyte # 1.16 X10^3/ul (0.83-4.51); Lymphocyte % 22.4 % (19-41); Mean Corp Hgb Conc 33.3 g/dL (32-36); Mean Corpuscular Hgb 29.6 pg (27.0-32.0); Mean Corpuscular Volume 88.8 fL (81-99); Mean Platelet Vol. 8.1 fl (6.2-12.0); Monocyte# 0.37 X10^3/uL; Monocyte% 7.1 % (0-10); NRBC Flagged by Analyzer 0 % (0-5); Neutrophil # 3.45 X10^3/uL (2.7-7.7); Neutrophil % 66.6 % (47-70); Platelet Count 230 K/mm3 (150-450); RBC Distribution Width CV 14.6 % (11.6-14.6); RBC Distribution Width SD 46.9 fl (35.1-43.9); Red Blood Count 3.75 M/mm3 (4.2-5.4); White Blood Count 5.2 K/mm3 (4.4-11.0)
[2022-09-29 05:33] VITALS: BMI 29.8
[2022-09-29 05:53] LABS: Anion Gap 4 (5-15); BUN 13 mg/dL (7-18); BUN/Creat Ratio 24.4 RATIO (10-20); Chloride 104 mmol/L (98-107); Creatinine, Serum 0.53 mg/dL (0.55-1.02); EST Glomerular Filtration Rate 119 mL/min (>60); Est Glom Filt Rate - Afr Amer 143 mL/min (>60); Estimated Creatinine Clearance 43.74 ml/min; Glucose 95 mg/dL (74-106); Potassium 3.7 mmol/L (3.5-5.1); Sodium Level 140 mmol/L (136-145)
[2022-09-29] MEDS: Gabapentin 300 MG Capsule PO ×2 (05:57→17:14)
[2022-09-29] MEDS: Senna/Docusate Sodium 1 Tablet PO (05:58)
[2022-09-29] MEDS: Pantoprazole Sodium 40 MG Tablet PO (05:58)
[2022-09-29 05:59] VITALS: BP 148/79; PULSE 62
[2022-09-29] MEDS: Pramipexole Di-HCl 0.25 MG Tablet PO ×3 (05:59→21:23)
[2022-09-29] MEDS: Metoprolol(XL)Succ 100 MG Tablet PO (05:59)
[2022-09-29] MEDS: Acetaminophen 500 MG Tablet 1000 MG PO (06:02)
[2022-09-29] MEDS: Calcium (Elemental) 500 MG Tablet PO (08:36)
[2022-09-29] MEDS: Tuberculin,Purif.prot.deriv. 50 TU/ML Vial 0.1 ML ID (08:39)
[2022-09-29] MEDS: Nystatin Powder 15gm Bottle 1 APPLIC TOPICAL ×2 (10:34→21:29)
[2022-09-29] MEDS: Menthol/Lanolin/Calamine/Znox 113 GM Tube 1 APPLIC TOPICAL ×2 (10:34→21:23)
--- NOTE | 2022-09-29 13:00 | NURSING ---
PT LEFT BY WHEEL CHAIR AT 1210 WITH TRANSPORT TO APPOINTMENT.
--- NOTE | 2022-09-29 15:56 | NURSING ---
PT BACK FROM APPOINTMENT WITH AT 1510. PT VERY UPSET AND CRYING. THIS NURSE DID ONE ON ONE WITH PT AND PT STATED I WAS TOLD FROM THE NEW X-RAY THAT I HAVE A NEW FX IN MY LOWER LEG AND MY KNEE IS CROOKED AND HAVE TO STAY NON WEIGHT BEARING TO MY RIGHT LEG FOR 6 MORE WEEKS. PT ALSO STATED THAT SHE CANT GO BACK TO A HALF-WAY CAUSE SHE CANT AFFORD IT. THIS NURSE STAYED WITH PT TILL SHE CALMED DOWN. REPORTED TO RN AND ASKED SARAY BONILLA TO STOP IN AND SEE PT. NO NEW ORDERS IN PACKET WHEN PT RETURNED, SO THIS NURSE CALLED OFFICE TO FAX HIS FINDINGS AND ANY NEW ORDERS OVER TO TCU. OFFICE STATED THEY WOULD GET THAT TO TCU.
[2022-09-29 16:00] VITALS: BP 157/93; PULSE 68; RESP 14; TEMP 36.8; O2SAT 94
--- NOTE | 2022-09-29 16:45 | CASEMGMT ---
Social Work Notified by nursing that pt was very tearful after return from ortho appt with new information. Pt has new fx resulting in NWBS order for 6 weeks. SW sat with pt at bedside at length. Provided ongoing supportive listening while pt remained tearful expressing her feelings. Pt overall discouraged by new order, confirming pt cannot be alone as she needs assist with ADLs, frustrated with her financial situation as she is over income for [facility] (needs a QIT) but cannot pay for care at home. SW acknowledged pt's feelings. Validated her frustration with loss of independence. SW encouraged pt to discuss options with son when he visits tomorrow evening. Son is very supportive and realistic to pt's needs. During that conversation, son phoned this worker. Pt agreeable for this worker to speak with son and exited room. Son asked questions and confirmed the new orders from ortho and pt's future needs. Son and his had discussed options for pt. Possibly moving to a facility in [place] closer to son, seeing if pt gets any VA benefits as her late was a VA. SW referred son to contact the VA to inquire about elgibility. Cautioned that takes time to acheive and will not solve current DC plan. Son expressed understanding. Son to discuss options with pt and expressed appreciation for this worker's assistance. SW offered ongoing assistance with DC planning. Will continue to follow. BARBARA Crooks
[2022-09-29 17:16] VITALS: BP 180/87
[2022-09-29 18:28] VITALS: BP 169/81; PULSE 72
[2022-09-29] MEDS: Triamcinolone 0.5% Cream 1 APPLIC TOPICAL (21:26)
[2022-09-29 22:20] VITALS: PULSE 84; RESP 16; O2SAT 96
[2022-09-30] MEDS: oxyCODONE 5 MG Tablet PO ×2 (03:46→21:45)
[2022-09-30] MEDS: tiZANidine HCl 2 MG Tablet PO ×2 (03:47→21:45)
[2022-09-30] MEDS: Gabapentin 300 MG Capsule PO ×2 (04:59→17:53)
[2022-09-30 05:00] VITALS: BP 123/81; PULSE 75
[2022-09-30] MEDS: Metoprolol(XL)Succ 100 MG Tablet PO (05:00)
[2022-09-30] MEDS: Senna/Docusate Sodium 1 Tablet PO ×2 (05:00→17:53)
[2022-09-30] MEDS: Pantoprazole Sodium 40 MG Tablet PO (05:00)
[2022-09-30] MEDS: Furosemide 40 MG Tablet PO (05:00)
[2022-09-30] MEDS: Pramipexole Di-HCl 0.25 MG Tablet PO ×3 (05:00→21:46)
[2022-09-30 05:49] VITALS: BMI 29.4
[2022-09-30] MEDS: Calcium (Elemental) 500 MG Tablet PO (09:02)
[2022-09-30 15:11] VITALS: BP 136/71; PULSE 65; RESP 22; TEMP 36.6; O2SAT 96
[2022-09-30] MEDS: Nystatin Powder 15gm Bottle 1 APPLIC TOPICAL ×2 (15:13→22:02)
[2022-09-30] MEDS: Menthol/Lanolin/Calamine/Znox 113 GM Tube 1 APPLIC TOPICAL (17:54)
[2022-09-30] MEDS: Triamcinolone 0.5% Cream 1 APPLIC TOPICAL (21:48)
[2022-09-30] MEDS: Acetaminophen 500 MG Tablet 1000 MG PO (21:51)
[2022-09-30 22:04] VITALS: BP 138/69
[2022-09-30 22:30] VITALS: O2SAT 95
[2022-10-01] MEDS: Furosemide 40 MG Tablet PO (05:12)
[2022-10-01] MEDS: Pantoprazole Sodium 40 MG Tablet PO (05:13)
[2022-10-01] MEDS: Pramipexole Di-HCl 0.25 MG Tablet PO ×3 (05:13→21:47)
[2022-10-01] MEDS: Nystatin Powder 15gm Bottle 1 APPLIC TOPICAL ×3 (05:18→21:47)
[2022-10-01] MEDS: Menthol/Lanolin/Calamine/Znox 113 GM Tube 1 APPLIC TOPICAL ×2 (05:18→17:18)
[2022-10-01] MEDS: Gabapentin 300 MG Capsule PO ×2 (08:13→17:17)
[2022-10-01 08:14] VITALS: PULSE 80
[2022-10-01] MEDS: Metoprolol(XL)Succ 100 MG Tablet PO (08:14)
[2022-10-01] MEDS: Calcium (Elemental) 500 MG Tablet PO (08:14)
[2022-10-01 10:47] VITALS: BMI 28.9
[2022-10-01 13:29] VITALS: BP 123/74; PULSE 76; RESP 16; TEMP 35.6; O2SAT 94
[2022-10-01] MEDS: Senna/Docusate Sodium 1 Tablet PO (17:18)
[2022-10-01] MEDS: Triamcinolone 0.5% Cream 1 APPLIC TOPICAL (17:19)
[2022-10-01] MEDS: oxyCODONE 5 MG Tablet PO (21:47)
[2022-10-01] MEDS: tiZANidine HCl 2 MG Tablet PO (21:47)
[2022-10-02 06:00] VITALS: BMI 29.2
[2022-10-02] MEDS: Pramipexole Di-HCl 0.25 MG Tablet PO ×3 (06:09→21:54)
[2022-10-02] MEDS: Pantoprazole Sodium 40 MG Tablet PO (06:09)
[2022-10-02] MEDS: Furosemide 40 MG Tablet PO (06:10)
[2022-10-02] MEDS: Acetaminophen 500 MG Tablet 1000 MG PO (06:13)
[2022-10-02] MEDS: Menthol/Lanolin/Calamine/Znox 113 GM Tube 1 APPLIC TOPICAL ×2 (06:18→17:30)
[2022-10-02] MEDS: Nystatin Powder 15gm Bottle 1 APPLIC TOPICAL ×3 (06:19→21:55)
[2022-10-02] MEDS: Gabapentin 300 MG Capsule PO ×2 (07:52→17:30)
[2022-10-02] MEDS: Calcium (Elemental) 500 MG Tablet PO (07:53)
[2022-10-02] MEDS: Senna/Docusate Sodium 1 Tablet PO ×2 (07:53→17:30)
[2022-10-02 07:54] VITALS: PULSE 77
[2022-10-02] MEDS: Metoprolol(XL)Succ 100 MG Tablet PO (07:54)
[2022-10-02] MEDS: Triamcinolone 0.5% Cream 1 APPLIC TOPICAL ×2 (07:56→17:30)
[2022-10-02 14:46] VITALS: BP 160/83; PULSE 71; RESP 16; TEMP 36.8; O2SAT 95
--- NOTE | 2022-10-02 15:08 | NURSING ---
Pt has decreased mobility. Lovenox ordered for DVT prophylaxis
[2022-10-02] MEDS: tiZANidine HCl 2 MG Tablet PO (21:54)
[2022-10-02] MEDS: oxyCODONE 5 MG Tablet PO (21:54)
[2022-10-03 05:14] VITALS: BMI 29.2
[2022-10-03] MEDS: Pantoprazole Sodium 40 MG Tablet PO (06:28)
[2022-10-03] MEDS: Furosemide 40 MG Tablet PO (06:29)
[2022-10-03] MEDS: Pramipexole Di-HCl 0.25 MG Tablet PO ×3 (06:29→21:32)
[2022-10-03] MEDS: Enoxaparin 40 MG/0.4 ML Syringe SC (06:35)
[2022-10-03] MEDS: Menthol/Lanolin/Calamine/Znox 113 GM Tube 1 APPLIC TOPICAL ×2 (06:38→17:35)
[2022-10-03] MEDS: Nystatin Powder 15gm Bottle 1 APPLIC TOPICAL ×3 (06:38→21:31)
[2022-10-03] MEDS: Triamcinolone 0.5% Cream 1 APPLIC TOPICAL ×2 (06:39→17:33)
[2022-10-03] MEDS: Calcium (Elemental) 500 MG Tablet PO (08:41)
[2022-10-03] MEDS: Senna/Docusate Sodium 1 Tablet PO ×2 (08:41→17:34)
[2022-10-03] MEDS: Gabapentin 300 MG Capsule PO ×2 (08:41→17:33)
[2022-10-03 08:42] VITALS: PULSE 88
[2022-10-03] MEDS: Metoprolol(XL)Succ 100 MG Tablet PO (08:42)
--- NOTE | 2022-10-03 11:27 | CASEMGMT ---
Social Work SW phoned son to follow up on DC plans. Son visiting pt and requesting to meet with this worker. -- SW met with son in office with DIL via conference call. Answered all questions for family. Assisted in explaining further about Medicaid eligibility, QIT, patient liability, ST vs LT plans, offered [place], but not enough funds. Overall, family confirmed pt will need SNF, will complete QIT at [facility] today, then update [facility], and referral requested to [facility]. Son and DIL very appreciative of assistance. SW placed referral to [facility] via [facility]. Genia Davis, ADMINISTRATION MANAGER OBSTETRICIAN
[2022-10-03 14:11] VITALS: BP 123/68; PULSE 69; RESP 16; TEMP 36.6; O2SAT 96
[2022-10-03] MEDS: oxyCODONE 5 MG Tablet PO (23:14)
[2022-10-03] MEDS: tiZANidine HCl 2 MG Tablet PO (23:20)
[2022-10-04 05:32] VITALS: BMI 29.3
[2022-10-04 06:12] VITALS: BP 127/70; PULSE 66
[2022-10-04] MEDS: Enoxaparin 40 MG/0.4 ML Syringe SC (06:13)
[2022-10-04] MEDS: Pramipexole Di-HCl 0.25 MG Tablet PO ×3 (06:13→22:27)
[2022-10-04] MEDS: Furosemide 40 MG Tablet PO (06:13)
[2022-10-04] MEDS: Pantoprazole Sodium 40 MG Tablet PO (06:14)
[2022-10-04] MEDS: Nystatin Powder 15gm Bottle 1 APPLIC TOPICAL ×3 (06:14→22:27)
[2022-10-04] MEDS: Menthol/Lanolin/Calamine/Znox 113 GM Tube 1 APPLIC TOPICAL ×2 (06:14→18:13)
[2022-10-04] MEDS: Triamcinolone 0.5% Cream 1 APPLIC TOPICAL ×2 (06:15→22:26)
[2022-10-04] MEDS: Gabapentin 300 MG Capsule PO ×2 (08:18→18:15)
[2022-10-04] MEDS: Calcium (Elemental) 500 MG Tablet PO (08:20)
[2022-10-04 08:21] VITALS: BP 137/81; PULSE 85
[2022-10-04] MEDS: Senna/Docusate Sodium 1 Tablet PO (08:21)
[2022-10-04] MEDS: Metoprolol(XL)Succ 100 MG Tablet PO (08:21)
--- NOTE | 2022-10-04 08:25 | MDS.RN ---
Information for the mds was obtained from review of the clinical record, interview of resident, staff, and direct observation of resident's care.
[2022-10-04 08:28] VITALS: BP 137/81; PULSE 85
--- NOTE | 2022-10-04 08:47 | CASEMGMT ---
Addendum entered by Genia Davis 10/04/22 11:45: [facility] can accept pt. Updated them about Level II results. SW spoke with pt to update and pt texted son with updates. Addendum entered by Genia Davis 10/04/22 08:53: In preparation for DC, SW completed PASRR. Noted pt has dx of Scoliosis. SW inquired to pt about onset. Pt stated it was diagnosed in a back xray within the last 6 months. No complications to daily life. PASRR triggered for Level II. Pt will not be able to DC until results received. SW will continue to follow. Original Note: Social Work Insurance issued LCD 10/06, DC 10/07 at 4:57 pm last evening. RN administered NOM[facility] to pt. SW spoke with pt at bedside to review NOM[facility]. Pt notified her son and but this worker will also contact son with SNF acceptance/denial. Answered pt's questions. SW left voicemail for [facility] to f/u on referral and notify of DC date. Will await outcome. Plan: DC 10/07 to SNF, intermediate, part B therapies Genia Davis, BARBARA JUARES
[2022-10-04 09:10] VITALS: PULSE 79; RESP 18; O2SAT 97
--- NOTE | 2022-10-04 09:22 | DS.PCM_ITS ---
Providers Date of Admission: 09/21/22 Primary Care Physician: Dr. Varun Sanchez MD Reason For Visit: INABILITY TO AMBULATE Diagnosis Discharge Diagnosis (1) Debility: Status: Acute Code(s): R53.81 - Other malaise (2) Stress fracture, right fibula, subsequent encounter for fracture with delayed healing: Status: Resolved Code(s): M84.363G - Stress fracture, right fibula, subsequent encounter for fracture with delayed healing (3) Acute pain of right lower extremity: Status: Acute Code(s): M79.604 - Pain in right leg (4) Hypertension: Status: Chronic Code(s): I10 - Essential (primary) hypertension (5) Restless leg syndrome: Status: Acute Code(s): G25.81 - Restless legs syndrome (6) GERD (gastroesophageal reflux disease): Status: Acute Code(s): K21.9 - Gastro-esophageal reflux disease without esophagitis (7) Neuropathic pain: Status: Acute Code(s): M79.2 - Neuralgia and neuritis, unspecified (8) Scoliosis: Status: Chronic Code(s): M41.9 - Scoliosis, unspecified Qualifiers: Scoliosis type: idiopathic Idiopathic scoliosis type: other Spinal region: thoracolumbar Qualified Code(s): M41.25 - Other idiopathic scoliosis, thoracolumbar region Plan 76 year old female with below past medical history hospitalized for intractable right leg pain, unable to walk, admitted to TCU with debility, here for rehabilitation, strengthening, prior to discharge home alone. * Debility - PT/OT. * Pain - Tylenol 1000mg q6h prn pain (1-3), Tramadol 50mg q6h prn pain (4-5), O xycodone 5mg q4h prn pain (6-10), Lidoderm patch daily. * Bowel - senna/colace 1 tablet bid, Magnesium citrate 300ml po x 1 prn * Adult immunization - Administer pneumonia vaccine, covid19 vaccine, flu vaccine as appropriate. * DVT prophylaxis - Monitor. * Hypertension - Metoprolol succinate 100mg daily, Furosemide 40mg daily. * Neuropathic pain - Gabapentin 300mg bid. * Skin irritation - Calmoseptine topical bid. * Tinea Corporis - Nystatin topical tid. * GERD - Pantoprazole 40mg daily. * Restless Leg syndrome - Mirapex 0.25mg tid. * Muscle spasm - Tizanidine 2mg bid prn. * Rash - Triamcinolone 0.5% cream topical bid. Medications at Discharge Home Medications furosemide 40 mg tablet 40 mg PO DAILY EDEMA 11/10/14 gabapentin 100 mg capsule 300 mg PO BID Pain 11/10/14 acetaminophen 500 mg tablet 1,000 mg PO Q6H PRN PRN Pain 05/19/17 tizanidine 2 mg tablet 2 mg PO BID PRN PRN Spasms 05/19/17 triamcinolone acetonide 0.5 % topical cream 1 applic topical BID Skin Care 02/20/22 pantoprazole 40 mg tablet,delayed release 40 mg PO DAILY GERD #0 tabs 03/23/22 pramipexole 0.25 mg tablet 0.25 mg PO TID Restless Legs #0 tabs 03/23/22 lidocaine 5 % topical patch 1 patch topical DAILY pain #0 ea 09/21/22 menthol 0.44 %-zinc oxide 20.6 % topical ointment (Calmoseptine) 1 applic topical BID Redness #113 grams 09/21/22 metoprolol succinate 100 mg tablet,extended release 24 hr 100 mg PO DAILY BP #30 tabs 09/21/22 nystatin 100,000 unit/gram topical powder (Nyamyc) 1 applic topical TID Redness #0 grams 09/21/22 calcium carbonate 500 mg calcium (1,250 mg) tablet (Oyster Shell Calcium 500) 500 mg PO BREAKFAST #0 tabs 10/04/22 enoxaparin 40 mg/0.4 mL subcutaneous syringe 40 mg (0.4 mL) subcut DAILY #0 mL 10/04/22 oxycodone 5 mg tablet 5 mg PO Q4H PRN PRN Pain Score 6-10 3 days #18 tabs 10/04/22 sennosides 8.6 mg-docusate sodium 50 mg tablet (Stool Softener-Stimulant Laxative) 1 tab PO BID@0800,1800 #0 tabs 10/04/22 Hospital Course Operations None Procedures None Summary of Care Provided Minutes Spent on Discharge: 35 Hospital Course: 76 year old female with below past medical history hospitalized for intractable right leg pain, unable to walk, admitted to TCU with debility, here for rehabilitation, strengthening, prior to discharge home alone. 10/03/2022 Dr. Bernal saw resident, new stress fractures right lower extremity, recommend NWB RLE for 6 more weeks, consider surgery with Dr. Barrera, [facility] in future. Discharge to SNF 10/07/2022, intermediate, part B therapies. Physical Exam Const alert General Appearance: cooperative HEENT normocephalic Eyes PERRL and EOMs intact bilaterally Neck supple, no JVD and no carotid bruits Resp normal respiratory effort, normal air movement and clear to auscultation bilaterally Cardio regular rate and regular rhythm GI normal to inspection, nondistended, normoactive bowel sounds, non-tender and non-distended Extremity normal capillary refill General Extremity: Negative for edema Skin no rashes or lesions noted General Skin Exam: no breakdown Psych affect normal Appearance: appropriate Weight / BMI Weight Weight: 79.946 kg Body Mass Index (BMI) 29.3 ABG / Lab / Microbiology Data 09/29/22 05:12 09/29/22 05:12 D/C Instructions Discharge Diet: No restrictions Discharge Activity: Return to Normal Activity and May Shower Weight Bearing Status: No weight bearing (Right lower extremity.) Call your doctor if you observe: Fever of 101 or Higher, Inability to urinate, Inability to have a bowel movement, Shortness of breath, Dizziness, Fainting spells, Swelling in the ankles, Chest pain and Uncontrolled pain Additional Instructions: Discharge to SNF 10/07/2022, intermediate, part B therapies. Please Follow Up With: Dr. Bernal When: As scheduled. Meaningful Use Info Meaningful Use Diagnoses (Choose all that apply): None applicable Discharge Plan Admission Admit Date/Time: 09/21/22 15:09 Primary Reason for Your Visit: Debility. Attending Provider: Varun Sanchez Chi Primary Care Provider: Varun Sanchez Chi Instructions Additional Instructions / Restrictions: Discharge to SNF 10/07/2022, intermediate, part B therapies. Discharge Orders/Prescriptions Prescriptions: New sennosides-docusate sodium [Stool Softener-Stimulant Laxat] 8.6-50 mg Tablet 1 tab PO BID@0800,1800 Qty: 0 0RF calcium carbonate [Oyster Shell Calcium 500] 500 mg calcium (1,250 mg) Tablet 500 mg PO BREAKFAST Qty: 0 0RF oxycodone 5 mg Tablet 5 mg PO Q4H PRN PRN (Reason: Pain Score 6-10) 3 Days Qty: 18 0RF enoxaparin 40 mg/0.4 mL Syringe 40 mg subcut DAILY Qty: 0 0RF Continued furosemide 40 MG tablet 40 mg PO DAILY Patient Comments: diuretic gabapentin 100 MG capsule 300 mg PO BID Patient Comments: for neuropathy tizanidine 2 MG tablet 2 mg PO BID PRN PRN (Reason: Spasms) acetaminophen 500 MG tablet 1,000 mg PO Q6H PRN PRN (Reason: Pain) triamcinolone acetonide 0.5 % cream 1 applic TOPICAL BID Patient Comments: apply sparingly to affected area OF RASH/ITCHING ON BOTH LEGS twice a day (AVOID FACE/SKIN FOLDS) pantoprazole 40 mg Tablet,Delayed Release (Dr/Ec) 40 mg PO DAILY Qty: 0 0RF pramipexole 0.25 mg Tablet 0.25 mg PO TID Qty: 0 0RF lidocaine 5 % Adhesive Patch,Medicated 1 patch topical DAILY Qty: 0 0RF Protocol: *Topical Application Instructions APPLICATION INSTRUCTIONS: medial right calf nystatin [Nyamyc] 100,000 unit/gram Powder 1 applic topical TID Qty: 0 0RF Protocol: *Topical Application Instructions APPLICATION INSTRUCTIONS: groin menthol-zinc oxide [Calmoseptine] 0.44-20.6 % Ointment 1 applic topical BID Qty: 113 0RF Protocol: *Topical Application Instructions APPLICATION INSTRUCTIONS: apply to buttocks metoprolol succinate 100 mg Tablet Extended Release 24 Hr 100 mg PO DAILY Qty: 30 0RF Discontinued calcium carbonate [Calcium 600] 600 mg calcium (1,500 mg) tablet 600 mg PO DAILY oxycodone 5 mg Tablet 5 mg PO Q4H PRN PRN (Reason: Pain Score 6-10) 3 Days Qty: 12 0RF ibuprofen 200 mg tablet 400 mg PO Q6H PRN (Reason: pain) Qty: 30 0RF Remove Patch 1 patch topical DAILY@2200 hydrocortisone 2.5 % cream 1 applic TOPICAL PRN Referrals / Follow Up: Varun Sanchez Chi, MD [Primary Care Provider] - Disposition Disposition (needs filled in before D/C Order can be placed): NonSkilled NH/ Intermed Care
--- NOTE | 2022-10-04 09:32 | TREXTCAR_ITS ---
Diet Diet Order/Speech Therapy: 09/21/22 15:48 Diet: Cardiac - Heart Healthy Food consistency:: Regular Liquid Consistency:: Regular/Thin Is pt able to select menu?: Yes Routine Orders/Code Status Code Status: Full Code Wound(s) Bilateral buttocks: Wound Type: Pustules Therapies Weight Bearing: Non weight bearing (Right lower extremity.) Physical Therapy: Eval and Treat Occupational Therapy: Eval and Treat Problem/Diagnosis (1) Debility: Status: Acute Code(s): R53.81 - Other malaise (2) Stress fracture, right fibula, subsequent encounter for fracture with delayed healing: Status: Resolved Code(s): M84.363G - Stress fracture, right fibula, subsequent encounter for fracture with delayed healing (3) Acute pain of right lower extremity: Status: Acute Code(s): M79.604 - Pain in right leg (4) Hypertension: Status: Chronic Code(s): I10 - Essential (primary) hypertension (5) Restless leg syndrome: Status: Acute Code(s): G25.81 - Restless legs syndrome (6) GERD (gastroesophageal reflux disease): Status: Acute Code(s): K21.9 - Gastro-esophageal reflux disease without esophagitis (7) Neuropathic pain: Status: Acute Code(s): M79.2 - Neuralgia and neuritis, unspecified (8) Scoliosis: Status: Chronic Code(s): M41.9 - Scoliosis, unspecified Plan 76 year old female with below past medical history hospitalized for intractable right leg pain, unable to walk, admitted to TCU with debility, here for rehabilitation, strengthening, prior to discharge home alone. * Debility - PT/OT. * Pain - Tylenol 1000mg q6h prn pain (1-3), Tramadol 50mg q6h prn pain (4-5), Oxycodone 5mg q4h prn pain (6-10), Lidoderm patch daily. * Bowel - senna/colace 1 tablet bid, Magnesium citrate 300ml po x 1 prn * Adult immunization - Administer pneumonia vaccine, covid19 vaccine, flu vaccine as appropriate. * DVT prophylaxis - Monitor. * Hypertension - Metoprolol succinate 100mg daily, Furosemide 40mg daily. * Neuropathic pain - Gabapentin 300mg bid. * Skin irritation - Calmoseptine topical bid. * Tinea Corporis - Nystatin topical tid. * GERD - Pantoprazole 40mg daily. * Restless Leg syndrome - Mirapex 0.25mg tid. * Muscle spasm - Tizanidine 2mg bid prn. * Rash - Triamcinolone 0.5% cream topical bid. Allergies/Procedures Done in Hospital Allergies amitriptyline Adverse Reaction (Verified 09/15/22 14:01) Other codeine Adverse Reaction (Verified 09/15/22 14:01) Other gabapentin Adverse Reaction (Verified 09/15/22 14:01) ONLY IF TAKEN IN LARGE DOSES HALLUCINATIONS IF TAKEN IN LARGE DOSES ONLY Procedures: None Type of Care/Length of Stay Estimated LOS: More Than 30 Days Type of Care Needed: Intermediate Rehab Potential: Fair Prognosis: Fair Additional Orders/Day of Discharge Day of Discharge: 10/07/22 Dietary and Speech Recommendations Dietitian Recommendations/Changes: Continue Cardiac diet to manage medical conditions. Continue to monitor for changes in pt nutritional status Follow Up Care Please Follow Up With: Dr. Bernal Discharge Plan Admission Admit Date/Time: 09/21/22 15:09 Primary Reason for Your Visit: Debility. Attending Provider: Varun Sanchez Chi Primary Care Provider: Varun Sanchez Chi Instructions Additional Instructions / Restrictions: Discharge to SNF 10/07/2022, intermediate, part B therapies. Discharge Orders/Prescriptions Prescriptions: New sennosides-docusate sodium [Stool Softener-Stimulant Laxat] 8.6-50 mg Tablet 1 tab PO BID@0800,1800 Qty: 0 0RF calcium carbonate [Oyster Shell Calcium 500] 500 mg calcium (1,250 mg) Tablet 500 mg PO BREAKFAST Qty: 0 0RF oxycodone 5 mg Tablet 5 mg PO Q4H PRN PRN (Reason: Pain Score 6-10) 3 Days Qty: 18 0RF enoxaparin 40 mg/0.4 mL Syringe 40 mg subcut DAILY Qty: 0 0RF Continued furosemide 40 MG tablet 40 mg PO DAILY Patient Comments: diuretic gabapentin 100 MG capsule 300 mg PO BID Patient Comments: for neuropathy tizanidine 2 MG tablet 2 mg PO BID PRN PRN (Reason: Spasms) acetaminophen 500 MG tablet 1,000 mg PO Q6H PRN PRN (Reason: Pain) triamcinolone acetonide 0.5 % cream 1 applic TOPICAL BID Patient Comments: apply sparingly to affected area OF RASH/ITCHING ON BOTH LEGS twice a day (AVOID FACE/SKIN FOLDS) pantoprazole 40 mg Tablet,Delayed Release (Dr/Ec) 40 mg PO DAILY Qty: 0 0RF pramipexole 0.25 mg Tablet 0.25 mg PO TID Qty: 0 0RF lidocaine 5 % Adhesive Patch,Medicated 1 patch topical DAILY Qty: 0 0RF Protocol: *Topical Application Instructions APPLICATION INSTRUCTIONS: medial right calf nystatin [Nyamyc] 100,000 unit/gram Powder 1 applic topical TID Qty: 0 0RF Protocol: *Topical Application Instructions APPLICATION INSTRUCTIONS: groin menthol-zinc oxide [Calmoseptine] 0.44-20.6 % Ointment 1 applic topical BID Qty: 113 0RF Protocol: *Topical Application Instructions APPLICATION INSTRUCTIONS: apply to buttocks metoprolol succinate 100 mg Tablet Extended Release 24 Hr 100 mg PO DAILY Qty: 30 0RF Discontinued calcium carbonate [Calcium 600] 600 mg calcium (1,500 mg) tablet 600 mg PO DAILY oxycodone 5 mg Tablet 5 mg PO Q4H PRN PRN (Reason: Pain Score 6-10) 3 Days Qty: 12 0RF ibuprofen 200 mg tablet 400 mg PO Q6H PRN (Reason: pain) Qty: 30 0RF Remove Patch 1 patch topical DAILY@2200 hydrocortisone 2.5 % cream 1 applic TOPICAL PRN Referrals / Follow Up: Varun Sanchez Chi, MD [Primary Care Provider] - Disposition Disposition (needs filled in before D/C Order can be placed): NonSkilled NH/Intermed Care (8) Scoliosis Qualifiers: Scoliosis type: idiopathic Idiopathic scoliosis type: other Spinal region: thoracolumbar Qualified Code(s): M41.25 - Other idiopathic scoliosis, thoracolumbar region
[2022-10-04 10:49] VITALS: BMI 29.4
[2022-10-04 14:13] VITALS: BP 123/77; PULSE 70; RESP 16; TEMP 36.1; O2SAT 96
--- NOTE | 2022-10-04 17:02 | NURSING ---
REFIRING PT TO IN [facility] [place]. PER PT IS ESTABLISHED WITH . APPOINTMENT NEEDS TO BE MADE BEFORE DISCHARGE.
[2022-10-04] MEDS: oxyCODONE 5 MG Tablet PO (22:27)
[2022-10-05 05:01] VITALS: BMI 29.5
[2022-10-05] MEDS: Furosemide 40 MG Tablet PO (06:28)
[2022-10-05] MEDS: Menthol/Lanolin/Calamine/Znox 113 GM Tube 1 APPLIC TOPICAL ×2 (06:28→17:45)
[2022-10-05] MEDS: Nystatin Powder 15gm Bottle 1 APPLIC TOPICAL ×3 (06:28→21:06)
[2022-10-05] MEDS: Pantoprazole Sodium 40 MG Tablet PO (06:28)
[2022-10-05] MEDS: Enoxaparin 40 MG/0.4 ML Syringe SC (06:28)
[2022-10-05] MEDS: Pramipexole Di-HCl 0.25 MG Tablet PO ×3 (06:28→21:03)
[2022-10-05] MEDS: Triamcinolone 0.5% Cream 1 APPLIC TOPICAL ×2 (06:29→17:45)
[2022-10-05] MEDS: Gabapentin 300 MG Capsule PO ×2 (08:14→17:44)
[2022-10-05 08:15] VITALS: PULSE 62
[2022-10-05] MEDS: Metoprolol(XL)Succ 100 MG Tablet PO (08:15)
[2022-10-05] MEDS: Calcium (Elemental) 500 MG Tablet PO (08:15)
[2022-10-05] MEDS: Senna/Docusate Sodium 1 Tablet PO ×2 (08:15→17:44)
[2022-10-05 09:43] VITALS: PULSE 78; RESP 16; O2SAT 97
--- NOTE | 2022-10-05 11:04 | CASEMGMT ---
Social Work BIMS () and PHQ-9 (06/06) completed for MDS assessment. Genia Davis MSW PATIENT COMPANION
[2022-10-05 13:31] VITALS: BP 126/75; PULSE 72; RESP 16; TEMP 36.2; O2SAT 98
[2022-10-05] MEDS: Magnesium Hydroxide 30 ML UDC PO (17:44)
[2022-10-05] MEDS: oxyCODONE 5 MG Tablet PO (23:05)
[2022-10-06] MEDS: Furosemide 40 MG Tablet PO (05:21)
[2022-10-06] MEDS: Pantoprazole Sodium 40 MG Tablet PO (05:22)
[2022-10-06] MEDS: Pramipexole Di-HCl 0.25 MG Tablet PO ×3 (05:22→22:34)
[2022-10-06] MEDS: Enoxaparin 40 MG/0.4 ML Syringe SC (05:22)
[2022-10-06] MEDS: Menthol/Lanolin/Calamine/Znox 113 GM Tube 1 APPLIC TOPICAL (05:25)
[2022-10-06] MEDS: Nystatin Powder 15gm Bottle 1 APPLIC TOPICAL ×3 (05:25→22:36)
[2022-10-06 05:30] VITALS: BMI 29.3
[2022-10-06 05:58] LABS: Absolute Lymphocyte Count 1.44 X10^3/uL (0.83-4.51); Absolute Neutrophil Count 3.7 X10^3/uL (2.0-7.7); Basophil# 0.04 X10^3/uL; Basophil% 0.7 % (0-1); Eosinophil# 0.11 X10^3/uL; Eosinophils% 1.8 % (0-5); Hematocrit 32.6 % (37-47); Lymphocyte # 1.44 X10^3/ul (0.83-4.51); Lymphocyte % 23.9 % (19-41); Mean Corp Hgb Conc 33.7 g/dL (32-36); Mean Corpuscular Hgb 29.9 pg (27.0-32.0); Mean Corpuscular Volume 88.6 fL (81-99); Mean Platelet Vol. 8.3 fl (6.2-12.0); Monocyte# 0.58 X10^3/uL; Monocyte% 9.6 % (0-10); NRBC Flagged by Analyzer 0 % (0-5); Neutrophil % 61.3 % (47-70); Platelet Count 268 K/mm3 (150-450); RBC Distribution Width CV 13.9 % (11.6-14.6); RBC Distribution Width SD 45.1 fl (35.1-43.9); Red Blood Count 3.68 M/mm3 (4.2-5.4)
[2022-10-06 06:24] LABS: Anion Gap 4 (5-15); BUN 12 mg/dL (7-18); BUN/Creat Ratio 22.8 RATIO (10-20); Calcium,Total 9.1 mg/dL (8.5-10.1); Chloride 100 mmol/L (98-107); Creatinine, Serum 0.53 mg/dL (0.55-1.02); EST Glomerular Filtration Rate 120 mL/min (>60); Est Glom Filt Rate - Afr Amer 145 mL/min (>60); Estimated Creatinine Clearance 43.74 ml/min; Glucose 91 mg/dL (74-106); Potassium 3.9 mmol/L (3.5-5.1); Sodium Level 136 mmol/L (136-145)
[2022-10-06] MEDS: Gabapentin 300 MG Capsule PO ×2 (08:07→17:20)
[2022-10-06 08:08] VITALS: BP 131/68; PULSE 81
[2022-10-06] MEDS: Calcium (Elemental) 500 MG Tablet PO (08:08)
[2022-10-06] MEDS: Metoprolol(XL)Succ 100 MG Tablet PO (08:08)
[2022-10-06] MEDS: Senna/Docusate Sodium 1 Tablet PO ×2 (08:08→17:16)
[2022-10-06 08:13] VITALS: BP 131/68; PULSE 81
[2022-10-06 09:10] VITALS: PULSE 81; RESP 18; O2SAT 95
[2022-10-06] MEDS: Triamcinolone 0.5% Cream 1 APPLIC TOPICAL ×2 (11:34→22:35)
--- NOTE | 2022-10-06 13:28 | MDS.RN ---
Pain interview for MDS completed.
--- NOTE | 2022-10-06 15:27 | CASEMGMT ---
Social Work Level II determination obtained. [facility] able [facility] accept patient tomorrow, 10/07/2022. This adoption social worker updated patient and patient son, Ollie on above information. Patient and Ollie agreeable to discharge plan. Patient request for wheelchair van to be set up for transportation. [facility] set up for 10/07/2022 @ 1:30pm via wheelchair. Transportation form completed and placed with patient discharge packet. This adoption social worker updated patient and medical team on discharge time. [facility] updated on discharge time as well. Proposed discharge date: 10/07/2022 PLAN: [facility]. Nolan JIMENEZ, CHRISTOPHER-S
[2022-10-06 15:58] VITALS: BP 119/70; PULSE 80; RESP 14; TEMP 36.6; O2SAT 95
[2022-10-06] MEDS: oxyCODONE 5 MG Tablet PO (22:34)
[2022-10-06] MEDS: tiZANidine HCl 2 MG Tablet PO (22:35)
[2022-10-07 05:20] VITALS: PULSE 63; RESP 18; O2SAT 96
[2022-10-07] MEDS: Pramipexole Di-HCl 0.25 MG Tablet PO ×2 (05:44→12:59)
[2022-10-07] MEDS: Pantoprazole Sodium 40 MG Tablet PO (05:44)
[2022-10-07] MEDS: Enoxaparin 40 MG/0.4 ML Syringe SC (05:44)
[2022-10-07] MEDS: Triamcinolone 0.5% Cream 1 APPLIC TOPICAL (05:45)
[2022-10-07] MEDS: Menthol/Lanolin/Calamine/Znox 113 GM Tube 1 APPLIC TOPICAL (05:51)
[2022-10-07] MEDS: Nystatin Powder 15gm Bottle 1 APPLIC TOPICAL ×2 (05:52→12:53)
[2022-10-07 05:58] VITALS: BMI 30.2
[2022-10-07 08:33] VITALS: BP 136/74; PULSE 78
[2022-10-07] MEDS: Calcium (Elemental) 500 MG Tablet PO (08:33)
[2022-10-07] MEDS: Metoprolol(XL)Succ 100 MG Tablet PO (08:33)
[2022-10-07] MEDS: Gabapentin 300 MG Capsule PO (08:37)
[2022-10-07 08:41] VITALS: BP 136/74; PULSE 78
[2022-10-07] MEDS: traMADol 50 MG Tablet PO (12:57)
[2022-10-07 13:00] VITALS: BP 141/77; PULSE 74; RESP 14; TEMP 35.7; O2SAT 97
== END 2022-10-07 15:05 | disposition intermediate care facility (04) | DRG 561 ==
PROVIDERS: Admitting Provider Family Medicine Geriatric Medicine; PCP Family Medicine Geriatric Medicine; Visit Provider Family Medicine Geriatric Medicine
DX: M84.363 Stress fracture, right fibula (principal); M41.25 Other idiopathic scoliosis, thoracolumbar region; G62.9 Polyneuropathy, unspecified; G25.81 Restless legs syndrome; E78.5 Hyperlipidemia, unspecified; B35.4 Tinea corporis; I10 Essential (primary) hypertension; K21.9 Gastro-esophageal reflux disease without esophagitis; I25.10 Atherosclerotic heart disease of native coronary artery without angina pectoris; Z79.899 Other long term (current) drug therapy
CPT/HCPCS: 36415; 80048; 85025; 92507; 92523; 97110; 97116; 97129; 97130; 97162; 97166; 97530; 97535

== ENCOUNTER → 2022-10-24 | Outpatient (REF) | payer MEDICARE, SELFPAY ==
[2019-02-26 14:07] VITALS: BMI 34.7
[2022-10-24 09:03] LABS: Hematocrit 37.4 % (37-47); Hemoglobin 11.8 g/dL (12.0-15.0); Mean Corp Hgb Conc 31.6 g/dL (32-36); Mean Corpuscular Hgb 28.9 pg (27.0-32.0); Mean Corpuscular Volume 91.7 fL (81-99); Mean Platelet Vol. 8.8 fl (6.2-12.0); Platelet Count 261 K/mm3 (150-450); RBC Distribution Width CV 14.5 % (11.6-14.6); RBC Distribution Width SD 48.7 fl (35.1-43.9); Red Blood Count 4.08 M/mm3 (4.2-5.4); White Blood Count 5.2 K/mm3 (4.4-11.0)
[2022-10-24 09:19] LABS: Anion Gap 5 (5-15); BUN 14 mg/dL (7-18); BUN/Creat Ratio 22.6 RATIO (10-20); Calcium,Total 8.9 mg/dL (8.5-10.1); Chloride 105 mmol/L (98-107); Creatinine, Serum 0.62 mg/dL (0.55-1.02); EST Glomerular Filtration Rate 100 mL/min (>60); Est Glom Filt Rate - Afr Amer 121 mL/min (>60); Glucose 110 mg/dL (74-106); Sodium Level 138 mmol/L (136-145)
[2022-10-24 09:21] LABS: Vitamin D,25 Hydroxy 44.3 ng/mL
== END ==
LOC: OLS.WCC 04:00
PROVIDERS: PCP Family Medicine Geriatric Medicine; Referring Provider Family Medicine; Visit Provider Family Medicine
DX: D64.9 Anemia, unspecified (principal); E55.9 Vitamin D deficiency, unspecified; I10 Essential (primary) hypertension; E78.5 Hyperlipidemia, unspecified
CPT/HCPCS: 36415; 80048; 82306; 85027